=== PATIENT | male | born 1940 | race Caucasian/White ===

== ENCOUNTER 2020-03-20 10:56 | Outpatient (REF) | payer MEDICARE, SELFPAY | END 2020-03-20 10:57 | disposition home or self-care (01) | LOC: HO.WFDLDS 10:56 | PROVIDERS: Visit Provider Internal Medicine | DX: Z20.828 Contact with and (suspected) exposure to other viral communicable diseases (principal) | CPT/HCPCS: C9803; U0003 ==

== ENCOUNTER 2020-04-10 10:00 | Outpatient (REF) | payer OTHER, MEDICARE, SELFPAY ==
--- NOTE | 2020-04-10 | US_ITS ---
EXAMINATION: US RETROPERITONEAL LIMITED (RENAL ONLY) CLINICAL INFORMATION: Malignant neoplasm of kidney. COMPARISON: CT abdomen and pelvis 07/06/2019. TECHNIQUE: Real-time imaging of the kidneys. FINDINGS: RIGHT KIDNEY: 10.9 x 5.9 x 6.1 cm (SAG x AP x TRV). The kidney is normal in size, contour, and echogenicity. Renal cortical thickness is normal. No renal calculi or hydronephrosis. There is an anechoic cyst in the midpole measuring 2.4 x 2.0 x 2.5 cm and a mass in the upper pole measuring 3.0 x 2.4 x 2.7 cm. LEFT KIDNEY: 11.3 x 5.3 x 5.9 cm (SAG x AP x TRV). The kidney is normal in size, contour, and echogenicity. Renal cortical thickness is normal. No renal calculi or hydronephrosis. Multiple large cysts are seen with the largest cyst appearing complex in the lower pole measuring 2.6 x 2.2 x 2.2 cm. US/US renal BI IMPRESSION: 1. Multiple bilateral renal cysts. The largest cyst, lower pole left kidney, is complex measuring 2.6 cm. 2. There is a solid mass in the upper pole of the right kidney measuring 3.[address] it measured 3.7 cm. 3. No echogenic renal calculi or hydronephrosis.
== END 2020-04-10 10:01 | disposition home or self-care (01) ==
LOC: HO.US 10:00
PROVIDERS: Visit Provider Urology
DX: C64.9 Malignant neoplasm of unspecified kidney, except renal pelvis (principal)
CPT/HCPCS: 76775

== ENCOUNTER 2020-11-07 15:33 | Outpatient (REF) | payer OTHER, SELFPAY ==
--- NOTE | ~2020-11-07 | US_ITS ---
EXAMINATION: US RETROPERITONEAL LIMITED (RENAL ONLY) CLINICAL INFORMATION: Malignant neoplasm of kidney. COMPARISON: Renal ultrasound 04/10/2020. CT abdomen and pelvis 07/06/2019. TECHNIQUE: Real-time imaging of the kidneys. FINDINGS: RIGHT KIDNEY: 11.2 x 5.5 x 4.6 cm (SAG x AP x TRV). The kidney is normal in size, contour, and echogenicity. Renal cortical thickness is normal. There is a 2.4 x 2 x 2.5 cm cyst in the midpole that is unchanged. There is a 3 x 2.4 x 2.7 cm hypoechoic lesion in the upper pole. This is unchanged from April 2020 ultrasound. It is difficult to determine whether this represents a solid or cystic lesion. No renal calculi or hydronephrosis. LEFT KIDNEY: 11.7 x 6.4 x 4.6 cm (SAG x AP x TRV). The kidney is normal in size, contour, and echogenicity. Renal cortical thickness is normal. There are 3 cysts measuring 1.6 x 1.5 cm in the upper pole, 1.2 x 0.9 x 1.3 cm in the midpole and 2.7 x 2 x 1.7 cm in the lower pole. The latter cyst represents a complex cyst with several septations. This appears similar to previous exam. No renal calculi or hydronephrosis. US/US renal BI IMPRESSION: 3 x 2.4 x 2.7 cm hypoechoic lesion in the upper pole of the right kidney in the area of previous cryoablation. This is similar appearing to ultrasound April 2020. It is difficult to determine whether this represents a solid or cystic lesion. Follow-up contrast-enhanced CT or MRI should be considered. Bilateral renal cysts.
== END 2020-11-07 15:34 | disposition home or self-care (01) ==
LOC: HO.US 15:33
PROVIDERS: PCP Internal Medicine; Visit Provider Urology
DX: C64.9 Malignant neoplasm of unspecified kidney, except renal pelvis (principal)
CPT/HCPCS: 76775

== ENCOUNTER → 2020-11-15 15:47 | Outpatient (BNVA) | payer MEDICARE, OTHER, SELFPAY | PROVIDERS: PCP Internal Medicine; Referring Provider Internal Medicine; Visit Provider Urology | DX: Z13.89 Encounter for screening for other disorder (principal) | CPT/HCPCS: Q3014 ==

== ENCOUNTER 2021-04-08 10:11 | Outpatient (REF) | payer MEDICARE, OTHER, SELFPAY ==
[2021-04-08 12:17] LABS: Blood Urea Nitrogen 24 mg/dL (9-16)
== END 2021-04-08 10:12 | disposition home or self-care (01) ==
LOC: HO.LAB 10:11
PROVIDERS: Visit Provider Urology
DX: C64.9 Malignant neoplasm of unspecified kidney, except renal pelvis (principal)
CPT/HCPCS: 36415; 84520

== ENCOUNTER 2021-04-14 08:53 | Outpatient (REF) | payer MEDICARE, OTHER, SELFPAY ==
[2021-04-14 09:30] LABS: Estimated Glomerular Filt Rate 50
== END 2021-04-14 08:54 | disposition home or self-care (01) ==
LOC: HO.MRI 08:53
PROVIDERS: PCP Internal Medicine; Visit Provider Urology
DX: C64.9 Malignant neoplasm of unspecified kidney, except renal pelvis (principal)
CPT/HCPCS: 36415; 82565

== ENCOUNTER → 2021-06-04 15:18 | Outpatient (BNVA) | payer MEDICARE, OTHER, SELFPAY | PROVIDERS: PCP Internal Medicine; Visit Provider Urology | CPT/HCPCS: Q3014 ==

== ENCOUNTER → 2021-09-09 08:36 | Outpatient (BNVA) | payer MEDICARE, OTHER, SELFPAY | PROVIDERS: PCP Internal Medicine; Visit Provider Urology | CPT/HCPCS: Q3014 ==

== ENCOUNTER 2022-03-03 08:51 | Outpatient (REF) | payer MEDICARE, SELFPAY ==
--- NOTE | ~2022-03-03 | XR_ITS ---
EXAMINATION: XR CHEST CLINICAL INFORMATION: Malignant neoplasm of kidney COMPARISON: None TECHNIQUE: Frontal view of the chest was obtained. FINDINGS: No significant abnormality is noted involving the heart, lungs, mediastinum, bony thorax or soft tissues. There are degenerative changes of the spine. XR/XR chest 1V IMPRESSION: No evidence for acute disease in the chest.
== END 2022-03-03 08:52 | disposition home or self-care (01) ==
LOC: HO.XRAY 08:51
PROVIDERS: PCP Internal Medicine; Visit Provider Urology
DX: C64.9 Malignant neoplasm of unspecified kidney, except renal pelvis (principal)
CPT/HCPCS: 71045

== ENCOUNTER → 2022-03-12 09:32 | Outpatient (BNVA) | payer MEDICARE, SELFPAY | PROVIDERS: PCP Internal Medicine; Visit Provider Urology | DX: C64.9 Malignant neoplasm of unspecified kidney, except renal pelvis (principal) | CPT/HCPCS: 99212 ==

== ENCOUNTER 2022-08-21 13:11 | Outpatient (REF) | payer MEDICARE, SELFPAY ==
--- NOTE | ~2022-08-21 | US_ITS ---
EXAMINATION: US RETROPERITONEAL LIMITED (RENAL ONLY) CLINICAL INFORMATION: Malignant neoplasm of unspecified kidney, except renal pelvis. COMPARISON: MRI abdomen 08/16/2021. Renal ultrasound 11/07/2020 TECHNIQUE: Real-time imaging of the kidneys. FINDINGS: RIGHT KIDNEY: 10.9 x 5.4 x 4.4 cm (SAG x AP x TRV). The kidney is normal in size, contour, and echogenicity. Renal cortical thickness is normal. No renal calculi or hydronephrosis. Benign appearing 3.2 cm renal cyst, no imaging follow-up recommended. Isoechoic solid mass in the upper pole measuring 2.7 x 2.2 x 2.7 cm, previously 3.0 x 2.4 x 2.7 cm similar to minimally decreased from prior ultrasound which may correspond to site of prior cryoablation. There is a new hypoechoic 1.3 x 1.1 x 1.2 cm possible solid mass not previously seen. LEFT KIDNEY: 10.8 x 5.5 x 4.7 cm (SAG x AP x TRV). The kidney is normal in size, contour, and echogenicity. Renal cortical thickness is normal. No renal calculi or hydronephrosis. Benign-appearing renal cysts measuring up to 2.4 centers, no imaging follow-up recommended. US/US renal BI IMPRESSION: There is a new 1.3 cm possible solid right renal mass not previously seen multiple which further evaluation with contrast-enhanced MR or CT renal mass protocol is recommended. A 2.7 cm isoechoic solid mass in the upper pole of the right kidney similar to minimally decreased from prior ultrasound which may correspond to site of prior cryoablation. Attention on follow-up imaging. The report will be called to the ordering clinician by a [facility] Phys[facility] Preparation Department Supervisor.
== END 2022-08-21 13:12 | disposition home or self-care (01) ==
LOC: HO.US 13:11
PROVIDERS: PCP Internal Medicine; Visit Provider Urology
DX: C64.9 Malignant neoplasm of unspecified kidney, except renal pelvis (principal)
CPT/HCPCS: 76775

== ENCOUNTER → 2022-09-08 11:25 | Outpatient (BNVA) | payer MEDICARE, SELFPAY | PROVIDERS: PCP Internal Medicine; Visit Provider Urology | DX: C64.9 Malignant neoplasm of unspecified kidney, except renal pelvis (principal) | CPT/HCPCS: 99212 ==

== ENCOUNTER 2023-02-12 04:02 | Emergency (ER) | payer MEDICARE, SELFPAY ==
[2023-02-12 04:08] VITALS: BP 148/83; PULSE 43; RESP 18; TEMP 36.5; O2SAT 98; BMI 33.5
--- NOTE | 2023-02-12 04:38 | ED.EXTPRO ---
HPI - Extremity Problem General Chief complaint: Extremity Problem Stated complaint: Gout Time Seen by Provider: 02/12/23 04:37 Source: patient Mode of arrival: ambulatory Limitations: no limitations History of Present Illness HPI Narrative: Patient history of gouty arthritis with frequent episodes last episode was 6 months ago on allopurinol woke up at 01:30 with pain in the right greater toe radiating to the dorsum of the right foot no trauma no open wound patient does have a irregular heartbeats plan to have pacemaker placed next week denies any kidney issues was at [facility] last week for cardiac problem Related Data Home Medications Medication Instructions Recorded Confirmed allopurinol 100 mg tablet 100 mg PO BID 10/04/20 10/08/22 cholecalciferol (vitamin D3) 325 4,000 mcg PO DAILY 10/04/20 10/08/22 mcg (13,000 unit) capsule dorzolamide 2 % eye drops 1 drp ophthalmic (eye) BID 10/04/20 10/08/22 fexofenadine 180 mg tablet 180 mg PO DAILY 10/04/20 10/08/22 (Marline Allergy) furosemide 40 mg tablet 40 mg PO DAILY 10/04/20 10/08/22 insulin aspart U-100 100 unit/mL 1 sliding scale dose subcut 10/04/20 10/08/22 subcutaneous cartridge USEASDIRECTD insulin glargine 100 unit/mL (3 50 unit subcut DAILY 10/04/20 10/08/22 mL) subcutaneous pen ipratropium 20 mcg-albuterol 100 1 puff inhalation Q6H 10/04/20 10/08/22 mcg/actuation mist for inhalation latanoprost 0.005 % eye drops 1 drp ophthalmic (eye) BEDTIME 10/04/20 10/08/22 lisinopril 40 mg tablet 40 mg PO DAILY 10/04/20 10/08/22 rosuvastatin 40 mg tablet 40 mg PO DAILY 10/04/20 10/08/22 dorzolamide 22.3 mg-timolol 6.8 1 drp ophthalmic (eye) BID 09/09/21 10/08/22 mg/mL eye drops aspirin 81 mg tablet,delayed 81 mg PO DAILY 03/12/22 10/08/22 release (Adult Low Dose Aspirin) Previous Rx's Medication Instructions Recorded omeprazole 20 mg capsule,delayed 20 mg PO QAM #90 caps 01/13/22 release fluoxetine 20 mg capsule 20 mg PO DAILY #90 caps 08/26/22 ibuprofen 600 mg tablet 600 mg PO Q6H PRN fever or pain 02/12/23 #30 tabs prednisone 20 mg tablet 40 mg (2 x 20 mg) PO DAILY #10 tabs 02/12/23 Allergies Allergy/AdvReac Type Severity Reaction Status Date / Time Iodinated Contrast Media Allergy Severe Unknown Verified 02/12/23 04:12 atorvastatin Allergy Unknown Unknown Verified 02/12/23 04:12 ezetimibe [Zetia] Allergy Unknown Unknown Verified 02/12/23 04:12 niacin Allergy Unknown Unknown Verified 02/12/23 04:12 simvastatin Allergy Unknown Unknown Verified 02/12/23 04:12 Review of Systems Review of Systems: Yes all other systems are reviewed and are negative [facility] Past Medical History Medical History Obesity High blood pressure High cholesterol Diabetes Surgical History History of prostate surgery H/O cataract removal with insertion of prosthetic lens Family History Family History Mother Colon cancer Social History Social History Housing: House Alcohol intake: former Patient Tobacco Use Status: Former Tobacco user Tobacco use type: Cigarette Years Smoked: 10 e-Cigarette/Vaping Use: Never Used Second Hand Smoke Exposure: No Advance Directives: No Advance Directives Information Provided: Yes service: Yes Current occupational status: retired Cognitive needs: No Hearing needs: No Vision needs: No Physical Exam Vital Signs: Vital Signs: Last Vital Signs Temp 97.7 F 02/12/23 05:01 Pulse 73 02/12/23 05:01 Resp 16 02/12/23 05:01 BP 155/66 H 02/12/23 05:01 Pulse Ox 97 02/12/23 05:01 O2 Del Method Room Air 02/12/23 05:01 BMI result Body Mass Index 33.5 Appearance: Alert. Oriented X3. No acute distress. ENT: Pharynx normal. Oral Mucosa moist Neck: Normal inspection. Neck supple. CVS: Irregular heartbeat with skipped beats Pulses normal. Respiratory: No respiratory distress. Equal air entry bilateral, no wheezing/rales/rhonchi Abdomen: Soft and nontender. Bowel sounds are present, no mass palpable, no CVA tenderness Skin: Skin warm and dry. Normal skin color. Normal skin turgor. Extremities: No lower extremity edema. No calf tenderness right greater toe diffuse tenderness at MTP joint without significant redness or swelling neurovascular intact Neuro: Oriented X 3. No motor deficit. No sensory deficit.No cerebellar signs , cranial nerves II-XII intact Medications Administered Discontinued Medications Generic Name Dose Route Start Last Admin Trade Name Freq PRN Reason Stop Dose Admin Prednisone 60 mg 02/12/23 04:37 02/12/23 04:52 Prednisone 20 Mg Tablet PO 02/12/23 04:38 60 mg ONCE ONE Administration Medical Decision Making Medical Decision Making MDM Narrative: Patient with known history of gout responded to prednisone discharge patient home on prednisone and ibuprofen Differential Diagnosis Differential Diagnoses: The differential diagnosis associated with the presentation includes Gout/arthritis Independent Interpretation I performed an independent interpretation of an: EKG Interpretation: Sinus rhythm heart rate 59 beats per minute 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 no acute ischemic changes Discharge Plan Discharge Clinical Impression: Gout Patient Disposition: Home, Self-Care Instructions: Gout (ED) Additional Instructions: Take the allopurinol as prescribed Prednisone for 5 days for acute pain Ibuprofen for anti inflammation You may have to increase the dose of insulin as prednisone will increase your blood glucose Follow-up with PCP Prescriptions: New prednisone 20 mg tablet 40 mg PO DAILY Qty: 10 0RF ibuprofen 600 mg tablet 600 mg PO Q6H PRN (Reason: fever or pain) Qty: 30 0RF No Action omeprazole 20 mg capsule,delayed release(DR/EC) 20 mg PO QAM Qty: 90 8RF fluoxetine 20 mg capsule 20 mg PO DAILY Qty: 90 8RF latanoprost 0.005 % drops 1 drp ophthalmic (eye) BEDTIME lisinopril 40 mg tablet 40 mg PO DAILY furosemide 40 mg tablet 40 mg PO DAILY allopurinol 100 mg tablet 100 mg PO BID rosuvastatin 40 mg tablet 40 mg PO DAILY ipratropium-albuterol 20-100 mcg/actuation mist 1 puff inhalation Q6H dorzolamide 2 % drops 1 drp ophthalmic (eye) BID insulin glargine 100 unit/mL (3 mL) insulin pen 50 unit subcut DAILY insulin aspart U-100 100 unit/mL cartridge 1 sliding scale dose subcut USEASDIRECTD Patient Comments: 4 times a day. cholecalciferol (vitamin D3) 325 mcg (13,000 unit) capsule 4,000 mcg PO DAILY fexofenadine [Marline Allergy] 180 mg tablet 180 mg PO DAILY aspirin [Adult Low Dose Aspirin] 81 mg tablet,delayed release (DR/EC) 81 mg PO DAILY dorzolamide-timolol 22.3-6.8 mg/mL drops 1 drp ophthalmic (eye) BID
[2023-02-12 05:01] VITALS: BP 155/66; PULSE 73; RESP 16; TEMP 36.5; O2SAT 97
== END 2023-02-12 05:35 | disposition home or self-care (01) ==
PROVIDERS: Emergency Provider Internal Medicine
DX: M10.9 Gout, unspecified (principal); M79.674 Pain in right toe(s); E11.9 Type 2 diabetes mellitus without complications; I10 Essential (primary) hypertension; E78.5 Hyperlipidemia, unspecified; Z79.4 Long term (current) use of insulin; Z79.82 Long term (current) use of aspirin; Z79.899 Other long term (current) drug therapy
CPT/HCPCS: 93005; 99283; 99284

== ENCOUNTER 2023-03-11 11:17 | Outpatient (AMB) | payer MEDICARE, SELFPAY ==
--- NOTE | 2023-03-11 11:22 | A.OFFVIS_ITS ---
Intake Intake Visit Reasons: 6m/MRI Intake Note: Patient is present for renal cancer follow up/patient did not have MRI Urology Med: None Antibiotic Allergy: None Blood Thinner: Aspirin Disability Rater Required: No Accompanied by: Self / Same As Patient Allergies Iodinated Contrast Media Allergy (Severe, Verified 05/11/23 10:28) Unknown atorvastatin Allergy (Unknown, Verified 05/11/23 10:28) Unknown ezetimibe [Zetia] Allergy (Unknown, Verified 05/11/23 10:28) Unknown niacin Allergy (Unknown, Verified 05/11/23 10:28) Unknown simvastatin Allergy (Unknown, Verified 05/11/23 10:28) Unknown HPI HPI Comments History of Present Illness Details Sukh is a pleasant male. He is a patient Dr. Grove. seen for the following urologic conditions - renal cancer CT imaging performed - MRI not approved - right renal 3 cm area ablation Renal cancer right side cryoablation January 2019 right-sided renal cancer detected incidentally cryoablation performed January 2019 Imaging - [address] scan mass r eduction - 10/28 renal ultrasound with multiple c ysts bilaterally - 08/29 MRI - bilateral simple cyst stab le in size, right renal post ablation area 3.2 cm down from 4.5 at initial diagnosis - 02/28 CXR NAD Six month follow-up [facility] Medical History Obesity High blood pressure High cholesterol Diabetes Surgical History History of prostate surgery H/O cataract removal with insertion of prosthetic lens Family History Mother Colon cancer Social History Housing: House Alcohol intake: former Patient Tobacco Use Status: Former Tobacco user Tobacco use type: Cigarette Years Smoked: 10 e-Cigarette/Vaping Use: Never Used Second Hand Smoke Exposure: No service: Yes Current occupational status: retired Cognitive needs: No Hearing needs: No Vision needs: No Review of Systems Const Denies chills and Denies fever(s) Card Reports no additional complaints and Denies syncope Resp Denies cough GI Denies abdominal pain and Denies heartburn Reports as per HPI and Denies change in libido Neuro Denies syncope Psych Denies change in libido Endo Denies change in libido Physical Exam Const General: cooperative, healthy appearing, comfortable and no acute distress Orientation/consciousness: patient oriented x3 HEENT Face and sinus: Yes normal facial exam Mouth: moist mucous membranes Neck Neck: Yes normal visual inspection, Yes full ROM and Yes trachea midline Chest Chest palpation & inspection: normal inspection of the chest Resp Effort & Inspection: normal respiratory effort, able to speak in complete sentences and no respiratory distress GI Inspection: Yes normal to inspection Back/Spine/Pelvis Cervical Spine: normal cervical lordosis Thoracic/Lumbar Spine: thoracic and lumbar spine normal to inspection Skin General skin exam: no rashes or lesions noted Neuro General: patient oriented x3, gait normal, tone normal and moves all extremities Extrem General: Yes normal to inspection and Yes capillary refill normal Assessment & Plan Assessment & Plan (1) Renal cancer: Comment: 01/28 right cryotherapy were Code(s): C64.9 - Malignant neoplasm of unspecified kidney, except renal pelvis Qualifiers: Laterality: right Qualified Code(s): C64.1 - Malignant neoplasm of right kidney, except renal pelvis Plan Continue surveillance imaging Orders: Orders US renal BI 6 Months C64.9 - Malignant neoplasm of unspecified kidney, except renal pelvis Patient Instructions: Imaging studies, laboratory and physical exam results were discussed and reviewed in detail. No major barriers to patient understanding were identified. An opportunity to ask questions regarding the treatment plan was provided. All questions were answered. The patient expressed understanding and agreement with the above treatment plan. The patient is aware they should contact our office by phone for worsening of their current condition or the appearance of new urologic symptoms. Compliance is encouraged with any medications and followup testing that is ordered. It is a privilege to participate in the urologic care of your patient. If you have any questions or concerns regarding treatment for the above conditions, or other urologic issues, please do not hesitate to contact me. The office telephone contact is [phone]. This note is constructed using voice recognition software. While every effort has been made to ensure accuracy gl accountant errors may have been included. Yours sincerely, Dr Geremias Hansen MD, [facility] - Urology Providers of Expert, Compassionate Care for the Genitourinary System Coding Level of Care Code Est Pt Level 3 (54756) Diagnoses Malignant neoplasm of right kidney C64.1 Laterality: right
== END 2023-03-11 12:25 | disposition home or self-care (01) ==
PROVIDERS: Visit Provider Urology
DX: C64.1 Malignant neoplasm of right kidney, except renal pelvis (principal)
CPT/HCPCS: 99213

== ENCOUNTER → 2023-03-11 11:17 | Outpatient (BNVA) | payer MEDICARE, SELFPAY | PROVIDERS: Visit Provider Urology | DX: C64.1 Malignant neoplasm of right kidney, except renal pelvis (principal) | CPT/HCPCS: 99212 ==

== ENCOUNTER 2023-03-18 19:03 | Emergency (ER) | payer MEDICARE, SELFPAY ==
--- NOTE | ~2023-03-18 | XR_ITS ---
EXAMINATION: XR CHEST CLINICAL INFORMATION: Shortness of breath. COMPARISON: Chest radiograph 03/03/2022. TECHNIQUE: AP view of the chest was obtained. FINDINGS: Left-sided pacer with leads projecting over the right atrium and right ventricle. Normal heart size. No focal airspace opacity, pleural effusion or pneumothorax. No acute osseous findings. XR/XR chest 1V IMPRESSION: No acute cardiopulmonary findings.
--- NOTE | 2023-03-18 19:15 | ECG_ITS ---
Test Reason : SOB Blood Pressure : / mmHG Vent. Rate : 078 BPM Atrial Rate : 078 BPM P-R Int : 202 ms QRS Dur : 100 ms QT Int : 372 ms P-R-T Axes : 070 044 048 degrees QTc Int : 424 ms Atrial-sensed ventricular-paced rhythm Abnormal ECG When compared with ECG of 12-FEB-2023 04:57, Electronic ventricular pacemaker has replaced Sinus rhythm Referred By: Generic ED Physician Electronically Signed By:SHU ALVAREZ MD
[2023-03-18 19:18] VITALS: BP 149/62; PULSE 88; RESP 22; TEMP 36.5; O2SAT 95; BMI 33.5
--- NOTE | 2023-03-18 19:36 | PC.NURSE ---
pt transferred to overflow unit, Sam LEDEZMA recived report from Amelie Charge nurse
[2023-03-18 20:00] LABS: MANUAL DIFF FLAG NO
[2023-03-18 20:03] LABS: Appearance Urine Clear; Color Urine Yellow; Glucose Urine UA Negative (Negative); Leukocyte Esterase Urine Negative (Negative); Nitrite Urine Negative (Negative); PH 6.5 (5.0-9.0); Urine Blood Negative (Negative); Urine Ketones Negative (Negative); Urine Protein Negative (Neg-Trace)
[2023-03-18 20:14] LABS: Basophils Percent Auto 0.3 % (0-2); Eosinophils Absolute Auto 0.3 X10*3/uL (0.0-0.4); Eosinophils Percent Auto 2.7 % (0-4); Hematocrit 37.9 % (42.0-52.0); Hemoglobin 12.7 g/dl (14.0-18.0); Imm Gran Abs Auto 0.03 X10*3/uL (0.00-0.03); Imm Gran Pct Auto 0.3 % (0.0-0.4); Lymphocytes Absolute Auto 4.3 X10*3/uL (1.2-4.9); Lymphocytes Percent Auto 38.9 % (20-40); Mean Corpuscular HGB Conc 33.5 g/dl (31.0-36.0); Mean Corpuscular Hemoglobin 32.7 pg (27.0-33.0); Mean Corpuscular Volume 97.7 fL (80.0-98.0); Mean Platelet Volume 10.3 fL (9.4-12.4); Monocytes Absolute Auto 0.8 X10*3/uL (0.1-1.2); Monocytes Percent Auto 7.1 % (2-11); Neutrophils Absolute Auto 5.5 x10*3/uL (2.0-8.3); Neutrophils Percent Auto 50.7 % (45-73); Platelet Count 296 X10*3/uL (160-400); Red Blood Count 3.88 X10*6/uL (4.60-5.80); Red Cell Distribution Width 12.7 % (11.0-16.0); White Blood Count 10.9 X10*3/uL (4.8-10.8)
[2023-03-18 20:16] LABS: Alanine Aminotransferase 24 U/L (0-40); Alkaline Phosphatase 83 U/L (39-117); Anion Gap 14 (12-20); Aspartate Amino Transferase 22 U/L (5-37); Bilirubin Total 0.3 mg/dL (0.0-1.0); Blood Urea Nitrogen 30 mg/dL (9-16); Calcium 9.6 mg/dL (8.4-10.2); Carbon Dioxide 26 mmol/L (22-29); Chloride 104 mmol/L (96-108); Creatinine Clr Calc Pharmacy 58.9; Estimated Glomerular Filt Rate 50; Glucose Random 220 mg/dL (60-115); Potassium 4.1 mmol/L (3.3-5.1); Sodium 140 mmol/L (135-145); Total Protein 6.9 g/dL (6.5-8.0)
--- NOTE | 2023-03-18 20:35 | ED.SOB ---
HPI - SOB/Dyspnea General Chief Complaint: Dyspnea Stated Complaint: SOB X 1 HOUR AGO Time Seen by Provider: 03/18/23 20:11 Source: patient Mode of arrival: EMS Limitations: no limitations History of Present Illness HPI Narrative: patient comes to the emergency room complaining of shortness of breath for a few hours. Patient states that today he walked from his kitchen towards the mailbox, return to the kitchen and walked up couple of steps. Patient states that he was significantly short of breath. bedtime the patient of to the emergency room, patient was asymptomatic. Related Data Home Medications Medication Instructions Recorded Confirmed allopurinol 100 mg tablet 100 mg PO BID 10/04/20 10/08/22 cholecalciferol (vitamin D3) 325 4,000 mcg PO DAILY 10/04/20 10/08/22 mcg (13,000 unit) capsule dorzolamide 2 % eye drops 1 drp ophthalmic (eye) BID 10/04/20 10/08/22 fexofenadine 180 mg tablet 180 mg PO DAILY 10/04/20 10/08/22 (Marline Allergy) furosemide 40 mg tablet 40 mg PO DAILY 10/04/20 10/08/22 insulin aspart U-100 100 unit/mL 1 sliding scale dose subcut 10/04/20 10/08/22 subcutaneous cartridge USEASDIRECTD insulin glargine 100 unit/mL (3 50 unit subcut DAILY 10/04/20 10/08/22 mL) subcutaneous pen ipratropium 20 mcg-albuterol 100 1 puff inhalation Q6H 10/04/20 10/08/22 mcg/actuation mist for inhalation latanoprost 0.005 % eye drops 1 drp ophthalmic (eye) BEDTIME 10/04/20 10/08/22 lisinopril 40 mg tablet 40 mg PO DAILY 10/04/20 10/08/22 rosuvastatin 40 mg tablet 40 mg PO DAILY 10/04/20 10/08/22 dorzolamide 22.3 mg-timolol 6.8 1 drp ophthalmic (eye) BID 09/09/21 10/08/22 mg/mL eye drops aspirin 81 mg tablet,delayed 81 mg PO DAILY 03/12/22 10/08/22 release (Adult Low Dose Aspirin) apixaban 5 mg tablet (Eliquis) 5 mg PO DAILY 03/11/23 duloxetine 20 mg capsule,delayed 20 mg PO BID 03/11/23 release Previous Rx's Medication Instructions Recorded fluoxetine 20 mg capsule 20 mg PO DAILY #90 caps 08/26/22 ibuprofen 600 mg tablet 600 mg PO Q6H PRN fever or pain 02/12/23 #30 tabs omeprazole 20 mg capsule,delayed 20 mg PO QAM #90 caps 03/16/23 release Allergies Allergy/AdvReac Type Severity Reaction Status Date / Time Iodinated Contrast Media Allergy Severe Unknown Verified 03/11/23 11: atorvastatin Allergy Unknown Unknown Verified 03/11/23 11: ezetimibe [Zetia] Allergy Unknown Unknown Verified 03/11/23 11: niacin Allergy Unknown Unknown Verified 03/11/23: simvastatin Allergy Unknown Unknown Verified 03/11/23: Review of Systems Review of Systems: Constitutional : No Weight loss, No Fever, No Chills, No Night Sweats, No Fatigue, No Malaise ENT/Mouth : No Hearing loss, No Ear Pain, No Nasal Congestion, No Sinus Pain, No Hoarseness, No sore throat, No Rhinorrhea, No Swallowing Difficulty Eyes: No Eye Pain, No Swelling, No Redness, No Foreign Body, No Discharge, No Vision Changes Cardiovascular : No Chest Pain, Complaining of palpitations shortness of breath Respiratory : No Cough, No Sputum, No Wheezing, No Smoke Exposure, No Dyspnea Gastrointestinal : No Nausea, No Vomiting, No Diarrhea, No Constipation, No abdominal Pain, No Hematochezia, No Melena Genitourinary : no irregular bleeding, No Dysuria, No Urinary Frequency, No Hematuria, No Urinary Incontinence, No Urgency, No Flank Pain, No Urinary Flow Changes, No Hesitancy Musculoskeletal : No joint pain, No Myalgias, No Joint Swelling Skin : No Skin Lesions, No rash Neuro : No Weakness, No Numbness, No Paresthesias, No Loss of Consciousness, No Dizziness, No Headache Psych : No Anxiety/Panic, No Depression, No SI/HI/AH/VH, No Social Issues, Heme/Lymph: No Bruising, No Bleeding,No Lymphadenopathy Endocrine : No Polyuria, No Polydipsia, No Temperature Intolerance PMFSH Past Medical History Medical History Obesity High blood pressure High cholesterol Diabetes Surgical History History of prostate surgery H/O cataract removal with insertion of prosthetic lens Family History Family History Mother Colon cancer Social History Social History Housing: House Alcohol intake: former Patient Tobacco Use Status: Former Tobacco user Tobacco use type: Cigarette Years Smoked: 10 Smoked in Last 30 Days: No e-Cigarette/Vaping Use: Never Used Second Hand Smoke Exposure: No Use of substances other than those prescribed or required for medical reasons: No Advance Directives: No Advance Directives Information Provided: No service: Yes Current occupational status: retired Cognitive needs: No Hearing needs: No Vision needs: No Physical Exam Vital Signs: Vital Signs: Last Vital Signs Temp 98.2 F 03/18/23 22:03 Pulse 80 03/18/23 22:03 Resp 18 03/18/23 22:03 BP 104/68 03/18/23 22:03 Pulse Ox 98 03/18/23 22:03 O2 Del Method Room Air 03/18/23 22:03 BMI result Body Mass Index 33.5 Const: Other: Appearance: Alert. Oriented X3. No acute distress. Eyes: Pupils equal, round and reactive to light. ENT: Pharynx normal. Neck: Normal inspection. Neck supple. No lymph nodes noted. No crepitus CVS: Normal heart rate and rhythm. Pulses normal. Normal S1 and S2 Respiratory: No respiratory distress. Breath sounds normal. No Wheezing. No rales Abdomen: Soft and nontender. No rigidity. No distention. Skin: Skin warm and dry. Normal skin color. Normal skin turgor. Extremities: No lower extremity edema. No Lacerations. No Rash Neuro: Oriented X 3. No motor deficit. No sensory deficit. Moving all extremities. No slurred speech. CN 2 through 12 grossly intact Psych: calm, cooperative, normal affect Medical Decision Making Medical Decision Making MDM Narrative: - my interpretation of EKG: atrial sensed ventricular paced rhythm, 178, no ST changes, QTC 424 - my interpretation of chest x-ray: no pneumonia or edema - my interpretation of labs: Normal hematology and chemistry, normal BNP and troponin. - Orthostatic vitals were normal, patient walked around the emergency room with an oxygen saturation of 95% without feeling short of breath. - I discussed the above-mentioned with the patient. Patient states that he is suspicious that he might have had a panic attack. Patient states that he was working in the years ago, patient does not do well with the dark. Patient states that when he walked outside to get the mail, he noted how dark it was not started feeling uncomfortable because of the darkness. Patient states that he has noted that he has the symptoms when it is dark. also, patient states that now his lives in a [employer] time [employer], patient is now living by himself which makes his symptoms worse - Patient has never spoken to his primary care provider about his fear of darkness. Patient states that he has an appointment coming up at the [facility], he will address this issue. -Patient feels comfortable returning home Differential Diagnosis Differential Diagnoses: The differential diagnosis associated with the presentation includes ( ACS, CHF, unstable angina, anxiety, nyctophobia) Admission/Observation Consideration of admission/observation: Escalation of care including admission/observation considered ( given the patient's initial presentation and history, admission was considered) Lab Data MDM Lab Attestation statement: I reviewed the patient's lab results. 03/18/23 19:53 03/18/23 19:53 Labs: Lab Results 03/18/23 Range/Units 19:53 WBC 10.9 H (4.8-10.8) X10*3/uL RBC 3.88 L (4.60-5.80) X10*6/uL Hgb 12.7 L (14.0-18.0) g/dl Hct 37.9 L (42.0-52.0) % MCV 97.7 (80.0-98.0) fL MCH 32.7 (27.0-33.0) pg MCHC 33.5 (31.0-36.0) g/dl RDW 12.7 (11.0-16.0) % Plt Count 296 (160-400) X10*3/uL MPV 10.3 (9.4-12.4) fL Immature Gran % (Auto) 0.3 (0.0-0.4) % Neut % (Auto) 50.7 (45-73) % Lymph % (Auto) 38.9 (20-40) % Faulk % (Auto) 7.1 (2-11) % Eos % (Auto) 2.7 (0-4) % Baso % (Auto) 0.3 (0-2) % Lymph # (Auto) 4.3 (1.2-4.9) X10*3/uL Faulk # (Auto) 0.8 (0.1-1.2) X10*3/uL Eos # (Auto) 0.3 (0.0-0.4) X10*3/uL Baso # (Auto) 0.0 (0.0-0.2) X10*3/uL Abs Immat Gran (auto) 0.03 (0.00-0.03) X10*3/uL Absolute Neuts (auto) 5.5 (2.0-8.3) x10*3/uL Absolute Nucleated RBC 0.000 (0.0-0.012) X10*3/uL Nucleated RBC % (auto) 0.0 (0.0-0.2) /100WBC Sodium 140 (135-145) mmol/L Potassium 4.1 (3.3-5.1) mmol/L Chloride 104 (96-108) mmol/L Carbon Dioxide 26 (22-29) mmol/L Anion Gap 14 (12-20) BUN 30 H (9-16) mg/dL Creatinine 1.37 (0.5-1.4) mg/dL Estim Creat Clear Calc 58.9 Estimated GFR 50 Random Glucose 220 H (60-115) mg/dL Calcium 9.6 (8.4-10.2) mg/dL Total Bilirubin 0.3 (0.0-1.0) mg/dL AST 22 (5-37) U/L ALT 24 (0-40) U/L Alkaline Phosphatase 83 (39-117) U/L Troponin I High Sens 5.0 (<3.5-35.0) ng/L B-Natriuretic Peptide 24 (<100) pg/mL Total Protein 6.9 (6.5-8.0) g/dL Albumin 4.0 (3.5-5.0) g/dL Urine Color Yellow Urine Appearance Clear Urine pH 6.5 (5.0-9.0) Ur Specific Nahma 1.010 (1.005-1.025) Urine Protein Negative (Neg-Trace) mg/dL Urine Glucose (UA) Negative (Negative) mg/dL Urine Ketones Negative (Negative) mg/dL Urine Blood Negative (Negative) Urine Nitrite Negative (Negative) Ur Leukocyte Esterase Negative (Negative) Independent Interpretation I performed an independent interpretation of an: EKG and Plain X-Ray Radiology Impression Discussion of test interpretation with radiology: I have reviewed the radiologist's reading. Radiologist Impression: Left-sided pacer with leads projecting over the right atrium and right ventricle. Normal heart size. No focal airspace opacity, pleural effusion or pneumothorax. No acute osseous findings. XR/XR chest 1V IMPRESSION: No acute cardiopulmonary findings. Critical Care Time Critical Care Time Critical Care Time: Yes Total Critical Care Time: 60 Attestation: I have personally provided critical care time. Time includes review of lab data, radiology results, discussion with consultants, and monitoring for potential decompensation. Intervention performed as documented. Discharge Plan Discharge Clinical Impression: Acute dyspnea, Anxiety Patient Disposition: Home, Self-Care Instructions: Dyspnea (ED), Anxiety (ED) Additional Instructions: Please follow-up with your primary care physician tomorrow. If you have any worsening or new symptoms, please return to the emergency room or call 911 Prescriptions: No Action fluoxetine 20 mg capsule 20 mg PO DAILY Qty: 90 8RF omeprazole 20 mg capsule,delayed release(DR/EC) 20 mg PO QAM Qty: 90 8RF ibuprofen 600 mg tablet 600 mg PO Q6H PRN (Reason: fever or pain) Qty: 30 0RF latanoprost 0.005 % drops 1 drp ophthalmic (eye) BEDTIME lisinopril 40 mg tablet 40 mg PO DAILY furosemide 40 mg tablet 40 mg PO DAILY allopurinol 100 mg tablet 100 mg PO BID rosuvastatin 40 mg tablet 40 mg PO DAILY ipratropium-albuterol 20-100 mcg/actuation mist 1 puff inhalation Q6H dorzolamide 2 % drops 1 drp ophthalmic (eye) BID insulin glargine 100 unit/mL (3 mL) insulin pen 50 unit subcut DAILY insulin aspart U-100 100 unit/mL cartridge 1 sliding scale dose subcut USEASDIRECTD Patient Comments: 4 times a day. cholecalciferol (vitamin D3) 325 mcg (13,000 unit) capsule 4,000 mcg PO DAILY fexofenadine [Marline Allergy] 180 mg tablet 180 mg PO DAILY aspirin [Adult Low Dose Aspirin] 81 mg tablet,delayed release (DR/EC) 81 mg PO DAILY dorzolamide-timolol 22.3-6.8 mg/mL drops 1 drp ophthalmic (eye) BID duloxetine 20 mg capsule,delayed release(DR/EC) 20 mg PO BID Eliquis 5 mg tablet 5 mg PO DAILY
[2023-03-18 20:52] LABS: B Type Natriuretic Peptide 24 pg/mL (<100)
[2023-03-18 21:46] VITALS: BP 133/79; PULSE 79
[2023-03-18 22:02] VITALS: BP 119/79; BP 120/58; PULSE 77; PULSE 98
[2023-03-18 22:03] VITALS: BP 104/68; PULSE 80; RESP 18; TEMP 36.8; O2SAT 98
--- NOTE | 2023-03-18 22:06 | MHC.EDTECH ---
Per Provider ,Pt went for a walk with a walker ,when Patient stand up 02 sat was 98 % on room air ,during walking Patient 02 sat remain between 97 -98 % ,Patient had a steady gait and was able to ambulate independently ,Patient back in bed Provider aware .
--- NOTE | 2023-03-19 01:10 | MHC.EDTECH ---
Call out to raul at [phone] to book transport for pt back home, estimated eta given was [phone]
== END 2023-03-19 01:02 | disposition home or self-care (01) ==
PROVIDERS: Emergency Provider Emergency Medicine; PCP Internal Medicine
DX: R06.00 Dyspnea, unspecified (principal); F41.9 Anxiety disorder, unspecified; E11.9 Type 2 diabetes mellitus without complications; I10 Essential (primary) hypertension; E78.00 Pure hypercholesterolemia, unspecified; K21.9 Gastro-esophageal reflux disease without esophagitis; J43.9 Emphysema, unspecified; R06.02 Shortness of breath; E66.9 Obesity, unspecified; Z68.33 Body mass index [BMI] 33.0-33.9, adult; Z87.891 Personal history of nicotine dependence; Z79.4 Long term (current) use of insulin; Z79.82 Long term (current) use of aspirin; Z79.01 Long term (current) use of anticoagulants; Z79.899 Other long term (current) drug therapy
CPT/HCPCS: 36415; 71045; 80053; 81003; 83880; 84484; 85025; 93005; 99284; 99285

== ENCOUNTER 2023-05-11 10:27 | Outpatient (AMB) | payer MEDICARE, SELFPAY ==
[2023-05-11 10:28] VITALS: BP 128/70; PULSE 73; O2SAT 97; BMI 34.1
--- NOTE | 2023-05-11 10:28 | A.OFFPC_ITS ---
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: Not Required per policy Accompanied by: Self / Same As Patient Allergies Iodinated Contrast Media Allergy (Severe, Verified 05/11/23 10:28) Unknown atorvastatin Allergy (Unknown, Verified 05/11/23 10:28) Unknown ezetimibe [Zetia] Allergy (Unknown, Verified 05/11/23 10:28) Unknown niacin Allergy (Unknown, Verified 05/11/23 10:28) Unknown simvastatin Allergy (Unknown, Verified 05/11/23 10:28) Unknown Medication List - Last Reconciled 05/11/23 by Benedicto Grove MD allopurinol 100 mg PO BID apixaban (Eliquis) 5 mg PO DAILY aspirin (Adult Low Dose Aspirin) 81 mg PO DAILY cholecalciferol (vitamin D3) 4,000 mcg PO DAILY dorzolamide 2% 1 drp ophthalmic (eye) BID dorzolamide-timolol 22.3-6.8 mg/mL 1 drp ophthalmic (eye) BID duloxetine 20 mg PO BID fexofenadine (Marline Allergy) 180 mg PO DAILY fluoxetine 20 mg PO DAILY furosemide 40 mg PO DAILY ibuprofen 600 mg PO Q6H PRN insulin aspart U-100 1 sliding scale dose subcut USEASDIRECTD insulin glargine 50 units subcut DAILY ipratropium-albuterol 20-100 mcg/actuation 1 puff inhalation Q6H latanoprost 0.005% 1 drp ophthalmic (eye) BEDTIME lisinopril 40 mg PO DAILY omeprazole 20 mg PO QAM rosuvastatin 40 mg PO DAILY Tobacco use date assessed: 06/11/22 Fall risk assessment: No Falls in past year Last assessed Fall Risk: 05/11/23 Dental Screening Dental Screen Date: 05/11/23 Did you have a dental visit in the last 12 months?: Yes Did you have a dental problem in the last 6 months where you did not have access to dental care?: No Was dental information given to patient?: Patient has dentist HPI DM HPI Details DM hyperlip and gout; due for [facility] Medical History Obesity High blood pressure High cholesterol Diabetes Surgical History History of prostate surgery H/O cataract removal with insertion of prosthetic lens Family History Mother Colon cancer Social History Housing: House Alcohol intake: former Patient Tobacco Use Status: Former Tobacco user Tobacco use type: Cigarette Years Smoked: 10 e-Cigarette/Vaping Use: Never Used Second Hand Smoke Exposure: No service: Yes Current occupational status: retired Cognitive needs: No Hearing needs: No Vision needs: No Questionnaire Thrive Questionnaire Date Thrive assessed: 10/08/22 REAL-7 AMB Questionnaire REAL-7 Date REAL - 7 assessed: 10/08/22 Source: Developed by Drs. Nilo Bajwa, Sierra Dejesus, Narciso Clemons and colleagues, with an educational maritza from [employer]. Review of Systems Const Denies chills, Denies headache(s) and Denies weight loss ENT Denies headache(s) Card Denies chest pain, Denies syncope, Denies irregular heart rhythm and Denies dyspnea Resp Denies chest congestion, Denies cough and Denies dyspnea GI Denies abdominal pain, Denies change in stool character, Denies nausea and Denies vomiting Musc Denies deformity and Denies joint swelling Neuro Denies syncope and Denies headache(s) Physical exam (Primary Care) Vital Signs: Last Vital Signs Pulse 73 05/11/23 10:28 BP 128/70 05/11/23 10:28 Pulse Ox 97 05/11/23 10:28 Oxygen Delivery Method Room Air 05/11/23 10:28 BMI result Body Mass Index 34.1 Tobacco/Smoking Status: Tobacco use Status Tobacco use date assessed 06/11/22 05/11/23 10:36 Patient Tobacco Use Status Former Tobacco user 05/11/23 10:36 Tobacco use type Cigarette 05/11/23 10:36 e-Cigarette/Vaping Use Never Used 05/11/23 10:36 Thrive Assessment: Date of Thrive Assessment Date Thrive assessed 10/08/22 05/11/23 10:36 Const General: cooperative, comfortable, no acute distress and alert Neck Neck: Yes no lymphadenopathy Thyroid: Thyroid normal Resp Effort & Inspection: normal respiratory effort Auscultation: clear to auscultation bilaterally Percussion: percussion normal Cardio Jugular venous distension: no JVD Palpation: normal PMI Rate: regular rate Rhythm: regular rhythm Heart sounds: S1 normal heart sound present and S2 normal heart sound present GI Inspection: Yes normal to inspection Palpation (GI): No hepatosplenomegaly present Skin General skin exam: no rashes or lesions noted Extrem General: Yes no clubbing, cyanosis or edema Assessment and Plan Assessment & Plan (1) Gout: Code(s): M10.9 - Gout, unspecified Plan: stable; same rx (2) High cholesterol: Code(s): E78.00 - Pure hypercholesterolemia, unspecified Plan: due for labs (3) DM type 2 with diabetic mixed hyperlipidemia: Code(s): E11.69 - Type 2 diabetes mellitus with other specified complication; E78.2 - Mixed hyperlipidemia Plan: stable; due for labs Orders: Orders Lipid Panel Today E78.5 - Hyperlipidemia, unspecified Thyroid Stimulating Hormone Today E03.9 - Hypothyroidism, unspecified Microalbumin, Random (w Creat) Today E11.69 - Type 2 diabetes mellitus with other specified complication, E66.01 - Morbid (severe) obesity due to excess calories Complete Blood Count Auto Diff Today D64.9 - Anemia, unspecified Comprehensive [place]. Panel Fast Today N28.9 - Disorder of kidney and ureter, unspecified Hemoglobin A1c Today R73.9 - Hyperglycemia, unspecified Coding Level of Care Code Est Pt Level 4 (69331) Diagnoses Gout M10.9 High cholesterol E78.00 DM type 2 with diabetic mixed hyperlipidemia E11.69; E78.2
== END 2023-05-11 10:50 | disposition home or self-care (01) ==
PROVIDERS: PCP Internal Medicine; Visit Provider Internal Medicine
DX: M10.9 Gout, unspecified (principal); E78.00 Pure hypercholesterolemia, unspecified; E11.69 Type 2 diabetes mellitus with other specified complication; E78.2 Mixed hyperlipidemia
CPT/HCPCS: 99214

== ENCOUNTER 2023-08-30 09:02 | Outpatient (REF) | payer MEDICARE, SELFPAY ==
--- NOTE | ~2023-08-30 | US_ITS ---
EXAMINATION: US RETROPERITONEAL LIMITED (RENAL ONLY) CLINICAL INFORMATION: Malignant neoplasm of unspecified kidney, except renal pelvis. COMPARISON: Renal ultrasound 08/21/2022. CT abdomen and pelvis 07/06/2019. MR abdomen without contrast 08/16/2021. Renal ultrasound 11/07/2020. TECHNIQUE: Real-time imaging of the kidneys. FINDINGS: RIGHT KIDNEY: 10.7 x 5.9 x 5.0 cm (SAG x AP x TRV). The kidney is normal in size, contour, and echogenicity. Renal cortical thickness is normal. No renal calculi or hydronephrosis. At the upper pole, a 3.4 x 3.9 x 3.8 cm heterogeneous echotexture mass is seen, without associated color Doppler flow. On the most recent ultrasound examination, this measured 2.6 x 2.6 x 2.3 cm. There is an adjacent 4.2 x 4.9 x 3.8 cm ill-defined heterogeneous attenuation focus which may represent cryoablation scar and which appears increased from prior dimensions of 2.7 x 2.2 x 2.7 cm. At the upper pole, a 1.5 cm benign, simple cyst is seen. At the interpolar aspect, a 2.8 cm benign, simple cyst is seen. At the lower pole, 2.9 cm and 0.9 cm benign, simple cysts are seen. These require no imaging follow-up. LEFT KIDNEY: 11.2 x 6.0 x 4.6 cm (SAG x AP x TRV). The kidney is normal in size, contour, and echogenicity. Renal cortical thickness is normal. No renal calculi or hydronephrosis. At the upper pole, a 2.0 cm benign, simple cyst is seen. At the lower pole, 2.0 cm and 1.5 cm benign, simple cysts are redemonstrated. These require no imaging follow-up. US/US renal BI IMPRESSION: At the upper pole of the right kidney, there are are ill-defined foci, both increased, suspicious for a mass lesion and adjacent post cryoablation change. The possibility of residual/recurrent lesion is not excluded. Recommend further evaluation with renal mass protocol CT or MRI (with and without contrast).
== END 2023-08-30 09:03 | disposition home or self-care (01) ==
LOC: HO.US 09:02
PROVIDERS: PCP Internal Medicine; Visit Provider Urology
DX: C64.9 Malignant neoplasm of unspecified kidney, except renal pelvis (principal)
CPT/HCPCS: 76775

== ENCOUNTER 2023-09-09 10:16 | Outpatient (AMB) | payer MEDICARE, SELFPAY ==
--- NOTE | 2023-09-09 10:33 | MHC.OFFVIS ---
Intake Visit Reasons: 6m/US(set) Allergies Iodinated Contrast Media Allergy (Severe, Verified 05/11/23 10:28) Unknown atorvastatin Allergy (Unknown, Verified 05/11/23 10:28) Unknown ezetimibe [Zetia] Allergy (Unknown, Verified 05/11/23 10:28) Unknown niacin Allergy (Unknown, Verified 05/11/23 10:28) Unknown simvastatin Allergy (Unknown, Verified 05/11/23 10:28) Unknown Medication List - Last Reconciled 09/09/23 by Geremias Hansen MD allopurinol 100 mg PO BID apixaban (Eliquis) 5 mg PO DAILY aspirin (Adult Low Dose Aspirin) 81 mg PO DAILY cholecalciferol (vitamin D3) 4,000 mcg PO DAILY dorzolamide 2% 1 drp ophthalmic (eye) BID dorzolamide-timolol 22.3-6.8 mg/mL 1 drp ophthalmic (eye) BID duloxetine 20 mg PO BID fexofenadine (Marline Allergy) 180 mg PO DAILY fluoxetine 20 mg PO DAILY furosemide 40 mg PO DAILY ibuprofen 600 mg PO Q6H PRN insulin aspart U-100 1 sliding scale dose subcut USEASDIRECTD insulin glargine 50 units subcut DAILY ipratropium-albuterol 20-100 mcg/actuation 1 puff inhalation Q6H latanoprost 0.005% 1 drp ophthalmic (eye) BEDTIME lisinopril 40 mg PO DAILY omeprazole 20 mg PO QAM rosuvastatin 40 mg PO DAILY HPI Comments Details: Sukh is a pleasant male. He is a patient Dr. Grove. seen for the following urologic conditions - renal cancer Longstanding ongoing relationship with this patient regarding surveillance and management of his renal cancer. Surveillance follow-up Imaging shows persistent ill-defined focus. Suggest renal biopsy. Renal cancer right side cryoablation January 2019 right-sided renal cancer detected incidentally cryoablation performed January 2019 Imaging - [address] scan mass reduction - 10/28 renal ultrasound with multiple cysts bilaterally - 08/29 MRI - bilateral simple cyst stable in size, right renal post ablation area 3.2 cm down from 4.5 at initial diagnosis - 02/28 CXR NAD - 01/30 CT with contrast. Right renal 3 cm area suspicious for possible recurrence. MRI recommended - 09/30 renal ultrasound with bilateral cysts. Upper pole of the right kidney, there are are ill-defined foci, both increased, suspicious for a mass lesion and adjacent post cryoablation change. The possibility of residual/recurrent lesion is not excluded. Recommend further evaluation with renal mass protocol CT or MRI (with and without contrast) [facility] Medical History Obesity High blood pressure High cholesterol Diabetes Surgical History History of prostate surgery H/O cataract removal with insertion of prosthetic lens Family History Mother Colon cancer Social History Housing: House Alcohol intake: former Patient Tobacco Use Status: Former Tobacco user Tobacco use type: Cigarette Years Smoked: 10 e-Cigarette/Vaping Use: Never Used Second Hand Smoke Exposure: No service: Yes Current occupational status: retired Cognitive needs: No Hearing needs: No Vision needs: No Review of Systems Const Denies chills and Denies fever(s) Card Reports no additional complaints and Denies syncope Resp Denies cough GI Denies abdominal pain and Denies heartburn Reports as per HPI and Denies change in libido Neuro Denies syncope Psych Denies change in libido Endo Denies change in libido Physical Exam Const General: cooperative, healthy appearing, comfortable and no acute distress Orientation/consciousness: patient oriented x3 HEENT Face and sinus: Yes normal facial exam Mouth: moist mucous membranes Neck Neck: Yes normal visual inspection, Yes full ROM and Yes trachea midline Chest Chest palpation & inspection: normal inspection of the chest Resp Effort & Inspection: normal respiratory effort, able to speak in complete sentences and no respiratory distress GI Inspection: Yes normal to inspection Back/Spine/Pelvis Cervical Spine: normal cervical lordosis Thoracic/Lumbar Spine: thoracic and lumbar spine normal to inspection Skin General skin exam: no rashes or lesions noted Neuro General: patient oriented x3, gait normal, tone normal and moves all extremities Extrem General: Yes normal to inspection and Yes capillary refill normal Assessment & Plan Assessment & Plan (1) Renal cancer: Comment: 01/28 right cryotherapy were Code(s): C64.9 - Malignant neoplasm of unspecified kidney, except renal pelvis Category: Medical Qualifiers: Laterality: right Qualified Code(s): C64.1 - Malignant neoplasm of right kidney, except renal pelvis Plan Plan renal biopsy with follow-up appt with Orders: Orders CT biopsy renal RT Today C64.1 - Malignant neoplasm of right kidney, except renal pelvis Patient Instructions: Imaging studies, laboratory and physical exam results were discussed and reviewed in detail. No major barriers to patient understanding were identified. An opportunity to ask questions regarding the treatment plan was provided. All questions were answered. The patient expressed understanding and agreement with the above treatment plan. The patient is aware they should contact our office by phone for worsening of their current condition or the appearance of new urologic symptoms. Compliance is encouraged with any medications and followup testing that is ordered. It is a privilege to participate in the urologic care of your patient. If you have any questions or concerns regarding treatment for the above conditions, or other urologic issues, please do not hesitate to contact me. The office telephone contact is [phone]. This note is constructed using voice recognition software. While every effort has been made to ensure accuracy beater worker helper errors may have been included. Yours sincerely, Dr Geremias Hansen MD, [facility] - Urology Providers of Expert, Compassionate Care for the Genitourinary System Coding Level of Care Code Est Pt Level 4 (29450) Complex EM visit Add On G2211 Diagnoses Malignant neoplasm of right kidney C64.1 Laterality: right
== END 2023-09-09 11:00 | disposition home or self-care (01) ==
PROVIDERS: Visit Provider Urology
DX: C64.1 Malignant neoplasm of right kidney, except renal pelvis (principal)
CPT/HCPCS: 99213; G2211

== ENCOUNTER → 2023-09-09 10:16 | Outpatient (BNVA) | payer MEDICARE, SELFPAY | PROVIDERS: Visit Provider Urology | DX: C64.1 Malignant neoplasm of right kidney, except renal pelvis (principal) | CPT/HCPCS: 99212 ==

== ENCOUNTER 2023-10-22 13:20 | Outpatient (AMB) | payer MEDICARE, SELFPAY ==
[2023-10-22 13:25] VITALS: BP 132/70; PULSE 68; O2SAT 98; BMI 33.3
--- NOTE | 2023-10-22 13:25 | A.OFFPC_ITS ---
Vital Signs 10/22/23 13:25 Height 6 ft 4 in Blood Pressure Location Lt brachial Position Sitting Pulse Source Pulse Oximeter Oxygen Delivery Method Room Air Intake Visit Reasons: SWV G0439 Varnish Finisher Required: No Hydrometer Tester: Not Required per policy Accompanied by: Self / Same As Patient Allergies Iodinated Contrast Media Allergy (Severe, Verified 10/22/23 13:25) Unknown atorvastatin Allergy (Unknown, Verified 10/22/23 13:25) Unknown ezetimibe [Zetia] Allergy (Unknown, Verified 10/22/23 13:25) Unknown niacin Allergy (Unknown, Verified 10/22/23 13:25) Unknown simvastatin Allergy (Unknown, Verified 10/22/23 13:25) Unknown Tobacco use date assessed: 10/22/23 Fall risk assessment: No Falls in past year Last assessed Fall Risk: 10/22/23 Dental Screening Dental Screen Date: 05/11/23 [facility] Medical History Obesity High blood pressure High cholesterol Diabetes Surgical History History of prostate surgery H/O cataract removal with insertion of prosthetic lens Family History Mother Colon cancer Social History Housing: House Alcohol intake: former Patient Tobacco Use Status: Former Tobacco user Tobacco use type: Cigarette Years Smoked: 10 e-Cigarette/Vaping Use: Never Used Second Hand Smoke Exposure: No service: Yes Current occupational status: retired Cognitive needs: No Hearing needs: No Vision needs: No Questionnaire PHQ-9 Over the last 2 weeks, how often have you been bothered by any of the following problems? 1. Little interest or pleasure in doing things: not at all 2. Feeling down, depressed, or hopeless: not at all 3. Trouble falling or staying asleep, or sleeping too much: not at all 4. Feeling tired or having little energy: not at all 5. Poor appetite or overeating: not at all 6. Feeling bad about yourself - or that you are a failure or have let yourself or your family down: not at all 7. Trouble concentrating on things, such as reading the newspaper or watching television: not at all 8. Moving or speaking so slowly that other people could have noticed. Or the opposite - being so fidgety or restless that you have been moving around a lot more than usual: not at all 9. Thoughts that you would be better off or of hurting yourself in some way: not at all Total score: 0 Depression Screening Interpretation: Negative Depression Screening Done: Yes 93006 - PHQ-9 Billing: Yes Source: Developed by Drs. Nilo Bajwa, Sierra Dejesus, Narciso Clemons and colleagues, with an educational maritza from [employer]. Thrive Questionnaire Date Thrive assessed: 10/22/23 I am a: Patient What is your living situation today?: I have a steady place to live Within the past 12 months, did the food you bought not last and you didn't have the money to get more?: Never true Within the past 12 months, did you worry whether your food would run out before you got money to buy more?: Never true Do you have trouble paying for medicines?: No Do you have trouble getting transportation to medical appointments?: No Do you have trouble paying your heating and electricity bill?: No Do you have trouble taking care of your child, family member or friend?: No Do you have trouble with day-to-day activities such as bathing, preparing meals, shopping, managing finances, etc.?: No Are you currently unemployed and looking for a job?: No Are you interested in more education?: No Please select the resources that you would like help with: None THRIVE Score: 0 AUDIT C Alcohol Use Questionnaire (AUDIT-C) 1. How often do you have a drink containing alcohol?: Never 3. How often do you have six or more drinks on one occasion?: Never Total Score: 0 Score Reviewed/Action Taken: No REAL-7 AMB Questionnaire REAL-7 Date REAL - 7 assessed: 10/22/23 Feeling nervous, anxious, or on edge: 0 = Not at all Not being able to stop or control worryin = Not at all Worrying too much about different things: 0 = Not at all Trouble relaxin = Not at all Being so restless that it is hard to sit still: 0 = Not at all Becoming easily annoyed or irritable: 0 = Not at all Feeling afraid as if something awful might happen: 0 = Not at all Total REAL-7 score (0-4 normal; 5-9 mild; 10-14 moderate; 15-21 severe): 0 Source: Developed by Drs. Nilo Bajwa, Sierra Dejesus, Narciso Clemons and colleagues, with an educational maritza from [employer]. Physical exam (Primary Care) Tobacco/Smoking Status: Tobacco use Status Tobacco use date assessed 06/11/22 05/11/23 10:36 Patient Tobacco Use Status Former Tobacco user 05/11/23 10:36 Tobacco use type Cigarette 05/11/23 10:36 e-Cigarette/Vaping Use Never Used 05/11/23 10:36 Depression Screening Interpretation: Negative Thrive Assessment: Date of Thrive Assessment Date Thrive assessed 10/08/22 05/11/23 10:36 Assessment and Plan Assessment & Plan Orders: Orders AMB Hemoglobin A1c Today E11.69 - Type 2 diabetes mellitus with other specified complication, E78.2 - Mixed hyperlipidemia Coding
--- NOTE | 2023-10-22 13:27 | A.OFFVIS_ITS ---
Intake Vital Signs 10/22/23 13:25 Height 6 ft 4 in Weight 274 lb BMI 33.3 BP 132/70 Blood Pressure Location Lt brachial Position Sitting Pulse 68 Pulse Source Pulse Oximeter Pulse Oximetry (%) 98 Oxygen Delivery Method Room Air Intake Visit Reasons: [facility] G0439 Allergies Iodinated Contrast Media Allergy (Severe, Verified 10/22/23 13:25) Unknown atorvastatin Allergy (Unknown, Verified 10/22/23 13:25) Unknown ezetimibe [Zetia] Allergy (Unknown, Verified 10/22/23 13:25) Unknown niacin Allergy (Unknown, Verified 10/22/23 13:25) Unknown simvastatin Allergy (Unknown, Verified 10/22/23 13:25) Unknown Medication List - Last Reconciled 10/25/23 by Benedicto Grove MD allopurinol 100 mg PO BID apixaban (Eliquis) 5 mg PO DAILY aspirin (Adult Low Dose Aspirin) 81 mg PO DAILY cholecalciferol (vitamin D3) 4,000 mcg PO DAILY dorzolamide 2% 1 drp ophthalmic (eye) BID dorzolamide-timolol 22.3-6.8 mg/mL 1 drp ophthalmic (eye) BID duloxetine 20 mg PO BID fexofenadine (Marline Allergy) 180 mg PO DAILY fluoxetine 20 mg PO DAILY furosemide 40 mg PO DAILY ibuprofen 600 mg PO Q6H PRN insulin aspart U-100 1 sliding scale dose subcut USEASDIRECTD insulin glargine 50 units subcut DAILY ipratropium-albuterol 20-100 mcg/actuation 1 puff inhalation Q6H latanoprost 0.005% 1 drp ophthalmic (eye) BEDTIME lisinopril 40 mg PO DAILY omeprazole 20 mg PO QAM rosuvastatin 40 mg PO DAILY HPI V G0439 HPI Details gout afib diabete hypertension and hyperlipidemia; all stable; patient compliant [facility] Medical History Obesity High blood pressure High cholesterol Diabetes Surgical History History of prostate surgery H/O cataract removal with insertion of prosthetic lens Family History Mother Colon cancer Social History Housing: House Alcohol intake: former Patient Tobacco Use Status: Former Tobacco user Tobacco use type: Cigarette Years Smoked: 10 e-Cigarette/Vaping Use: Never Used Second Hand Smoke Exposure: No service: Yes Current occupational status: retired Cognitive needs: No Hearing needs: No Vision needs: No Questionnaire Medicare Wellness Checkup What is your age?: 80 or older What gender do you identify with?: male During the past 4 weeks, how much have you been bothered by emotional problems such as feeling anxious, depressed, irritable, sad or downhearted, and blue?: quite a bit During the past 4 weeks, has your physical & emotional health limited your social activities with family, friends, neighbors, or groups?: not at all During the past 4 weeks, how much bodily pain have you generally had?: very mild pain During the past 4 weeks, was someone available to help you if you needed & wanted help?: no, not at all During the past 4 weeks, what was the hardest physical activity you could do for at least 2 minutes?: moderate Can you get to places out of walking distance without help? (For eg., can you travel alone on buses, taxis or drive your car?): Yes Can you go shopping for groceries or clothes without someone's help?: Yes Can you prepare your own meals?: Yes Can you do your housework without help?: No What is your race?: White Mini Mental State Exam (MMSE) Orientation What is the (year) (season) (date) (day) (month)?: year, season, date, day and month Where are we (state) (county) (town or city) (hospital) (floor)?: state, county, town or city, hospital/clinic and floor Registration Name of 3 unrelated objects clearly and slowly, then ask patient to repeat all 3 of them. (1st repeat determines score. Make sure they can repeat all three): object 1, object 2 and object 3 Recall Ask patient to repeat the 3 items from question #3.: object 1, object 2 and object 3 Score Score: 16 Activity of Daily Living Bathing - sponge bath, tub bath or shower: receives no assistance (gets in/out by self, if usual bathing means Dressing - getting clothes from closets & drawers, including inner/outer garments & fasteners.: gets clothes & gets completely dressed without help Toileting - going to the 'toilet room' for urine/bowel elimination & cleaning self/arranging clothes: goes to toilet room, cleans self, arranges clothes without help Transfer: moves in & out of bed and chair without help (may use support object) Continence: controls urination/bowel movements completely by self Feeding: feeds self without help Total Score: 0 Information obtained from: patient Using telephone: independent Traveling: independent Shopping: independent Preparing meals: independent Housework: independent Taking medicine: independent Managing money: independent PHQ-9 Over the last 2 weeks, how often have you been bothered by any of the following problems? 1. Little interest or pleasure in doing things: not at all 2. Feeling down, depressed, or hopeless: not at all 3. Trouble falling or staying asleep, or sleeping too much: not at all 4. Feeling tired or having little energy: not at all 5. Poor appetite or overeating: not at all 6. Feeling bad about yourself - or that you are a failure or have let yourself or your family down: not at all 7. Trouble concentrating on things, such as reading the newspaper or watching television: not at all 8. Moving or speaking so slowly that other people could have noticed. Or the opposite - being so fidgety or restless that you have been moving around a lot more than usual: not at all 9. Thoughts that you would be better off or of hurting yourself in some way: not at all Total score: 0 Depression Screening Interpretation: Negative Depression Screening Done: Yes 35634 - PHQ-9 Billing: Yes Source: Developed by Drs. Nilo Bajwa, Sierra Dejesus, Narciso Clemons and colleagues, with an educational maritza from [employer]. Review of Systems Const Denies chills, Denies fatigue, Denies headache(s) and Denies weight loss Eyes Denies change in vision, Denies diplopia and Denies eye pain ENT Reports Normal hearing present, Denies vertigo, Denies dizziness, Denies headache(s) and Denies nasal discharge Card Denies chest pain, Denies rapid heart rate and Denies dyspnea on exertion Resp Denies chest congestion, Denies cough, Denies pain with cough and Denies dyspnea on exertion GI Denies abdominal pain, Denies hematochezia and Denies change in bowel habits Musc Denies myalgias, Denies arthralgias and Denies joint swelling Skin/Breast Denies lesions and Denies unusual bruising Neuro Reports Normal hearing present, Denies vertigo, Denies dizziness, Denies headache(s) and Denies focal weakness Endo Denies fatigue Physical Exam Vital Signs: Last Vital Signs Pulse 68 10/22/23 13:25 BP 132/70 10/22/23 13:25 Pulse Ox 98 10/22/23 13:25 Oxygen Delivery Method Room Air 10/22/23 13:25 BMI result Body Mass Index 33.3 Neuro Cranial nerves: Yes Normal hearing present Assessment & Plan Assessment & Plan (1) Encounter for initial annual wellness visit (AWV) in Medicare patient: Code(s): Z00.00 - Encounter for general adult medical examination without abnormal findings Plan: rhomberg and whisper tests normal (2) DM type 2 with diabetic mixed hyperlipidemia: Code(s): E11.69 - Type 2 diabetes mellitus with other specified complication; E78.2 - Mixed hyperlipidemia Plan: stable; same rx (3) High cholesterol: Code(s): E78.00 - Pure hypercholesterolemia, unspecified Plan: stable; same rx (4) Hypertension: Code(s): I10 - Essential (primary) hypertension Plan: stable; same rx (5) Gout: Code(s): M10.9 - Gout, unspecified Plan: stable; same rx Quality Reporting (2019) Depression/Bipolar (159/160/161/177) PHQ-9: Total score: 0 Coding Level of Care Code Medicare First (G0438) Diagnoses Encounter for initial annual wellness visit (AWV) in Medicare patient Z00.00 DM type 2 with diabetic mixed hyperlipidemia E11.69; E78.2 High cholesterol E78.00 Hypertension I10 Gout M10.9 CPT Codes Advance Care Planning - Advance Care Planning discussion: On file, no changes ([id number]) Advance Care Planning - Time spent: 1-15 minutes, on File ([id number]) Advance Care Planning Advance Care Planning discussion: On file, no changes Forms completed: Health Care Proxy Time spent: 1-15 minutes, on File
== END 2023-10-22 13:46 | disposition home or self-care (01) ==
PROVIDERS: PCP Internal Medicine; Visit Provider Internal Medicine
DX: Z00.00 Encounter for general adult medical examination without abnormal findings (principal); E11.69 Type 2 diabetes mellitus with other specified complication; E78.2 Mixed hyperlipidemia; E78.00 Pure hypercholesterolemia, unspecified; I10 Essential (primary) hypertension; M10.9 Gout, unspecified
CPT/HCPCS: 1123F; G0438; G0439

== ENCOUNTER 2023-10-25 08:07 | Outpatient (REF) | payer MEDICARE, SELFPAY ==
[2023-10-25 08:27] LABS: MANUAL DIFF FLAG NO
[2023-10-25 08:52] LABS: Basophils Percent Auto 0.3 % (0-2); Eosinophils Absolute Auto 0.1 X10*3/uL (0.0-0.4); Eosinophils Percent Auto 1.6 % (0-4); Hematocrit 37.4 % (42.0-52.0); Hemoglobin 12.2 g/dl (14.0-18.0); Imm Gran Abs Auto 0.03 X10*3/uL (0.00-0.03); Imm Gran Pct Auto 0.4 % (0.0-0.4); Lymphocytes Absolute Auto 2.4 X10*3/uL (1.2-4.9); Lymphocytes Percent Auto 34.8 % (20-40); Mean Corpuscular HGB Conc 32.6 g/dl (31.0-36.0); Mean Corpuscular Hemoglobin 32.6 pg (27.0-33.0); Mean Platelet Volume 10.2 fL (9.4-12.4); Monocytes Absolute Auto 0.5 X10*3/uL (0.1-1.2); Monocytes Percent Auto 6.8 % (2-11); Neutrophils Absolute Auto 3.9 x10*3/uL (2.0-8.3); Neutrophils Percent Auto 56.1 % (45-73); Platelet Count 243 X10*3/uL (160-400); Red Blood Count 3.74 X10*6/uL (4.60-5.80); Red Cell Distribution Width 13.2 % (11.0-16.0); White Blood Count 6.9 X10*3/uL (4.8-10.8)
[2023-10-25 09:13] LABS: Estimated Average Glucose 126 mg/dL
[2023-10-25 09:21] LABS: Alanine Aminotransferase 16 U/L (0-40); Albumin Level 4.2 g/dL (3.5-5.0); Alkaline Phosphatase 71 U/L (39-117); Anion Gap 14 (12-20); Aspartate Amino Transferase 17 U/L (5-37); Bilirubin Total 0.3 mg/dL (0.0-1.0); Blood Urea Nitrogen 29 mg/dL (9-16); Calcium 9.4 mg/dL (8.4-10.2); Carbon Dioxide 30 mmol/L (22-29); Chloride 104 mmol/L (96-108); Cholesterol 143 mg/dL (<200); Estimated Glomerular Filt Rate 45; Glucose Fasting 169 mg/dL (60-99); HDL Cholesterol 32 mg/dL (>40); LDL Cholesterol Calculated 64 mg/dL (<100); Potassium 4.5 mmol/L (3.3-5.1); Sodium 143 mmol/L (135-145); Total Protein 7.1 g/dL (6.5-8.0); Triglycerides 239 mg/dL (<150)
[2023-10-25 09:28] LABS: Thyroid Stimulating Hormone 0.71 uIU/mL (0.32-4.0)
[2023-10-25 09:55] LABS: Creatinine Urine 56.79 mg/dL; Microalbum/Creatinine Ratio Ur 35.2 ug/mg cr (<30)
== END 2023-10-25 08:08 | disposition home or self-care (01) ==
LOC: HO.LAB 08:07
PROVIDERS: PCP Internal Medicine; Visit Provider Internal Medicine
DX: D64.9 Anemia, unspecified (principal); E03.9 Hypothyroidism, unspecified; E66.01 Morbid (severe) obesity due to excess calories; R73.9 Hyperglycemia, unspecified; E87.5 Hyperkalemia; N28.9 Disorder of kidney and ureter, unspecified
CPT/HCPCS: 36415; 80053; 80061; 82043; 82570; 83036; 84443; 85025

== ENCOUNTER 2023-11-10 09:16 | Outpatient (AMB) | payer MEDICARE, SELFPAY ==
[2023-11-10 09:25] VITALS: BP 126/82; PULSE 60; O2SAT 98; BMI 33.5
--- NOTE | 2023-11-10 09:25 | A.OFFPC_ITS ---
Vital Signs 11/10/23 09:25 Height 6 ft 4 in Weight 275 lb BMI 33.5 BP 126/82 Blood Pressure Location Lt brachial Position Sitting Pulse 60 Pulse Source Pulse Oximeter Pulse Oximetry (%) 98 Oxygen Delivery Method Room Air Intake Visit Reasons: 6mth f/u Education Adviser: Not Required per policy Accompanied by: Self / Same As Patient Allergies Iodinated Contrast Media Allergy (Severe, Verified 11/10/23 09:26) Unknown atorvastatin Allergy (Unknown, Verified 11/10/23 09:26) Unknown ezetimibe [Zetia] Allergy (Unknown, Verified 11/10/23 09:26) Unknown niacin Allergy (Unknown, Verified 11/10/23 09:26) Unknown simvastatin Allergy (Unknown, Verified 11/10/23 09:26) Unknown Medication List - Last Reconciled 11/10/23 by Benedicto Grove MD allopurinol 100 mg PO BID apixaban (Eliquis) 5 mg PO DAILY cholecalciferol (vitamin D3) 4,000 mcg PO DAILY dorzolamide 2% 1 drp ophthalmic (eye) BID dorzolamide-timolol 22.3-6.8 mg/mL 1 drp ophthalmic (eye) BID duloxetine 20 mg PO BID fexofenadine (Marline Allergy) 180 mg PO DAILY fluoxetine 20 mg PO DAILY furosemide 40 mg PO DAILY ibuprofen 600 mg PO Q6H PRN insulin aspart U-100 1 sliding scale dose subcut USEASDIRECTD insulin glargine 50 units subcut DAILY ipratropium-albuterol 20-100 mcg/actuation 1 puff inhalation Q6H latanoprost 0.005% 1 drp ophthalmic (eye) BEDTIME lisinopril 40 mg PO DAILY omeprazole 20 mg PO QAM rosuvastatin 40 mg PO DAILY Tobacco use date assessed: 11/10/23 Fall risk assessment: No Falls in past year Last assessed Fall Risk: 11/10/23 Dental Screening Dental Screen Date: 05/11/23 HPI 6mth f/u HPI Details diabetes hypertension and hyperlipidemia; goes to the [place] for care; labs fine [facility] Medical History Obesity High blood pressure High cholesterol Diabetes Surgical History History of prostate surgery H/O cataract removal with insertion of prosthetic lens Family History Mother Colon cancer Social History Housing: House Alcohol intake: former Patient Tobacco Use Status: Former Tobacco user Tobacco use type: Cigarette Years Smoked: 10 e-Cigarette/Vaping Use: Never Used Second Hand Smoke Exposure: No service: Yes Current occupational status: retired Cognitive needs: Yes (cane) Hearing needs: No Vision needs: Yes (glasses) Questionnaire Thrive Questionnaire Date Thrive assessed: 10/08/22 REAL-7 AMB Questionnaire REAL-7 Date REAL - 7 assessed: 10/08/22 Source: Developed by Drs. Nilo Bajwa, Sierra Dejesus, Narciso Clemons and colleagues, with an educational maritza from [employer]. Review of Systems Const Denies chills, Denies headache(s) and Denies weight loss ENT Denies headache(s) Card Denies chest pain, Denies syncope, Denies irregular heart rhythm and Denies dyspnea Resp Denies chest congestion, Denies cough and Denies dyspnea GI Denies abdominal pain, Denies change in stool character, Denies nausea and Denies vomiting Musc Denies deformity and Denies joint swelling Neuro Denies syncope and Denies headache(s) Physical exam (Primary Care) Vital Signs: Last Vital Signs Pulse 60 11/10/23 09:25 BP 126/82 11/10/23 09:25 Pulse Ox 98 11/10/23 09:25 Oxygen Delivery Method Room Air 11/10/23 09:25 BMI result Body Mass Index 33.5 Tobacco/Smoking Status: Tobacco use Status Tobacco use date assessed 11/10/23 11/10/23 09:26 Patient Tobacco Use Status Former Tobacco user 11/10/23 09:26 Tobacco use type Cigarette 11/10/23 09:26 e-Cigarette/Vaping Use Never Used 11/10/23 09:26 Thrive Assessment: Date of Thrive Assessment Date Thrive assessed 10/08/22 11/10/23 09:26 Const General: cooperative, comfortable, no acute distress and alert Neck Neck: Yes no lymphadenopathy Thyroid: Thyroid normal Resp Effort & Inspection: normal respiratory effort Auscultation: clear to auscultation bilaterally Percussion: percussion normal Cardio Jugular venous distension: no JVD Palpation: normal PMI Rate: regular rate Rhythm: regular rhythm Heart sounds: S1 normal heart sound present and S2 normal heart sound present GI Inspection: Yes normal to inspection Palpation (GI): No hepatosplenomegaly present Skin General skin exam: no rashes or lesions noted Extrem General: Yes no clubbing, cyanosis or edema Assessment and Plan Assessment & Plan (1) DM type 2 with diabetic mixed hyperlipidemia: Code(s): E11.69 - Type 2 diabetes mellitus with other specified complication; E78.2 - Mixed hyperlipidemia Plan: stable; same rx (2) Hypertension: Code(s): I10 - Essential (primary) hypertension Plan: stable; same rx (3) High cholesterol: Code(s): E78.00 - Pure hypercholesterolemia, unspecified Plan: stable; same rx Coding Level of Care Code Est Pt Level 4 (65668) Diagnoses DM type 2 with diabetic mixed hyperlipidemia E11.69; E78.2 Hypertension I10 High cholesterol E78.00
== END 2023-11-10 09:42 | disposition home or self-care (01) ==
PROVIDERS: PCP Internal Medicine; Visit Provider Internal Medicine
DX: E11.69 Type 2 diabetes mellitus with other specified complication (principal); E78.2 Mixed hyperlipidemia; I10 Essential (primary) hypertension; E78.00 Pure hypercholesterolemia, unspecified
CPT/HCPCS: 99214

== ENCOUNTER 2024-01-05 11:12 | Outpatient (AMB) | payer MEDICARE, SELFPAY ==
--- NOTE | 2024-01-05 11:31 | MHC.OFFVIS ---
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 He is a patient Dr. Grove. seen for the following urologic conditions - renal cancer Unable to tolerate MRI due to claustrophobia Recommend CT targeted biopsy Follow-up after biopsy performed Perform biopsy of upper pole right kidney recently . He has Current the trying to obtain money from correction. Renal cancer right side cryoablation January 2019 right-sided renal cancer detected incidentally cryoablation performed January 2019 Imaging - [address] scan mass reduction - 10/28 renal ultrasound with multiple cysts bilaterally - 08/29 MRI - bilateral simple cyst stable in size, right renal post ablation area 3.2 cm down from 4.5 at initial diagnosis - 02/28 CXR NAD - 01/30 CT with contrast. Right renal 3 cm area suspicious for possible recurrence. MRI recommended - 09/30 renal ultrasound with bilateral cysts. Upper pole of the right kidney, there are are ill-defined foci, both increased, suspicious for a mass lesion and adjacent post cryoablation change. The possibility of residual/recurrent lesion is not excluded. Recommend further evaluation with renal mass protocol CT or MRI (with and without contrast) [facility] Medical History Obesity High blood pressure High cholesterol Diabetes Surgical History History of prostate surgery H/O cataract removal with insertion of prosthetic lens Family History Mother Colon cancer Social History Housing: House Alcohol intake: former Patient Tobacco Use Status: Former Tobacco user Tobacco use type: Cigarette Years Smoked: 10 e-Cigarette/Vaping Use: Never Used Second Hand Smoke Exposure: No service: Yes Current occupational status: retired Cognitive needs: Yes (cane) Hearing needs: No Vision needs: Yes (glasses) Review of Systems Const Denies chills and Denies fever(s) Card Reports no additional complaints and Denies syncope Resp Denies cough GI Denies abdominal pain and Denies heartburn Reports as per HPI and Denies change in libido Neuro Denies syncope Psych Denies change in libido Endo Denies change in libido Physical Exam Const General: cooperative, healthy appearing, comfortable and no acute distress Orientation/consciousness: patient oriented x3 HEENT Face and sinus: Yes normal facial exam Mouth: moist mucous membranes Neck Neck: Yes normal visual inspection, Yes full ROM and Yes trachea midline Chest Chest palpation & inspection: normal inspection of the chest Resp Effort & Inspection: normal respiratory effort, able to speak in complete sentences and no respiratory distress GI Inspection: Yes normal to inspection Back/Spine/Pelvis Cervical Spine: normal cervical lordosis Thoracic/Lumbar Spine: thoracic and lumbar spine normal to inspection Skin General skin exam: no rashes or lesions noted Neuro General: patient oriented x3, gait normal, tone normal and moves all extremities Extrem General: Yes normal to inspection and Yes capillary refill normal Assessment & Plan Assessment & Plan (1) Renal cancer: Comment: 01/28 right cryotherapy were Code(s): C64.9 - Malignant neoplasm of unspecified kidney, except renal pelvis Category: Medical Qualifiers: Laterality: right Qualified Code(s): C64.1 - Malignant neoplasm of right kidney, except renal pelvis Plan Risks, benefits and alternatives to therapy were discussed. These include but are not limited to infection, bleeding, damage to local organs and tissues, need for further interventions. Anesthetic risks regarding cardiac arrhythmia, blood clots, and potential mortality were discussed. The patient understands the typical recovery time and the outpatient nature of the procedure. After consideration of these risks the patient gives full informed consent and they wish to move ahead with the procedure. right ct guided biopsy Orders: Orders CT biopsy renal RT Today C64.1 - Malignant neoplasm of right kidney, except renal pelvis Patient Instructions: Imaging studies, laboratory and physical exam results were discussed and reviewed in detail. No major barriers to patient understanding were identified. An opportunity to ask questions regarding the treatment plan was provided. All questions were answered. The patient expressed understanding and agreement with the above treatment plan. The patient is aware they should contact our office by phone for worsening of their current condition or the appearance of new urologic symptoms. Compliance is encouraged with any medications and followup testing that is ordered. It is a privilege to participate in the urologic care of your patient. If you have any questions or concerns regarding treatment for the above conditions, or other urologic issues, please do not hesitate to contact me. The office telephone contact is [phone]. This note is constructed using voice recognition software. While every effort has been made to ensure accuracy brim curler errors may have been included. Yours sincerely, Dr Geremias Hansen MD, [facility] - Urology Providers of Expert, Compassionate Care for the Genitourinary System Coding Level of Care Code Est Pt Level 3 (21985) Diagnoses Malignant neoplasm of right kidney C64.1 Laterality: right
== END 2024-01-05 12:05 | disposition home or self-care (01) ==
PROVIDERS: PCP Internal Medicine; Visit Provider Urology
DX: C64.1 Malignant neoplasm of right kidney, except renal pelvis (principal)
CPT/HCPCS: 99213

== ENCOUNTER → 2024-01-05 11:12 | Outpatient (BNVA) | payer MEDICARE, SELFPAY | PROVIDERS: PCP Internal Medicine; Visit Provider Urology | DX: C64.1 Malignant neoplasm of right kidney, except renal pelvis (principal) | CPT/HCPCS: 99212 ==

== ENCOUNTER 2024-08-30 08:25 | Inpatient (IN) | payer MEDICARE, SELFPAY ==
[2024-08-30] VITALS (13 sets, daily range): BP systolic 113–154; BP diastolic 44–105; PULSE 60–79; RESP 14–19; TEMP 36.2–37.1; O2SAT 95–100; BMI 32.3
--- NOTE | ~2024-08-30 | CT_ITS ---
EXAMINATION: CT HEAD WITHOUT CONTRAST CLINICAL INFORMATION: LOC w/ head strike, on thinners COMPARISON: None available. TECHNIQUE: Contiguous axial imaging was performed from the skull base to vertex without intravenous administration of contrast. This CT examination was performed using dose optimization techniques as appropriate, variously including the following: *Automated exposure control *Adjustment of mA and/or kV according to patient size (this includes techniques or standardized protocols for targeted exams where dose is matched to indication/reason for exam; i.e. extremities or head) *Use of iterative reconstruction technique DLP: 722.35 mGy-cm FINDINGS: Soft tissue contusion, right forehead/frontal soft tissue scalp. Bony calvarium is intact. Skull base is intact. No acute intracranial hemorrhage, mass effect, midline shift, hydrocephalus or herniation. Horne-white matter differentiation is normal. Posterior cranial fossa contents demonstrated no acute intracranial hemorrhage or mass effect. Sellar/suprasellar region demonstrated no gross masses or hemorrhage. Craniocervical junction is intact. Prominence of the extra-axial CSF spaces cerebral sulci and ventricles. Bilateral multifocal patchy deep periventricular white matter hypodensities involving centrum semiovale and clarke radiata. Calcified plaques in the cavernous segments both ICAs. No air-fluid levels in the paranasal sinuses. There is a polypoid mucosal thickening, ethmoid air cells. Retention cysts versus polyp, left ethmoid air cells. Tympanic cavities and mastoid cells are aerated with poor pneumatization of the mastoid. There is a punctate 2 mm metallic foreign body in the anterior aspect/preseptal right periorbital/right eyeball. No hematoma in the intraconal or extraconal compartments of the orbits. CT/CT head/brain wo IV con IMPRESSION: Soft tissue contusion/hematoma right forehead. Focal 2 mm metallic foreign body in the anterior right eyeball. No acute intracranial hemorrhage. Electronically signed by: Michele Mendoza MD 08/30/2024 11:27 AM EDT
--- NOTE | ~2024-08-30 | XR_ITS ---
EXAMINATION: XR HIP, RIGHT CLINICAL INFORMATION: r hip pain s/p fall COMPARISON: None available. TECHNIQUE: Two views of the right hip. AP pelvis one view FINDINGS: AP pelvis: There is normal symmetry of bilateral hip joints. The joint spaces maintain normal. No visible fracture, lytic or sclerotic process seen involving the pelvic bones. The soft tissues are normal. AP and frog-leg views right hip reveal no acute fracture or dislocation. There is dystrophic calcification along the greater the body anterior likely calcific bursitis. No lytic or sclerotic process seen. The soft tissues are normal. XR/XR hip RT w PEL1V IMPRESSION: Likely calcific bursitis right greater trochanter. No visible acute fracture, dislocation or subluxation. Electronically signed by: Merlin Irby MD 08/30/2024 01:11 PM EDT
--- NOTE | ~2024-08-30 | CT_ITS ---
EXAMINATION: CT CERVICAL SPINE WITHOUT CONTRAST CLINICAL INFORMATION: Status post fall. COMPARISON: None available. TECHNIQUE: Contiguous axial images through the cervical spine using 3 mm collimation with bone and soft tissue algorithm. Sagittal and coronal reformatted images acquired. This CT examination was performed using dose optimization techniques as appropriate, variously including the following: *Automated exposure control *Adjustment of mA and/or kV according to patient size (this includes techniques or standardized protocols for targeted exams where dose is matched to indication/reason for exam; i.e. extremities or head) *Use of iterative reconstruction technique. DLP: 523.36 mGy centimeter. FINDINGS: Craniocervical junction is intact. Syndesmophyte formation and marginal osteophyte formation from C2 to C7 and T1-2 levels. There is a cortical disruption at the base of the marginal osteophyte formation C3. There is samaritan of the intervertebral disc spaces from C3 to C5. There is chondrocalcinosis at C6-7. There is multilevel facet joint hypertrophy from C2-3 to T1 to. There is no gross malalignment between the vertebral bodies or the facet joints. C1 is intact. C2 is intact. C3 is intact. Cortical irregularity in the marginal osteophyte formation/syndesmophyte formation. C4 is intact. Facet joint hypertrophy bilaterally. C5 is intact. C6 is intact. C7 is intact. Facet joint hypertrophy bilaterally. No gross prevertebral compartment hematoma. Large anterior syndesmophyte formation/marginal osteophyte formation protruding upon the retropharynx and hypopharynx and larynx. Prominent diverticula in the glottis. Electrode leads in the left subclavian region. Tympanic cavities and mastoid cells are aerated. CT/CT cervical spine wo IV con IMPRESSION: Multilevel cervical spondylosis with questionable nondisplaced fracture of the syndesmophyte formation at C3. Fleischner guidelines were followed. Electronically signed by: Michele Mendoza MD 08/30/2024 11:34 AM EDT
--- NOTE | ~2024-08-30 | XR_ITS ---
EXAMINATION: XR CHEST CLINICAL INFORMATION: syncope COMPARISON: March 18, 2023 TECHNIQUE: 2 views of the chest were obtained. FINDINGS: No consolidation, pleural effusion or pneumothorax. Cardiomediastinal silhouette size is normal. Calcified plaque Arctic arch. There are 2 electrode leads in the right heart chambers likely intact and a metallic reservoir in the left upper thorax. Multilevel thoracic spondylosis with calcifications throughout the anterior longitudinal ligament. XR/XR chest 2V IMPRESSION: No acute airspace disease. 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 Electronically signed by: Michele Mendoza MD 08/30/2024 01:10 PM EDT
--- NOTE | ~2024-08-30 | XR_ITS ---
EXAMINATION: XR SHOULDER, RIGHT CLINICAL INFORMATION: R shoulder pain on mvmt s/p fall COMPARISON: None available. TECHNIQUE: AP external rotation, Grashey, scapular Y, and axillary views of the right shoulder. FINDINGS: There is an upward deformity of the acromioclavicular joint. There is overlapping the the humeral head with the glenoid of the scapula. No acute cortical disruption.. No lytic or blastic lesions. Questionable lateral leads no fully included in the [id number].. XR/XR shoulder RT min 2V IMPRESSION: Upward subluxation, right acromioclavicular joint. Electronically signed by: Michele Mendoza MD 08/30/2024 01:06 PM EDT
--- NOTE | 2024-08-30 08:40 | ECG_ITS ---
Test Reason : syncope Blood Pressure : */* mmHG Vent. Rate : 63 BPM Atrial Rate : 63 BPM P-R Int : 234 ms QRS Dur : 98 ms QT Int : 406 ms P-R-T Axes : 84 20 62 degrees QTcB Int : 415 ms AV dual-paced rhythm with prolonged AV conduction Abnormal ECG When compared with ECG of 18-Mar-2023 19:13, Vent. rate has decreased by 15 bpm Referred By: Generic ED Physician Electronically Signed By: VOLODYMYR MENDEZ
--- NOTE | 2024-08-30 10:08 | ED.FALL ---
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 He reports standing up from his recliner, feeling light headed and losing concioussness. Reports right forehead strike on a base board. He is anticoagulated on apixaban. He believes he only passed out for a few minutes. He then called EMS. Cervical collar was placed on arrival and he was transported to the ED. He reports similar episode 1 week ago where soon after standing up and starting to walk, he felt faint and fell against a wall. Reports right shoulder took the brunt of the impact. He did not strike his head or lose consciousness at that time. He reports continued right shoulder and right hip pain since. He has been able to ambulate without difficulty. He ambulates with walker and cane at baseline. He did not have either of these with him during either fall. At present, endorses right shoulder and right hip pain. Denies headache, vision changes, dizziness (while lying in bed), chest pain, palpitations, SOB, numbness/tingling/weakness of LEs. He does take lasix however denies any recent medication changes. Believes he stays adequately hydrated throughout the day. Related Data Home Medications ?Medication ?Instructions ?Recorded ?Confirmed allopurinol 100 mg tablet 100 mg PO BID 10/04/20 08/30/24 furosemide 40 mg tablet 40 mg PO BID 10/04/20 08/30/24 insulin aspart U-100 100 unit/mL 1 sliding scale dose subcut 10/04/20 08/30/24 subcutaneous cartridge USEASDIRECTD insulin glargine 100 unit/mL (3 50 unit subcut DAILY 10/04/20 08/30/24 mL) subcutaneous pen ipratropium 20 mcg-albuterol 100 1 puff inhalation Q6H PRN 10/04/20 08/30/24 mcg/actuation mist for inhalation Shortness Of Breath Or Wheezing latanoprost 0.005 % eye drops 1 drp ophthalmic (eye) BEDTIME 10/04/20 08/30/24 rosuvastatin 40 mg tablet 20 mg PO DAILY 10/04/20 08/30/24 dorzolamide 22.3 mg-timolol 6.8 1 drp ophthalmic (eye) BID 09/09/21 08/30/24 mg/mL eye drops apixaban 5 mg tablet (Eliquis) 5 mg PO BID 03/11/23 08/30/24 ferrous sulfate 325 mg (65 mg 325 mg PO DAILY 08/30/24 08/30/24 iron) tablet,delayed release lisinopril 20 mg tablet 20 mg PO DAILY 08/30/24 08/30/24 omeprazole 20 mg capsule,delayed 20 mg PO DAILY@0630 08/30/24 08/30/24 release Previous Rx's ?Medication ?Instructions ?Recorded fluoxetine 20 mg capsule 20 mg PO DAILY #90 caps 04/20/24 Allergies Allergy/AdvReac Type Severity Reaction Status Date / Time Iodinated Contrast Media Allergy Severe Unknown Verified 08/30/24 08:37 atorvastatin Allergy Unknown Unknown Verified 01/05/24 11:33 ezetimibe [Zetia] Allergy Unknown Unknown Verified 01/05/24 11:33 niacin Allergy Unknown Unknown Verified 01/05/24 11:33 simvastatin Allergy Unknown Unknown Verified 01/05/24 11:33 Review of Systems Review of Systems: Yes all other systems are reviewed and are negative [facility] Past Medical History Attestation statement: The following information was validated with the patient. Source: old records reviewed, obtained from family (daughter) and nursing notes reviewed Medical History Renal cancer Obesity High blood pressure High cholesterol Diabetes Surgical History History of prostate surgery H/O cataract removal with insertion of prosthetic lens Family History Family History Mother Colon cancer Social History Social History Housing: House Alcohol intake: former Patient Tobacco Use Status: Former Tobacco user Tobacco use type: Cigarette Years Smoked: 10 Smoked in Last 30 Days: No e-Cigarette/Vaping Use: Never Used Second Hand Smoke Exposure: No Advance Directives: No Advance Directives Information Provided: Yes service: Yes Current occupational status: retired Cognitive needs: Yes (cane) Hearing needs: No Vision needs: Yes (glasses) Physical Exam Vital Signs: Vital Signs: Last Vital Signs Temp 98.0 F 08/30/24 21:18 Pulse 65 08/30/24 21:18 Resp 16 08/30/24 21:18 BP 134/44 L 08/30/24 21:18 Pulse Ox 99 08/30/24 21:18 O2 Del Method Room Air 08/30/24 21:18 BMI result Body Mass Index 32.3 hypotensive, vitals otherwise wnl General: Well appearing, in no acute distress. Skin: Warm, dry, intact. No rashes or lesions. Head: hematoma to right forehead along hairline. no palpable skull fracture. no battles sign, no raccoon eyes. EENT: hearing is intact b/l. Conjunctiva clear. PERRLA. EOM intact. Moist mucous membranes.? Neck: initially in c collar. on removal, no midline c spine tenderness or step off. FROM intact to c spine Cardiac: Chest wall symmetric. RRR Lungs: Normal respiratory effort without accessory muscle use. CTA bilaterally. Abdomen: Soft, non-tender, non-distended. No rebound tenderness or guarding. Positive BS x4. Back: No midline spinous or paraspinal tenderness. No step off deformity. Ext: no noted deformity to right shoulder. FROM intact to right shoulder w/ pain on abduction/ extension. sensation intact, 2+radial pulse intact. FROM intact to b/l hips. no overlying skin changes. no pitting edema. Neuro: AOx3. Normal speech. NIH 0 - normal finger to nose, heel to montoya. Strength 4/5 intact throughout Psych: Appropriate mood and affect. Responds appropriately to questions. Course Course Course Narrative: 1755 -- CBC without leukocytosis or left shift. Macrocytic anemia, H and H stable when compared to priors. Chemistry without acute electrolyte abnormality requiring intervention. BUN mildly elevated to 26, creatinine 1.33. Liver function at baseline. Troponin WNL x2. Urine without infection. Ethanol undetectable. EKG showing AV dual paced rhythm with prolonged AV conduction, rate of 63 beats per minute. Chest x-ray without evidence of pneumonia. CT cervical spine showing cortical disruption of the base of the marginal osteophyte formation C3, questionable nondisplaced fracture of the syndesmosis site formation at this level. I did reach out to radiologist, Dr. Mendoza regarding this read. Believes this is probably nondisplaced fracture of bone spur. There is no concern for traumatic vertebral body fracture. No need for MRI or trauma transfer. Cervical collar removed, patient does not endorse any neck pain. No midline c spine tenderness or step off. FROM intact to c spine. X-ray right shoulder showing upward subluxation of right AC joint. Patient has full ROM intact to right shoulder. CMS intact. I did reach out to orthopedic ABRAHAM Espinal who recommends sling for comfort. No surgical intervention warranted. > treated w/ 1L IVF. orthostatic VS positive. endorses dizziness on standing, has to hold onto medical cart for stability. > orthostatic hypotension possibly secondary to Lasix. second L of fluids ordered. Will reach out to hospitalist for possible admission. Patient and daughter are agreeable with this. Medications Administered Generic Name Dose Route Start Last Admin Trade Name Freq PRN Reason Stop Dose Admin Insulin Human Lispro 0 unit 08/30/24 21:00 08/30/24 21:41 Insulin Lispro 100 Unit/Ml 3 Ml Vial SUBCUT Not Given QIDACHS [facility] Protocol Discontinued Medications Generic Name Dose Route Start Last Admin Trade Name Freq PRN Reason Stop Dose Admin Diazepam 2.5 mg 08/30/24 10:19 08/30/24 10:37 Diazepam 10 Mg/2 Ml Cartridge IVPUSH 08/30/24 10:20 2.5 mg STAT STA Administration Sodium Chloride 1,000 mls @ 999 mls/hr 08/30/24 15:45 08/30/24 17:06 Ns IV 08/30/24 16:45 Infused .Q1H1M [facility] Infusion Sodium Chloride 1,000 mls @ 999 mls/hr 08/30/24 17:45 08/30/24 19:57 Ns IV 08/30/24 18:45 Infused .Q1H1M [facility] Infusion Medical Decision Making Medical Decision Making [facility] Narrative: 83 year old male with pmhx significant for DM, renal cancer, HTN, GERD presents to the ED today via EMS from home for evaluation of syncopal episode [employer]. hypotensive, vitals otherwise wnl. he is well appearing, in NAD. hematoma to right forehead along hairline. no palpable skull fracture. no battles sign, no raccoon eyes. PERRLA. EOMs intatc w/o entrapment. no midline c spine tenderness or step off. FROM intact to c spine. no noted deformity to right shoulder. FROM intact to right shoulder w/ pain on abduction/ extension. sensation intact, 2+radial pulse intact. FROM intact to b/l hips. no overlying skin changes. NIH 0 - normal finger to nose, heel to montoya. Differential diagnoses includes: viral syndrome, anemia, electrolyte abnormality, hypoglycemia, orthostatic hypotension, dehydration, medication side effect, BPPV vs labrynthitis. concern for shoulder fracture v contusion v dislocation, hip fracture v contusion v dislocation. unlikely compartment syndrome, nv compromise, threat to limb. No red flag features for central vertigo to include gradual onset, vertical/bidirectional or nonfatigable nystagmus, focal neurologic findings on exam (including inability to ambulate). Presentation not consistent with an acute OENOLOGIST infection, vertebral basilar artery insufficiency, cerebellar hemorrhage or infarction,?intracranial mass or bleed, temporal lobe epilepsy,?MS, trauma, complex migraine headache. I have also considered ACS, arrhythmia, pneumonia, UTI. Plan: labs, ekg, viral swabs, CXR, UA, trial of IVF, supportive care, serial reassessment Differential Diagnosis Differential Diagnoses: The differential diagnosis associated with the presentation includes as above. Admission/Observation Consideration of admission/observation: Escalation of care including admission/observation considered patient admitted to medicine for orthostatic hypotension Consult Healthcare Provider Management of the patient was discussed with: Hospitalist and Malt Loader (fred espinal) Lab Data MDM Lab Attestation statement: I reviewed the patient's lab results. as above. 08/30/24 10:09 08/30/24 10:09 Labs: Lab Results 08/30/24 08/30/24 08/30/24 Range/Units 10:09 11:20 14:47 WBC 9.4 (4.8-10.8) X10*3/uL RBC 3.60 L (4.60-5.80) X10*6/uL Hgb 11.8 L (14.0-18.0) g/dl Hct 35.4 L (42.0-52.0) % MCV 98.3 H (80.0-98.0) fL MCH 32.8 (27.0-33.0) pg MCHC 33.3 (31.0-36.0) g/dl RDW 13.2 (11.0-16.0) % Plt Count 235 (160-400) X10*3/uL MPV 9.7 (9.4-12.4) fL Immature Gran % (Auto) 0.3 (0.0-0.4) % Neut % (Auto) 69.6 (45-73) % Lymph % (Auto) 22.1 (20-40) % Rains % (Auto) 6.0 (2-11) % Eos % (Auto) 1.8 (0-4) % Baso % (Auto) 0.2 (0-2) % Lymph # (Auto) 2.1 (1.2-4.9) X10*3/uL Rains # (Auto) 0.6 (0.1-1.2) X10*3/uL Eos # (Auto) 0.2 (0.0-0.4) X10*3/uL Baso # (Auto) 0.0 (0.0-0.2) X10*3/uL Abs Immat Gran (auto) 0.03 (0.00-0.03) X10*3/uL Absolute Neuts (auto) 6.6 (2.0-8.3) x10*3/uL Absolute Nucleated RBC 0.000 (0.0-0.012) X10*3/uL Nucleated RBC % (auto) 0.0 (0.0-0.2) /100WBC Sodium 140 (135-145) mmol/L Potassium 4.4 (3.3-5.1) mmol/L Chloride 105 (96-108) mmol/L Carbon Dioxide 28 (22-29) mmol/L Anion Gap 11 L (12-20) BUN 26 H (9-16) mg/dL Creatinine 1.33 (0.5-1.4) mg/dL Estim Creat Clear Calc 58.5 Estimated GFR 51 Random Glucose 99 (60-115) mg/dL Calcium 8.9 (8.4-10.2) mg/dL Magnesium 2.2 (1.6-2.6) mg/dL Total Bilirubin 0.2 (0.0-1.0) mg/dL AST 28 (5-37) U/L ALT 13 (0-40) U/L Alkaline Phosphatase 72 (39-117) U/L Total Creatine Kinase 98 (38-174) U/L Troponin I High Sens 3.3 4.1 (<3.5-35.0) ng/L Total Protein 6.4 L (6.5-8.0) g/dL Albumin 3.8 (3.5-5.0) g/dL Urine Color Yellow Urine Appearance Clear Urine pH 7.5 (5.0-9.0) Ur Specific [place] 1.015 (1.005-1.025) Urine Protein Negative (Neg-Trace) mg/dL Urine Glucose (UA) Negative (Negative) mg/dL Urine Ketones Negative (Negative) mg/dL Urine Blood Negative (Negative) Urine Nitrite Negative (Negative) Ur Leukocyte Esterase Negative (Negative) Ethyl Alcohol < 10 mg/dL Independent Interpretation I performed an independent interpretation of an: EKG, Plain X-Ray and CT Scan Interpretation: ct head/brain without bleed ct c spine without vertebral body fracture cxr without infiltrate or consolidation xr right shoulder w/ upward subluxation of AC joint xr right hip w/o fracture Radiology Impression Discussion of test interpretation with radiology: I have reviewed the radiologist's reading. Radiologist Impression: Procedure(s): CT head/brain wo IV con Accession Number(s): [id number] cc: Don Camacho MD; Kary Del Real~ Report Number: [id number]: Total DLP = 0.00 mGy-cm EXAMINATION: CT HEAD WITHOUT CONTRAST CLINICAL INFORMATION: LOC w/ head strike, on thinners COMPARISON: None available. TECHNIQUE: Contiguous axial imaging was performed from the skull base to vertex without intravenous administration of contrast. This CT examination was performed using dose optimization techniques as appropriate, variously including the following: *Automated exposure control *Adjustment of mA and/or kV according to patient size (this includes techniques or standardized protocols for targeted exams where dose is matched to indication/reason for exam; i.e. extremities or head) *Use of iterative reconstruction technique DLP: 722.35 mGy-cm FINDINGS: Soft tissue contusion, right forehead/frontal soft tissue scalp. Bony calvarium is intact. Skull base is intact. No acute intracranial hemorrhage, mass effect, midline shift, hydrocephalus or herniation. Horne-white matter differentiation is normal. Posterior cranial fossa contents demonstrated no acute intracranial hemorrhage or mass effect. Sellar/suprasellar region demonstrated no gross masses or hemorrhage. Craniocervical junction is intact. Prominence of the extra-axial CSF spaces cerebral sulci and ventricles. Bilateral multifocal patchy deep periventricular white matter hypodensities involving centrum semiovale and clarke radiata. Calcified plaques in the cavernous segments both ICAs. No air-fluid levels in the paranasal sinuses. There is a polypoid mucosal thickening, ethmoid air cells. Retention cysts versus polyp, left ethmoid air cells. Tympanic cavities and mastoid cells are aerated with poor pneumatization of the mastoid. There is a punctate 2 mm metallic foreign body in the anterior aspect/preseptal right periorbital/right eyeball. No hematoma in the intraconal or extraconal compartments of the orbits. CT/CT head/brain wo IV con IMPRESSION: Soft tissue contusion/hematoma right forehead. Focal 2 mm metallic foreign body in the anterior right eyeball. No acute intracranial hemorrhage. Procedure(s): CT cervical spine wo IV con Accession Number(s): [id number] cc: Don Camacho MD; Kary Del Real~ Report Number: [id number]: Total DLP = 1255.00 mGy-cm EXAMINATION: CT CERVICAL SPINE WITHOUT CONTRAST CLINICAL INFORMATION: Status post fall. COMPARISON: None available. TECHNIQUE: Contiguous axial images through the cervical spine using 3 mm collimation with bone and soft tissue algorithm. Sagittal and coronal reformatted images acquired. This CT examination was performed using dose optimization techniques as appropriate, variously including the following: *Automated exposure control *Adjustment of mA and/or kV according to patient size (this includes techniques or standardized protocols for targeted exams where dose is matched to indication/reason for exam; i.e. extremities or head) *Use of iterative reconstruction technique. DLP: 523.36 mGy centimeter. FINDINGS: Craniocervical junction is intact. Syndesmophyte formation and marginal osteophyte formation from C2 to C7 and T1-2 levels. There is a cortical disruption at the base of the marginal osteophyte formation C3. There is evangelical of the intervertebral disc spaces from C3 to C5. There is chondrocalcinosis at C6-7. There is multilevel facet joint hypertrophy from C2-3 to T1 to. There is no gross malalignment between the vertebral bodies or the facet joints. C1 is intact. C2 is intact. C3 is intact. Cortical irregularity in the marginal osteophyte formation/syndesmophyte formation. C4 is intact. Facet joint hypertrophy bilaterally. C5 is intact. C6 is intact. C7 is intact. Facet joint hypertrophy bilaterally. No gross prevertebral compartment hematoma. Large anterior syndesmophyte formation/marginal osteophyte formation protruding upon the retropharynx and hypopharynx and larynx. Prominent diverticula in the glottis. Electrode leads in the left subclavian region. Tympanic cavities and mastoid cells are aerated. CT/CT cervical spine wo IV con IMPRESSION: Multilevel cervical spondylosis with questionable nondisplaced fracture of the syndesmophyte formation at C3. Fleischner guidelines were followed. Procedure(s): XR chest 2V Accession Number(s): [id number] cc: Don Camacho MD; Kary Del Real~ EXAMINATION: XR CHEST CLINICAL INFORMATION: syncope COMPARISON: March 18, 2023 TECHNIQUE: 2 views of the chest were obtained. FINDINGS: No consolidation, pleural effusion or pneumothorax. Cardiomediastinal silhouette size is normal. Calcified plaque Arctic arch. There are 2 electrode leads in the right heart chambers likely intact and a metallic reservoir in the left upper thorax. Multilevel thoracic spondylosis with calcifications throughout the anterior longitudinal ligament. XR/XR chest 2V IMPRESSION: No acute airspace disease. 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 Date of Service: 08/30/24 Procedure(s): XR hip RT w PEL1V Accession Number(s): [id number] cc: Don Camacho MD; Kary Del Real~ EXAMINATION: XR HIP, RIGHT CLINICAL INFORMATION: r hip pain s/p fall COMPARISON: None available. TECHNIQUE: Two views of the right hip. AP pelvis one view FINDINGS: AP pelvis: There is normal symmetry of bilateral hip joints. The joint spaces maintain normal. No visible fracture, lytic or sclerotic process seen involving the pelvic bones. The soft tissues are normal. AP and frog-leg views right hip reveal no acute fracture or dislocation. There is dystrophic calcification along the greater the body anterior likely calcific bursitis. No lytic or sclerotic process seen. The soft tissues are normal. XR/XR hip RT w PEL1V IMPRESSION: Likely calcific bursitis right greater trochanter. No visible acute fracture, dislocation or subluxation. Procedure(s): XR shoulder RT min 2V Accession Number(s): [id number] cc: oDn Camacho MD; Kary Del Real~ EXAMINATION: XR SHOULDER, RIGHT CLINICAL INFORMATION: R shoulder pain on mvmt s/p fall COMPARISON: None available. TECHNIQUE: AP external rotation, Grashey, scapular Y, and axillary views of the right shoulder. FINDINGS: There is an upward deformity of the acromioclavicular joint. There is overlapping the the humeral head with the glenoid of the scapula. No acute cortical disruption.. No lytic or blastic lesions. Questionable lateral leads no fully included in the [id number].. XR/XR shoulder RT min 2V IMPRESSION: Upward subluxation, right acromioclavicular joint. Independent Historian Clinical information obtained from an independent historian. History obtained from or confirmed by: EMS and Other (daughter) External Record Review External record reviewed: Inpatient record Chronic Conditions Patient?s care impacted by: Hypertension Social Determinants Patient?s care significantly limited by Social Determinants of Health including: Other Social Determinant of Health Critical Care Time Critical Care Time Critical Care Time: Yes Total Critical Care Time: 34 Attestation: Critical care time in the amount of 34 minutes has been provided to the patient in terms of direct patient care, frequent reevaluation, consultation with hospitalist, review and interpretation of medical data and results, and management of potentially life-threatening conditions. This is all outside of any medical procedures. Discharge Plan Discharge Clinical Impression: Fall, Separation of right acromioclavicular joint Patient Disposition: Home, Self-Care
--- OUTSIDE RECORDS SUMMARY | 2024-08-30 10:10 | XMS_ITS ---
Author Name [facility] Address [address] [place] [address] Care Team Prov[address] Care Street Department Dispatcher Name Role Phone ANTHONY DUTTON Primary Care Provider Unavailabl e Insurance Providers: All historical and current Section Date Range: From patient's date of to the date document was created. This section includes the names of all active insurance providers for the patient. Insurance Provider Type of Coverage Plan Name Start of Policy Coverage End of Policy Coverage Group Number Member ID Insurance Provider's Telephone Number Policy Mccormack's Name Patient's Relationship to Policy Mccormack [place] OF [place] ([place]ARD) MEDIC[place] MEDEX BRONZ E May 10, 2005 [id number] CONRADO BERNARDO ALD PATIENT [place] May 10, 2005 [id number] [phone] BLUE LINE HANGERCONRADO ALD PATIENT [place] MED[place] May 10, 2005 [id number] [phone] BLUE LINE HANGERDON ALD PATIENT [place] MED[place] May 10, 2005 [id number] BLUE LINE HANGEROCNRADO ALD PATIENT MEDICARE (WNR) MEDICARE (M) PART A Nov 07, 2004 PART A [id number] BLUE LINE HANGERCONRADO ALD PATIENT MEDICARE (WNR) MEDICARE (M) PART B Nov 07, 2004 PART B [id number] CORNADO BERNARDO PATIENT MEDICARE (WNR) MEDICARE (M) PART A Nov 07, 2004 PART A [id number] CONRADO BERNARDO ALD PATIENT MEDICARE (WNR) MEDICARE (M) PART B Nov 07, 2004 PART B [id number] CONRADO BERNARDO ALD PATIENT MEDICARE (WNR) MEDICARE (M) PART A Nov 07, 2004 PART A [id number] CONRADO BERNARDO ALD PATIENT MEDICARE (WNR) MEDICARE (M) PART B Nov 07, 2004 PART B [id number] CONRADO BERNARDO PATIENT Selected Encounter This section includes the information on record at [place] for the Encounter. Date/Time Encounter Type Encounter Description Reason Provider Source September 22, 2023 01:00 PM PSYCH DIAGNOSTIC EVALUATION MENTAL [facility] ICD-10-CM F32.A Depression, unspecified LETY HAYES [facility] Encounter Template Text not used by [place] Assessments - Encounter Diagnoses This section includes the primary and secondary diagnoses documented for the Encounter. Date/Time Primary/Secondary Diagnosis Diagnosis Name Provider Source September 22, 2023 04:14 PM PRIMARY Depression, unspecified [facility]IS [facility] Plan of Treatment: Future Appointments (+ 6 months) and Future Tests (+/- 45 days) The Plan of Treatment section includes future care activities for the patient from all [place] treatmentfacilities. This section includes future appointments and future orders which are active, pending or scheduled. Future Appointments This section includes appointments that were scheduled to occur 6 months from the date of the Encounter, up to a maximum of 20 appointments. The data comes from all [place] treatment facilities. Appointment Date/Time Appointment Type Appointme nt Facility Name Oct 21, 2023 02:00 PM AMBULATORY - [facility]ICINE [facility] [place] [facility] Jan 26, 2024 11:30 AM [facility] [place] [facility] Feb 01, 2024 01:30 PM [facility] Feb 23, 2024 09:00 AM [facility] Lab Results: +/- 30 days of the encounter This section includes the Chemistry and Hematology Lab Results on record with [place] for the patient. Radiology Reports and Pathology Reports are provided separately, in subsequent sections. Lab Results This section contains the Chemistry/Hematology Results that were resulted 30 days before or 30 daysafter the date of the Encounter. Date/Time Source Result Type Result - Unit Interpretation Reference Range Specimen Type Comment September 13, 2023 07:48 AM [facility] LIVER FUNCTION SERUM Specimen Type: SERUM No comment entered. Ordering Provider: ANTHONY DUTTON Report Released Date/Time: September 11, 2023 06:08 PM Reporting Lab: [address] [address] Performing Lab: [address] [address] PROTEIN,TOTAL 6.5 g/dL 6.0-8.3 ALBUMIN 3.7 g/dL 3.5-5.0 ALKALINE PHOSPHATASE 70 U/L 40-150 AST 16 U/L 5-34 ALT 18 U/L BILIRUBIN, TOTAL 0.3 mg/dL 0.2-1.2 September 13, 2023 07:48 AM [facility] TSH SERUM Specimen Type: SERUM No comment entered. Ordering Provider: ANTHONY DUTTON Report Released Date/Time: September 11, 2023 06:08 PM Reporting Lab: [address] [address] Performing Lab: [address] [address] TSH 0.61 u[IU]/mL 0.35-5.00 September 13, 2023 07:48 AM [facility] LIPID PANEL FASTING SERUM Specimen Type: SERU M No comment entered. Ordering Provider: ANTHONY DUTTON Report Released Date/Time: September 11, 2023 06:08 PM Reporting Lab: [address] [address] Performing Lab: [address] [address] CHOLESTEROL 151 mg/dL TRIGLYCERIDE 226 mg/dL H 0-150 LDL calculated 73 mg/dL 0-129 CHOL/HDL 4.6 HDL CHOLESTEROL 33 mg/dL L 40-60 September 13, 2023 07:48 AM [facility] HEMOGLOBIN A1C PANEL BLOOD Specimen Type: BLO OD Comment: Values obtained from A1C measurements can vary. For atypical A1C assays, a reported value of 7.0 could actually be between 6.72 and 7.28 if measured by a reference method. A reported value of 9.0 could actually be between 8.73 and 9.27. Ref: http://www.ngsp.org/CAPdata.asp Ordering Provider: ANTHONY DUTTON Report Released Date/Time: September 11, 2023 06:08 PM Reporting Lab: [address] [address] Performing Lab: [address] [address] HEMOGLOBIN A1C 6.0 H 4.0-5.6 September 13, 2023 07:48 AM [facility] BASIC METABOLIC PANEL (fasting) SERUM Specime n Type: SERUM No comment entered. Ordering Provider: ANTHONY DUTTON Report Released Date/Time: September 11, 2023 06:08 PM Reporting Lab: [address] [address] Performing Lab: [address] [address] UREA NITROGEN 26 mg/dL H 7-25 GLUCOSE 167 mg/dL H 65-100 SODIUM 140 mmol/L 135-145 POTASSIUM 4.4 mmol/L 3.5-5.0 CHLORIDE 101 mmol/L 100-110 CO2 29 meq/L 20-30 CREATININE, Serum 1.42 mg/dL H 0.50-1.40 eGFR(CKD-EPI 2020) 49 mL/min L >60 September 13, 2023 07:48 AM [facility] MICROALBUMIN CREATININE RATIO PANEL URINE Spe cimen Type: URINE No comment entered. Ordering Provider: ANTHONY DUTTON Report Released Date/Time: September 11, 2023 06:08 PM Reporting Lab: [facility] [address] [facility] [address] Performing Lab: [facility] [address] [facility] [address] MICROALBUMIN/CREATININE RATIO 71.3 mg/g H 0-29.9 MICROALBUMIN,QUANTITATIVE 8.0 mg/dL RR U NAVAIL CREATININE URINE 112.23 mg/dL September 13, 2023 07:48 AM [facility] URIC ACID SERUM Specimen Type: SERUM No comment entered. Ordering Provider: ANTHONY DUTTON Report Released Date/Time: September 11, 2023 06:08 PM Reporting Lab: [address] [address] Performing Lab: [address] [address] URIC ACID 5.7 mg/dL 3.5-7.2 September 13, 2023 07:48 AM [facility] URINALYSIS CLEAN CATCH URINE Specimen Type: U RINE Comment: If Glucose = >500 and Ketones are positive, please alert the Physician. Ordering Provider: ANTHONY DUTTON Report Released Date/Time: September 11, 2023 06:08 PM Reporting Lab: [address] [address] Performing Lab: [address] [address] UA COLOR Yellow Yellow UA APPEARANCE Clear Clear UA GLUCOSE NEGATIVE mg/dL Negative UA KETONES NEGATIVE mg/dL Negative UA BLOOD NEGATIVE mg/dL Negative UA PROTEIN 20 mg/dL Negative UA NITRITE NEGATIVE mg/dL Negative UA BILIRUBIN NEGATIVE mg/dL Negative UA SPECIFIC GRAVITY 1.018 1.016-1.022 UA pH 6.0 5.0-9.0 UA UROBILINOGEN <2.0 mg/dL <2.0 UA LEUKOCYTE NEGATIVE Negative September 13, 2023 07:48 AM [facility] CBC AND DIFF (AUTO) BLOOD Specimen Type: BLOO D No comment entered. Ordering Provider: ANTHONY DUTTON Report Released Date/Time: September 11, 2023 06:08 PM Reporting Lab: [facility] [address] [facility] [address] Performing Lab: [facility] [address] [facility] [address] WBC 6.46 10*3/uL 4.50-11.00 RBC 3.67 10*6/uL L 4.23-5.66 HGB 12.2 g/dL L 12.8-17 HCT 36.4 L 39.2-50.4 MCV 99.2 fL H 82-99 MCHC 33.5 g/dL 30.8-35.1 PLT 258 10*3/uL 140-360 RDW-CV 12.7 12.0-16.0 [place], Abs 0.39 10*3/uL 0.30-1.10 MCH 33.2 pg H 26.2-32.6 Neut % 58.8 43.7-75.8 Lymph % 32.7 14.0-42.3 [place] % 6.0 5.1-13.7 Eos % 1.7 0.4-6.8 Baso % 0.3 0.1-2.0 Neut, Abs 3.80 10*3/uL 2.20-7.60 Lymph, Abs 2.11 10*3/uL 1.00-3.20 Eos, Abs 0.11 10*3/uL 0.03-0.44 Baso, Abs 0.02 10*3/uL 0.01-0.13 Immature Gran % 0.5 0.0-0.7 Immature Gran, Abs 0.03 10*3/uL 0.00-0.0 6 Social History: Smoking Status (Most current) and Tobacco Use (All prior to encounter date) This section includes the most current, and the historical, smoking and tobacco- related health factors from the [place] facility where the Encounter took place. Current Smoking Status This section includes the most current smoking, or tobacco-related health factor, from the [place] facility where the Encounter took place. Date/Time Current Smoking Status Comment Myra rainey Jan 20, 2023 11:30 AM VA-TOBACCO FORMER USER [facility] Tobacco Use History This section includes a history of the smoking, or tobacco-related health factors, that were collected on or before the date of the Encounter. The data comes from the [place] facility where the Encounter took place. Date/Time Smoking Status/Tobac co Use Comment Facility Jan 20, 2023 11:30 AM VA-TOBACCO QUIT 15 YRS OR MORE [facility] Dec 31, 2021 10:30 AM VA-TOBACCO FORMER USER [facility] Dec 31, 2021 10:30 AM VA-TOBACCO QUIT 5 TO < 15 YRS [facility] [place] [facility] Dec 27, 2020 10:00 AM VA-TOBACCO FORMER USER [facility] Dec 27, 2020 10:00 AM VA-TOBACCO QUIT 5 TO < 15 YRS [facility] Nov 24, 2019 12:24 PM VA-TOBACCO FORMER USER [facility] Nov 24, 2019 12:24 PM VA-TOBACCO QUIT 5 TO < 15 YRS [place] [facility] [place] [facility] Nov 22, 2018 01:48 PM VA-TOBACCO FORMER USER [facility] Nov 22, 2018 01:48 PM VA-TOBACCO QUIT 5 TO < 15 YRS [facility] Nov 23, 2017 08:38 AM LIFETIME NON-TOBACCO USER [facility] Feb 10, 2017 10:50 AM QUIT TOBACCO USE 1-7 YEARS AGO quit 5 years ago [facility] [place] [facility] May 15, 2016 10:32 AM QUIT TOBACCO USE 1-7 YEARS AGO pt states he quit 5 yr ago. [facility] [place] May 14, 2015 08:27 AM QUIT TOBACCO USE 1-7 YEARS AGO [facility] [place] [facility] Jan 12, 2013 08:54 AM LIFETIME NON-TOBACCO USER [facility] Aug 12, 2011 08:49 AM QUIT TOBACCO USE 1-7 YEARS AGO [facility] [place] [facility] Jul 28, 2010 08:40 AM QUIT TOBACCO USE 1-7 YEARS AGO quite fiuve months ago [facility] Jul 22, 2009 09:34 AM CURRENT SMOKER 1 1/2 PPD [facility] Jul 22, 2009 09:34 AM V1-PT DECLINES TOBACCO CESSATION MEDS [facility] Jul 22, 2009 09:34 AM V1-PT NOT INTERESTED IN QUIT TOBACCO USE [facility] Jan 22, 2009 09:25 AM V1-PT DECLINES TOBACCO CESSATION MEDS [facility] Jan 22, 2009 09:25 AM V1-PT THINKING ABOUT QUIT TOBACCO USE [facility] Jul 19, 2008 08:45 AM CURRENT SMOKER 1 1/2 ppd [facility] Jul 19, 2008 08:45 AM V1-PT DECLINES TOBACCO CESSATION MEDS [facility] Jul 19, 2008 08:45 AM V1-PT THINKING ABOUT QUIT TOBACCO USE [facility] Jan 17, 2008 08:56 AM V1-PT DECLINES TOBACCO CESSATION MEDS [facility] Jan 17, 2008 08:56 AM V1-PT NOT INTERESTED IN QUIT TOBACCO USE [facility] Jul 15, 2007 09:30 AM CURRENT SMOKER [facility] [place] [facility] Jul 15, 2007 09:30 AM V1-PT DECLINES TOBACCO CESSATION MEDS [facility] Jul 15, 2007 09:30 AM V1-PT THINKING ABOUT QUIT TOBACCO USE [facility] [facility] Jan 14, 2007 11:06 AM V1-PT DECLINES TOBACCO CESSATION MEDS [facility] [facility] Jan 14, 2007 11:06 AM V1-PT THINKING ABOUT QUIT TOBACCO USE [facility] [place] [facility] Jul 14, 2006 11:56 AM V1-PT READY TO QUIT TOBACCO USE [facility] [place] [facility] Jun 09, 2006 02:29 PM CURRENT SMOKER [facility] [place] [facility] October 01, 2003 02:19 PM CURRENT SMOKER Smokes 1.5 packs/day and is not ready to quit at this time [facility] [facility] Encounter Notes: All associated encounter notes This section contains the clinical notes associated to the Encounter. Date/Time Encounter Note(s) Provider Source September 22, 2023 03:45 PM PSYCHOLOGY CONSULT: LOCAL TITLE: CONSULT REPORT/MENTAL HEALTH/PSYCHOLOGY STANDARD TITLE: PSYCHOLOGY CONSULT DATE OF NOTE: SEPTEMBER 22, 2023@15:45 ENTRY DATE: SEPTEMBER 22, 2023@15:45:53 AUTHOR: CONSTANTINE DAVIS COSIGNER: KIMBERLEE HAYES URGENCY: STATUS: COMPLETED Supervision: This case is being supervised by Kimberlee Hayes, PhD, full-time Staff Psychologist. Diagnosis, treatment plan, and response to care are reviewed in one hour weekly individual supervision meetings. INFORMED CONSENT TO PARTICIPATE IN ASSESSMENT: At beginning of session reviewed rights and limits of confidentiality, mandatory reporting situations, duty to warn and protect, Mathur Warning, (if treatment team finds patient to be an acute danger to themself or others, that this information could be relayed to a court of law and presented to a automobile detailer), and DOD access for active duty service members. Provided Suicide Prevention Hotline number, and other contact numbers as necessary. *[facility] OUTPATIENT MENTAL HEALTH ASSESSMENT* I. IDENTIFYING INFORMATION: CATRINA BERNARDO [address] [place], [place] [id number] IDENTITY VERIFICATION [X] Patient Name [X] Birthdate [ ] Social Security # Referral source: Grecia Singh, after call to [facility] Present at time of intake: [X] [ ] Family member: [ ] Supportive person(s) Language Preference: [X] Cameroonian [ ] Albanian [ ] Other: Language Spoken for Intake: [X] Cameroonian [ ] Albanian [ ] Other: II. PRESENTING SITUATION: A. What brings you into Mental Health at this time: The [facility] reported recent conflict with his daughter that caught him by surprise. 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 She skipped seeing her mother and came up to see me. She blew into the door and came out into the living room and starting screaming at me about everything I have everything that I had ever done wrong from the day she was born. The [facility] said that about 30 minutes into this confrontation he told her to leave his house. He said: She blamed me for everything. I was so taken aback by it. I just went to pieces I just sat in the chair for an hour and cried. He continued: I think she's just overburdened with her two jobs, trying to remodel a house...not happy with where her mother is in a jail. I feel hung out to dry, because I got nobody except my and my daughter. Somehow I don't think I'm that bad a bernadine. B. What are some of your goals for treatment: The said that he wants to understand what happened with his relationship, and figure out how to repair it. He said that he has no other resources for people process with or from which to obtain support. C. 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 D. What obstacles or challenges prevent you from meeting your goals?: Total frustration and feeling everything that I've learned...I was decieted [sic] by everybody. III: ASSESSMENT: A. Do you have concerns about past or current mental health symptoms or problems: [X] Yes [ ] No If yes, please describe: Alcohol use issues Click or tap here to enter text. How do you see these concerns impacting past and current quality of life (School, Work, Family, Housing, Finances, Social life, Legal): Click or tap here to enter text. B. Have you previously been involved in Mental Health treatment: [X] Yes [ ] No If yes, please check all that apply and describe: [X] Hospitalizations (when, where, etc.): Went to [place] for 28 days for alcohol detox around 17 years ago. [X] Medication trials (what, when, doses, etc.): Take a mild tranquilizer, I've been taking it for 30 years. [ ] Therapy trials (type, when, etc.): 5 years worth of marriage counseling. Haven't been to AA since pandemic started. Was going frequently before then. C. Do you have concerns about current or past substance use: [X] Yes [ ] No If yes, please identify 's primary and secondary substances of choice: The reported historical alcohol and tobacco use and was successfully maintaining penitentiary abstinence from both. He denied historical use of any other substances. (1) Primary: Alcohol (2) Secondary: Tobacco [X] ALCOHOL Age of onset: 17 years old Method of acquiring substance: legal purchase Means of use: oral Pattern of use: regular/routine Duration of use (for most recent episode): Frequency of use: daily Amount per use: 6-8 scotch/water (~3oz per serving) Last use: 17 years ago Longest period of sobriety: 17 years * Check all that apply with respect to this substance: [ ] The substance is often taken in larger amounts or over a longer period than was intended. [ ] There is a persistent desire or unsuccessful efforts to cut down or control substance use. [ ] A great deal of time is spent in activities necessary to obtain the substance, or recover from its effects. [X] Craving, or a strong desire or urge to use the substance. [ ] Recurrent substance use resulting in a failure to fulfill major role obligations at work, school, or home. [ ] Continued substance use despite persistent/recurrent social/interpersonal problems caused or exacerbated by the effects of the substance. [ ] Important social, occupational, or recreational activities are given up or reduced because of substance use. [X] Recurrent substance use in situations in which it is physically hazardous. [X] Substance use is continued despite knowledge of having a persistent or recurrent physical or psychological problem that is likely to have been caused or exacerbated by the substance. [ ] Tolerance, as defined the following: A need for markedly increased amounts of the substance to achieve intoxication or desired effect. [ ] Tolerance, as defined the following: A markedly diminished effect with continued use of the same amount of the substance. [ ] Withdrawal, as manifested by either of the following: The characteristic withdrawal syndrome for the substance (refer to criteria A and B of the criteria set for substance withdrawal). [ ] Withdrawal, as manifested by either of the following: Substance (or a closely related substance) is taken to relieve or avoid withdrawal symptoms. * Depending on how many boxes were checked above, indicate the severity level: [X] Mild: 2-3 symptoms [ ] Moderate: 4-5 symptoms [ ] Severe: 6 or more symptoms * Regarding the motivation for treatment, estimate 's stage of change with respect to this substance: [ ] Precontemplation [ ] Contemplation [ ] Preparation [ ] Action [X] Maintenance * Which withdrawal symptoms have you had when you tried to stop using substance? [ ] Delirium tremens (DT's) [ ] Seizures [ ] Shakes/tremors [ ] Hallucinations [ ] Nausea [ ] Headache [ ] Diarrhea [ ] Muscle aches [ ] Leg cramps [ ] Depression [ ] Irritability [ ] Mood swings [ ] Sleep problems [ ] Appetite problems [ ] Breathing problems [ ] Itching/scratching [ ] CANNABIS [ ] COCAINE [ ] AMPHETAMINES [ ] OPIATES [ ] SEDATIVES, HYPNOTICS, ANXIOLYTICS [ ] OTHER SUBSTANCES (MDMA/ECTASY, DXM/CORICIDIN, STEROIDS, DIPHENYDRAMINE/BENADRYL, BATH SALTS, SPICE, K-2, ETC.) [X] TOBACCO The said that he quit after he went to the hospital with chest pains. Age of onset: n/a Method of acquiring substance: legal Means of use: smoked Pattern of use: regular/routine Duration of use (for most recent episode): n/a Frequency of use: daily Amount per use: 2 packs Last use: ~12 years ago Longest period of sobriety: ~12 years * Check all that apply with respect to this substance: [ ] The substance is often taken in larger amounts or over a longer period than was intended. [ ] There is a persistent desire or unsuccessful efforts to cut down or control substance use. [ ] A great deal of time is spent in activities necessary to obtain the substance, or recover from its effects. [ ] Craving, or a strong desire or urge to use the substance. [ ] Recurrent substance use resulting in a failure to fulfill major role obligations at work, school, or home. [ ] Continued substance use despite persistent/recurrent social/interpersonal problems caused or exacerbated by the effects of the substance. [ ] Important social, occupational, or recreational activities are given up or reduced because of substance use. [ ] Recurrent substance use in situations in which it is physically hazardous. [ ] Substance use is continued despite knowledge of having a persistent or recurrent physical or psychological problem that is likely to have been caused or exacerbated by the substance. [ ] Tolerance, as defined the following: A need for markedly increased amounts of the substance to achieve intoxication or desired effect. [ ] Tolerance, as defined the following: A markedly diminished effect with continued use of the same amount of the substance. [ ] Withdrawal, as manifested by either of the following: The characteristic withdrawal syndrome for the substance (refer to criteria A and B of the criteria set for substance withdrawal). [ ] Withdrawal, as manifested by either of the following: Substance (or a closely related substance) is taken to relieve or avoid withdrawal symptoms. * Depending on how many boxes were checked above, indicate the severity level: [ ] Mild: 2-3 symptoms [ ] Moderate: 4-5 symptoms [ ] Severe: 6 or more symptoms * Regarding the motivation for treatment, estimate 's stage of change with respect to this substance: [ ] Precontemplation [ ] Contemplation [ ] Preparation [ ] Action [ ] Maintenance * Which withdrawal symptoms have you had when you tried to stop using substance? [ ] Delirium tremens (DT's) [ ] Seizures [ ] Shakes/tremors [ ] Hallucinations [ ] Nausea [ ] Headache [ ] Diarrhea [ ] Muscle aches [ ] Leg cramps [ ] Depression [ ] Irritability [ ] Mood swings [ ] Sleep problems [ ] Appetite problems [ ] Breathing problems [ ] Itching/scratching If patient reports substance use issues: (1) What are triggers that lead to substance use? Stress. (2) What does the patient do to cope when triggered to use besides using, if anything? I don't know that I do much of anything. For many years I spend a lot of time in the basement...building model airplanes. The said that now he builds puzzles and watches TV. (3) Has substance use led to any medical concerns (including black outs, liver function, pancreatitis, withdrawal symptoms)? Which? No. (4) How does the patient rate their readiness to change with respect to their substance(s) of choice? Currently maintaining abstinence. (5) Describe patient's level of awareness of the relationship between their behavioral conditions and their pattern of use? n/a (6) Describe any prior substance use treatment patient has had (detox, residential, outpatient). When? Where? Modality? Outcome? 17 years ago did detox treatment in [place]. (7) Any current self-help group attendance (including AA/NA)? [ ] Yes [X] No (8) Is patient receiving any substance use counseling or psychotherapy currently? [ ] Yes [X] No *If yes, note modality, provider, and frequency: (9) Does patient report substance use is related to MST, Service- Connected Condition, and/or combat experience? Please explain. No. AUDIT-C RESULTS In men, a score of 4 or more is considered positive; in women, a score of 3 or more is considered positive for at risk drinking. A score of 8-12 represents severe risk. is abstinent from alcohol. IV: PERSONAL HISTORY/INFORMATION: A. Biological/Social History (including: relevant developmental history, family of origin, sexual/physical/emotional traumas, cultural factors, applicable sexual history): The said that he was raised in [place], [place]. He had two older brothers (10 and 8 years older) and a sister who was 3 years his senior. The Poyen said that he didn't really know who his brothers were due to the age gap. He shared the sense that his sister resented him for not being a girl, because she had wanted a sister. The shared that neither of his parents finished high school. He said that his father worked for [employer], in addition to private business repairing gas refrigerators/stoves, work with the fire department, and as a secretary receptionist to the school board. He said that his mother was a homemaker all her life. He denied abuse/neglect, but also said there was an unwritten kind of abuse that took place. My father was never part of the family. He described his relationship with mom as fine. The said that his father by suicide by hanging himself when the Poyen was 27 years old. He shared the sense that his father did this to escape a bad marriage. The Poyen's mother reportedly 12 years later from health issues. The Poyen said that he met his while he was working at [employer]. They dated for 5 years before they eloped when he was 24. They had a son and a daughter (now aged 51, and 54 respectively). He said that they had a rough period and went to marriage counseling for 5 years, which he had felt significantly improved their relationship. He said that his son hasn't spoken to him in around 20 years. He said that they had a falling out when it came to the Poyen's awareness that his son had forged his signature on student loans. When the was contacted to collect payment for the loans he denied responsibility and sent the authorities to his son. The reported what he perceived as a sudden rupture in his relationship with his daughter. He shared a sense of being blindsided by her accusations, and is unsure where their relationship is at, or what their problems are. The Poyen said that around two months after the pandemic started his had a stroke. He said that he took care of her for 3 years at home. He shared a sense that his resented him due to him enforcing her doctors requests that she stop smoking cigarettes. He placed her in a jail last November. He said: I go see her every other day. She has aphasia after the stroke. She tries to talk to you but it doesn't come out. B. History (including actual duties, combat/war zone duty, trauma exposure, exposure to environmental contaminants): The served in the [employer] from [id number]. 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 He said that he from the to go to school. C. What provides you with sense of value or quality of life: There's not much anymore. D. 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 Despite this, he said that he has managed to provide a stable senior care for himself. He added: I loved what I did for a job. E. What brings you enjoyment: Work on my puzzles and watch on TV. F. Have you ever been homelessness or at risk for homelessness? [X] reports comfort with current living arrangement and no current risk for homelessness. [ ] reports current risk for homelessness or active homelessness. [ ] Poyen reports past risk for homelessness or prior homelessness. G. What are your social or community Supports, your healthy or positive relationships: No I don't have them. I'm afraid to, I don't want to get burnt again. 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 He said: I did great in college, I didn't do that great in high school. I was always trying to live up to what my brothers and sister did. When I went to college I was only trying to live up to my self...I was on the Logan's list. I. What is your employment history or current goals: The Poyen worked for [employer] for 30 years, and for [employer] for 12 years. He retired at 61. J. Do you have a legal history (incarcerations, probation, parole, divorce, child custody issues): No. K. What is your level of lutheran or spiritual fulfillment: I'm Hindu. Believe it or not I watch a few programs on the tube, very carefully. Some of them are pretty extreme. I love the music on some of these. I do not go to mormonism. We have not gone to mormonism since my got sick. L. How do you culturally identify? Can you anticipate any particular cultural impacts on treatment? 57 varieties. M. Is there anybody you would like involved in the planning or delivery of your care? [ ] Yes: [X] No N. Do you have concerns for your safety or the safety of others (domestic violence, abuse/neglect, etc.)? [X] reports comfort with current living arrangement and absence of IPV/DV concerns. [ ] reports current IPV/DV concerns. [ ] Poyen reports past IPV/DV concerns. O. Have you ever been in a situation where you felt you were taken advantage of or exploited, particularly by someone in a position of power? [X] Yes: People in AA took advantage of you. [ ] No P. Income source(s): [ ] Employment: [ ] Service Connection (list percentage): [ ] SSDI: [X] [facility]: [ ] Other: V: PHYSICAL HEALTH SCREENING: A. Do you have any past or current medical concerns: [X] Yes [ ] No Active Problem Shortness of breath R06.00, Onset 0 04/08/2023 ANTHONY DUTTON Atrial fibrillation I48.91, Onset 0 03/04/2023 ANTHONY DUTTON Long-term current use of anticoagul 03/04/2023 TIFFANIE CHAVEZ At risk for falls R69., Onset 0001/20/2023 ANTHONY DUTTON Clear cell carcinoma of kidney C64. 05/20/2022 ANTHONY DUTTON Anemia (SCT [id number]) D64.9, Onset 09/02/2021 ANTHONY DUTTON Gout M1A.9XX0 01/14/2016 ANTHONY DUTTON Hypercholesterolemia E78.0 09/12/2015 ANTHONY DUTTON Diabetes mellitus (SNOMED CT 263377 05/14/2015 ANTHONY DUTTON Gout 274.9, Onset 07/14/2006 ANTHONY DUTTON Edema 782.3, Onset 07/14/2006 ANTHONY DUTTON Alcohol Dependence 303.90 06/10/2006 MICHAEL MITCHELL OVERWEIGHT 278.02 06/10/2006 MICHAEL MITCHELL Nicotine Dependence 305.1 06/10/2006 MICHAEL MITCHELL Hiatal hernia 553.3 06/10/2006 MICHAEL MITCHELL Depression 311. 06/10/2006 MICHAEL MITCHELL Open Angle, Glaucoma Unspec 365.10 11/05/2003 CLAIRE DUBON Hypercholesterolemia * (ICD-9-CM 27 10/01/2003 ATILIO PETERS Hypertension * (ICD-9-CM 401.9) 401 10/01/2003 ATILIO PETERS B. Other medical problems not listed above: The Poyen shared that he had a pacemaker implanted on February 17 2023. C. Date of last physical exam: Wednesday. D. Nutritional Screening: Have you experienced any of the following? [ ] Food Allergies n/a [X] Significant (+/- 10 lbs.) gain or loss in the last three months? Slowly and intentionally lost weight over the past few years. [ ] Decrease in food intake/appetite? n/a [X] Notable dental problems? I have two partial plates. [ ] Significant change in eating habits (purging, restriction, etc.)? n/a E. How do you see these concerns impacting on past and current quality of life (School, Work, Family, Housing, Finances, Social life, Legal, etc.)? My eyes are bothering me. I have glaucoma in both eyes. Active Outpatient Medications (including Supplies): Active Outpatient Medications Status 1) ACCU-CHEK GUIDE (GLUCOSE) TEST STRIP USE 1 STRIP TO ACTIVE TEST BLOOD SUGARS FOUR TIMES A DAY 2) ALBUTEROL 100/IPRATRO 20MCG 120D PO INHL INHALE 1 ACTIVE PUFF BY MOUTH FOUR TIMES DAILY NEEDED FOR BREATHING 3) APIXABAN 5MG TAB TAKE ONE TABLET BY MOUTH TWICE DAILY ACTIVE DIRECTED BY PROVIDER 4) CARBAMIDE PEROXIDE 6.5% OTIC SOLN INSTILL 5 TO 10 ACTIVE DROPS INTO THE RIGHT EAR ONCE DAILY FOR EAR WAX BLOCKAGE DIRECTED 5) FERROUS SULFATE 325MG TAB TAKE ONE TABLET BY MOUTH ACTIVE ONCE DAILY TO SUPPLEMENT IRON 6) FUROSEMIDE 40MG TAB TAKE ONE TABLET BY MOUTH TWICE ACTIVE DAILY TO REMOVE FLUID/CONTROL BLOOD PRESSURE 7) INSULIN,ASPART,HUMAN 100 UNIT/ML INJ INJECT SLIDING ACTIVE SCALE SUBCUTANEOUSLY FOUR TIMES A DAY PER SLIDING SCALE INSTRUCTIONS 8) INSULIN,GLARGINE-YFGN 100UNIT/ML INJ INJECT 50 UNITS ACTIVE SUBCUTANEOUSLY EVERY MORNING 9) SODIUM CHLORIDE 0.65% SOLN NASAL SPRAY INSTILL 2 ACTIVE SPRAYS INTO EACH NOSTRIL TWICE DAILY FOR DRYNESS OF THE NOSE Active Non-VA Medications Status 1) Non-VA ALBUTEROL 100/IPRATRO 20MCG 120D PO INHL 1 ACTIVE PUFF BY MOUTH FOUR TIMES DAILY NEEDED 2) Non-VA ASCORBIC ACID 500MG TAB 500MG BY MOUTH ONCE ACTIVE DAILY 3) Non-VA FLUOXETINE HCL 20MG CAP 20MG BY MOUTH ONCE ACTIVE DAILY 4) Non-VA FOLIC ACID 1MG TAB 1MG BY MOUTH EVERY DAY ACTIVE 5) Non-VA MULTIVITAMIN CAP/TAB 1 TABLET BY MOUTH ONCE ACTIVE DAILY 6) Non-VA OMEPRAZOLE 20MG EC CAP 20MG BY MOUTH EVERY ACTIVE MORNING 30 MINUTES BEFORE BREAKFAST : MENTAL STATUS / SUBJECTIVE COMPLAINTS: (check all that apply): Appearance: [X] Unremarkable [ ] Appropriate to season [ ] Neatly groomed [ ] Somewhat disheveled [ ] Other: Behavior: [X] Appropriate [ ] Irritable [ ] Pleasant [ ] Provocative [ ] Anxious [ ] Frustrated [ ] Maintained good eye contact [ ] Other: Mood/Affect: [X] Normal [ ] Euphoric [ ] Bright [ ] Depressed [ ] Anxious [ ] Frustrated [ ] Restricted [ ] Flat [ ] Subdued [ ] Unremarkable [ ] Responsive & Congruent w/mood [ ] Other: Energy: [X] Normal [ ] Excessive [ ] Lethargic [ ] Variable [ ] Other: Sleep: [X] Normal [ ] Early awakening [ ] Sleep onset insomnia [ ] Frequent disruption Notes: Wake up every couple of hours and have to go to the bathroom He said that he slept an average of 8-10 hours a night. Orientation: Oriented to person: Yes [X] No [ ] Oriented to place: Yes [X] No [ ] Oriented to time: Yes [X] No [ ] Stream of thought: [X] Normal [ ] Confused [ ] Tangential [ ] Derailed [ ] Vague [ ] Repetitive [X] No evidence of thought disorder [X] No overt psychosis [ ] Denies Flashbacks [X] Denies Auditory / Visual Hallucinations [ ] Obsessions [ ] Paranoid / Delusions [ ] Hallucinations: [ ] Flashbacks: [ ] Other: Speech: [ ] Normal [ ] Flat [ ] Rapid [ ] Slow [ ] Soft [ ] Loud [X] Other: slightly tangential Insight / Judgment: [X] Normal [ ] Impaired: Other cognitive problems: [ ] Cognition intact [ ] Logical and Linear [X] Memory sufficient for interview [ ] None [ ] Visuospatial [ ] Attention [ ] Judgment [ ] Abstraction [ ] Other: Risk Assessment: The denied SI/HI, both past and present. 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 He reported a recent rupture in his relationship with his daughter. He was unsure what happened with their relationship and how to repair it. He reported very limited social supports at present, and feels that he also needs his daughter's support as he continues to age. He endorsed symptoms consistent with a depressive disorder of mild severity, though the specific course and history of this depression is at present unclear. The would likely benefit from individual therapy to work on mood related issues, process relationship concerns, and identify ways in which to improve his social support system. The Poyen appears to have in the past met criteria for an alcohol and tobacco use disorder, but both have been in sustained remission (for 17 and 12 years, respectively). These previous diagnoses were also present in the chart. IX: NEXT ACTIONS: A. How can we work to meet your goals: Individual psychotherapy. B. What would like to see happen next: Individual psychotherapy. C. Recommendations: Individual psychotherapy. X: INFORMED CONSENT / PSYCHOEDUCATION / MEASUREMENT BASED CARE [X] Provided psychoeducation on the role of Measurement Based Care (MBC)and administered the following measures: - GAI-7 = 01/28 mild anxiety symptoms - GDS-30 = mild depression symptoms [X] Based on measurement outcomes, the following plan was discussed and agreed upon: Individual psychotherapy consult. [X] Based on the multidimensional assessment above and consistent with the [facility] Clinical Practice Guidelines for the treatment of LATANYA (2020), the following is recommended/was agreed upon: No current LATANYA treatment indicated. [X] In collaboration with considering evidence-based treatment, clinical judgment and patient preference, the plan is: Individual psychotherapy. [ ] Informed Consent for [facility] In person/paper based measures preferred. Suicide Screen: C-SSRS Screening [place]-Suicide Severity Rating Scale (C-SSRS Screener) 1. Over the past month, have you wished you were or wished you could go to sleep and not wake up? No 2. Over the past month, have you had any actual thoughts of killing yourself? No 3. Over the past month, have you been thinking about how you might do this? Response not required due to responses to other questions. 4. Over the past month, have you had these thoughts and had some intention of acting on them? Response not required due to responses to other questions. 5. Over the past month, have you started to work out or worked out the details of how to kill yourself? Response not required due to responses to other questions. 6. If yes, at any time in the past month did you intend to carry out this plan? Response not required due to responses to other questions. 7. In your lifetime, have you ever done anything, started to do anything, or prepared to do anything to end your life (for example, collected pills, obtained a gun, gave away valuables, went to the roof but didn't jump)? No 8. If YES, was this within the past 3 months? Response not required due to responses to other questions. /carmen/ CONSTANTINE DAVIS, PHD [facility] Post-Doctoral Psychology Trainee Signed: 09/22/2023 16:13 /carmen/ Kimberlee Hayes, PhD Clinical Psychologist, [facility] Cosigned: 09/22/2023 16:33 CONSTANTINE DAVIS NM [facility]L [facility]
--- OUTSIDE RECORDS SUMMARY | 2024-08-30 10:11 | XMS_ITS ---
Author Name [facility] (MD) Organization [facility] (MD) Address [address] [place] [id number] Care Team Providers Care Taker Down Name Role Phone ANTHONY DUTTON Primary Care [...] Name Patient's Relationship to Policy Mccormack HONORIO MEANS OF CT (BLUECARD) MEDIC[place] SUPP[place]MEN [place] PSU[place] MEDEX BRONZ E May 10, 2005 [id number] [phone] CONRADO BERNARDO ALD PATIENT [place] MED[place] May 10, 2005 [id number] PERSONAL TRAINERCONRADO ALD PATIENT [place] MED[place] E May 10, 2005 [id number] [phone] CONRADO BERNARDO ALD PATIENT [place] MED[place] E May 10, 2005 [id number] PERSONAL TRAINERCONRADO ALD PATIENT MEDICARE (WNR) MEDICARE (M) PART A Nov 07, 2004 PART A [id number] PERSONAL TRAINERCONRADO ALD PATIENT MEDICARE (WNR) MEDICARE (M) PART B Nov 07, 2004 PART B [id number] CONRADO BERNARDO PATIENT MEDICARE (WNR) MEDICARE (M) PART A Nov 07, 2004 PART A [id number] [phone] CONRADO BERNARDO ALD PATIENT MEDICARE (WNR) MEDICARE (M) PART B Nov 07, 2004 PART B [id number] [phone] CONRADO BERNARDO ALD PATIENT MEDICARE (WNR) MEDICARE (M) PART A Nov 07, 2004 PART A [id number] CONRADO BERNARDO ALD PATIENT MEDICARE (WNR) MEDICARE (M) PART B Nov 07, 2004 PART B [id number] CONRADO BERNARDO PATIENT Selected Encounter This section includes the information on record at MD for the Encounter. Date/Time Encounter Type Encounter Description Reason Provider Source May 08, 2024 09:00 AM OFFICE O/P EST LOW 20 MIN PRIMARY CARE/MEDICINE ICD-10-CM R07.89 Other chest pain ANTHONY DUTTON [facility] Encounter Template Text not used by MD Assessments - Encounter Diagnoses This section includes the primary and secondary diagnoses documented for the Encounter. Date/Time Primary/Secondary Diagnosis Diagnosis Name Provider Source May 08, 2024 10:53 AM PRIMARY Other chest pain ANTHONY DUTTON [place] [facility] [place] [facility] Plan of Treatment: Future Appointments (+ 6 months) and Future Tests (+/- 45 days) The Plan of Treatment section includes future care activities for the patient from all MD treatmentfacilities. This section includes future appointments and future orders which are active, pending or scheduled. Future Appointments This section includes appointments that were scheduled to occur 6 months from the date of the Encounter, up to a maximum of 20 appointments. The data comes from all MD treatment facilities. Appointment Date/Time Appointment Type Appointme nt Facility Name May 26, 2024 10:00 AM AMBULATORY - MEDICINE MD [facility] [place] [facility] Jun 27, 2024 01:00 PM AMBULATORY - MEDICINE MD C [facility] [place] [facility] September 15, 2024 09:30 AM AMBULATORY - MEDICINE MD C [facility] [facility] Oct 25, 2024 10:00 AM AMBULATORY - MEDICINE MD C [facility] [facility] Oct 25, 2024 03:40 PM AMBULATORY - MEDICINE [facility] Lab Results: +/- 30 days of the encounter This section includes the Chemistry and Hematology Lab Results on record with MD for the patient. Radiology Reports and Pathology Reports are provided separately, in subsequent sections. Lab Results This section contains the Chemistry/Hematology Results that were resulted 30 days before or 30 daysafter the date of the Encounter. Date/Time Source Result Type Result - Unit Interpretation Reference Range Specimen Type Comment May 19, 2024 07:54 AM [facility] TSH SERUM Specimen Type: SERUM No comment entered. Ordering Provider: ANTHONY DUTTON Report Released Date/Time: May 09, 2024 09:09 PM Reporting Lab: [address] [address] Performing Lab: [address] [address] TSH 0.67 u[IU]/mL 0.35-5.00 May 19, 2024 07:54 AM [facility] LIVER FUNCTION SERUM Specimen Type: SERUM No comment entered. Ordering Provider: ANTHONY DUTTON Report Released Date/Time: May 09, 2024 09:09 PM Reporting Lab: [address] [address] Performing Lab: [address] [address] PROTEIN,TOTAL 7.2 g/dL 6.0-8.3 ALBUMIN 3.8 g/dL 3.5-5.0 ALKALINE PHOSPHATASE 84 U/L 40-150 AST 19 U/L 5-34 ALT 16 U/L BILIRUBIN, TOTAL 0.5 mg/dL 0.2-1.2 May 19, 2024 07:54 AM [facility] LIPID PANEL FASTING SERUM Specimen Type: SERU M No comment entered. Ordering Provider: ANTHONY DUTTON Report Released Date/Time: May 09, 2024 09:09 PM Reporting Lab: [address] [address] Performing Lab: [facility] [address] [address] CHOLESTEROL 172 mg/dL TRIGLYCERIDE 310 mg/dL H 0-150 LDL calculated Reflex to dLDL mg/dL 0-12 9 CHOL/HDL 5.1 HDL CHOLESTEROL 34 mg/dL L 40-60 LDL DIRECT 91 mg/dL May 19, 2024 07:54 AM [facility] BASIC METABOLIC PANEL (fasting) SERUM Specime n Type: SERUM No comment entered. Ordering Provider: ANTHONY DUTTON Report Released Date/Time: May 09, 2024 09:09 PM Reporting Lab: [address] [address] Performing Lab: [address] [address] UREA NITROGEN 30 mg/dL H 7-25 GLUCOSE 195 mg/dL H 65-100 SODIUM 138 mmol/L 135-145 POTASSIUM 4.0 mmol/L 3.5-5.0 CHLORIDE 99 mmol/L L 100-110 CO2 27 meq/L 20-30 CREATININE, Serum 1.65 mg/dL H 0.50-1.40 eGFR(CKD-EPI 2020) 40 mL/min L >60 May 19, 2024 07:54 AM [facility] HEMOGLOBIN A1C PANEL BLOOD Specimen Type: BLO OD Comment: Values obtained from A1C measurements can vary. For atypical A1C assays, a reported value of 7.0 could actually be between 6.72 and 7.28 if measured by a reference method. A reported value of 9.0 could actually be between 8.73 and 9.27. Ref: http://www.ngsp.org/CAPdata.asp Ordering Provider: ANTHONY DUTTON Report Released Date/Time: May 09, 2024 09:09 PM Reporting Lab: [address] [address] Performing Lab: [address] [address] HEMOGLOBIN A1C 6.5 H 4.0-5.6 May 19, 2024 07:54 AM [facility] URIC ACID SERUM Specimen Type: SERUM No comment entered. Ordering Provider: ANTHONY DUTTON Report Released Date/Time: May 09, 2024 09:09 PM Reporting Lab: [facility] [address] [address] Performing Lab: [address] [address] URIC ACID 7.7 mg/dL H 3.5-7.2 May 19, 2024 07:54 AM [facility] MICROALBUMIN CREATININE RATIO PANEL URINE Spe cimen Type: URINE No comment entered. Ordering Provider: ANTHONY DUTTON Report Released Date/Time: May 09, 2024 09:09 PM Reporting Lab: [address] [address] Performing Lab: [address] [address] MICROALBUMIN/CREATININE RATIO 224.4 mg/g H 0-29.9 MICROALBUMIN,QUANTITATIVE 34.0 mg/dL RR UNAVAIL CREATININE URINE 151.53 mg/dL May 19, 2024 07:54 AM [facility] URINALYSIS CLEAN CATCH URINE Specimen Type: U RINE Comment: If Glucose = >500 and Ketones are positive, please alert the Physician. Ordering Provider: ANTHONY DUTTON Report Released Date/Time: May 09, 2024 09:09 PM Reporting Lab: [address] [address] Performing Lab: [address] [address] UA COLOR Light-Yellow Yellow UA APPEARANCE Clear Clear UA GLUCOSE Normal mg/dL Negative UA KETONES NEGATIVE mg/dL Negative UA BLOOD NEGATIVE mg/dL Negative UA PROTEIN 50 mg/dL Negative UA NITRITE NEGATIVE mg/dL Negative UA BILIRUBIN NEGATIVE mg/dL Negative UA SPECIFIC GRAVITY 1.018 1.016-1.022 UA pH 6.0 5.0-9.0 UA UROBILINOGEN Normal mg/dL <2.0 UA LEUKOCYTE NEGATIVE Negative May 19, 2024 07:54 AM [facility] MICROSCOPIC AUTOMATED, URINE URINE Specimen T ype: URINE Comment: If Glucose = >500 and Ketones are positive, please alert the Physician. Ordering Provider: ANTHONY DUTTON Report Released Date/Time: May 09, 2024 09:09 PM Reporting Lab: [facility] [address] [address] Performing Lab: [facility] [address] [address] UA WBC 0-5 /[HPF] 0-5 UA MUCUS FEW /[LPF] Trace UA HYALINE CASTS 10-14 /[LPF] H 0-2 UA RBC 0-2 /[HPF] 0-3 UA SQUAMOUS EPITH FEW /[HPF] May 19, 2024 07:54 AM [facility] CBC AND DIFF (AUTO) BLOOD Specimen Type: DENIZ Hartman No comment entered. Ordering Provider: ANTHONY DUTTON Report Released Date/Time: May 09, 2024 09:09 PM Reporting Lab: [facility] [address] [address] Performing Lab: [facility] [address] [address] WBC 7.68 10*3/uL 4.50-11.00 RBC 3.81 10*6/uL L 4.23-5.66 HGB 12.2 g/dL L 12.8-17 HCT 36.7 L 39.2-50.4 MCV 96.3 fL 82-99 MCHC 33.2 g/dL 30.8-35.1 PLT 290 10*3/uL 140-360 RDW-CV 12.6 12.0-16.0 MONO, ABS 0.40 10*3/uL 0.30-1.10 MCH 32.0 pg 26.2-32.6 NEUT % 65.5 43.7-75.8 LYMPH % 27.2 14.0-42.3 MONO % 5.2 5.1-13.7 EOS % 1.4 0.4-6.8 BASO % 0.4 0.1-2.0 NEUT, ABS 5.03 10*3/uL 2.20-7.60 LYMPH, ABS 2.09 10*3/uL 1.00-3.20 EOS, ABS 0.11 10*3/uL 0.03-0.44 BASO, ABS 0.03 10*3/uL 0.01-0.13 IMMATURE GRAN % 0.3 0.0-0.7 IMMATURE GRAN, ABS 0.02 10*3/uL 0.00-0.0 6 NRBC % 0.0 0.0-0.0 NRBC, ABS 0.00 10*3/uL 0.00-0.00 Vital Signs: All taken on the encounter date This section contains inpatient and outpatient Vital Signs collected on the date of the Encounter. Date/Time Temperature Pulse Blood Pressure Respiratory Rate SP02 Pain Height Weight Body Mass Index Source May 08, 2024 08:47 AM 97.7 120 126/82 16 92 9 65 275 46 [place] [facility] [place] [facility] Social History: Smoking Status (Most current) and Tobacco Use (All prior to encounter date) This section includes the most current, and the historical, smoking and tobacco- related health factors from the MD facility where the Encounter took place. Current Smoking Status This section includes the most current smoking, or tobacco-related health factor, from the MD facility where the Encounter took place. Date/Time Current Smoking Status Comment [facility] Jan 26, 2024 11:30 AM VA-TOBACCO FORMER [facility]ER [facility] Tobacco Use History This section includes a history of the smoking, or tobacco-related health factors, that were collected on or before the date of the Encounter. The data comes from the MD facility where the Encounter took place. Date/Time Smoking Status/Tobac co Use Comment Facility Jan 26, 2024 11:30 AM VA-TOBACCO QUIT 5 TO < 15 YRS [facility] [place] [facility] Jan 20, 2023 11:30 AM VA-TOBACCO FORMER USER [facility] [place] [facility] Jan 20, 2023 11:30 AM VA-TOBACCO QUIT 15 YRS OR MORE [facility] [place] [facility] Dec 31, 2021 10:30 AM VA-TOBACCO FORMER USER [facility] [place] [facility] Dec 31, 2021 10:30 AM VA-TOBACCO QUIT 5 TO < 15 YRS [facility] [place] [facility] Dec 27, 2020 10:00 AM VA-TOBACCO FORMER USER [facility] [place] [facility] Dec 27, 2020 10:00 AM VA-TOBACCO QUIT 5 TO < 15 YRS [facility] [place] [facility] Nov 24, 2019 12:24 PM VA-TOBACCO FORMER USER [facility] [place] [facility] Nov 24, 2019 12:24 PM VA-TOBACCO QUIT 5 TO < 15 YRS [facility] [place] [facility] Nov 22, 2018 01:48 PM VA-TOBACCO FORMER USER [facility] [place] [facility] Nov 22, 2018 01:48 PM VA-TOBACCO QUIT 5 TO < 15 YRS [facility] [place] [facility] Nov 23, 2017 08:38 AM LIFETIME NON-TOBACCO USER [facility] [place] [facility] Feb 10, 2017 10:50 AM QUIT TOBACCO USE 1-7 YEARS AGO quit 5 years ago [facility] [place] [facility] May 15, 2016 10:32 AM QUIT TOBACCO USE 1-7 YEARS AGO pt states he quit 5 yr ago. MD [facility] [place] [facility] May 14, 2015 08:27 AM QUIT TOBACCO USE 1-7 YEARS AGO [facility] [place] [facility] Jan 12, 2013 08:54 AM LIFETIME NON-TOBACCO USER [facility] [place] [facility] Aug 12, 2011 08:49 AM QUIT TOBACCO USE 1-7 YEARS AGO [facility] [place] [facility] Jul 28, 2010 08:40 AM QUIT TOBACCO USE 1-7 YEARS AGO quite fiuve months ago [facility] [place] [facility] Jul 22, 2009 09:34 AM CURRENT SMOKER 1 1/2 PPD MD [facility] [place] [facility] Jul 22, 2009 09:34 AM V1-PT DECLINES TOBACCO CESSATION MEDS MD [facility] [place] [facility] Jul 22, 2009 09:34 AM V1-PT NOT INTERESTED IN QUIT TOBACCO USE [facility] [place] [facility] Jan 22, 2009 09:25 AM V1-PT DECLINES TOBACCO CESSATION MEDS [facility] [place] [facility] Jan 22, 2009 09:25 AM V1-PT THINKING ABOUT QUIT TOBACCO USE [facility] [place] [facility] Jul 19, 2008 08:45 AM CURRENT SMOKER 1 1/2 ppd [facility] Jul 19, 2008 08:45 AM V1-PT DECLINES TOBACCO CESSATION MEDS [facility] Jul 19, 2008 08:45 AM V1-PT THINKING ABOUT QUIT TOBACCO USE [facility] Jan 17, 2008 08:56 AM V1-PT DECLINES TOBACCO CESSATION MEDS [facility] Jan 17, 2008 08:56 AM V1-PT NOT INTERESTED IN QUIT TOBACCO USE [facility] Jul 15, 2007 09:30 AM CURRENT SMOKER [facility] Jul 15, 2007 09:30 AM V1-PT DECLINES TOBACCO CESSATION MEDS [facility] Jul 15, 2007 09:30 AM V1-PT THINKING ABOUT QUIT TOBACCO USE [facility] Jan 14, 2007 11:06 AM V1-PT DECLINES TOBACCO CESSATION MEDS [facility] Jan 14, 2007 11:06 AM V1-PT THINKING ABOUT QUIT TOBACCO USE [facility] Jul 14, 2006 11:56 AM V1-PT READY TO QUIT TOBACCO USE [facility] Jun 09, 2006 02:29 PM CURRENT SMOKER [facility] October 01, 2003 02:19 PM CURRENT SMOKER Smokes 1.5 packs/day and is not ready to quit at this time [facility] Radiology Reports: +/- 30 days of the encounter Radiology Reports For cases when an order for radiology services may have been completed prior to the date of the Encounter, the report list includes the Radiology Reports that were completed up to 30 days before dateof the Encounter. For cases when an order for radiology services may have been completed after the date of the Encounter, the report list also includes the Radiology Reports that were completed up to30 days after date of the Encounter. The data comes from all [facility] facilities. Date/Time Radiology Report Provider Source May 08, 2024 09:[address] W/O CONT: CATRINA BERNARDO [id number] M Exm Date: MAY 08, 2024@09:29 Req Phys: NATOANTHONY Minnie Pat Loc: CWM/NO/PACT 2 (Req'g Loc) Img Loc: [facility]/CT Service: Unknown MD [facility] [place] [facility] [place] [id number] (Case 20 COMPLETE) CT THORAX W/O CONT (CT Detailed) CPT:78424 Reason for Study: look for rib fx or ptx Clinical History: fell at home Report Status: Verified Date Reported: MAY 08, 2024 Date Verified: MAY 08, 2024 Director Online Marketing E-Sig: Report: CT THORAX W/O CONT [PRINTSET] HISTORY: look for rib fx or ptx COMPARISON: 03/25/2020 TECHNIQUE: Helical CT of the chest, with multiplanar reformats, was performed at the local MD facility. Computer-Aided Detection (computer algorithm analysis of digital image data for lesion detection or other postprocessing) was utilized for this examination, with further physician review for interpretation and report, performed concurrently with the primary interpretation. 1229 images were received by the MD National Teleradiology Program (NTP) for interpretation. RADIATION DOSE (mGy*cm): 197.6 IV CONTRAST: Not administered. FINDINGS: Left chest cardiac pacemaker with lead tips within the right atrium and right ventricle. Lower Neck: Normal. Lymph Nodes: Normal in size. Mediastinum: Normal heart size. Moderate coronary artery calcifications. No pericardial effusion. Great Vessels: Mild motion artifact in the ascending aorta and pulmonary artery. Normal caliber of the thoracic aorta and main pulmonary artery within this limitation. Mild aortic atherosclerotic calcification. Airways: The central airways are patent. No discrete suspicious endobronchial lesion identified. Lungs: Minimal chronic biapical pleural parenchymal scarring. No pulmonary mass or consolidation. No significant background of emphysema or fibrosis. There are no suspicious pulmonary nodules. Trace subsegmental atelectasis in the inferior lingula and medial right middle lobe. Pleura: No pleural effusion or pneumothorax. Upper Abdomen: Partially visualized ill-defined mass of the right superior pole of the kidney now with some medial calcification, there is peripheral macroscopic fat surrounding the central core of the lesion with a thin soft tissue rim, the visualized portion is consistent with the history of interval ablation. Otherwise normal. Chest Wall: Portions of the chest wall are outside the field of view. Visualized portion is normal. No chest wall edema, hematoma or drainable fluid collection identified. Bones: Portions of the ninth and 12th ribs are outside the [id number]. There are no acute fractures. There are no suspicious osseous lesions. Healed chronic fracture deformities of air and anterior fourth and fifth ribs. Anterior bridging osteophytes within the thoracic spine. Chronic mild cortical thickening and slight expansion of the bilateral posterior seventh ribs as on series 8 image 162, suggests Paget's. Impression: Portions of the chest wall and inferior ribs are outside the field of view. No acute traumatic injury identified in the chest. READING PHYSICIAN: Dain Ambriz MD -[id number] 05/08/2024 10:37 EST [facility] National Teleradiology Program [phone] (For Medical Practitioner Use Only) Attention Patients / Veterans: If you have questions or concerns about these test results, please contact your ordering provider or primary care team. Primary Diagnostic Code: NO ALERT REQUIRED Primary Interpreting Staff: RADIOLOGY,OUTSIDE SERVICE, Staff Physician / RADIOLOGY,OUTSIDE SERVICE [facility] Encounter Notes: All associated encounter notes This section contains the clinical notes associated to the Encounter. Date/Time Encounter Note(s) Provider Source May 08, 2024 10:53 AM ACCOUNTING OF DISCLOSURES NOTE: LOCAL TITLE: CRITICAL ACCESS HOSPITAL PRESCRIPTION DRUG MONITORING PROGRAM ([facility]) STANDARD TITLE: ACCOUNTING OF DISCLOSURES NOTE DATE OF NOTE: MAY 08, 2024@10:53 ENTRY DATE: MAY 08, 2024@10:53:13 AUTHOR: ANTHONY DUTTON EXP COSIGNER: URGENCY: STATUS: COMPLETED State Prescription Drug Monitoring Program ([facility]) Review The following [facility] Prescription Drug Monitoring Program was queried for this patient: [place] Report Number: The purpose of this query was a part of the medication reconciliation process for the: Initial prescription of a controlled substance. The findings of the query are as follows: No duplicate therapy prescriptions for controlled substances outside the [facility] were found. /carmen/ Anthony Dutton MD Staff Physician Signed: 05/08/2024 10:53 ANTHONY DUTTON [facility] May 08, 2024 10:43 AM PHYSICIAN NOTE: LOCAL TITLE: MD [facility] STANDARD TITLE: PHYSICIAN NOTE DATE OF NOTE: MAY 08, 2024@10:43 ENTRY DATE: MAY 08, 2024@10:43:53 AUTHOR: ANTHONY DUTTON EXP COSIGNER: URGENCY: STATUS: COMPLETED Patient Name: CATRINA BERNARDO VITALS: Patient temperature: 97.7 F [36.5 C] (05/08/2024 08:47) Blood pressure: 126/82 (05/08/2024 08:47) Patient height: 65 in [165.1 cm] (05/08/2024 08:47) Patient weight: 275 lb [124.74 kg] (05/08/2024 08:47) Patient BMI: BMI: 45.9 Patient pulse: 120 (05/08/2024 08:47) Patient respiration: 16 (05/08/2024 08:47) Patient Pulse Oximetry: 92% (05/08/2024 08:47) Pain Ratin (05/08/2024 08:47) Active [facility] Medications: Active Outpatient Medications (including Supplies): Active Outpatient Medications Status 1) ALLOPURINOL 100MG TAB TAKE TWO TABLETS BY MOUTH EVERY DAY ACTIVE FOR GOUT 2) APIXABAN 5MG TAB TAKE ONE TABLET BY MOUTH TWICE DAILY ACTIVE DIRECTED BY PROVIDER 3) CARBAMIDE PEROXIDE 6.5% OTIC SOLN INSTILL 5 TO 10 DROPS INTO ACTIVE THE RIGHT EAR ONCE DAILY DIRECTED Indication: FOR EAR WAX BLOCKAGE 4) FERROUS SULFATE 325MG TAB TAKE ONE TABLET BY MOUTH ONCE ACTIVE (S) DAILY TO SUPPLEMENT IRON 5) FUROSEMIDE 40MG TAB TAKE ONE TABLET BY MOUTH TWICE DAILY TO ACTIVE REMOVE FLUID/CONTROL BLOOD PRESSURE 6) INSULIN SYRINGE 0.5ML 30G 12MM USE 1 SYRINGE SUBCUTANEOUSLY ACTIVE EVERY MORNING FOR INSULIN INJECTIONS NOTE DIFFERENT SYRINGE SIZES Indication: DIABETES 7) INSULIN,ASPART,HUMAN 100 UNIT/ML INJ INJECT SLIDING SCALE ACTIVE SUBCUTANEOUSLY FOUR TIMES A DAY PER SLIDING SCALE INSTRUCTIONS 8) LISINOPRIL 20MG TAB TAKE ONE TABLET BY MOUTH EVERY DAY TO ACTIVE CONTROL BLOOD PRESSURE 9) ROSUVASTATIN CA 40MG TAB TAKE ONE-HALF TABLET BY MOUTH AT ACTIVE BEDTIME Active Non-VA Medications Status 1) Non-VA ALBUTEROL 100/IPRATRO 20MCG 120D PO INHL 1 PUFF BY ACTIVE MOUTH FOUR TIMES DAILY NEEDED 2) Non-VA ASCORBIC ACID 500MG TAB 500MG BY MOUTH ONCE DAILY ACTIVE 3) Non-VA FLUOXETINE HCL 20MG CAP 20MG BY MOUTH ONCE DAILY ACTIVE Indication: FOR PANIC DISORDER 4) Non-VA FOLIC ACID 1MG TAB 1MG BY MOUTH EVERY DAY ACTIVE 5) Non-VA MULTIVITAMIN CAP/TAB 1 TABLET BY MOUTH ONCE DAILY ACTIVE 6) Non-VA OMEPRAZOLE 20MG EC CAP 20MG BY MOUTH EVERY MORNING 30 ACTIVE MINUTES BEFORE BREAKFAST 15 Total Medications Remote Medications: No Active 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 Subsequently developed moderate discomfort lateral aspect left ribs which is worse with inspiration and palpation. No hemoptysis, dyspnea, spinal pain, abdominal pain, flank pain or hematuria. Physical examination Well-developed well-nourished male in no acute distress Coronary no murmur Lungs clear No chest wall ecchymoses or abrasions CT thORAX W/O CONT Proc Ord: CHEST CT W/O CONT Exm Date: MAY 08, 2024@09:29 Req Phys: ANTHONY DUTTON Loc: CWM/NO/PACT 2 (Req'g Loc) [facility] Loc: [facility]/CT Service: [facility] [place] [address] (Case 20 COMPLETE) CT THORAX W/O CONT (CT Detailed) CPT:78825 Reason for Study: look for rib fx or ptx Clinical History: fell at home Report Status: Verified Date Reported: MAY 08, 2024 Date Verified: MAY 08, 2024 Director Online Marketing E-Sig: Report: CT THORAX W/O CONT [PRINTSET] HISTORY: look for rib fx or ptx COMPARISON: 03/25/2020 TECHNIQUE: Helical CT of the chest, with multiplanar reformats, was performed at the local MD facility. Computer-Aided Detection (computer algorithm analysis of digital image data for lesion detection or other postprocessing) was utilized for this examination, with further physician review for interpretation and report, performed concurrently with the primary interpretation. 1229 images were received by the MD National Teleradiology Program (NTP) for interpretation. RADIATION DOSE (mGy*cm): 197.6 IV CONTRAST: Not administered. FINDINGS: Left chest cardiac pacemaker with lead tips within the right atrium and right ventricle. Lower Neck: Normal. Lymph Nodes: Normal in size. Mediastinum: Normal heart size. Moderate coronary artery calcifications. No pericardial effusion. Great Vessels: Mild motion artifact in the ascending aorta and pulmonary artery. Normal caliber of the thoracic aorta and main pulmonary artery within this limitation. Mild aortic atherosclerotic calcification. Airways: The central airways are patent. No discrete suspicious endobronchial lesion identified. Lungs: Minimal chronic biapical pleural parenchymal scarring. No pulmonary mass or consolidation. No significant background of emphysema or fibrosis. There are no suspicious pulmonary nodules. Trace subsegmental atelectasis in the inferior lingula and medial right middle lobe. Pleura: No pleural effusion or pneumothorax. Upper Abdomen: Partially visualized ill-defined mass of the right superior pole of the kidney now with some medial calcification, there is peripheral macroscopic fat surrounding the central core of the lesion with a thin soft tissue rim, the visualized portion is consistent with the history of interval ablation. Otherwise normal. Chest Wall: Portions of the chest wall are outside the field of view. Visualized portion is normal. No chest wall edema, hematoma or drainable fluid collection identified. Bones: Portions of the ninth and 12th ribs are outside the [id number]-ionv. There are no acute fractures. There are no suspicious osseous lesions. Healed chronic fracture deformities of air and anterior fourth and fifth ribs. Anterior bridging osteophytes within the thoracic spine. Chronic mild cortical thickening and slight expansion of the bilateral posterior seventh ribs as on series 8 image 162, suggests Paget's. Impression: Portions of the chest wall and inferior ribs are outside the field of view. No acute traumatic injury identified in the chest. I discussed above test with patient Assessment and plan: 1. Chest wall pain: CAT scan shows no pneumothorax or rib fractures. Chest wall pain appears to be musculoskeletal. I offered patient option of topical anti-inflammatory or oral muscle relaxer for pain control. Patient requesting muscle relaxer. Patient received education about side effects medication including increased risk of falling episodes, lethargy, confusion, motor vehicle accidents. Patient understands and accepts the risks Plan: Trial of cyclobenzaprine for chest wall pain Already set for follow-up 05-26-2024 Medication Reconciliation: Outpatient: Has the patient been taking medications as documented in the EMLR? YES: The patient has been taking medications as documented in the EMLR. Essential Medication List for Review used to complete this medication reconciliation. INCLUDED IN THIS LIST: Alphabetical list of active outpatient prescriptions dispensed from this MD (local) and dispensed from another MD or DoD facility (remote) as well as inpatient orders (local, pending and active), local clinic medications, locally documented non-VA medications, and local prescriptions that have or been discontinued in the past 90 days. - All changes in medications, including all non-VA/Herbal/OTC medications were entered into CPRS. - If there were any medications the patient should no longer take, they were discontinued. - The patient/caregiver was instructed to update this list, discard old lists, and take this list to the next appointment, whether with a VA or non-VA provider. PAVE Foot Check: A complete foot check was completed at this encounter. VISUAL INSPECTION: Includes inspection for skin breaks, deformity, erythema, trauma, pallor on elevation, dependent rubor, nail deformities, extensive callus and pitting edema. Visual exam results: Normal PEDAL PULSES: Includes palpation of dorsalis and posterior tibial pulses and signs/symptoms of vascular compromise like pain, pallor, parasthesia or paralysis. Present (even if diminished) SENSORY CHECK: Includes 10 gram Monofilament (Lindsay-Vinay) test of sensation. Intact (Greater than or equal to 80% of sites checked) Abnormal (Less than 80% of sites checked): Intact LOW-RISK: LOW RISK INFORMATION PROVIDED: 1. Advised patient not to walk barefoot. 2. Explained the importance of daily foot checks for changes. 3. Stressed the importance of daily foot hygiene, including bathing and complete drying. The patient verbalized understanding and was offered a detailed handout on diabetic foot care. /carmen/ Anthony Dutton MD Staff Physician Signed: 05/08/2024 10:56 ANTHONY DUTTON MD [facility] [place] [facility] May 08, 2024 08:55 AM PREVENTIVE MEDICINE NURSING NOTE: LOCAL TITLE: CLINICAL REMINDERS/NURSING STANDARD TITLE: PREVENTIVE MEDICINE NURSING NOTE DATE OF NOTE: MAY 08, 2024@08:55 ENTRY DATE: MAY 08, 2024@08:55:56 AUTHOR: MAURY LUCAS EXP COSIGNER: URGENCY: STATUS: COMPLETED Sexual Orientation: The patient thinks of their sexual orientation as: Straight or Heterosexual Alcohol Use Screen (AUDIT-C): Alcohol Screen: SCREEN FOR ALCOHOL (AUDIT-C) An alcohol screening test (AUDIT-C) was negative (score=0). 1. How often did you have a drink containing alcohol in the past year? Consider a drink to be a 12 ounce can or bottle of regular beer, 8 ounces of malt liquor, a 5 ounce glass of table wine, or a 1.5 ounce shot of liquor (like scotch, gin, or vodka). Never 2. How many drinks containing alcohol did you have on a typical day when you were drinking in the past year? Response not required due to responses to other questions. 3. How often did you have six or more drinks on one occasion in the past year? Response not required due to responses to other questions. Falls & Incontinence Screen: Falls Screen: During the past 12 months, did the patient report any falls? 1. One fall with no injury. Incontinence Screen: During the past 12 months, has the patient has any characteristics of incontinence (ability, voiding, leakage, etc.)? No incontinence. Advance Directive Screen MH AD: Patient has an up-to-date Advance Directive at an outside, non-va facility and was asked to forward a copy to his/her clinician. Comment: will get a copy to this MD /carmen/ MAURY LUCAS LPN LPN Signed: 05/08/2024 08:59 MAURY LUCAS MD [facility]
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
--- OUTSIDE RECORDS SUMMARY | 2024-08-30 10:11 | XMS_ITS ---
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 O MEDEX BRONZ E May 10, 2005 [id number] CONRADO BERNARDO ALD PATIENT [place] MEDEX BRONZ E May 10, 2005 [id number] 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 MEDICARE (WNR) MEDICARE (M) PART A Nov 07, 2004 PART A [id number] 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 Date/Time Encounter Type Encounter Description Reason Provider Source September 20, 2023 01:00 PM OFFICE O/P EST LOW 20 MIN PRIMARY CARE/MEDICINE ICD-10-CM E13.9 Other specified diabetes mellitus without complications DON CAMACHO [facility] Encounter Template Text not used by [place] Assessments - Encounter Diagnoses This section includes the primary and secondary diagnoses documented for the Encounter. Date/Time Primary/Secondary Diagnosis Diagnosis Name Provider Source September 20, 2023 01:20 PM PRIMARY Other specified diabetes mellitus without complications DON CAMACHO [facility] September 20, 2023 01:20 PM SECONDARY Encounter for immunization UCHE LUCAS [facility] Plan of Treatment: Future Appointments (+ 6 months) and Future Tests (+/- 45 days) The Plan of Treatment section includes future care activities for the patient from all [place] treatmentfacilities. This section includes future appointments and future orders which are active, pending or scheduled. Future Appointments This section includes appointments that were scheduled to occur 6 months from the date of the Encounter, up to a maximum of 20 appointments. The data comes from all [place] treatment facilities. Appointment Date/Time Appointment Type Appointme nt Facility Name September 22, 2023 01:00 PM AMBULATORY [facility] Oct 21, 2023 02:00 PM AM[facility]UL[facility]ORY - MEDICINE [facility] Jan 26, 2024 11:30 AM [facility] Feb 01, 2024 01:30 PM AM[facility] Feb 23, 2024 09:00 AM [facility] Lab Results: +/- 30 days of the encounter This section includes the Chemistry and Hematology Lab Results on record with [place] for the patient. Radiology Reports and Pathology Reports are provided separately, in subsequent sections. Lab Results This section contains the Chemistry/Hematology Results that were resulted 30 days before or 30 daysafter the date of the Encounter. Date/Time Source Result Type Result - Unit Interpretation Reference Range Specimen Type Comment September 13, 2023 07:48 AM [facility] LIVER FUNCTION SERUM Specimen Type: SERUM No comment entered. Ordering Provider: DON CAMACHO Report Released Date/Time: September 11, 2023 06:08 PM Reporting Lab: [facility] [address] [address] Performing Lab: [facility] [address] [facility] [address] PROTEIN,TOTAL 6.5 g/dL 6.0-8.3 ALBUMIN 3.7 g/dL 3.5-5.0 ALKALINE PHOSPHATASE 70 U/L 40-150 AST 16 U/L 5-34 ALT 18 U/L BILIRUBIN, TOTAL 0.3 mg/dL 0.2-1.2 September 13, 2023 07:48 AM [facility] TSH SERUM Specimen Type: SERUM No comment entered. Ordering Provider: DON CAMACHO Report Released Date/Time: September 11, 2023 06:08 PM Reporting Lab: [facility] [address] [facility] [address] Performing Lab: [facility] [address] TSH 0.61 u[IU]/mL 0.35-5.00 September 13, 2023 07:48 AM [facility] BASIC METABOLIC PANEL (fasting) SERUM Specime n Type: SERUM No comment entered. Ordering Provider: DON CAMACHO Report Released Date/Time: September 11, 2023 06:08 PM Reporting Lab: [facility] [address] [facility] [address] Performing Lab: [facility] [address] [facility] [address] UREA NITROGEN 26 mg/dL H 7-25 GLUCOSE 167 mg/dL H 65-100 SODIUM 140 mmol/L 135-145 POTASSIUM 4.4 mmol/L 3.5-5.0 CHLORIDE 101 mmol/L 100-110 CO2 29 meq/L 20-30 CREATININE, Serum 1.42 mg/dL H 0.50-1.40 eGFR(CKD-EPI 2020) 49 mL/min L >60 September 13, 2023 07:48 AM [facility] LIPID PANEL FASTING SERUM Specimen Type: SERU M No comment entered. Ordering Provider: DON CAMACHO Report Released Date/Time: September 11, 2023 06:08 PM Reporting Lab: [facility] [address] [facility] [address] Performing Lab: [facility] [address] [facility] [address] CHOLESTEROL 151 mg/dL TRIGLYCERIDE 226 mg/dL H 0-150 LDL calculated 73 mg/dL 0-129 CHOL/HDL 4.6 HDL CHOLESTEROL 33 mg/dL L 40-60 September 13, 2023 07:48 AM [facility] HEMOGLOBIN A1C PANEL BLOOD Specimen Type: BLO OD Comment: Values obtained from A1C measurements can vary. For atypical A1C assays, a reported value of 7.0 could actually be between 6.72 and 7.28 if measured by a reference method. A reported value of 9.0 could actually be between 8.73 and 9.27. Ref: http://www.ngsp.org/[email or web address] Ordering Provider: DON CAMACHO Report Released Date/Time: September 11, 2023 06:08 PM Reporting Lab: [facility] [address] [facility] [address] Performing Lab: [address] [address] HEMOGLOBIN A1C 6.0 H 4.0-5.6 September 13, 2023 07:48 AM [facility] MICROALBUMIN CREATININE RATIO PANEL URINE Spe cimen Type: URINE No comment entered. Ordering Provider: DON CAMACHO Report Released Date/Time: September 11, 2023 06:08 PM Reporting Lab: [facility] [address] [facility] [address] Performing Lab: [facility] [address] [facility] [address] MICROALBUMIN/CREATININE RATIO 71.3 mg/g H 0-29.9 MICROALBUMIN,QUANTITATIVE 8.0 mg/dL RR U NAVAIL CREATININE URINE 112.23 mg/dL September 13, 2023 07:48 AM [facility] URINALYSIS CLEAN CATCH URINE Specimen Type: U RINE Comment: If Glucose = >500 and Ketones are positive, please alert the Physician. Ordering Provider: DON CAMACHO Report Released Date/Time: September 11, 2023 06:08 PM Reporting Lab: [facility] [address] [facility] [address] Performing Lab: [facility] [address] [facility] [address] UA COLOR Yellow Yellow UA APPEARANCE Clear Clear UA GLUCOSE NEGATIVE mg/dL Negative UA KETONES NEGATIVE mg/dL Negative UA BLOOD NEGATIVE mg/dL Negative UA PROTEIN 20 mg/dL Negative UA NITRITE NEGATIVE mg/dL Negative UA BILIRUBIN NEGATIVE mg/dL Negative UA SPECIFIC GRAVITY 1.018 1.016-1.022 UA pH 6.0 5.0-9.0 UA UROBILINOGEN <2.0 mg/dL <2.0 UA LEUKOCYTE NEGATIVE Negative September 13, 2023 07:48 AM [facility] URIC ACID SERUM Specimen Type: SERUM No comment entered. Ordering Provider: DON CAMACHO Report Released Date/Time: September 11, 2023 06:08 PM Reporting Lab: [facility] [address] [facility] [address] Performing Lab: [address] [address] URIC ACID 5.7 mg/dL 3.5-7.2 September 13, 2023 07:48 AM [facility] CBC AND DIFF (AUTO) BLOOD Specimen Type: DENIZ Hartman No comment entered. Ordering Provider: DON CAMACHO Report Released Date/Time: September 11, 2023 06:08 PM Reporting Lab: [facility] [address] [facility] [address] Performing Lab: [facility] [address] [facility] [address] WBC 6.46 10*3/uL 4.50-11.00 RBC 3.67 10*6/uL L 4.23-5.66 HGB 12.2 g/dL L 12.8-17 HCT 36.4 L 39.2-50.4 MCV 99.2 fL H 82-99 MCHC 33.5 g/dL 30.8-35.1 PLT 258 10*3/uL 140-360 RDW-CV 12.7 12.0-16.0 [place], Abs 0.39 10*3/uL 0.30-1.10 MCH 33.2 pg H 26.2-32.6 Neut % 58.8 43.7-75.8 Lymph % 32.7 14.0-42.3 [place] % 6.0 5.1-13.7 Eos % 1.7 0.4-6.8 Baso % 0.3 0.1-2.0 Neut, Abs 3.80 10*3/uL 2.20-7.60 Lymph, Abs 2.11 10*3/uL 1.00-3.20 Eos, Abs 0.11 10*3/uL 0.03-0.44 Baso, Abs 0.02 10*3/uL 0.01-0.13 Immature Gran % 0.5 0.0-0.7 Immature Gran, Abs 0.03 10*3/uL 0.00-0.0 6 Vital Signs: All taken on the encounter date This section contains inpatient and outpatient Vital Signs collected on the date of the Encounter. Date/Time Temperature Pulse Blood Pressure Respiratory Rate SP02 Pain Height Weight Body Mass Index Source September 20, 2023 12:47 PM 98.7 71 126/74 16 97 0 74 278.1 [facility] Immunizations: All administered on the encounter date This section contains immunizations associated to the Encounter. Immunization Series Date Issued Administered By Site Reaction Lot Number CVX Code Drug Body Stylist Comment(s) Source COVID-19 (MODERNA), MRNA, LNP-S, PF, 50 MCG/0.5 ML (AGES 12+ YEARS) 7 September 20, 2023 SHAYYUCHE Brooklynn Strong LEFT DELTO ID [id number] 312 [employer] ADMINISTERE D AT [place], [place] [facility] [facility] Social History: Smoking Status (Most current) and Tobacco Use (All prior to encounter date) This section includes the most current, and the historical, smoking and tobacco- related health factors from the [place] facility where the Encounter took place. Current Smoking Status This section includes the most current smoking, or tobacco-related health factor, from the [place] facility where the Encounter took place. Date/Time Current Smoking Status Comment [facility] Jan 20, 2023 11:30 AM VA-TO[facility]ACCO [facility] Tobacco Use History This section includes a history of the smoking, or tobacco-related health factors, that were collected on or before the date of the Encounter. The data comes from the [place] facility where the Encounter took place. Date/Time Smoking Status/Tobac co Use Comment Facility Jan 20, 2023 11:30 AM VA-TOBACCO QUIT 15 YRS OR MORE [place] [facility] [place] [facility] Dec 31, 2021 10:30 AM VA-TOBACCO FORMER USER [place] [facility] [place] [facility] Dec 31, 2021 10:30 AM VA-TOBACCO QUIT 5 TO < 15 YRS [facility] [place] [facility] Dec 27, 2020 10:00 AM VA-TOBACCO FORMER USER [facility] [place] [facility] Dec 27, 2020 10:00 AM VA-TOBACCO QUIT 5 TO < 15 YRS [facility] [place] [facility] Nov 24, 2019 12:24 PM VA-TOBACCO FORMER USER [facility] [place] [facility] Nov 24, 2019 12:24 PM VA-TOBACCO QUIT 5 TO < 15 YRS [facility] [place] [facility] Nov 22, 2018 01:48 PM VA-TOBACCO FORMER USER [facility] [place] [facility] Nov 22, 2018 01:48 PM VA-TOBACCO QUIT 5 TO < 15 YRS [facility] [place] [facility] Nov 23, 2017 08:38 AM LIFETIME NON-TOBACCO USER [facility] [place] [facility] Feb 10, 2017 10:50 AM QUIT TOBACCO USE 1-7 YEARS AGO quit 5 years ago [place] [facility] [place] [facility] May 15, 2016 10:32 AM QUIT TOBACCO USE 1-7 YEARS AGO pt states he quit 5 yr ago. [place] [facility] [place] [facility] May 14, 2015 08:27 AM QUIT TOBACCO USE 1-7 YEARS AGO [facility] [place] [facility] Jan 12, 2013 08:54 AM LIFETIME NON-TOBACCO USER [facility] [place] [facility] Aug 12, 2011 08:49 AM QUIT TOBACCO USE 1-7 YEARS AGO [facility] [place] [facility] Jul 28, 2010 08:40 AM QUIT TOBACCO USE 1-7 YEARS AGO quite fiuve months ago [facility] [place] [facility] Jul 22, 2009 09:34 AM CURRENT SMOKER 1 1/2 PPD [facility] [place] [facility] Jul 22, 2009 09:34 AM V1-PT DECLINES TOBACCO CESSATION MEDS [place] [facility] [place] [facility] Jul 22, 2009 09:34 AM V1-PT NOT INTERESTED IN QUIT [facility]ACCO [facility] [place] [facility] Jan 22, 2009 09:25 AM V1-PT DECLINES TOBACCO CESSATION MEDS [place] [facility] [place] [facility] Jan 22, 2009 09:25 AM V1-PT THINKING ABOUT QUIT TOBACCO USE [facility] [place] [facility] Jul 19, 2008 08:45 AM CURRENT SMOKER 1 1/2 ppd [facility] [place] [facility] Jul 19, 2008 08:45 AM V1-PT DECLINES TOBACCO CESSATION MEDS [facility] [place] [facility] Jul 19, 2008 08:45 AM V1-PT THINKING ABOUT QUIT TOBACCO USE [facility] [place] [facility] Jan 17, 2008 08:56 AM V1-PT DECLINES TOBACCO CESSATION MEDS [facility] [place] [facility] Jan 17, 2008 08:56 AM V1-PT NOT INTERESTED IN QUIT TOBACCO USE [facility] Jul 15, 2007 09:30 AM CURRENT SMOKER [facility] Jul 15, 2007 09:30 AM V1-PT DECLINES TOBACCO CESSATION MEDS [facility] Jul 15, 2007 09:30 AM V1-PT THINKING ABOUT QUIT TOBACCO USE [facility] Jan 14, 2007 11:06 AM V1-PT DECLINES TOBACCO CESSATION MEDS [facility] Jan 14, 2007 11:06 AM V1-PT THINKING ABOUT QUIT TOBACCO USE [facility] Jul 14, 2006 11:56 AM V1-PT READY TO QUIT TOBACCO USE [facility] Jun 09, 2006 02:29 PM CURRENT SMOKER [facility] October 01, 2003 02:19 PM CURRENT SMOKER Smokes 1.5 packs/day and is not ready to quit at this time [facility] Encounter Notes: All associated encounter notes This section contains the clinical notes associated to the Encounter. Date/Time Encounter Note(s) Provider Source September 20, 2023 01:09 PM PHYSICIAN NOTE: LOCAL TITLE: MD NOTE STANDARD TITLE: PHYSICIAN NOTE DATE OF NOTE: SEPTEMBER 20, 2023@13:09 ENTRY DATE: SEPTEMBER 20, 2023@13:09:20 AUTHOR: DON CAMACHO EXP COSIGNER: URGENCY: STATUS: COMPLETED Patient Name: CATRINA BERNARDO VITALS: Patient temperature: 98.7 F [37.1 C] (09/20/2023 12:47) Blood pressure: 126/74 (09/20/2023 12:47) Patient height: 74 in [188.0 cm] (09/20/2023 12:47) Patient weight: 278.1 lb [126.14 kg] (09/20/2023 12:47) Patient BMI: BMI: 35.8 Patient pulse: 71 (09/20/2023 12:47) Patient respiration: 16 (09/20/2023 12:47) Patient Pulse Oximetry: 97% (09/20/2023 12:47) Pain Ratin (09/20/2023 12:47) Active [facility] Medications: Active Outpatient Medications (including [...] DAILY FOR EAR WAX BLOCKAGE DIRECTED 5) FUROSEMIDE 40MG TAB TAKE ONE TABLET BY MOUTH TWICE ACTIVE DAILY TO REMOVE FLUID/CONTROL BLOOD PRESSURE 6) INSULIN,ASPART,HUMAN 100 UNIT/ML INJ INJECT SLIDING ACTIVE SCALE SUBCUTANEOUSLY FOUR TIMES A DAY PER SLIDING SCALE INSTRUCTIONS 7) INSULIN,GLARGINE-YFGN 100UNIT/ML INJ INJECT 50 UNITS ACTIVE SUBCUTANEOUSLY EVERY MORNING 8) SODIUM CHLORIDE 0.65% SOLN NASAL SPRAY INSTILL [...] EVERY ACTIVE MORNING 30 MINUTES BEFORE BREAKFAST 14 Total Medications Remote Medications: No Active 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 Patient feels well today with no complaints. He takes all medication regularly. He gets exercise Review of systems No chest pain or dyspnea No abdominal pain No trouble urinating No fever or chills No cough Physical examination Well-developed well-nourished male no acute distress Coronary no murmur Lungs clear Carotid no bruit No peripheral edema MICROALB/CR RATIO: 71.3 H MICROALBUMIN URINE: 8.0 CREATININE URINE: 112.23 Color, Urine (AX 4280): Yellow Appearance, Urine (AX 4280): Clear Glucose, Urine (AX 4280): NEGATIVE Ketones, Urine (AX 4280): NEGATIVE Blood, Urine (AX 4280): NEGATIVE Protein, Urine (AX 4280): 20 Nitrite, Urine (AX 4280): NEGATIVE Bilirubin, Urine (AX 4280): NEGATIVE Specific [place], (AX 4280): 1.018 pH, Urine ([id number]): 6.0 Urobilinogen, Urine (AX 4280): <2.0 Leukocyte Esterase, (AX 4280): NEGATIVE HGB A1C (WR): 6.0 H WBC: 6.46 RBC: 3.67 L HGB: 12.2 L HCT: 36.4 L MCV: 99.2 H MCHC: 33.5 RDW: 12.7 PLT: 258 MCH: 33.2 H Neut %: 58.8 Lymph %: 32.7 [place] %: 6.0 Eos %: 1.7 Baso %: 0.3 Neut, Abs: 3.80 Lymph, Abs: 2.11 [place], Abs: 0.39 Eos, Abs: 0.11 Baso, Abs: 0.02 Immature Granulocytes %: 0.5 Immature Granulocytes, Abs: 0.03 GLUCOSE: 167 H UREA NITROGEN: 26 H SODIUM: 140 POTASSIUM: 4.4 CHLORIDE: 101 CO2: 29 URIC ACID: 5.7 CHOLESTEROL: 151 PROTEIN,TOTAL: 6.5 ALBUMIN: 3.7 ALKALINE PHOSPHATASE: 70 SGOT: 16 SGPT: 18 TRIGLYCERIDE: 226 H LDL CHOL: 73 CHOL/HDL RATIO: 4.6 HDL: 33 L BILIRUBIN,TOT.: 0.3 TSH (Access): 0.61 CREATININE-EGFR: 1.42 H eGFR CKD-EPI 1: 49 L I discussed above test results with patient Assessment and plan: 1. Diabetes mellitus: Hemoglobin A1c well controlled on present medications Plan continue present medications Follow-up 4 months clinic visit and lab Follow-Up Pos PTSD/Depression: I have reviewed the results of the Mental Health screens and have evaluated the patient. Based on the evaluation, the following disposition plan will be implemented: Patient to be evaluated by Mental Health Routine/Non-emergent Mental Health Evaluation needed. Comment: appt 09-22-23 Medication Reconciliation: Outpatient: Has the patient been taking medications as documented in the EMLR? YES: The patient has been taking medications as documented in the EMLR. Essential Medication List for Review used to complete this medication reconciliation. INCLUDED IN THIS LIST: Alphabetical list of active outpatient prescriptions dispensed from this [place] (local) and dispensed from another VA or [facility]D facility (remote) as well as [...] whether with a VA or non-VA provider. /carmen/ Don Camacho MD Staff Physician Signed: 09/20/2023 13:20 DON CAMACHO [place] [facility] [place] [facility] September 20, 2023 12:53 PM PREVENTIVE MEDICIN E NURSING NOTE: LOCAL TITLE: CLINICAL REMINDERS/NURSING STANDARD TITLE: PREVENTIVE MEDICINE NURSING NOTE DATE OF NOTE: SEPTEMBER 20, 2023@12:53 ENTRY DATE: SEPTEMBER 20, 2023@12:53:43 AUTHOR: MISTI LUCAS COSIGNER: URGENCY: STATUS: COMPLETED CLINICAL REMINDERS/NURSING Has ADDENDA Depression Screening: Perform PHQ-2 A PHQ-2 screen was performed. The score was 5 which is a positive screen for depression. Over the past two weeks, how often have you been bothered by the following problems? 1. Little interest or pleasure in doing things More than half the days 2. Feeling down, depressed, or hopeless Nearly every day Licensed Independent Provider notified of positive screen and need for follow-up. Name of provider notified: Dr. Camacho Advance Directive Screen MH AD: Patient has an up-to-date Advance Directive at an outside, non-va facility and was asked to forward a copy to his/her clinician. Comment: will bring at next appointment /carmen/ MISTI LUCAS LPN LPN Signed: 09/20/2023 12:56 09/20/2023 ADDENDUM STATUS: COMPLETED COVID-19 Immunization: Moderna Monovalent (Spikevax) Administered: COVID-19 (MODERNA), MRNA, LNP-S, PF, 50 MCG/0.5 ML (AGES 12+ YEARS) Date Administered: September 20, 2023 13:00 Series: Series 7 Body Stylist: MODERNA [employer] Lot: [id number] Exp Date: Oct 16, 2023 ND: [id number] Admin Route/Site: INTRAMUSCULAR/LEFT DELTOID Dosage: 0.5mL Vaccine Information Statement(s): COVID-19 MRNA VACCINE (12+ YRS) VACCINE VIS Feb 25, 2023 ([place]) Order By: Policy Administered By: Misti Lucas Vaccine administered without complications. The patient was advised to remain in the facility for 15 minutes post vaccination. /carmen/ MISTI LUCAS LPN LPN Signed: 09/20/2023 13:37 MISTI LUCAS [facility]
--- OUTSIDE RECORDS SUMMARY | 2024-08-30 10:11 | XMS_ITS | Encounter Summary ---
Author Name [facility] [place] Organization [facility] [place] Address [address] [place] [id number] Care Team Providers Care Sr. Vendor Management Associate Name Role Phone DON CAMACHO Primary Care [...] O MEDEX BRONZ E May 10, 2005 [id number] CONRADO BERNARDO ALD [place] MEDEX BRONZ E May 10, 2005 [id number] [phone] KILN DRAWERCONRADO ALD [place] PSUED O MEDEX BRONZ E May 10, 2005 [id number] CONRADO BERNARDO AL[place] MEDEX BRONZ E May 10, 2005 [id number] KILN DRAWERCONRADO ALD PATIENT MEDICARE (WNR) MEDICARE (M) PART A Nov 07, 2004 PART A [id number] KILN DRAWERCONRADO ALD PATIENT MEDICARE (WNR) MEDICARE (M) PART B Nov 07, 2004 PART B [id number] CONRADO BERNARDO ALD PATIENT MEDICARE (WNR) MEDICARE (M) PART A Nov 07, 2004 PART A [id number] [phone] CONRADO BERNARDO ALD PATIENT MEDICARE (WNR) MEDICARE (M) PART B Nov 07, 2004 PART B [id number] [phone] CONRADO BERNARDO ALD PATIENT MEDICARE (WNR) MEDICARE (M) PART A Nov 07, 2004 PART A [id number] CONRADO BERNARDO ALD PATIENT MEDICARE (WNR) MEDICARE (M) PART B Nov 07, 2004 PART B [id number] [phone] CONRADO BERNARDO PATIENT Selected Encounter This section includes the information on record at [place] for the Encounter. Date/Time Encounter Type Encounter Description Reason Provider Source Jan 26, 2024 11:30 AM OFFICE O/P EST LOW 20 MIN PRIMARY CARE/MEDICINE ICD-10-CM E78.00 Pure hypercholesterole abel, unspecified DON CAMACHO IHE Encounter Template Text not used by [place] Assessments - Encounter Diagnoses This section includes the primary and secondary diagnoses documented for the Encounter. Date/Time Primary/Secondary Diagnosis Diagnosis Name Provider Source Jan 26, 2024 11:50 AM PRIMARY Pure hypercholesterolem ia, unspecified DON CAMACHO [facility] [place] [place] [facility] Jan 26, 2024 11:50 AM SECONDARY Encounter for immunization [facility] Plan of Treatment: Future Appointments (+ 6 months) and Future Tests (+/- 45 days) The Plan of Treatment section includes future care activities for the patient from all [place] treatmentfacilities. This section includes future appointments and future orders which are active, pending or scheduled. Future Appointments This section includes appointments that were scheduled to occur 6 months from the date of the Encounter, up to a maximum of 20 appointments. The data comes from all [place] treatment facilities. Appointment Date/Time Appointment Type Appointme nt Facility Name Feb 01, 2024 01:30 PM AMBULATORY - [place]ICIN [place] [facility] [place] [facility] Feb 23, 2024 09:00 AM [facility] May 08, 2024 09:00 AM AM[place]ULATORY [place]ICINE [place] [facility] [place] [facility] May 08, 2024 09:45 AM AMBULATORY - NONE [place] [facility] [place] [facility] May 26, 2024 10:00 AM AM[place]UL[place]ORY [place]ICINE [place] [facility] Jun 27, 2024 01:00 PM AM[place]UL[place]ORY [place]ICINE [place] [facility] Lab Results: +/- 30 days of the encounter This section includes the Chemistry and Hematology Lab Results on record with [place] for the patient. Radiology Reports and Pathology Reports are provided separately, in subsequent sections. Lab Results This section contains the Chemistry/Hematology Results that were resulted 30 days before or 30 daysafter the date of the Encounter. Date/Time Source Result Type Result - Unit Interpretation Reference Range Specimen Type Comment Jan 19, 2024 07:46 AM [place] [facility] [facility] FERRITIN SERUM Specimen Type: SERUM No comment entered. Ordering Provider: DARYL JONES Report Released Date/Time: Jun 15, 2023 10:44 AM Reporting Lab: [place] [facility] [facility] [address] [facility] [address] Performing Lab: [place] [address] [address] FERRITIN 263 ng/mL 20-300 Jan 19, 2024 07:46 AM [facility] [place] [facility] IRON & TIBC PANEL SERUM Specimen Type: SERUM No comment entered. Ordering Provider: DARYL JONES Report Released Date/Time: Jun 15, 2023 10:44 AM Reporting Lab: [place] [facility] [place] [facility] [address] [facility] [address] Performing Lab: [place] [facility] [place] [facility] [address] [facility] [address] TIBC 304 ug/dL 204-475 IRON 146 ug/dL 40-160 Transferrin Saturation 48.1 20.0-50.0 Transferrin (TRF) 230 mg/dL 200-360 Jan 19, 2024 07:44 AM [place] [facility] TSH SERUM Specimen Type: SERUM No comment entered. Ordering Provider: DON CAMACHO Report Released Date/Time: Jan 16, 2024 12:31 AM Reporting Lab: [facility] [address] [facility] [address] Performing Lab: [facility] [address] [facility] [address] TSH 0.61 u[IU]/mL 0.35-5.00 Jan 19, 2024 07:44 AM [facility] LIVER FUNCTION SERUM Specimen Type: SERUM No comment entered. Ordering Provider: DON CAMACHO Report Released Date/Time: Jan 16, 2024 12:31 AM Reporting Lab: [facility] [address] [facility] [address] Performing Lab: [address] [address] PROTEIN,TOTAL 6.7 g/dL 6.0-8.3 ALBUMIN 3.9 g/dL 3.5-5.0 ALKALINE PHOSPHATASE 68 U/L 40-150 AST 16 U/L 5-34 ALT 17 U/L BILIRUBIN, TOTAL 0.4 mg/dL 0.2-1.2 Jan 19, 2024 07:44 AM [facility] LIPID PANEL FASTING SERUM Specimen Type: SERU M No comment entered. Ordering Provider: DON CAMACHO Report Released Date/Time: Jan 16, 2024 12:31 AM Reporting Lab: [facility] [address] [facility] [address] Performing Lab: [facility] [address] [facility] [address] CHOLESTEROL 164 mg/dL TRIGLYCERIDE 233 mg/dL H 0-150 LDL calculated 81 mg/dL 0-129 CHOL/HDL 4.6 HDL CHOLESTEROL 36 mg/dL L 40-60 Jan 19, 2024 07:44 AM [facility] BASIC METABOLIC PANEL (fasting) SERUM Specime n Type: SERUM No comment entered. Ordering Provider: DON CAMACHO Report Released Date/Time: Jan 16, 2024 12:31 AM Reporting Lab: [facility] [address] [address] Performing Lab: [place] [facility] [address] [address] UREA NITROGEN 31 mg/dL H 7-25 GLUCOSE 183 mg/dL H 65-100 SODIUM 141 mmol/L 135-145 POTASSIUM 4.2 mmol/L 3.5-5.0 CHLORIDE 101 mmol/L 100-110 CO2 28 meq/L 20-30 CREATININE, Serum 1.58 mg/dL H 0.50-1.40 eGFR(CKD-EPI 2020) 43 mL/min L >60 Jan 19, 2024 07:44 AM [facility] HEMOGLOBIN A1C PANEL BLOOD Specimen Type: [...] Jan 16, 2024 12:31 AM Reporting Lab: [address] [address] Performing Lab: [address] [address] HEMOGLOBIN A1C 6.1 H 4.0-5.6 Jan 19, 2024 07:44 AM [facility] URINALYSIS CLEAN CATCH URINE Specimen Type: U RINE Comment: If Glucose = >500 and Ketones are positive, please alert the Physician. Ordering Provider: DON CAMACHO Report Released Date/Time: Jan 16, 2024 12:31 AM Reporting Lab: [address] [address] Performing Lab: [address] [address] UA COLOR Colorless Yellow UA APPEARANCE Clear Clear UA GLUCOSE Normal mg/dL Negative UA KETONES NEGATIVE mg/dL Negative UA BLOOD NEGATIVE mg/dL Negative UA PROTEIN NEGATIVE mg/dL Negative UA NITRITE NEGATIVE mg/dL Negative UA BILIRUBIN NEGATIVE mg/dL Negative UA SPECIFIC GRAVITY 1.010 L 1.016-1.022 UA pH 6.5 5.0-9.0 UA UROBILINOGEN Normal mg/dL <2.0 UA LEUKOCYTE NEGATIVE Negative Jan 19, 2024 07:44 AM [facility] URIC ACID SERUM Specimen Type: SERUM No comment entered. Ordering Provider: DON CAMACHO Report Released Date/Time: Jan 16, 2024 12:31 AM Reporting Lab: [facility] [address] [facility] [address] Performing Lab: [facility] [address] [facility] [address] URIC ACID 6.4 mg/dL 3.5-7.2 Jan 19, 2024 07:44 AM [facility]USE[facility] MICROALBUMIN CREATININE RATIO PANEL URINE Spe cimen Type: URINE No comment entered. Ordering Provider: DON CAMACHO Report Released Date/Time: Jan 16, 2024 12:31 AM Reporting Lab: [facility]ITALUSE[address] [address] Performing Lab: [facility] [address] [facility] [address] MICROALBUMIN/CREATININE RATIO 24.6 mg/g 0-29.9 MICROALBUMIN,QUANTITATIVE 0.5 mg/dL RR U NAVAIL CREATININE URINE 20.32 mg/dL Jan 19, 2024 07:44 AM [facility] CBC AND DIFF (AUTO) BLOOD Specimen Type: BLOO D No comment entered. Ordering Provider: DON CAMACHO Report Released Date/Time: Jan 16, 2024 12:31 AM Reporting Lab: [facility] [address] [facility] [address] Performing Lab: [facility] [address] [facility] [address] WBC 6.92 10*3/uL 4.50-11.00 RBC 3.71 10*6/uL [...] Pain Height Weight Body Mass Index Source Jan 26, 2024 11:14 AM 97.8 70 118/67 16 91 3 65 279.8 47 [facility] Immunizations: All administered on the encounter date This section contains immunizations associated to the Encounter. Immunization Series Date Issued Administered By Site Reaction Lot Number CVX Code Drug Audit Partner Comment(s) Source COVID-19 (MODERNA), MRNA, LNP-S, PF, 50 MCG/0.5 ML (AGES 12+ YEARS) 8 Jan 26, 2024 UCHE LUCAS LEFT DELTO ID [id number] ADMINISTERE D [facility] INFLUENZA, HIGH-DOSE, TRIVALENT, PF Jan 26, 2024 UCHE LUCAS LEFT DELTO ID [id number] [employer] Completed Series, ADMINISTERE D AT [facility] Social History: Smoking Status (Most current) and Tobacco Use (All prior to encounter date) This section includes the most current, and the historical, smoking and tobacco- related health factors from the [place] facility where the Encounter took place. Current Smoking Status This section includes the most current smoking, or tobacco-related health factor, from the [place] facility where the Encounter took place. Date/Time Current Smoking Status Comment [facility] Jan 26, 2024 11:30 AM VA-TOBACCO FORMER USER [place] [facility] [facility] Tobacco Use History This section includes a history of the smoking, or tobacco-related health factors, that were collected on or before the date of the Encounter. The data comes from the [place] facility where the Encounter took place. Date/Time Smoking Status/Tobac co Use Comment Facility Jan 26, 2024 11:30 AM VA-TOBACCO QUIT 5 TO < 15 YRS [place] [facility] [place] [facility] Jan 20, 2023 11:30 AM VA-TOBACCO FORMER USER [place] [facility] [place] [facility] Jan 20, 2023 11:30 AM VA-TOBACCO QUIT 15 YRS OR MORE [facility] [place] [facility] Dec 31, 2021 10:30 AM VA-TOBACCO FORMER USER [place] [facility] [place] [facility] Dec 31, 2021 10:30 AM VA-TOBACCO QUIT 5 TO < 15 YRS [facility] [place] [facility] Dec 27, 2020 10:00 AM VA-TOBACCO FORMER USER [facility] [place] [facility] Dec 27, 2020 10:00 AM VA-TOBACCO QUIT 5 TO < 15 YRS [facility] [place] [facility] Nov 24, 2019 12:24 PM VA-TOBACCO FORMER USER [facility] [facility] Nov 24, 2019 12:24 PM VA-TOBACCO QUIT 5 TO < 15 YRS [facility] [place] [facility] Nov 22, 2018 01:48 PM VA-TOBACCO FORMER USER [facility] [facility] Nov 22, 2018 01:48 PM VA-TOBACCO QUIT 5 TO < 15 YRS [facility] [facility] Nov 23, 2017 08:38 AM LIFETIME NON-TOBACCO USER [place] [facility] [place] [facility] Feb 10, 2017 10:50 AM QUIT TOBACCO USE 1-7 YEARS AGO quit 5 years ago [place] [facility] [place] [facility] May 15, 2016 10:32 AM QUIT TOBACCO USE 1-7 YEARS AGO pt states he quit 5 yr ago. [place] [facility] [facility] May 14, 2015 08:27 AM QUIT TOBACCO USE 1-7 YEARS AGO [place] [facility] [place] [facility] Jan 12, 2013 08:54 AM LIFETIME NON-TOBACCO USER [place] [facility] [facility] Aug 12, 2011 08:49 AM QUIT TOBACCO USE 1-7 YEARS AGO [place] [facility] [place] [facility] Jul 28, 2010 08:40 AM QUIT TOBACCO USE 1-7 YEARS AGO quite fiuve months ago [place] [facility] Jul 22, 2009 09:34 AM CURRENT SMOKER 1 1/2 PPD [place] [facility] [facility] Jul 22, 2009 09:34 AM V1-PT DECLINES TOBACCO CESSATION MEDS [place] [facility] [facility] Jul 22, 2009 09:34 AM V1-PT NOT INTERESTED IN QUIT TOBACCO USE [place] [facility] [facility] Jan 22, 2009 09:25 AM V1-PT DECLINES TOBACCO CESSATION MEDS [facility] Jan 22, 2009 09:25 AM V1-PT THINKING ABOUT QUIT TOBACCO USE [facility] [place] [facility] Jul 19, 2008 08:45 AM CURRENT SMOKER 1 1/2 ppd [place] [facility] [facility] Jul 19, 2008 08:45 AM V1-PT DECLINES TOBACCO CESSATION MEDS [place] [facility] [facility] Jul 19, 2008 08:45 AM V1-PT THINKING ABOUT QUIT TOBACCO USE [place] [facility] [facility] Jan 17, 2008 08:56 AM V1-PT DECLINES TOBACCO CESSATION MEDS [place] [facility] [place] [facility] Jan 17, 2008 08:56 AM V1-PT NOT INTERESTED IN QUIT TOBACCO USE [place] [facility] [place] [facility] Jul 15, 2007 09:30 AM [facility] [place] [facility] Jul 15, 2007 09:30 AM V1-PT DECLINES TOBACCO CESSATION MEDS [place] [facility] [facility] Jul 15, 2007 09:30 AM V1-PT THINKING ABOUT QUIT TOBACCO [facility] Jan 14, 2007 11:06 AM V1-PT DECLINES TOBACCO CESSATION MEDS [facility] Jan 14, 2007 11:06 AM V1-PT THINKING ABOUT QUIT TOBACCO USE [facility] Jul 14, 2006 11:56 AM V1-PT READY TO QUIT TOBACCO USE [facility] Jun 09, 2006 02:29 PM CURRENT SMOKER [facility] October 01, 2003 02:19 PM CURRENT SMOKER Smokes 1.5 packs/day and is not ready to quit at this time [facility] Encounter Notes: All associated encounter notes This section contains the clinical notes associated to the Encounter. Date/Time Encounter Note(s) Provider Source Jan 26, 2024 11:47 AM PHYSICIAN NOTE: LOCAL TITLE: MD NOTE STANDARD TITLE: PHYSICIAN NOTE DATE OF NOTE: JAN 26, 2024@11:47 ENTRY DATE: JAN 26, 2024@11:47:15 AUTHOR: DON CAMACHO EXP COSIGNER: URGENCY: STATUS: COMPLETED Patient Name: CATRINA BERNARDO VITALS: Patient temperature: 97.8 F [36.6 C] (01/26/2024 11:14) Blood pressure: 118/67 (01/26/2024 11:14) Patient height: 65 in [165.1 cm] (01/26/2024 11:14) Patient weight: 279.8 lb [126.92 kg] (01/26/2024 11:14) Patient BMI: BMI: 46.7 Patient pulse: 70 (01/26/2024 11:14) Patient respiration: 16 (01/26/2024 11:14) Patient Pulse Oximetry: 91% (01/26/2024 11:14) Pain Ratin (01/26/2024 11:14) Active [facility] Medications: Active Outpatient Medications (including Supplies): Active Outpatient Medications Status 1) ALBUTEROL 100/IPRATRO 20MCG 120D PO INHL INHALE 1 ACTIVE PUFF BY MOUTH FOUR TIMES DAILY NEEDED FOR BREATHING 2) ALLOPURINOL 100MG TAB TAKE TWO TABLETS BY MOUTH EVERY ACTIVE DAY FOR GOUT 3) APIXABAN 5MG TAB TAKE ONE TABLET BY MOUTH TWICE DAILY ACTIVE DIRECTED BY PROVIDER 4) CARBAMIDE PEROXIDE 6.5% OTIC SOLN INSTILL 5 TO 10 ACTIVE DROPS INTO THE RIGHT EAR ONCE DAILY FOR EAR WAX BLOCKAGE DIRECTED 5) FERROUS SULFATE 325MG TAB TAKE ONE TABLET BY MOUTH ACTIVE ONCE DAILY TO SUPPLEMENT IRON 6) INSULIN,ASPART,HUMAN 100 UNIT/ML INJ INJECT SLIDING ACTIVE (S) SCALE SUBCUTANEOUSLY FOUR TIMES A DAY PER SLIDING SCALE INSTRUCTIONS 7) INSULIN,GLARGINE-YFGN 100UNIT/ML INJ INJECT 50 UNITS ACTIVE SUBCUTANEOUSLY EVERY MORNING 8) LISINOPRIL 20MG TAB TAKE ONE TABLET BY MOUTH EVERY ACTIVE DAY TO CONTROL BLOOD PRESSURE 9) ROSUVASTATIN CA 40MG TAB TAKE ONE-HALF TABLET BY ACTIVE MOUTH AT BEDTIME 10) SODIUM CHLORIDE 0.65% SOLN NASAL SPRAY INSTILL [...] EVERY ACTIVE MORNING 30 MINUTES BEFORE BREAKFAST 16 Total Medications Remote Medications: No Active 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 He feels well today with no complaints. He continues to be overweight. He stays active with activities around the house Review of systems No chest pain or dyspnea No abdominal pain No trouble urinating No fever or chills No cough Physical examination Well-developed well-nourished male no acute distress Coronary no murmur Lungs clear No edema Carotid no bruit Pharynx and ears no erythema TMs normal FERRITIN (WR): 263 TIBC (WROX): 304 IRON (WROX): 146 TRANSFERRIN SATURATION: 48.1 Transferrin: 230 MICROALB/CR RATIO: 24.6 MICROALBUMIN URINE: 0.5 CREATININE URINE: 20.32 Color, Urine (AX 4280): Colorless Appearance, Urine (AX 4280): Clear Glucose, Urine (AX 4280): Normal Ketones, Urine (AX 4280): NEGATIVE Blood, Urine (AX 4280): NEGATIVE Protein, Urine (AX 4280): NEGATIVE Nitrite, Urine (AX 4280): NEGATIVE Bilirubin, Urine (AX 4280): NEGATIVE Specific [place], (AX 4280): 1.010 L pH, Urine ([id number]): 6.5 Urobilinogen, Urine (AX 4280): Normal Leukocyte Esterase, (AX 4280): NEGATIVE TSH (Access): 0.61 GLUCOSE: 183 H UREA NITROGEN: 31 H SODIUM: 141 POTASSIUM: 4.2 CHLORIDE: 101 CO2: 28 URIC ACID: 6.4 CHOLESTEROL: 164 PROTEIN,TOTAL: 6.7 ALBUMIN: 3.9 ALKALINE PHOSPHATASE: 68 SGOT: 16 SGPT: 17 TRIGLYCERIDE: 233 H LDL CHOL: 81 CHOL/HDL RATIO: 4.6 HDL: 36 L BILIRUBIN,TOT.: 0.4 CREATININE-EGFR: 1.58 H eGFR CKD-EPI 2020: 43 L HGB A1C (WR): 6.1 H WBC: 6.92 RBC: 3.71 L HGB: 11.9 L HCT: 36.4 L MCV: 98.1 MCHC: 32.7 RDW: 12.9 PLT: 258 MCH: 32.1 Neut %: 57.7 Lymph %: 33.4 King %: 6.2 Eos %: 2.0 Baso %: 0.1 Neut, Abs: 3.99 Lymph, Abs: 2.31 King, Abs: 0.43 Eos, Abs: 0.14 Baso, Abs: 0.01 Immature Granulocytes %: 0.6 Immature Granulocytes, Abs: 0.04 NRBC%: 0.0 NRBC#: 0.00 I discussed above test results with patient Assessment and plan: 1. Hypercholesterolemia: LDL is well-controlled on present dose of Crestor. Today I offered semaglutide to decrease chance for heart attack, stroke and sudden . Patient declined semaglutide Plan: Continue Crestor Follow-up 4 months clinic visit and lab Medication Reconciliation: Outpatient: Has the patient been taking medications as documented in the EMLR? YES: The patient has been taking medications as documented in the EMLR. Essential Medication List for Review used to complete this medication reconciliation. INCLUDED IN THIS LIST: Alphabetical list of active outpatient prescriptions dispensed from this [place] (local) and dispensed from another [place] or [facility] facility (remote) as well as inpatient orders [...] /carmen/ Don Camacho MD Staff Physician Signed: 01/26/2024 11:50 DON CAMACHO [place] [facility] [place] [facility] Jan 26, 2024 11:22 AM PREVENTIVE MEDICINE NURSING NOTE: LOCAL TITLE: CLINICAL REMINDERS/NURSING STANDARD TITLE: PREVENTIVE MEDICINE NURSING NOTE DATE OF NOTE: JAN 26, 2024@11:22 ENTRY DATE: JAN 26, 2024@11:22:37 AUTHOR: MISTI LUCAS EXP COSIGNER: URGENCY: STATUS: COMPLETED CLINICAL REMINDERS/NURSING Has ADDENDA Tobacco Use Screening: The patient is a former tobacco user. The patient quit five to less than fifteen years ago. (Optional) Whole Health Documentation: What matters the most to you? What motivates you to be healthy? (MAP) Response: I am afraid to /carmen/ MISTI LUCAS LPN LPN Signed: 01/26/2024 11:24 01/26/2024 ADDENDUM STATUS: COMPLETED Influenza Immunization: Influenza, High-Dose, Trivalent, Preservative Free (Fluzone-Syringe) Administered: INFLUENZA, HIGH-DOSE, TRIVALENT, PF Date Administered: Jan 26, 2024 11:30 Series: Complete Audit Partner: [employer] Lot: [id number] Exp Date: Nov 06, 2024 NDC: [id number] Admin Route/Site: INTRAMUSCULAR/LEFT DELTOID Dosage: 0.5mL Vaccine Information Statement(s): INFLUENZA(FLU) VACC(INACTIVATED OR RECOMBINANT)VIS Dec 13, 2020 (SWISS) Order By: Policy Administered By: Misti Lucas The Influenza Vaccine Information Statement (VIS) was reviewed with the patient/caregiver which lists the benefits and risks of the vaccine and the risks of not receiving the Influenza vaccine. The patient/caregiver denied any prior severe reaction to this vaccine or its components or a severe allergic reaction, such as anaphylaxis, to any vaccine or any injectable therapy. The patient/caregiver gave verbal consent to receive the vaccine. COVID-19 Immunization: Moderna Monovalent (Spikevax) Administered: COVID-19 (MODERNA), MRNA, LNP-S, PF, 50 MCG/0.5 ML (AGES 12+ YEARS) Date Administered: Jan 26, 2024 11:30 Series: Series 8 Audit Partner: [employer]. Lot: [id number] Exp Date: September 30, 2024 NDC: [id number] Admin Route/Site: INTRAMUSCULAR/LEFT DELTOID Dosage: 0.5mL Vaccine Information Statement(s): COVID-19 MRNA VACCINE (12+ YRS) VACCINE VIS Feb 25, 2023 (SWISS) Order By: Policy Administered By: Misti Lucas Vaccine administered without complications. /carmen/ MISTI LUCAS LPN LPN Signed: 01/26/2024 11:37 MISTI LUCAS [facility]
--- OUTSIDE RECORDS SUMMARY | 2024-08-30 10:11 | XMS_ITS | Continuity of Care Document ---
Author Name [facility] Organization [facility] Care Team Providers Care Tufter Name Role Phone [facility] Unavailable Unavailable Problems Combined list of problems from Department of Defense and Veterans Affairs facilities. It does not include entries that were removed or entered in error. Problem Status Onset Date Problem Type Date of Resolution Comments Source At risk for falls Active 023 Condition Jan 20, 2023 Entered By: ANTHONY DUTTON Comment: Ordered medical alert system [facility] Atrial fibrillation Active 023 Condition Mar 04, 2023 Entered By: ANTHONY DUTTON Comment: on anticoagulation [facility] Shortness of breath Active 023 Condition Apr 08, 2023 Entered By: ANTHONY DUTTON Comment: due to anxiety [facility] Anemia (SCT 105577617) Active 022 Condition Sep 02, 2021 Entered By: ANTHONY DUTTON Comment: ordered iron studies [facility] 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 02, 2021 Entered By: ANTHONY DUTTON Comment: right side [facility] Diabetes mellitus (SNOMED CT 14884419) Active 011 Condition [facility] Edema Active 007 Condition [facility] Gout Active 007 Condition [facility] Alcohol Dependence Active Condition [facility] Depression (SNOMED CT 28478944) Active Condition [facility] Gout Active Condition [facility] Hiatal hernia Active Condition [facility] Hypercholesterolemia Active Condition [facility] Hypercholesterolemia * (ICD-9-CM 272.0) Active Condition [facility] Hypertension * (ICD-9-CM 401.9) Active Condition [facility] Long-term current use of anticoagulant Active Condition [place] Nicotine Dependence Active Condition [facility] Open Angle, Glaucoma Unspec Active Condition [facility] OVERWEIGHT Active Condition [facility] Diagnosis: ICD-10-CM I48.91 Unspecified atrial fibrillation Active Diagnosis [facility] Diagnosis: ICD-10-CM E11.40 Type 2 diabetes mellitus with diabetic neuropathy, unsp Active Diagnosis [facility] Diagnosis: ICD-10-CM E78.00 Pure hypercholesterolemia, unspecified Active Diagnosis [facility] Diagnosis: ICD-10-CM R07.89 Other chest pain Active Diagnosis [facility] Diagnosis: ICD-10-CM R26.9 Unspecified abnormalities of gait and mobility Active Diagnosis [facility] Diagnosis: ICD-10-CM R53.1 Weakness Active Diagnosis [facility] Diagnosis: ICD-10-CM F32.A Depression, unspecified Active Diagnosis [facility] Diagnosis: ICD-10-CM E13.9 Other specified diabetes mellitus without complications Active Diagnosis [facility] Diagnosis: ICD-10-CM Z71.89 Other specified counseling Active Diagnosis [facility] Diagnosis: ICD-10-CM H61.21 Impacted cerumen, right ear Active Diagnosis [facility] Diagnosis: ICD-10-CM N18.31 Chronic kidney disease, stage 3a Active Diagnosis [facility] Diagnosis: ICD-10-CM Z23 Encounter for immunization Active Diagnosis [facility] Diagnosis: ICD-10-CM R06.00 Dyspnea, unspecified Active Diagnosis [facility] Diagnosis: ICD-10-CM Z51.81 Encounter for therapeutic drug level monitoring Active Diagnosis [facility] (631GE) Medications Combined list of outpatient medications from Department of Defense and Veterans Affairs facilities.Medications provided include 1) outpatient medications from the last 15 months, and 2) patient-reported medications. Medication Details Route Status Patient Instructions Prescription Expires Prescription Number Last Dispense Date Ordering Provider Order Date Order Qty Source ALBUTEROL 100MCG/IPRA TROPIUM BR 20MCG/SPRAY INHALER,ORA L,4GM INHALE 1 PUFF BY MOUTH FOUR TIMES DAILY NEEDED FOR BREATHIN G ORAL ACTIVE 08/08/2025 [id number] 5 LEISA DUTTON 2024 1 [facility] ALBUTEROL 100MCG/IPRA TROPIUM BR 20MCG/SPRAY INHALER,ORA L,4GM INHALE 1 PUFF BY MOUTH FOUR TIMES DAILY NEEDED FOR BREATHIN G ORAL DISCONT INUED 04/11/2024 [id number] 4 LEISA DUTTON 2022 1 [facility] ALBUTEROL 100MCG/IPRA TROPIUM BR 20MCG/SPRAY INHALER,ORA L,4GM INHALE 1 PUFF BY MOUTH FOUR TIMES DAILY NEEDED RESPIR ATORY (INHAL ATION) ACTIVE JEN CHAVEZ 2022 [facility] IELD ALLOPURINOL 100MG TAB TAKE TWO TABLETS BY MOUTH EVERY DAY FOR GOUT ORAL ACTIVE 10/06/2024 [id number] 5 LEISA DUTTON 2023 180 [facility] ALLOPURINOL 100MG TAB TAKE TWO TABLETS BY MOUTH EVERY DAY FOR GOUT ORAL DISCONT INUED 08/14/2023 [id number] 4 LEISA DUTTON 2022 180 [facility] APIXABAN 5MG TAB TAKE ONE TABLET BY MOUTH TWICE DAILY ORAL ACTIVE 07/06/2025 [id number] 5 SEBASTIEN LONGORIA SA 2024 90 [facility] [place] APIXABAN 5MG TAB TAKE ONE TABLET BY MOUTH TWICE DAILY DIRECTED BY PROVIDER ORAL 06/09/2024 [id number] 4 Jacoby WILSON NKIT 2023 180 [facility] ASCORBIC ACID 500MG TAB TAKE ONE TABLET BY MOUTH ONCE DAILY ORAL ACTIVE JEN CHAVEZ 2022 [place] CARBAMIDE PEROXIDE 6.5%/GLYCER IN SOLN,OTIC INSTILL 5 TO 10 DROPS INTO THE RIGHT EAR ONCE DAILY FOR EAR WAX BLOCKAGE DIRECTED [facility]K (OTIC) 08/18/2024 [id number] GABBI CANO 2023 15 [facility] CYCLOBENZAP RINE HCL 10MG TAB TAKE ONE TABLET BY MOUTH THREE TIMES DAILY NEEDED FOR MUSCLE SPASM ORAL ACTIVE 05/09/2025 [id number] 4 LEISA DUTTON CHANELL D 2023 90 [facility] FERROUS SO4 325MG TAB TAKE ONE TABLET BY MOUTH ONCE DAILY TO SUPPLEME NT IRON ORAL ACTIVE 09/21/2024 [id number] 5 LEISA DUTTON CHANELL D 2023 100 [facility] FERROUS SO4 325MG TAB TAKE ONE TABLET BY MOUTH ONCE DAILY TO SUPPLEME NT IRON ORAL DISCONT INUED 09/18/2023 [id number] 4 LEISA DUTTON CHANELL D 2022 100 [facility] FLUOXETINE HCL 20MG CAP TAKE 1 CAPSULE BY MOUTH ONCE DAILY ORAL ACTIVE BARRY DUMONT RISTINE F 2022 [facility] (401GE) FOLIC ACID 1MG TAB TAKE ONE TABLET BY MOUTH EVERY DAY ORAL ACTIVE LEISA DUTTON D 2015 [facility] FUROSEMIDE 40MG TAB TAKE ONE TABLET BY MOUTH TWICE DAILY TO REMOVE FLUID/CO NTROL BLOOD PRESSURE ORAL ACTIVE 02/18/2025 [id number] 5 LEISA DUTTON D 2023 180 [facility] FUROSEMIDE 40MG TAB TAKE ONE TABLET BY MOUTH TWICE DAILY TO REMOVE FLUID/CO NTROL BLOOD PRESSURE ORAL DISCONT INUED 01/21/2024 [id number] 4 LEISA DUTTON 2022 180 [facility] INSULIN,ASP ART,HUMAN 100 UNT/ML INJ INJECT SLIDING SCALE SUBCUTAN EOUSLY FOUR TIMES A DAY PER SLIDING SCALE INSTRUCT IONS SUBCUT ANEOUS 05/30/2024 [id number] LEISA DUTTON 2023 10 [facility] INSULIN,GLA RGINE-YFGN 100UNIT/ML INJ INJECT 50 UNITS SUBCUTAN EOUSLY EVERY MORNING SUBCUT ANEOUS ACTIVE 06/13/2025 [id number] 5 LEISA DUTTON 2024 5 [facility] LISINOPRIL 20MG TAB TAKE ONE TABLET BY MOUTH EVERY DAY TO CONTROL BLOOD PRESSURE ORAL ACTIVE 12/15/2024 [id number] 5 LEISA DUTTON 2023 90 [facility] LISINOPRIL 20MG TAB TAKE ONE TABLET BY MOUTH EVERY DAY TO CONTROL BLOOD PRESSURE ORAL DISCONT INUED 09/18/2023 [id number] 4 LEISA DUTTON 2022 90 [facility] MULTIVITAMI NS CAP/TAB TAKE ONE TABLET BY MOUTH ONCE DAILY ORAL ACTIVE JEN CHAVEZ EN A 2022 [facility] IELD OMEPRAZOLE 20MG CAP,EC TAKE 1 CAPSULE BY MOUTH EVERY MORNING 30 MINUTES BEFORE BREAKFAS T ORAL ACTIVE JEN CHAVEZ EN A 2022 [place] ROSUVASTATI N CA 40MG TAB TAKE ONE-HALF TABLET BY MOUTH AT BEDTIME ORAL ACTIVE 11/24/2024 [id number] 5 LEISA DUTTON 2023 45 [facility] ROSUVASTATI N CA 40MG TAB TAKE ONE-HALF TABLET BY MOUTH AT BEDTIME ORAL DISCONT INUED 09/18/2023 [id number] 4 LEISA DUTTON 2022 45 [facility] Allergies, Adverse Reactions, Alerts Combined list of allergies from Department of Defense and Veterans Affairs facilities. It does not include entries that were removed or entered in error. Substance Category Reaction Severity Reaction type Status Date Reported Comments Source ATORVASTATIN Propensity to adverse reactions to drug (finding) Weakness present active 7 [facility] EZETIMIBE Propensity to adverse reactions to drug (finding) active 7 [facility] IODINATED CONTRAST MEDIA Propensity to adverse reactions to drug (finding) Urticaria active 9 [facility] NIACIN Propensity to adverse reactions to drug (finding) Flushing active 7 [facility] SIMVASTATIN Propensity to adverse reactions to drug (finding) active 7 [facility] Immunizations Combined list of available immunizations from the Department of Defense and Veterans Affairs facilities. 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 Comments Source COVID-19 (MODERNA), MRNA, LNP-S, PF, 50 MCG/0.5 ML (AGES 12+ YEARS) 8 2023 UCHE LUCAS LEFT DELTO ID [id number] 312 complet ed [facility] INFLUENZA, HIGH-DOSE, TRIVALENT, PF 2023 UCHE LUCAS LEFT DELTO ID [id number] 135 complet ed Completed Series, [facility] COVID-19 (MODERNA), MRNA, LNP-S, PF, 50 MCG/0.5 ML (AGES 12+ YEARS) 7 2023 UCHE LUCAS LEFT DELTO ID [id number] 312 complet ed [facility] RSV, BIVALENT, PROTEIN SUBUNIT RSVPREF, DILUENT RECONSTITUTED , 0.5 ML, PF 2023 ELIZABETH JENKINS LEFT DELTO ID [id number] 305 complet ed [facility] TDAP 2022 ALICEELIZABETH MORRISSEY Ligia LEFT DELTO ID [id number] 115 complet ed [facility] COVID-19 (MODERNA), MRNA, LNP-S, PF, 50 MCG/0.5 ML (AGES 12+ YEARS) 2022 JOSE FORRESTER Ligia LEFT DELTO ID [id number] 312 complet ed [facility] INFLUENZA, HIGH-DOSE, QUADRIVALENT 2022 ELIZABETH JENKISN Ligia LEFT DELTO ID [id number] 197 complet ed [facility] COVID-19 (MODERNA), MRNA, LNP-S, BIVALENT BOOSTER, PF, 50 MCG/0.5 ML OR 25MCG/0.25 ML DOSE 2022 JOSE FORRESTER Ligia LEFT DELTO ID [id number] 229 complet ed Booster for Series, [facility] INFLUENZA VACCINE, QUADRIVALENT, ADJUVANTED 2021 205 complet ed [facility] COVID-19 (MODERNA), MRNA, LNP-S, PF, 100 MCG/0.5ML DOSE OR 50 MCG/0.25ML DOSE 4 2021 207 complet ed MOD; [id number]; 2 [facility] ZOSTER RECOMBINANT 2 2020 187 complet ed [facility] COVID-19 (MODERNA), MRNA, LNP-S, PF, 100 MCG OR 50 MCG DOSE 3 2020 207 complet ed MOD; [id number]; 2 [facility] INFLUENZA VACCINE, QUADRIVALENT, ADJUVANTED 2020 205 complet ed [facility] ZOSTER RECOMBINANT 1 2020 187 complet ed [facility] COVID-19 (MODERNA), MRNA, LNP-S, PF, 100 MCG/0.5 ML DOSE 2 2020 207 complet ed MOD; [id number]; 1 [facility] COVID-19 (MODERNA), MRNA, LNP-S, PF, 100 MCG/0.5 ML DOSE 1 2020 207 complet ed MOD; [id number]; 1 [facility] INFLUENZA, UNSPECIFIED FORMULATION 2019 88 complet ed [facility] INFLUENZA, SEASONAL, INJECTABLE 2019 141 complet ed [facility] INFLUENZA, SEASONAL, INJECTABLE 2018 141 complet ed cwm va [facility] INFLUENZA, INJECTABLE, QUADRIVALENT 2017 158 complet ed Site: Left Deltoid [facility] INFLUENZA, SEASONAL, INJECTABLE 2016 141 complet ed Site: Left Deltoid [facility] FLU,3 YRS (HISTORICAL) 2015 88 complet ed Site: Left Deltoid [facility] FLU,3 YRS (HISTORICAL) 2014 88 complet ed Site: Right Deltoid [facility] PNEUMOCOCCAL CONJUGATE PCV 13 2014 133 complet ed [facility] FLU,3 YRS (HISTORICAL) 2013 88 complet ed Site: Right Deltoid [facility] DTAP, UNSPECIFIED FORMULATION 2013 107 complet ed Site: Left Deltoid [facility] PNEUMOCOCCAL POLYSACCHARID E [id number] 2013 33 complet ed [facility] PNEUMOCOCCAL, UNSPECIFIED FORMULATION 2013 109 complet ed [facility] FLU,3 YRS (HISTORICAL) 2012 88 complet ed [facility] FLU,3 YRS (HISTORICAL) 2011 88 complet ed Site: Left Deltoid [facility] FLU,3 YRS (HISTORICAL) 2010 88 complet ed Site: Left Deltoid [facility] FLU,3 YRS (HISTORICAL) 2009 88 complet ed [facility] FLU,3 YRS (HISTORICAL) 2009 88 complet ed [facility] FLU,3 YRS (HISTORICAL) 2008 88 complet ed Site: Left Deltoid [facility] ZOSTER LIVE 2008 LUCIO LAINEZ 121 complet ed [facility] TD(ADULT) UNSPECIFIED FORMULATION 2008 139 complet ed Left Deltoid [facility] FLU,3 YRS (HISTORICAL) 2007 88 complet ed Site: Left Deltoid [facility] FLU,3 YRS (HISTORICAL) 2006 88 complet ed Site: Left Deltoid [facility] FLU,3 YRS (HISTORICAL) 2005 88 complet ed [facility] PNEUMOCOCCAL, UNSPECIFIED FORMULATION 2003 109 complet ed [facility] Results Combined list of recent chemistry, hematology and other laboratory results from Department of Defense and Veterans Affairs, ranging from 15 months to all on record, depending upon the facility. Order Name Results Value Reference Range Date Interpretation Specimen Comments Source TSH THYROTROPI N [UNITS/VOL UME] IN SERUM OR PLASMA 0.67 u[IU]/mL 0.35 - 5.00 05/19 Specimen Type: SERUM No comment entered. Ordering Provider: JUSTYN DUTTON Report Released Date/Time: May 09, 2024 09:09 PM Reporting Lab: [facility] [place] [facility] [address] [address] Performing Lab: [facility] [place] [facility] [address] [address] [facility] [place] [facility] LIVER FUNCTION PROTEIN [MASS/VOLU ME] IN SERUM OR PLASMA 7.2 g/dL 6.0 - 8.3 05/19 Specimen Type: SERUM No comment entered. Ordering Provider: JUSTYN DUTTON Report Released Date/Time: May 09, 2024 09:09 PM Reporting Lab: [facility] [place] [facility] [address] [address] Performing Lab: [facility] [place] [facility] [address] [address] [facility] [place] [facility] LIVER FUNCTION ALBUMIN [MASS/VOLU ME] IN SERUM OR PLASMA 3.8 g/dL 3.5 - 5.0 05/19 Specimen Type: SERUM No comment entered. Ordering Provider: JUSTYN DUTTON Report Released Date/Time: May 09, 2024 09:09 PM Reporting Lab: [facility] [place] [address] [address] Performing Lab: [facility] [place] [address] [address] [facility] LIVER FUNCTION ALKALINE PHOSPHATAS E [ENZYMATIC ACTIVITY/V OLUME] IN SERUM OR PLASMA 84 U/L 40 - 150 05/19 Specimen Type: SERUM No comment entered. Ordering Provider: JUSTYN DUTTON Report Released Date/Time: May 09, 2024 09:09 PM Reporting Lab: [facility] [place] [facility] [address] [address] Performing Lab: [facility] [place] [facility] [address] [address] [facility] [facility] LIVER FUNCTION ASPARTATE AMINOTRANS FERASE [ENZYMATIC ACTIVITY/V OLUME] IN SERUM OR PLASMA 19 U/L 5 - 34 05/19 Specimen Type: SERUM No comment entered. Ordering Provider: JUSTYN DUTTON Report Released Date/Time: May 09, 2024 09:09 PM Reporting Lab: [facility] [place] [address] [address] Performing Lab: [facility] [place] [facility] [address] [address] [facility] LIVER FUNCTION ALANINE AMINOTRANS FERASE [ENZYMATIC ACTIVITY/V OLUME] IN SERUM OR PLASMA 16 U/L 05/19 Specimen Type: SERUM No comment entered. Ordering Provider: JUSTYN DUTTON Report Released Date/Time: May 09, 2024 09:09 PM Reporting Lab: [facility] [place] [facility] [address] [address] Performing Lab: [facility] [place] [facility] [address] [address] [facility] [place] [facility] LIVER FUNCTION BILIRUBIN. TOTAL [MASS/VOLU ME] IN SERUM OR PLASMA 0.5 mg/dL 0.2 - 1.2 05/19 Specimen Type: SERUM No comment entered. Ordering Provider: JUSTYN DUTTON Report Released Date/Time: May 09, 2024 09:09 PM Reporting Lab: [facility] [place] [facility] [address] [address] Performing Lab: [facility] [place] [facility] [address] [address] [facility] [place] [facility] LIPID PANEL FASTING CHOLESTERO L [MASS/VOLU ME] IN SERUM OR PLASMA 172 mg/dL 05/19 Specimen Type: SERUM No comment entered. Ordering Provider: JUSTYN DUTTON Report Released Date/Time: May 09, 2024 09:09 PM Reporting Lab: [facility] [place] [facility] [address] [address] Performing Lab: [facility] [place] [facility] [address] [address] [facility] [place] [facility] LIPID PANEL FASTING TRIGLYCERI DE [MASS/VOLU ME] IN SERUM OR PLASMA 310 mg/dL 0 - 150 05/19 H Specimen Type: SERUM No comment entered. Ordering Provider: JUSTYN DUTTON Report Released Date/Time: May 09, 2024 09:09 PM Reporting Lab: [facility] [place] [facility] [address] [address] Performing Lab: [facility] [place] [facility] [address] [address] [facility] [place] [facility] LIPID PANEL FASTING CHOLESTERO L IN LDL [MASS/VOLU ME] IN SERUM OR PLASMA BY CALCULATIO N Reflex to dLDLmg/d L 0 - 129 05/19 Specimen Type: SERUM No comment entered. Ordering Provider: JUSTYN DUTTON Report Released Date/Time: May 09, 2024 09:09 PM Reporting Lab: [facility] [place] [facility] [address] [address] Performing Lab: [facility] [place] [facility] [address] [address] [facility] [place] [facility] LIPID PANEL FASTING CHOLESTERO L.TOTAL/CH OLESTEROL IN HDL [MASS RATIO] IN SERUM OR PLASMA 5.1 05/19 Specimen Type: SERUM No comment entered. Ordering Provider: JUSTYN DUTTON Report Released Date/Time: May 09, 2024 09:09 PM Reporting Lab: [facility] [place] [facility] [address] [address] Performing Lab: [facility] [place] [facility] [address] [address] [facility] [place] [facility] LIPID PANEL FASTING CHOLESTERO L IN HDL [MASS/VOLU ME] IN SERUM OR PLASMA 34 mg/dL 40 - 60 05/19 L Specimen Type: SERUM No comment entered. Ordering Provider: JUSTYN DUTTON Report Released Date/Time: May 09, 2024 09:09 PM Reporting Lab: [facility] [place] [facility] [address] [address] Performing Lab: [facility] [place] [facility] [address] [address] [facility] [place] [facility] LIPID PANEL FASTING CHOLESTERO L IN LDL [MASS/VOLU ME] IN SERUM OR PLASMA BY DIRECT ASSAY 91 mg/dL 05/19 Specimen Type: SERUM No comment entered. Ordering Provider: JUSTYN DUTTON Report Released Date/Time: May 09, 2024 09:09 PM Reporting Lab: [facility] [place] [facility] [address] [address] Performing Lab: [facility] [place] [facility] [address] [address] [facility] [place] [facility] BASIC METABOLI C PANEL (fasting ) UREA NITROGEN [MASS/VOLU ME] IN SERUM OR PLASMA 30 mg/dL 7 - 25 05/19 H Specimen Type: SERUM No comment entered. Ordering Provider: JUSTYN DUTTON Report Released Date/Time: May 09, 2024 09:09 PM Reporting Lab: [facility] [facility] [address] [address] Performing Lab: [facility] [place] [address] [address] [facility] [place] [facility] BASIC METABOLI C PANEL (fasting ) GLUCOSE [MASS/VOLU ME] IN SERUM OR PLASMA 195 mg/dL 65 - 100 05/19 H Specimen Type: SERUM No comment entered. Ordering Provider: JUSTYN DUTTON Report Released Date/Time: May 09, 2024 09:09 PM Reporting Lab: [facility] [place] [facility] [address] [address] Performing Lab: [facility] [place] [address] [address] [facility] [place] [facility] BASIC METABOLI C PANEL (fasting ) SODIUM [MOLES/VOL UME] IN SERUM OR PLASMA 138 mmol/L 135 - 145 05/19 Specimen Type: SERUM No comment entered. Ordering Provider: JUSTYN DUTTON Report Released Date/Time: May 09, 2024 09:09 PM Reporting Lab: [facility] [place] [facility] [address] [address] Performing Lab: [facility] [place] [address] [address] [facility] [place] [facility] BASIC METABOLI C PANEL (fasting ) POTASSIUM [MOLES/VOL UME] IN SERUM OR PLASMA 4.0 mmol/L 3.5 - 5.0 05/19 Specimen Type: SERUM No comment entered. Ordering Provider: JUSTYN DUTTON Report Released Date/Time: May 09, 2024 09:09 PM Reporting Lab: [facility] [address] [address] Performing Lab: [facility] [address] [address] [facility] BASIC METABOLI C PANEL (fasting ) CHLORIDE [MOLES/VOL UME] IN SERUM OR PLASMA 99 mmol/L 100 - 110 05/19 L Specimen Type: SERUM No comment entered. Ordering Provider: JUSTYN DUTTON Report Released Date/Time: May 09, 2024 09:09 PM Reporting Lab: [facility] [address] [address] Performing Lab: [facility] [address] [address] [facility] BASIC METABOLI C PANEL (fasting ) CARBON DIOXIDE, TOTAL [MOLES/VOL UME] IN SERUM OR PLASMA 27 meq/L 20 - 30 05/19 Specimen Type: SERUM No comment entered. Ordering Provider: JUSTYN DUTTON Report Released Date/Time: May 09, 2024 09:09 PM Reporting Lab: [facility] [address] [address] Performing Lab: [facility] [address] [facility] BASIC METABOLI C PANEL (fasting ) CREATININE [MASS/VOLU ME] IN SERUM OR PLASMA 1.65 mg/dL 0.50 - 1.40 05/19 H Specimen Type: SERUM No comment entered. Ordering Provider: JUSTYN DUTTON Report Released Date/Time: May 09, 2024 09:09 PM Reporting Lab: [facility] [address] [address] Performing Lab: [facility] [address] [address] [facility] BASIC METABOLI C PANEL (fasting ) GLOMERULAR FILTRATION RATE/1.73 SQ M.PREDICTE D [VOLUME RATE/AREA] IN SERUM, PLASMA OR BLOOD BY CREATININE -BASED FORMULA (CKD-EPI 2020) 40 mL/min 60 05/19 L Specimen Type: SERUM No comment entered. Ordering Provider: JUSTYN DUTTON Report Released Date/Time: May 09, 2024 09:09 PM Reporting Lab: [address] [address] Performing Lab: [address] [address] [facility] HEMOGLOB IN A1C PANEL HEMOGLOBIN A1C/HEMOGL OBIN.TOTAL IN BLOOD BY HPLC 6.5 4.0 - 5.6 05/19 H Specimen Type: BLOOD Comment: Values obtained from A1C measurement s can vary. For atypical A1C assays, a reported value of 7.0 could actually be between 6.72 and 7.28 if measured by a reference method. A reported value of 9.0 could actually be between 8.73 and 9.27. Ref: http://[email or web address] ngsp.org/[place] Pdata.asp Ordering Provider: JUSTYN DUTTON Report Released Date/Time: May 09, 2024 09:09 PM Reporting Lab: [address] [address] Performing Lab: [address] [address] [facility] URINALYS IS CLEAN CATCH COLOR OF URINE Light-Ye llow 05/19 Specimen Type: URINE Comment: If Glucose = >500 and Ketones are positive, please alert the Physician. Ordering Provider: JUSTYN DUTTON Report Released Date/Time: May 09, 2024 09:09 PM Reporting Lab: [address] [address] Performing Lab: [address] [address] [facility] [place] [facility] URINALYS IS CLEAN CATCH APPEARANCE OF URINE Clear 05/19 Specimen Type: URINE Comment: If Glucose = >500 and Ketones are positive, please alert the Physician. Ordering Provider: JUSTYN DUTTON Report Released Date/Time: May 09, 2024 09:09 PM Reporting Lab: [facility] [place] [facility] [address] [address] Performing Lab: [facility] [place] [facility] [address] [address] [facility] [place] [facility] URINALYS IS CLEAN CATCH GLUCOSE [MASS/VOLU ME] IN URINE Normalmg /dL 05/19 Specimen Type: URINE Comment: If Glucose = >500 and Ketones are positive, please alert the Physician. Ordering Provider: JUSTYN DUTTON Report Released Date/Time: May 09, 2024 09:09 PM Reporting Lab: [facility] [place] [facility] [address] [address] Performing Lab: [facility] [place] [facility] [address] [address] [facility] [place] [facility] URINALYS IS CLEAN CATCH KETONES [MASS/VOLU ME] IN URINE BY TEST STRIP NEGATIVE mg/dL 05/19 Specimen Type: URINE Comment: If Glucose = >500 and Ketones are positive, please alert the Physician. Ordering Provider: JUSTYN DUTTON Report Released Date/Time: May 09, 2024 09:09 PM Reporting Lab: [facility] [place] [facility] [address] [address] Performing Lab: [facility] [place] [facility] [address] [address] [facility] [place] [facility] URINALYS IS CLEAN CATCH ERYTHROCYT ES [PRESENCE] IN URINE SEDIMENT BY LIGHT MICROSCOPY NEGATIVE mg/dL 05/19 Specimen Type: URINE Comment: If Glucose = >500 and Ketones are positive, please alert the Physician. Ordering Provider: JUSTYN DUTTON Report Released Date/Time: May 09, 2024 09:09 PM Reporting Lab: [facility] [place] [facility] [address] [address] Performing Lab: [facility] [place] [facility] [address] [address] [facility] [place] URINALYS IS CLEAN CATCH PROTEIN [MASS/VOLU ME] IN URINE BY TEST STRIP 50 mg/dL 05/19 Specimen Type: URINE Comment: If Glucose = >500 and Ketones are positive, please alert the Physician. Ordering Provider: JUSTYN DUTTON Report Released Date/Time: May 09, 2024 09:09 PM Reporting Lab: [facility] [place] [facility] [address] [address] Performing Lab: [facility] [place] [facility] [address] [address] [facility] [place] [facility] URINALYS IS CLEAN CATCH NITRITE [PRESENCE] IN URINE NEGATIVE mg/dL 05/19 Specimen Type: URINE Comment: If Glucose = >500 and Ketones are positive, please alert the Physician. Ordering Provider: JUSTYN DUTTON Report Released Date/Time: May 09, 2024 09:09 PM Reporting Lab: [facility] [place] [facility] [address] [address] Performing Lab: [facility] [place] [facility] [address] [address] [facility] [place] [facility] URINALYS IS CLEAN CATCH BILIRUBIN. TOTAL [PRESENCE] IN URINE NEGATIVE mg/dL 05/19 Specimen Type: URINE Comment: If Glucose = >500 and Ketones are positive, please alert the Physician. Ordering Provider: JUSTYN DUTTON Report Released Date/Time: May 09, 2024 09:09 PM Reporting Lab: [facility] [place] [facility] [address] [address] Performing Lab: [facility] [place] [facility] [address] [address] [facility] [place] [facility] URINALYS IS CLEAN CATCH SPECIFIC GRAVITY OF URINE BY REFRACTOME TRY 1.018 1.016 - 1.022 05/19 Specimen Type: URINE Comment: If Glucose = >500 and Ketones are positive, please alert the Physician. Ordering Provider: JUSTYN DUTTON Report Released Date/Time: May 09, 2024 09:09 PM Reporting Lab: [facility] [address] [address] Performing Lab: [facility] [address] [address] [facility] URINALYS IS CLEAN CATCH PH OF URINE BY TEST STRIP 6.0 5.0 - 9.0 05/19 Specimen Type: URINE Comment: If Glucose = >500 and Ketones are positive, please alert the Physician. Ordering Provider: JUSTYN DUTTON Report Released Date/Time: May 09, 2024 09:09 PM Reporting Lab: [facility] [address] Performing Lab: [facility] [address] [address] [facility] URINALYS IS CLEAN CATCH UROBILINOG EN [MASS/VOLU ME] IN URINE BY TEST STRIP Normalmg /dL <2.0 - 2.0 05/19 Specimen Type: URINE Comment: If Glucose = >500 and Ketones are positive, please alert the Physician. Ordering Provider: JUSTYN DUTTON Report Released Date/Time: May 09, 2024 09:09 PM Reporting Lab: [facility] [place] [facility] [address] [address] Performing Lab: [facility]ARE[facility] [address] [facility] URINALYS IS CLEAN CATCH LEUKOCYTE ESTERASE [PRESENCE] IN URINE BY TEST STRIP NEGATIVE 05/19 Specimen Type: URINE Comment: If Glucose = >500 and Ketones are positive, please alert the Physician. Ordering Provider: JUSTYN DUTTON Report Released Date/Time: May 09, 2024 09:09 PM Reporting Lab: [facility] [address] [address] Performing Lab: [facility] [place] [facility] [address] [address] [facility] [place] [facility] MICROALB UMIN CREATINI NE RATIO PANEL MICROALBUM IN/CREATIN INE [MASS RATIO] IN URINE 224.4 mg/g 0 - 29.9 05/19 H Specimen Type: URINE No comment entered. Ordering Provider: JUSTYN DUTTON Report Released Date/Time: May 09, 2024 09:09 PM Reporting Lab: [facility] [place] [facility] [address] [address] Performing Lab: [facility] [place] [place] [facility] [address] [address] [facility] [place] [facility] MICROALB UMIN CREATINI NE RATIO PANEL MICROALBUM IN [MASS/VOLU ME] IN URINE 34.0 mg/dL 05/19 Specimen Type: URINE No comment entered. Ordering Provider: JUSTYN DUTTON Report Released Date/Time: May 09, 2024 09:09 PM Reporting Lab: [facility] [place] [place] [facility] [address] [address] Performing Lab: [facility] [place] [place] [facility] [address] [address] [facility] [place] [facility] MICROALB UMIN CREATINI NE RATIO PANEL CREATININE [MASS/VOLU ME] IN URINE 151.53 mg/dL 05/19 Specimen Type: URINE No comment entered. Ordering Provider: JUSTYN DUTTON Report Released Date/Time: May 09, 2024 09:09 PM Reporting Lab: [facility] [place] [facility] [address] [address] Performing Lab: [facility] [place] [facility] [address] [address] [facility] [place] [facility] URIC ACID URATE [MASS/VOLU ME] IN SERUM OR PLASMA 7.7 mg/dL 3.5 - 7.2 05/19 H Specimen Type: SERUM No comment entered. Ordering Provider: JUSTYN DUTTON Report Released Date/Time: May 09, 2024 09:09 PM Reporting Lab: [facility] [place] [place] [address] [address] Performing Lab: [facility] [address] [address] [facility] [place] [facility] MICROSCO PIC AUTOMATE D, URINE LEUKOCYTES [#/AREA] IN URINE SEDIMENT BY MICROSCOPY HIGH POWER FIELD 0-5/[HPF ] 0 - 5 05/19 Specimen Type: URINE Comment: If Glucose = >500 and Ketones are positive, please alert the Physician. Ordering Provider: JUSTYN DUTTON Report Released Date/Time: May 09, 2024 09:09 PM Reporting Lab: [facility] [address] [address] Performing Lab: [facility] [address] [address] [facility]ITALCHUSE [facility] MICROSCO PIC AUTOMATE D, URINE MUCUS [#/AREA] IN URINE SEDIMENT BY MICROSCOPY LOW POWER FIELD FEW/[LPF ] 05/19 Specimen Type: URINE Comment: If Glucose = >500 and Ketones are positive, please alert the Physician. Ordering Provider: JUSTYN DUTTON Report Released Date/Time: May 09, 2024 09:09 PM Reporting Lab: [facility] [address] [address] Performing Lab: [facility] [address] [address] [facility]ITALCH[facility] MICROSCO PIC AUTOMATE D, URINE HYALINE CASTS [#/AREA] IN URINE SEDIMENT BY MICROSCOPY LOW POWER FIELD 10-14/[L PF] 0 - 2 05/19 H Specimen Type: URINE Comment: If Glucose = >500 and Ketones are positive, please alert the Physician. Ordering Provider: JUSTYN DUTTON Report Released Date/Time: May 09, 2024 09:09 PM Reporting Lab: [facility] [address] [address] Performing Lab: [facility] [address] [address] [facility] MICROSCO PIC AUTOMATE D, URINE ERYTHROCYT ES [#/AREA] IN URINE SEDIMENT BY MICROSCOPY HIGH POWER FIELD 0-2/[HPF ] 0 - 3 05/19 Specimen Type: URINE Comment: If Glucose = >500 and Ketones are positive, please alert the Physician. Ordering Provider: JUSTYN DUTTON Report Released Date/Time: May 09, 2024 09:09 PM Reporting Lab: [facility]LA[facility] HOSPITALTRN [facility]AREUSER[facility] [address] [address] Performing Lab: [facility] [address] [address] [facility] MICROSCO PIC AUTOMATE D, URINE EPITHELIAL CELLS.SQUA MOUS [#/AREA] IN URINE SEDIMENT BY MICROSCOPY HIGH POWER FIELD FEW/[HPF ] 05/19 Specimen Type: URINE Comment: If Glucose = >500 and Ketones are positive, please alert the Physician. Ordering Provider: JUSTYN DUTTON Report Released Date/Time: May 09, 2024 09:09 PM Reporting Lab: [facility] [address] [address] Performing Lab: [facility] [address] [address] [facility] CBC AND DIFF (AUTO) LEUKOCYTES [#/VOLUME] IN BLOOD BY AUTOMATED COUNT 7.68 10*3/uL 4.50 - 11.00 05/19 Specimen Type: BLOOD No comment entered. Ordering Provider: JUSTYN DUTTON Report Released Date/Time: May 09, 2024 09:09 PM Reporting Lab: [facility] [address] [address] Performing Lab: [facility] [address] [address] [facility] CBC AND DIFF (AUTO) ERYTHROCYT ES [#/VOLUME] IN BLOOD BY AUTOMATED COUNT 3.81 10*6/uL 4.23 - 5.66 05/19 L Specimen Type: BLOOD No comment entered. Ordering Provider: JUSTYN DUTTON Report Released Date/Time: May 09, 2024 09:09 PM Reporting Lab: [facility] [place] [facility] [address] [address] Performing Lab: [facility] [place] [place] [facility] [address] [address] [facility] [place] [facility] CBC AND DIFF (AUTO) HEMOGLOBIN [MASS/VOLU ME] IN BLOOD 12.2 g/dL 12.8 - 17 05/19 L Specimen Type: BLOOD No comment entered. Ordering Provider: JUSTYN DUTTON Report Released Date/Time: May 09, 2024 09:09 PM Reporting Lab: [facility] [place] [place] [facility] [address] [address] Performing Lab: [facility] [place] [place] [address] [address] [facility] [place] [facility] CBC AND DIFF (AUTO) HEMATOCRIT [VOLUME FRACTION] OF BLOOD BY AUTOMATED COUNT 36.7 39.2 - 50.4 05/19 L Specimen Type: BLOOD No comment entered. Ordering Provider: JUSTYN DUTTON Report Released Date/Time: May 09, 2024 09:09 PM Reporting Lab: [facility] [place] [place] [facility] [address] [address] Performing Lab: [facility] [place] [facility] [address] [address] [facility] [place] [facility] CBC AND DIFF (AUTO) MCV [ENTITIC VOLUME] BY AUTOMATED COUNT 96.3 fL 82 - 99 05/19 Specimen Type: BLOOD No comment entered. Ordering Provider: JUSTYN DUTTON Report Released Date/Time: May 09, 2024 09:09 PM Reporting Lab: [facility] [place] [facility] [address] [address] Performing Lab: [facility] [place] [place] [address] [address] [facility] [place] [place] [facility] CBC AND DIFF (AUTO) MCHC [MASS/VOLU ME] BY AUTOMATED COUNT 33.2 g/dL 30.8 - 35.1 05/19 Specimen Type: BLOOD No comment entered. Ordering Provider: JUSTYN DUTTON Report Released Date/Time: May 09, 2024 09:09 PM Reporting Lab: [facility]LA[facility] HOSPITALTRN [facility]AREUSE[address] [address] Performing Lab: [facility]ANRLA[facility]IN COMM[facility] HOSPITALTRN [facility]AREUSE[address] [address] [facility]AL[facility]N [facility]USE [facility] CBC AND DIFF (AUTO) PLATELETS [#/VOLUME] IN BLOOD BY AUTOMATED COUNT 290 10*3/uL 140 - 360 05/19 Specimen Type: BLOOD No comment entered. Ordering Provider: JUSTYN DUTTON Report Released Date/Time: May 09, 2024 09:09 PM Reporting Lab: [facility]ARE[facility] [address] Performing Lab: [facility]RLA[facility] HOSPITALTRN [facility]AREUSE[address] [address] [facility]ANRANDALUSIA HEALTHN [facility]AREUSE [facility] CBC AND DIFF (AUTO) ERYTHROCYT E DISTRIBUTI ON WIDTH [RATIO] BY AUTOMATED COUNT 12.6 12.0 - 16.0 05/19 Specimen Type: BLOOD No comment entered. Ordering Provider: JUSTYN DUTTON Report Released Date/Time: May 09, 2024 09:09 PM Reporting Lab: [facility]LA[facility] HOSPITALTRN [facility]CAREUSETS [address] [address] Performing Lab: [facility] M[facility]ANRL TRN [facility]CAREUSETS [address] [address] [facility]ANRANDALUSIA HEALTHN [facility]AREUSE [facility] CBC AND DIFF (AUTO) MONOCYTES [#/VOLUME] IN BLOOD BY AUTOMATED COUNT 0.40 10*3/uL 0.30 - 1.10 05/19 Specimen Type: BLOOD No comment entered. Ordering Provider: JUSTYN DUTTON Report Released Date/Time: May 09, 2024 09:09 PM Reporting Lab: [facility]OSPITALTRN [facility]AREUSETS [address] [address] Performing Lab: [facility] [place] [facility] [address] [address] [facility] [place] [facility] CBC AND DIFF (AUTO) MCH [ENTITIC MASS] BY AUTOMATED COUNT 32.0 pg 26.2 - 32.6 05/19 Specimen Type: BLOOD No comment entered. Ordering Provider: JUSTYN DUTTON Report Released Date/Time: May 09, 2024 09:09 PM Reporting Lab: [facility] [place] [facility] [address] [address] Performing Lab: [facility] [place] [facility] [address] [address] [facility] [place] [facility] CBC AND DIFF (AUTO) NEUTROPHIL S/100 LEUKOCYTES IN BLOOD BY AUTOMATED COUNT 65.5 43.7 - 75.8 05/19 Specimen Type: BLOOD No comment entered. Ordering Provider: JUSTYN DUTTON Report Released Date/Time: May 09, 2024 09:09 PM Reporting Lab: [facility] [place] [facility] [address] [address] Performing Lab: [facility] [place] [facility] [address] [address] [facility] [place] [facility] CBC AND DIFF (AUTO) LYMPHOCYTE S/100 LEUKOCYTES IN BLOOD BY AUTOMATED COUNT 27.2 14.0 - 42.3 05/19 Specimen Type: BLOOD No comment entered. Ordering Provider: JUSTYN DUTTON Report Released Date/Time: May 09, 2024 09:09 PM Reporting Lab: [facility] [place] [facility] [address] [address] Performing Lab: [facility] [place] [facility] [address] [address] [facility] [place] [facility] CBC AND DIFF (AUTO) MONOCYTES/ 100 LEUKOCYTES IN BLOOD BY AUTOMATED COUNT 5.2 5.1 - 13.7 05/19 Specimen Type: BLOOD No comment entered. Ordering Provider: JUSTYN DUTTON Report Released Date/Time: May 09, 2024 09:09 PM Reporting Lab: [facility] [place] [facility] [address] [address] Performing Lab: [facility] [place] [facility] [address] [address] [facility] [place] [facility] CBC AND DIFF (AUTO) EOSINOPHIL S/100 LEUKOCYTES IN BLOOD BY AUTOMATED COUNT 1.4 0.4 - 6.8 05/19 Specimen Type: BLOOD No comment entered. Ordering Provider: JUSTYN DUTTON Report Released Date/Time: May 09, 2024 09:09 PM Reporting Lab: [facility] [place] [facility] [address] [address] Performing Lab: [facility] [place] [facility] [address] [address] [facility] [place] [facility] CBC AND DIFF (AUTO) BASOPHILS/ 100 LEUKOCYTES IN BLOOD BY AUTOMATED COUNT 0.4 0.1 - 2.0 05/19 Specimen Type: BLOOD No comment entered. Ordering Provider: JUSTYN DUTTON Report Released Date/Time: May 09, 2024 09:09 PM Reporting Lab: [facility] [facility] [address] [address] Performing Lab: [facility] [place] [facility] [address] [address] [facility] [place] [facility] CBC AND DIFF (AUTO) NEUTROPHIL S [#/VOLUME] IN BLOOD BY AUTOMATED COUNT 5.03 10*3/uL 2.20 - 7.60 05/19 Specimen Type: BLOOD No comment entered. Ordering Provider: JUSTYN DUTTON Report Released Date/Time: May 09, 2024 09:09 PM Reporting Lab: [facility] [place] [facility] [address] [address] Performing Lab: [facility] [place] [facility] [address] [address] [facility]ANRL [facility]N [facility]ITALCHUSE TS [facility] CBC AND DIFF (AUTO) LYMPHOCYTE S [#/VOLUME] IN BLOOD BY AUTOMATED COUNT 2.09 10*3/uL 1.00 - 3.20 05/19 Specimen Type: BLOOD No comment entered. Ordering Provider: JUSTYN DUTTON Report Released Date/Time: May 09, 2024 09:09 PM Reporting Lab: [facility] [place] [facility] [address] [address] Performing Lab: [facility] [place] [facility] [address] [address] [facility] [place] [facility] CBC AND DIFF (AUTO) EOSINOPHIL S [#/VOLUME] IN BLOOD BY AUTOMATED COUNT 0.11 10*3/uL 0.03 - 0.44 05/19 Specimen Type: BLOOD No comment entered. Ordering Provider: JUSTYN DUTTON Report Released Date/Time: May 09, 2024 09:09 PM Reporting Lab: [facility] [place] [facility] [address] [address] Performing Lab: [facility] [place] [facility] [address] [address] [facility] [place] [facility] CBC AND DIFF (AUTO) BASOPHILS [#/VOLUME] IN BLOOD BY AUTOMATED COUNT 0.03 10*3/uL 0.01 - 0.13 05/19 Specimen Type: BLOOD No comment entered. Ordering Provider: JUSTYN DUTTON Report Released Date/Time: May 09, 2024 09:09 PM Reporting Lab: [facility] [place] [facility] [address] [address] Performing Lab: [facility] [place] [address] [address] [facility] [place] [facility] CBC AND DIFF (AUTO) IMMATURE GRANULOCYT ES/100 LEUKOCYTES IN BLOOD BY AUTOMATED COUNT 0.3 0.0 - 0.7 05/19 Specimen Type: BLOOD No comment entered. Ordering Provider: JUSTYN DUTTON Report Released Date/Time: May 09, 2024 09:09 PM Reporting Lab: [facility] [place] [facility] [address] [address] Performing Lab: [facility] [place] [address] [address] [facility] [place] [facility] CBC AND DIFF (AUTO) IMMATURE GRANULOCYT ES [#/VOLUME] IN BLOOD 0.02 10*3/uL 0.00 - 0.06 05/19 Specimen Type: BLOOD No comment entered. Ordering Provider: JUTSYN DUTTON Report Released Date/Time: May 09, 2024 09:09 PM Reporting Lab: [facility]ARE[facility] [address] [address] Performing Lab: [facility]AREUSER[facility] [address] [address] [facility]AREUSE [facility] CBC AND DIFF (AUTO) NRBC % 0.0 0.0 - 0.0 05/19 Specimen Type: BLOOD No comment entered. Ordering Provider: JUSTYN DUTTON Report Released Date/Time: May 09, 2024 09:09 PM Reporting Lab: [facility]AREUSER[facility] [address] [address] Performing Lab: [facility]ARE[facility] [address] [facility]ARE[facility] CBC AND DIFF (AUTO) NRBC, ABS 0.00 10*3/uL 0.00 - 0.00 05/19 Specimen Type: BLOOD No comment entered. Ordering Provider: JUSTYN DUTTON Report Released Date/Time: May 09, 2024 09:09 PM Reporting Lab: [facility] [id number] Performing Lab: [facility] [address] [facility] Vital Signs Combined list of inpatient and outpatient Vital Signs from Department of Defense and Veterans Affairs, ranging from 12 months to all on record, depending upon the facility. Vital Sign Value Date Comments Source SYSTOLIC BLOOD PRESSURE 120 05/26/19 25 09:45:[facility] DIASTOLIC BLOOD PRESSURE 71 025 09:45:23 [facility] PULSE OXIMETRY 96 05/26/2024 09:45:23 [facility] [place] [facility] WEIGHT 265 05/26/2024 09[facility]45:23 [facility] [place] BMI 32 kg/m2 05/26/2024 09:45:23 [facility] PAIN 0 05/26/2024 09:45:23 [facility] HEIGHT 76 05/26/2024 09:45:23 [facility] TEMPERATURE 97.3 05/26/2024 09:45:23 [facility] PULSE 66 05/26/2024 09:45:23 [facility] RESPIRATION 20 05/26/2024 09:45:23 [facility] SYSTOLIC BLOOD PRESSURE 126 05/08/20 24 08:47:57 [facility] DIASTOLIC BLOOD PRESSURE 82 024 08:47:57 [facility] PULSE OXIMETRY 92 05/08/2024 08:47:57 [facility] WEIGHT 275 05/08/2024 08:47:57 [facility] BMI 46 kg/m2 05/08/2024 08:47:57 [facility] PAIN 9 05/08/2024 08:47:57 [facility] HEIGHT 65 05/08/2024 08:47:57 [facility] TEMPERATURE 97.7 05/08/2024 08:47:57 [facility] PULSE 120 05/08/2024 08:47:57 [facility] RESPIRATION 16 05/08/2024 08:47:57 [facility] SYSTOLIC BLOOD PRESSURE 118 01/26/20 24 11:14:49 [facility] DIASTOLIC BLOOD PRESSURE 67 024 11:14:49 [facility] PULSE OXIMETRY 91 01/26/2024 11:14:49 [facility] WEIGHT 279.8 01/26/2024 11:14:49 [facility] BMI 47 kg/m2 01/26/2024 11:14:49 [facility] PAIN 3 01/26/2024 11:14:49 [facility] HEIGHT 65 01/26/2024 11:14:49 [facility] TEMPERATURE 97.8 01/26/2024 11:14:49 [facility] PULSE 70 01/26/2024 11:14:49 [facility] RESPIRATION 16 01/26/2024 11:14:49 [facility] SYSTOLIC BLOOD PRESSURE 126 09/20/19 24 12:47:14 [facility] DIASTOLIC BLOOD PRESSURE 74 024 12:47:14 [facility] PULSE OXIMETRY 97 09/20/2023 12:47:14 [facility] WEIGHT 278.1 09/20/2023 12:47:14 [facility] BMI 36 kg/m2 09/20/2023 12:47:14 [facility] PAIN 0 09/20/2023 12:47:14 [facility] HEIGHT 74 09/20/2023 12:47:14 [facility] TEMPERATURE 98.7 09/20/2023 12:47:14 [facility] PULSE 71 09/20/2023 12:47:14 [facility] RESPIRATION 16 09/20/2023 12:47:14 [facility] Encounters Combined list of: 1) Encounters from Department of Veterans Affairs facilities going backup to the last 18 months, not all VA inpatient encounters are included; 2) Encounters from the Department of Defense facilities going backup to 280 months. 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 SIMRAN Johns 03/03 [facility] [place] [facility] PRO PHONE CALL 11-20 MIN [id number] Diagnos is: ICD-10- CM I48.91 Unspeci fied atrial fibrill ation NGUYEN CHAVEZ 03/04 [place] [facility] [place] [facility] Outpatient Encounter [id number] 03/04 [facility] [place] OFFICE O/P EST LOW 20-29 MIN [id number] Diagnos is: ICD-10- CM I48.91 Unspeci fied atrial fibrill ation PRIYA DUTTON RD 03/08 [facility] [place] Outpatient [facility]counter [id number] 03/11 [facility] [place] [place] Outpatient Encounter [id number] 03/11 [facility] ORTHC/PROS TC MGMT SBSQ ENC [id number] Diagnos is: ICD-10- CM R53.1 Ligia Edwards 03/12 [facility] En[facility] [id number] 03/22 [facility] ([id number] HC PRO PHONE CALL 5-10 MIN [id number] Diagnos is: ICD-10- CM Z51.81 Encount er for therape utic drug level monitor BARRERA Bello ISTINE F 04/[address] [id number][facility] OFFICE O/P EST LOW 20-29 MIN [id number] Diagnos is: ICD-10- CM R06.00 Dyspnea , unspeci fiPRIYA Rinaldi RD D 04/08 [facility] En[facility] [id number] 04/09 [facility] Encounter [id number] 04/09 [facility] En[facility] [id number] 04/09 [facility] Encounter [id number] 04/09 [facility] Encounter [id number] 04/14 [facility] Encounter [id number] 05/18 [facility] OFFICE O/P EST LOW 20 MIN [id number] Diagnos is: ICD-10- CM E13.9 Other specifi ed diabete s mellitu s without complic ations PRIYA DUTTON RD 05/26 [facility] Out[facility] En[facility] [id number] 05/27 [facility] OFF/OP EST MAY X REQ PHY/QHP [id number] Diagnos is: ICD-10- CM Z23 Encount er for immuniz ation Bita JENKINS 05/31 [facility] Outpatient Encounter [id number] 06/04 [facility] OFFICE O/P EST MOD 30 MIN [id number] Diagnos is: ICD-10- CM N18.31 Chronic kidney disease , stage 3a Cherelle JONES 06/15 [facility] Outpatient Encounter [id number] 06/15 [facility] OFFICE O/P EST LOW 20 MIN [id number] Diagnos is: ICD-10- CM E13.9 Other specifi ed diabete s mellitu s without complic ations Minnie ROSE 06/23 [facility] Outpatient Encounter [id number] 08/03 [facility] OFF/OP EST MAY X REQ PHY/QHP [id number] Diagnos is: ICD-10- CM 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 SIMRAN Johns 08/17 [facility] OFFICE O/P EST LOW 20 MIN [id number] Diagnos is: ICD-10- CM H61.21 Impacte d cerumen , right ear EDMUND CANONAH 08/17 [facility] En[facility] [id number] 08/25 [facility] En[facility] [id number] 08/29 [facility] Out[facility] Encounter [id number] 09/08 [facility] Encounter [id number] 09/08 [facility] HC PRO PHONE CALL 11-20 MIN [id number] Diagnos is: ICD-10- CM 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 SAMY Lemos 09/08 [facility] OFFICE O/P EST LOW 20 MIN [id number] Diagnos is: ICD-10- CM E13.9 Other specifi ed diabete s mellitu s without complic ations PRIYA DUTTON RD 09/19 [facility] En[facility] [id number] 09/20 [facility] PSYCH DIAGNOSTIC EVALUATION [id number] Diagnos is: ICD-10- CM F32.A Depress ion, unspeci LOUISA Garcia 09/21 [facility] En[facility] [id number] 10/05 [facility] TRIM NAIL(S) [id number] Diagnos is: ICD-10- CM E11.40 Type 2 diabete s mellitu s with diabeti c neuropa thy, unsp DEIRDRE PETIT SAUL 10/20 [facility] Out[facility] En[facility] [id number] 11/23 [facility] Encounter [id number] 1[facility]12/14 [facility] Encounter [id number] 1.12/27 [facility] Encounter [id number] 1.12/27 [facility] Out[facility] Encounter [id number] Diagnos is: ICD-10- CM R53.[address] 01/16 [facility] OFFICE O/P EST LOW 20 MIN [id number] Diagnos is: ICD-10- CM E78.00 Pure hyperch olester olemia, unspeci LEISA HallA RD D 01/25 [facility] ORTHC/PROS TC MGMT SBSQ ENC [id number] Diagnos is: ICD-10- CM R26.9 Unspeci fied abnorma lities of gait and mobilit y Ligia SETHI COREY 01/31 [facility] Out[facility] Encounter [id number] 1.02/17 [facility] TRIM NAIL(S) [id number] 1. Diagnos is: ICD-10- CM E11.40 Type 2 diabete s mellitu s with diabeti c neuropa thy, unsp DEIRDRE PETIT SAUL 02/22 [facility] Encounter [id number] 1.02/22 [facility] Out[facility]counter [id number]/18 [facility] Out[facility] Encounter [id number] [facility] Out[facility] Encounter [id number] 05/02 [facility] OFFICE O/P EST LOW 20 MIN [id number] Diagnos is: ICD-10- CM R07.89 Other chest pain PRIYA DUTTON RD D 05/08 [facility] OFFICE O/P EST LOW 20 MIN [id number] Diagnos is: ICD-10- CM E78.00 Pure hyperch olester olemia, unspeci fied NATOPRIYA RD D 05/26 [facility] [place] Outpatient Encounter [id number] 06/02 [facility] Outpatient Encounter [id number] 06/12 [facility] [place] TRIM NAIL(S) [id number] Diagnos is: ICD-10- CM E11.40 Type 2 diabete s mellitu s with diabeti c neuropa thy, unsp DEIRDRE PETIT SAUL 06/27 [facility] [place] [place] NQHP OL DIG ASSMT&MGMT 5-10 [id number] Diagnos is: ICD-10- CM I48.91 Unspeci fied atrial fibrill ation SOBARRY ELLIOTT RISTY A 07/05 [facility] [place] [place] [facility] Outpatient Encounter [id number] 08/07 [facility] [place] Social History Combined list of available smoking, tobacco, and other social history from Department of Defense and Veterans Affairs facilities. Social History Type Response Date Comment Source Tobacco smoking status SDIS VA-TOBACCO FORMER USER 01/26/2024 [facility] History of tobacco use VA-TOBACCO QUIT 5 TO < 15 YRS 01/26/2024 [facility] History of tobacco use VA-TOBACCO FORMER USER 01/20/2023 [facility] [place] [facility] History of tobacco use VA-TOBACCO FORMER USER 12/31/2021 [facility] [place] [facility] 15 Y[facility] 11/24/2019 [facility] [place] [facility] 15 Y[facility] 11[facility]22/2018 [facility] [place] [facility] History of tobacco use LIFETIME NON-TOBACCO USER 11/23/2017 [facility] [place] [facility] History of tobacco use QUIT TOBACCO USE 1-7 YEARS AGO 02/10/2017 quit 5 years ago [facility] [place] [facility] History [facility] tobacco use QUIT TOBACCO USE 1-7 YEARS AGO 05/15/2016 pt states he quit 5 yr ago. [facility] [place] [facility] History of tobacco use QUIT TOBACCO USE 1-7 YEARS AGO 05/14/2015 [facility] [place] [facility] History [facility] tobacco use LIFETIME NON-TOBACCO USER 01/12/2013 [facility] [place] [facility] History of tobacco use QUIT TOBACCO USE 1-7 YEARS AGO 08/12/2011 [facility] [place] [facility] History of tobacco use QUIT TOBACCO USE 1-7 YEARS AGO 07/28/2010 quite fiuve months ago [facility] [place] [facility] History of tobacco use CURRENT SMOKER 07/22/2009 1 1/2 PPD [facility] [place] [facility] History of tobacco use V1-PT DECLINES TOBACCO CESSATION MEDS 01/22/2009 [facility] [place] [facility] History of tobacco use CURRENT SMOKER 07/19/2008 1 1/2 ppd [facility] [place] [facility] History of tobacco use V1-PT DECLINES TOBACCO CESSATION MEDS 01/17/2008 [facility] [place] [facility] History of tobacco use CURRENT SMOKER 07/15/2007 [facility] [place] [facility] History of tobacco use V1-PT DECLINES TOBACCO CESSATION MEDS 01/14/2007 [facility] [place] [facility] History of tobacco use V1-PT READY TO QUIT TOBACCO USE 07/14/2006 [facility] History of tobacco use CURRENT SMOKER 06/09/2006 [facility] History of tobacco use CURRENT SMOKER 10/01/2003 Smokes 1.5 packs/day and is not ready to quit at this time [facility] Plan of Care List of future care activities from Department of [facility] facilities. Additional future care activities may be listed in the Assessment and Plan section. Date/Time Care Activity Care Activity Detail Facili ty 09/15/2024 AMBULATORY - MEDICINE AMBULATORY - MEDICI [place] [facility]
--- OUTSIDE RECORDS SUMMARY | 2024-08-30 10:11 | XMS_ITS | Encounter Summary ---
Author Name [facility] [place] Organization [facility] [place] Address [address] [place] [id number] Care Team Providers Care Staff Midwife Name Role Phone DON DUTTON Primary Care Provider Unavailabl e Insurance [...] O MEDEX BRONZ E May 10, 2005 [id number] CONRADO BERNARDO ALD PATIENT [place] MEDEX BRONZ E May 10, 2005 [id number] HUMAN RESOURCES SUPPORT SPECIALISTCONRADO ALD PATIENT [place] PSU[place] O MEDEX BRONZ E May 10, 2005 [id number] [phone] CONRADO BERNARDO ALD PAT[place] MEDEX BRONZ E May 10, 2005 [id number] HUMAN RESOURCES SUPPORT SPECIALISTCONRADO ALD PATIENT MEDICARE (WNR) MEDICARE (M) PART A Nov 07, 2004 PART A [id number] [phone] HUMAN RESOURCES SUPPORT SPECIALISTCONRADO ALD PATIENT MEDICARE (WNR) MEDICARE (M) PART B Nov 07, 2004 PART B [id number] CONRADO BERNARDO ALD PATIENT MEDICARE (WNR) MEDICARE (M) PART A Nov 07, 2004 PART A [id number] [phone] CONRADO BERNARDO ALD PATIENT MEDICARE (WNR) MEDICARE (M) PART B Nov 07, 2004 PART B [id number] [phone] CONRADO BERNARDO ALD PATIENT MEDICARE (WNR) MEDICARE (M) PART A Nov 07, 2004 PART A [id number] [phone] CONRADO BERNARDO ALD PATIENT MEDICARE (WNR) MEDICARE (M) PART B Nov 07, 2004 PART B [id number] CONRADO BERNARDO PATIENT Selected Encounter This section includes the information on record at [place] for the Encounter. Date/Time Encounter Type Encounter Description Reason Provider Source May 26, 2024 10:00 AM OFFICE O/P EST LOW 20 MIN PRIMARY CARE/MEDICINE ICD-10-CM E78.00 Pure hypercholesterole abel, unspecified DON DUTTON [facility] Encounter Template Text not used by [place] Assessments - Encounter Diagnoses This section includes the primary and secondary diagnoses documented for the Encounter. Date/Time Primary/Secondary Diagnosis Diagnosis Name Provider Source May 26, 2024 10:27 AM PRIMARY Pure hypercholesterole abel, unspecified DON DUTTON [facility] [place] [facility] Plan of Treatment: Future Appointments (+ 6 months) and Future Tests (+/- 45 days) The Plan of Treatment section includes future care activities for the patient from all [facility] treatmentfacilities. This section includes future appointments and future orders which are active, pending or scheduled. Future Appointments This section includes appointments that were scheduled to occur 6 months from the date of the Encounter, up to a maximum of 20 appointments. The data comes from all [place] treatment facilities. Appointment Date/Time Appointment Type Appointme nt Facility Name Jun 27, 2024 01:00 PM AMBULATORY - MEDICINE [facility] [place] [facility] September 15, 2024 09:30 AM AMBULATORY - MEDICINE [facility] [place] [facility] Oct 25, 2024 10:00 AM AMBULATORY - MEDICINE [facility] [place] [facility] Oct 25, 2024 03:40 PM [facility] Active, Pending, and Scheduled Orders This section includes a listing of several types of active, pending, and scheduled orders, including clinic medications orders, diagnostic test orders, procedure orders and consult orders; where the start date of the order is 45 days before the date of the Encounter or 45 days after the date of theEncounter. The data comes from all [facility] treatment facilities. Test Date/Time Test Type Test Details Facility Name Jul 06, 2024 09:00 AM Consult Order COMMUNITY CARE-CARDIOLOGY Cons Smoking Pipe [employer] Choice [facility] Lab Results: +/- 30 days of the encounter This section includes the Chemistry and Hematology Lab Results on record with [facility] for the patient. Radiology Reports and Pathology Reports are provided separately, in subsequent sections. Lab Results This section contains the Chemistry/Hematology Results that were resulted 30 days before or 30 daysafter the date of the Encounter. Date/Time Source Result Type Result - Unit Interpretation Reference Range Specimen Type Comment May 19, 2024 07:54 AM [facility] TSH SERUM Specimen Type: SERUM No comment entered. Ordering Provider: DON DUTTON Report Released Date/Time: May 09, 2024 09:09 PM Reporting Lab: [address] [address] Performing Lab: [address] [address] TSH 0.67 u[IU]/mL 0.35-5.00 May 19, 2024 07:54 AM [facility] LIVER FUNCTION SERUM Specimen Type: SERUM No comment entered. Ordering Provider: DON DUTTON Report Released Date/Time: May 09, 2024 09:09 PM Reporting Lab: [address] [address] Performing Lab: [address] [address] PROTEIN,TOTAL 7.2 g/dL 6.0-8.3 ALBUMIN 3.8 g/dL 3.5-5.0 ALKALINE PHOSPHATASE 84 U/L 40-150 AST 19 U/L 5-34 ALT 16 U/L BILIRUBIN, TOTAL 0.5 mg/dL 0.2-1.2 May 19, 2024 07:54 AM [facility] LIPID PANEL FASTING SERUM Specimen Type: SERU M No comment entered. Ordering Provider: DON DUTTON Report Released Date/Time: May 09, 2024 09:09 PM Reporting Lab: [address] [address] Performing Lab: [address] [address] CHOLESTEROL 172 mg/dL TRIGLYCERIDE 310 mg/dL H 0-150 LDL calculated Reflex to dLDL mg/dL 0-12 9 CHOL/HDL 5.1 HDL CHOLESTEROL 34 mg/dL L 40-60 LDL DIRECT 91 mg/dL May 19, 2024 07:54 AM [facility] BASIC METABOLIC PANEL (fasting) SERUM Specime n Type: SERUM No comment entered. Ordering Provider: DON DUTTON Report Released Date/Time: May 09, 2024 09:09 PM Reporting Lab: [address] [address] Performing Lab: [address] [address] UREA NITROGEN 30 mg/dL H 7-25 GLUCOSE 195 mg/dL H 65-100 SODIUM 138 mmol/L 135-145 POTASSIUM 4.0 mmol/L 3.5-5.0 CHLORIDE 99 mmol/L L 100-110 CO2 27 meq/L 20-30 CREATININE, Serum 1.65 mg/dL H 0.50-1.40 eGFR(CKD-EPI 2020) 40 mL/min L >60 May 19, 2024 07:54 AM [facility] HEMOGLOBIN A1C PANEL BLOOD Specimen Type: BLO OD Comment: Values obtained from A1C measurements can vary. For atypical A1C assays, a reported value of 7.0 could actually be between 6.72 and 7.28 if measured by a reference method. A reported value of 9.0 could actually be between 8.73 and 9.27. Ref: http://www.ngsp.org/CAPdata.asp Ordering Provider: DON DUTTON Report Released Date/Time: May 09, 2024 09:09 PM Reporting Lab: [facility] [address] [address] Performing [facility]: [facility] [address] [address] HEMOGLOBIN A1C 6.5 H 4.0-5.6 May 19, 2024 07:54 AM [facility] URIC ACID SERUM Specimen Type: SERUM No comment entered. Ordering Provider: DON DUTTON Report Released Date/Time: May 09, 2024 09:09 PM Reporting [facility]: [facility] [address] [address] Performing Lab: [facility] [address] [address] URIC ACID 7.7 mg/dL H 3.5-7.2 May 19, 2024 07:54 AM [facility] MICROALBUMIN CREATININE RATIO PANEL URINE Spe cimen Type: URINE No comment entered. Ordering Provider: DON DUTTON Report Released Date/Time: May 09, 2024 09:09 PM Reporting Lab: [facility] [address] [address] Performing [facility]: [facility] [address] [address] MICROALBUMIN/CREATININE RATIO 224.4 mg/g H 0-29.9 MICROALBUMIN,QUANTITATIVE 34.0 mg/dL RR UNAVAIL CREATININE URINE 151.53 mg/dL May 19, 2024 07:54 AM [facility] URINALYSIS CLEAN CATCH URINE Specimen Type: U RINE Comment: If Glucose = >500 and Ketones are positive, please alert the Physician. Ordering Provider: DON DUTTON Report Released Date/Time: May 09, 2024 09:09 PM Reporting Lab: [facility] [address] [address] Performing Lab: [address] [address] UA COLOR Light-Yellow Yellow UA APPEARANCE Clear Clear UA GLUCOSE Normal mg/dL Negative UA KETONES NEGATIVE mg/dL Negative UA BLOOD NEGATIVE mg/dL Negative UA PROTEIN 50 mg/dL Negative UA NITRITE NEGATIVE mg/dL Negative UA BILIRUBIN NEGATIVE mg/dL Negative UA SPECIFIC GRAVITY 1.018 1.016-1.022 UA pH 6.0 5.0-9.0 UA UROBILINOGEN Normal mg/dL <2.0 UA LEUKOCYTE NEGATIVE Negative May 19, 2024 07:54 AM [facility] MICROSCOPIC AUTOMATED, URINE URINE Specimen T ype: URINE Comment: If Glucose = >500 and Ketones are positive, please alert the Physician. Ordering Provider: DON DUTTON Report Released Date/Time: May 09, 2024 09:09 PM Reporting Lab: [address] [address] Performing Lab: [address] [address] UA WBC 0-5 /[HPF] 0-5 UA MUCUS FEW /[LPF] Trace UA HYALINE CASTS 10-14 /[LPF] H 0-2 UA RBC 0-2 /[HPF] 0-3 UA SQUAMOUS EPITH FEW /[HPF] May 19, 2024 07:54 AM [facility] CBC AND DIFF (AUTO) BLOOD Specimen Type: BLOO D No comment entered. Ordering Provider: DON DUTTON Report Released Date/Time: May 09, 2024 09:09 PM Reporting Lab: [address] [address] Performing Lab: [address] [address] WBC 7.68 10*3/uL 4.50-11.00 RBC 3.81 10*6/uL [...] Height Weight Body Mass Index Source May 26, 2024 09:45 AM 97.3 66 120/71 20 96 0 76 265 32 [facility] Social History: Smoking Status (Most current) and Tobacco Use (All prior to encounter date) This section includes the most current, and the historical, smoking and tobacco- related health factors from the [facility] facility where the Encounter took place. Current Smoking Status This section includes the most current smoking, or tobacco-related health factor, from the [facility] facility where the Encounter took place. Date/Time Current Smoking Status Comment [facility] Jan 26, 2024 11:30 AM VA-TOBACCO FORMER USER [facility] Tobacco Use History This section includes a history of the smoking, or tobacco-related health factors, that were collected on or before the date of the Encounter. The data comes from the [facility] facility where the Encounter took place. Date/Time Smoking Status/Tobac co Use Comment Facility Jan 26, 2024 11:30 AM VA-TOBACCO QUIT 5 TO < 15 YRS [facility] Jan 20, 2023 11:30 AM [facility]AC[facility] [place] [facility] Jan 20, 2023 11:30 AM VA-TOBACCO QUIT 15 YRS OR MORE [facility] [place] [facility] Dec 31, 2021 10:30 AM VA-TOBACCO FORMER USER [facility] [place] [facility] Dec 31, 2021 10:30 AM VA-TOBACCO QUIT 5 TO < 15 YRS [facility] [place] [facility] Dec 27, 2020 10:00 AM VA-TOBACCO FORMER USER [facility] [place] [facility] Dec 27, 2020 10:00 AM VA-TOBACCO QUIT 5 TO < 15 YRS [facility] [place] [facility] Nov 24, 2019 12:24 PM VA-TOBACCO FORMER USER [facility] [place] [facility] Nov 24, 2019 12:24 PM VA-TOBACCO QUIT 5 TO < 15 YRS [facility] [place] [facility] Nov 22, 2018 01:48 PM VA-TOBACCO FORMER USER [facility] [place] [facility] Nov 22, 2018 01:48 PM VA-TOBACCO QUIT 5 TO < 15 YRS [facility] [place] [facility] Nov 23, 2017 08:38 AM LIFETIME NON-TOBACCO USER [facility] [place] [facility] Feb 10, 2017 10:50 AM QUIT TOBACCO USE 1-7 YEARS AGO quit 5 years ago [facility] [place] [facility] May 15, 2016 10:32 AM QUIT TOBACCO USE 1-7 YEARS AGO pt states he quit 5 yr ago. [facility] [place] [facility] May 14, 2015 08:27 AM QUIT TOBACCO USE 1-7 YEARS AGO [facility] [place] [facility] Jan 12, 2013 08:54 AM LIFETIME NON-TOBACCO USER [facility] [place] [facility] Aug 12, 2011 08:49 AM QUIT TOBACCO USE 1-7 YEARS AGO [facility] [place] [facility] Jul 28, 2010 08:40 AM QUIT TOBACCO USE 1-7 YEARS AGO quite fiuve months ago [facility] [place] [facility] Jul 22, 2009 09:34 AM CURRENT SMOKER 1 1/2 PPD [facility] [place] [facility] Jul 22, 2009 09:34 AM V1-PT DECLINES TOBACCO CESSATION MEDS [facility] [place] [facility] Jul 22, 2009 09:34 AM V1-PT NOT INTERESTED IN QUIT TOBACCO USE [facility] [place] [facility] Jan 22, 2009 09:25 AM V1-PT DECLINES TOBACCO CESSATION MEDS [facility] [place] [facility] Jan 22, 2009 09:25 AM V1-PT THINKING ABOUT QUIT TOBACCO USE [facility] [place] [facility] Jul 19, 2008 08:45 AM CURRENT SMOKER 1 1/2 ppd [facility] [place] [facility] Jul 19, 2008 08:45 AM V1-PT DECLINES TOBACCO CESSATION MEDS [facility] [place] [facility] Jul 19, 2008 08:45 AM V1-PT THINKING ABOUT QUIT TOBACCO USE [facility] [place] [facility] Jan 17, 2008 08:56 AM V1-PT DECLINES TOBACCO CESSATION MEDS [facility] Jan 17, 2008 08:56 AM V1-PT NOT INTERESTED IN QUIT TOBACCO USE [facility] [place] [facility] Jul 15, 2007 09:30 AM CURRENT SMOKER [facility] [place] [facility] Jul 15, 2007 09:30 AM V1-PT DECLINES TOBACCO CESSATION MEDS [facility] Jul 15, 2007 09:30 AM V1-PT THINKING ABOUT QUIT TOBACCO USE [facility] [place] [facility] Jan 14, 2007 11:06 AM V1-PT DECLINES TOBACCO CESSATION MEDS [facility] Jan 14, 2007 11:06 AM V1-PT THINKING ABOUT QUIT TOBACCO USE [facility] [place] [facility] Jul 14, 2006 11:56 AM V1-PT READY TO QUIT TOBACCO USE [facility] [place] [facility] Jun 09, 2006 02:29 PM CURRENT SMOKER [facility] [place] [facility] October 01, 2003 02:19 PM CURRENT SMOKER Smokes 1.5 packs/day and is not ready to quit at this time [facility] Radiology Reports: +/- 30 days [...] the Encounter. The data comes from all [facility] treatment facilities. Date/Time Radiology Report Provider Source May 08, 2024 09:[address] W/O CONT: CATRINA BERNARDO [id number] -[id number] M Exm Date: MAY 08, 2024@09:29 Req Phys: DON DUTTON Loc: CWM/NO/PACT 2 (Req'g Loc) Img Loc: [facility]/CT Service: [place] [address] (Case 20 COMPLETE) CT THORAX W/O CONT (CT Detailed) CPT:41299 Reason for Study: look for rib fx or ptx Clinical History: fell at home Report Status: Verified Date Reported: MAY 08, 2024 Date Verified: MAY 08, 2024 Wood Treating Inspector E-Sig: Report: CT THORAX W/O CONT [PRINTSET] HISTORY: look for rib fx or ptx COMPARISON: 03/25/2020 TECHNIQUE: Helical CT of the chest, with multiplanar reformats, was performed at the local [facility] facility. Computer-Aided Detection (computer algorithm analysis of digital image data for lesion detection or other postprocessing) was utilized for this examination, with further physician review for interpretation and report, performed concurrently with the primary interpretation. 1229 images were received by the [facility] National Teleradiology Program (NTP) for interpretation. RADIATION [...] ninth and 12th ribs are outside the cpppu-os-pcho. There are no acute fractures. There are [...] the chest. READING PHYSICIAN: Dain Ambriz MD -[id number] 05/08/2024 10:37 EST [facility] National Teleradiology Program [phone] (For Medical Practitioner Use Only) Attention Patients / Veterans: If you have questions or concerns about these test results, please contact your ordering provider or primary care team. Primary Diagnostic Code: NO ALERT REQUIRED Primary Interpreting Staff: RADIOLOGY,OUTSIDE SERVICE, Staff Physician / RADIOLOGY,OUTSIDE SERVICE [facility] Encounter Notes: All associated encounter notes This section contains the clinical notes associated to the Encounter. Date/Time Encounter Note(s) Provider Source May 26, 2024 10:22 AM PHYSICIAN NOTE: LOCAL TITLE: NOTE STANDARD TITLE: PHYSICIAN NOTE DATE OF NOTE: MAY 26, 2024@10:22 ENTRY DATE: MAY 26, 2024@10:22:48 AUTHOR: DON DUTTON EXP COSIGNER: URGENCY: STATUS: COMPLETED Patient Name: CATRINA BERNARDO VITALS: Patient temperature: 97.3 F [36.3 C] (05/26/2024 09:45) Blood pressure: 120/71 (05/26/2024 09:45) Patient height: 76 in [193.0 cm] (05/26/2024 09:45) Patient weight: 265 lb [120.20 kg] (05/26/2024 09:45) Patient BMI: BMI: 32.3 Patient pulse: 66 (05/26/2024 09:45) Patient respiration: 20 (05/26/2024 09:45) Patient Pulse Oximetry: 96% (05/26/2024 09:45) Pain Ratin (05/26/2024 09:45) Active [facility] Medications: Active Outpatient Medications (including [...] DIRECTED Indication: FOR EAR WAX BLOCKAGE 4) CYCLOBENZAPRINE HCL 10MG TAB TAKE ONE TABLET BY MOUTH THREE ACTIVE TIMES DAILY NEEDED Indication: FOR MUSCLE SPASM 5) FERROUS SULFATE 325MG TAB TAKE ONE TABLET BY MOUTH ONCE ACTIVE (S) DAILY TO SUPPLEMENT IRON 6) FUROSEMIDE 40MG TAB TAKE ONE TABLET BY MOUTH TWICE DAILY TO ACTIVE REMOVE FLUID/CONTROL BLOOD PRESSURE 7) INSULIN SYRINGE 0.5ML 30G 12MM USE 1 SYRINGE SUBCUTANEOUSLY ACTIVE EVERY MORNING FOR INSULIN INJECTIONS NOTE DIFFERENT SYRINGE SIZES Indication: DIABETES 8) INSULIN,ASPART,HUMAN 100 UNIT/ML INJ INJECT SLIDING SCALE ACTIVE SUBCUTANEOUSLY FOUR TIMES A DAY PER SLIDING SCALE INSTRUCTIONS 9) LISINOPRIL 20MG TAB TAKE ONE TABLET BY MOUTH EVERY DAY TO ACTIVE CONTROL BLOOD PRESSURE 10) ROSUVASTATIN CA 40MG TAB TAKE ONE-HALF TABLET [...] EVERY MORNING 30 ACTIVE MINUTES BEFORE BREAKFAST 16 Total Medications Remote Medications: No Active 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 He feels well today with no complaints. He does all the cooking and shopping in his house after his . He has lost weight because of upper and lower plates inserted by dentist Review of systems No chest pain or dyspnea No abdominal pain No trouble urinating No fever or chills No cough Physical examination Well-developed well-nourished male no acute distress Coronary no murmur Lungs clear Carotid no bruit No peripheral edema Pharynx no erythema MICROALB/CR RATIO: 224.4 H MICROALBUMIN URINE: 34.0 CREATININE URINE: 151.53 WBC/HPF: 0-5 RBC/HPF: 0-2 MUCUS: FEW HYALINE/CASTS/LPF: 10-14 H SQUAMOUS EPITHELIAL: FEW Color, Urine (AX 4280): Light-Yellow Appearance, Urine (AX 4280): Clear Glucose, Urine (AX 4280): Normal Ketones, Urine (AX 4280): NEGATIVE Blood, Urine (AX 4280): NEGATIVE Protein, Urine (AX 4280): 50 Nitrite, Urine (AX 4280): NEGATIVE Bilirubin, Urine (AX 4280): NEGATIVE Specific [place], (AX 4280): 1.018 pH, Urine ([id number]): 6.0 Urobilinogen, Urine (AX 4280): Normal Leukocyte Esterase, (AX 4280): NEGATIVE TSH (Access): 0.67 GLUCOSE: 195 H UREA NITROGEN: 30 H SODIUM: 138 POTASSIUM: 4.0 CHLORIDE: 99 L CO2: 27 URIC ACID: 7.7 H CHOLESTEROL: 172 PROTEIN,TOTAL: 7.2 ALBUMIN: 3.8 ALKALINE PHOSPHATASE: 84 SGOT: 19 SGPT: 16 TRIGLYCERIDE: 310 H LDL CHOL: Reflex to dLDL CHOL/HDL RATIO: 5.1 HDL: 34 L BILIRUBIN,TOT.: 0.5 LDL DIRECT: 91 CREATININE-EGFR: 1.65 H eGFR CKD-EPI 2020: 40 L HGB A1C (WR): 6.5 H WBC: 7.68 RBC: 3.81 L HGB: 12.2 L HCT: 36.7 L MCV: 96.3 MCHC: 33.2 RDW: 12.6 PLT: 290 MCH: 32.0 Neut %: 65.5 Lymph %: 27.2 [place] %: 5.2 Eos %: 1.4 Baso %: 0.4 Neut, Abs: 5.03 Lymph, Abs: 2.09 [place], Abs: 0.40 Eos, Abs: 0.11 Baso, Abs: 0.03 Immature Granulocytes %: 0.3 Immature Granulocytes, Abs: 0.02 NRBC%: 0.0 NRBC#: 0.00 I discussed above test results with patient Assessment and plan: 1. Hypercholesterolemia: LDL satisfactory with medication and recent weight loss Plan continue above medication follow-up 4 months clinic visit and lab Medication Reconciliation: Outpatient: Has the patient been taking medications as documented in the EMLR? YES: The patient has been taking medications as documented in the EMLR. Essential Medication List for Review used to complete this medication reconciliation. INCLUDED IN THIS LIST: Alphabetical list of active outpatient prescriptions dispensed from this [facility] (local) and dispensed from another [facility] or [facility] facility (remote) as well as inpatient orders [...] a VA or non-VA provider. /carmen/ Don Dutton MD Staff Physician Signed: 05/26/2024 10:27 DON DUTTON [facility]
[2024-08-30 10:13] LABS: MANUAL DIFF FLAG NO
[2024-08-30 10:16] LABS: Basophils Percent Auto 0.2 % (0-2); Eosinophils Absolute Auto 0.2 X10*3/uL (0.0-0.4); Eosinophils Percent Auto 1.8 % (0-4); Hematocrit 35.4 % (42.0-52.0); Hemoglobin 11.8 g/dl (14.0-18.0); Imm Gran Abs Auto 0.03 X10*3/uL (0.00-0.03); Imm Gran Pct Auto 0.3 % (0.0-0.4); Lymphocytes Absolute Auto 2.1 X10*3/uL (1.2-4.9); Lymphocytes Percent Auto 22.1 % (20-40); Mean Corpuscular HGB Conc 33.3 g/dl (31.0-36.0); Mean Corpuscular Hemoglobin 32.8 pg (27.0-33.0); Mean Corpuscular Volume 98.3 fL (80.0-98.0); Mean Platelet Volume 9.7 fL (9.4-12.4); Monocytes Absolute Auto 0.6 X10*3/uL (0.1-1.2); Neutrophils Absolute Auto 6.6 x10*3/uL (2.0-8.3); Neutrophils Percent Auto 69.6 % (45-73); Platelet Count 235 X10*3/uL (160-400); Red Cell Distribution Width 13.2 % (11.0-16.0); White Blood Count 9.4 X10*3/uL (4.8-10.8)
[2024-08-30 10:34] LABS: Ethanol < 10 mg/dL
[2024-08-30 10:35] LABS: Alanine Aminotransferase 13 U/L (0-40); Albumin Level 3.8 g/dL (3.5-5.0); Alkaline Phosphatase 72 U/L (39-117); Anion Gap 11 (12-20); Aspartate Amino Transferase 28 U/L (5-37); Bilirubin Total 0.2 mg/dL (0.0-1.0); Blood Urea Nitrogen 26 mg/dL (9-16); Calcium 8.9 mg/dL (8.4-10.2); Carbon Dioxide 28 mmol/L (22-29); Chloride 105 mmol/L (96-108); Creatinine Clr Calc Pharmacy 58.5; Estimated Glomerular Filt Rate 51; Glucose Random 99 mg/dL (60-115); Magnesium 2.2 mg/dL (1.6-2.6); Potassium 4.4 mmol/L (3.3-5.1); Sodium 140 mmol/L (135-145); Total Protein 6.4 g/dL (6.5-8.0)
[2024-08-30] MEDS: diazePAM 10 MG/2 ML CARTRIDGE 2.5 MG IVPUSH (10:37)
[2024-08-30 10:38] LABS: Troponin-I High Sensitivity 3.3 ng/L (<3.5-35.0)
--- NOTE | 2024-08-30 11:32 | PC.NURSE ---
Patient presents from home via EMS, s/p syncopal episode with a fall. Stood up from chair and syncopized. milk drier maintained and v-paced rhythm noted. c-collar intact. Lungs essentially clear. Respirations even and non-labored. Abdomen soft, distended, non-tender with positive bowel sounds. Positive pedal pulses with trace edema noted. Daughter at the bedside and updated.
[2024-08-30 11:42] LABS: Appearance Urine Clear; Color Urine Yellow; Glucose Urine UA Negative (Negative); Leukocyte Esterase Urine Negative (Negative); Nitrite Urine Negative (Negative); PH 7.5 (5.0-9.0); Specific Gravity - Urine 1.015 (1.005-1.025); Urine Blood Negative (Negative); Urine Ketones Negative (Negative); Urine Protein Negative (Neg-Trace)
[2024-08-30 15:13] LABS: Troponin-I High Sensitivity 4.1 ng/L (<3.5-35.0)
[2024-08-30] MEDS: 0.9 % Sodium Chloride 1,000 ML 999 ML IV ×2 (15:51→18:26)
--- NOTE | 2024-08-30 21:19 | PHA.MEDREC ---
Addendum entered by Pepe Del Angel RPh 08/30/24 21:31: Reviewed by [facility] Original Note: Pharmacy Consult ? Medication Reconciliation Pharmacy has completed the medication reconciliation. patient is a poor historian. Patient instructed me to call his daughter Paulina. Spoke to healther over the phone and she was able to confirm patients medications. Daughter states that the list she has is about a year old. [facility] [place] Utilized claim, list from daughter and list from the [facility] to confirm med list.
--- NOTE | 2024-08-30 21:23 | P.HPHOSP_ITS ---
History of Present Illness Date of Service: 08/30/24 Attending physician on admission: Jewel Antonio Chief Complaint: syncope Patient is an 83-year-old male with a past medical history significant for insulin-dependent diabetes, history renal cancer, HTN, GERD, pacemaker, glaucoma and obesity, who presented to the ED due to a syncopal episode this morning with loss of consciousness and head strike. He reports he stood up from a chair and syncopized. He hit his forehead on the baseboard and reports that he feels that he was out for less than 15 seconds. He had a similar episode about 1 week ago when he was doing laundry and he bent forward to slate picker the hamper and fell sideways and hit his right shoulder and right hip cramped in a small space in his bathroom. He did not seek medical help at that time but has had persistent right hip and right shoulder pain since. He reports weight loss of about 20-30 lbs in the past few months due to dental surgery and unable to eat a lot of his regular diet. He has been hydrating and eating still. He denies any abd pain, chest pain, SOB, nausea, vomiting, diarrhea, headache, urinary sx or URI sx. Review of Systems 2 Constitutional: Constitutional: Denies body ache(s), Denies chills, Denies fatigue, Denies fever(s) and Denies headache(s) Eyes: Eyes: Denies change in vision and Denies photophobia ENT: Denies headache(s), Denies nasal congestion, Denies nasal discharge and Denies sore throat Cardiovascular: Cardiovascular: Denies chest pain, Reports syncope, Denies rapid heart rate, Denies leg edema, Reports lightheadedness, Reports Loss of Consciousness and Denies dyspnea Respiratory: Respiratory: Denies cough, Denies dyspnea and Denies wheezing Gastrointestinal: Gastrointestinal: Denies diarrhea, Denies nausea and Denies vomiting Genitourinary: Genitourinary: Denies dysuria and Denies urinary urgency Musculoskeletal: Comments: R shoulder and R hip pain Integumentary/Breasts: Skin/Breast: Denies rash Neurologic: Denies confusion, Reports syncope and Denies headache(s) Psychiatric: Psychiatric: Denies confusion Endocrine: Endocrine: Denies fatigue Hematologic/Lymphatic: Hematologic/Lymphatic: Denies easy bleeding and Denies easy bruising Allergic/Immunologic: Allergic/Immunologic: Denies wheezing [facility] Medical History (Updated 08/30/24 @ 21:56 by Paola Hollins PA-C) Renal cancer Obesity High blood pressure High cholesterol Diabetes Functional capacity: independent ambulation Family History Mother Colon cancer Surgical History History of prostate surgery H/O cataract removal with insertion of prosthetic lens Social History Housing: House Alcohol intake: former Patient Tobacco Use Status: Former Tobacco user Tobacco use type: Cigarette Years Smoked: 10 Smoked in Last 30 Days: No e-Cigarette/Vaping Use: Never Used Second Hand Smoke Exposure: No Advance Directives: No Advance Directives Information Provided: Yes service: Yes Current occupational status: retired Cognitive needs: Yes (cane) Hearing needs: No Vision needs: Yes (glasses) Narrative: former smoker, no etoh or drug use Meds Allergies Allergy/AdvReac Type Severity Reaction Status Date / Time Iodinated Contrast Media Allergy Severe Unknown Verified 08/30/24 08:37 atorvastatin Allergy Unknown Unknown Verified 01/05/24 11:33 ezetimibe [Zetia] Allergy Unknown Unknown Verified 01/05/24 11:33 niacin Allergy Unknown Unknown Verified 01/05/24 11:33 simvastatin Allergy Unknown Unknown Verified 01/05/24 11:33 Active Medications: Current Medications Acetaminophen (Acetaminophen 325 Mg Tablet) 975 mg PO Q6H PRN PRN Reason: Pain, Mild 1-3,fever,headache Calcium Carbonate (Calcium Carbonate 750 Mg Tab.Chew) 750 mg PO Q4H PRN PRN Reason: Heartburn Dextrose (Dextrose 50 % 25 Gm/50 Ml Syringe) 25 gm IVPUSH Q15M PRN; Protocol PRN Reason: per Hypoglycemia Standing Ord. Glucose (Glucose Gel 15 Gm Gel..Gram.) 15 gm PO Q15M PRN; Protocol PRN Reason: per Hypoglycemia Standing Ord. Insulin Glargine (Insulin Glargine,Hum.Rec.Anlog 100 Unit/Ml 10 Ml Vial) 35 unit SUBCUT DAILY [place] Insulin Human Lispro (Insulin Lispro 100 Unit/Ml 3 Ml Vial) 0 unit SUBCUT QIDACHS [facility]; Protocol Magnesium Hydroxide (Milk Of Magnesia 30 Ml Oral.Susp) 30 ml PO DAILY PRN PRN Reason: Constipation Melatonin (Melatonin 3 Mg Tablet) 6 mg PO BEDTIME PRN PRN Reason: Insomnia Morphine Sulfate (Morphine Sulfate 4 Mg/Ml Cartridge) 2 mg IVPUSH Q4H PRN; Protocol PRN Reason: Pain, Severe (Pain Scale 7-10) Ondansetron HCl (Ondansetron Hcl 4 Mg/2 Ml Vial) 4 mg IVPUSH Q8H PRN PRN Reason: Nausea and Vomiting Oxycodone HCl (Oxycodone Hcl Immed Release 5 Mg Tablet) 5 mg PO Q6H PRN PRN Reason: Pain, Moderate(Pain Scale 4-6) Sodium Chloride (0.9 % Sodium Chloride Flush 3 Ml Syringe) 3 ml IVFLUSH [facility] Home Medications ?Medication ?Instructions ?Recorded ?Confirmed ?Last Taken ?Type allopurinol 100 mg tablet 100 mg PO BID 10/04/20 08/30/24 08/30/24 History furosemide 40 mg tablet 40 mg PO BID 10/04/20 08/30/24 08/30/24 History insulin aspart U-100 100 unit/mL 1 sliding scale dose subcut 10/04/20 08/30/24 08/30/24 History subcutaneous cartridge USEASDIRECTD insulin glargine 100 unit/mL (3 50 unit subcut DAILY 10/04/20 08/30/24 08/30/24 History mL) subcutaneous pen ipratropium 20 mcg-albuterol 100 1 puff inhalation Q6H 10/04/20 08/30/24 08/30/24 History mcg/actuation mist for inhalation latanoprost 0.005 % eye drops 1 drp ophthalmic (eye) BEDTIME 10/04/20 08/30/24 08/29/24 History rosuvastatin 40 mg tablet 20 mg PO DAILY 10/04/20 08/30/24 08/30/24 History dorzolamide 22.3 mg-timolol 6.8 1 drp ophthalmic (eye) BID 09/09/21 08/30/24 08/30/24 History mg/mL eye drops apixaban 5 mg tablet (Eliquis) 5 mg PO BID 03/11/23 08/30/24 08/30/24 History ferrous sulfate 325 mg (65 mg 325 mg PO DAILY 08/30/24 08/30/24 08/30/24 History iron) tablet,delayed release lisinopril 20 mg tablet 20 mg PO DAILY 08/30/24 08/30/24 Unknown History omeprazole 20 mg capsule,delayed 20 mg PO DAILY@0630 08/30/24 08/30/24 08/30/24 History release Physical Exam 2 Vital Signs and Narrative: Vital Signs: Last Vital Signs Temp 97.6 F 08/30/24 20:00 Pulse 65 08/30/24 20:00 Resp 17 08/30/24 20:00 BP 147/55 H 08/30/24 20:00 Pulse Ox 98 08/30/24 20:00 O2 Del Method Room Air 08/30/24 20:00 BMI result Body Mass Index 32.3 General: AOx3, no acute distress Resp: CTA bilaterally CVS: S1, S2, RRR GI: +BS, NT, no distention Skin: Warm, dry Neuro: Cranial nerves II-XII grossly intact bilaterally. Motor grossly intact bilaterally Extremities: No LE edema Psych: Appropriate affect Const: General: No confusion Orientation/consciousness: No confusion Eyes: Direct Ophthalmoscopy: No photophobia Neuro: General: No confusion Results Labs 08/30/24 10:09 08/30/24 10:09 Labs: Laboratory Results - last 24 hr 08/30/24 08/30/24 10:09 11:20 MCV 98.3 H MCH 32.8 MCHC 33.3 RDW 13.2 Plt Count 235 MPV 9.7 Immature Gran % (Auto) 0.3 Neut % (Auto) 69.6 Lymph % (Auto) 22.1 [place] % (Auto) 6.0 Eos % (Auto) 1.8 Baso % (Auto) 0.2 Lymph # (Auto) 2.1 [place] # (Auto) 0.6 Eos # (Auto) 0.2 Baso # (Auto) 0.0 Abs Immat Gran (auto) 0.03 Absolute Neuts (auto) 6.6 Absolute Nucleated RBC 0.000 Nucleated RBC % (auto) 0.0 Anion Gap 11 L Estim Creat Clear Calc 58.5 Estimated GFR 51 Random Glucose 99 Calcium 8.9 Magnesium 2.2 Total Bilirubin 0.2 AST 28 ALT 13 Alkaline Phosphatase 72 Total Creatine Kinase 98 Total Protein 6.4 L Albumin 3.8 Urine Color Yellow Urine Appearance Clear Urine pH 7.5 Ur Specific Daisy 1.015 Urine Protein Negative Urine Glucose (UA) Negative Urine Ketones Negative Urine Blood Negative Urine Nitrite Negative Ur Leukocyte Esterase Negative Ethyl Alcohol < 10 Imaging Radiologist's Impressions: Impressions Head CT 08/30/24 09:48 IMPRESSION: Soft tissue contusion/hematoma right forehead. Focal 2 mm metallic foreign body in the anterior right eyeball. No acute intracranial hemorrhage. Electronically signed by: Michele Mendoza MD 08/30/2024 11:27 AM EDT RP Hip/Pelvis X-Ray 08/30/24 10:07 IMPRESSION: Likely calcific bursitis right greater trochanter. No visible acute fracture, dislocation or subluxation. Electronically signed by: Merlin Irby MD 08/30/2024 01:11 PM EDT RP Shoulder X-Ray 08/30/24 10:07 IMPRESSION: Upward subluxation, right acromioclavicular joint. Electronically signed by: Michele Mendoza MD 08/30/2024 01:06 PM EDT RP Cervical Spine CT 08/30/24 11:01 IMPRESSION: Multilevel cervical spondylosis with questionable nondisplaced fracture of the syndesmophyte formation at C3. Fleischner guidelines were followed. Electronically signed by: Michele Mendoza MD 08/30/2024 11:34 AM EDT RP Chest X-Ray 08/30/24 12:50 IMPRESSION: No acute airspace disease. 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 Electronically signed by: Michele Mendoza MD 08/30/2024 01:10 PM EDT RP Assessment and Plan (1) Syncope: Status: Acute (2) Orthostatic hypotension: Status: Acute (3) Separation of right acromioclavicular joint: Status: Acute (4) Obesity: Qualifiers: Obesity classification: adult class 1 (BMI 30 - 34.9) Serious obesity comorbidity presence: with serious comorbidity Body mass index: BMI 33.0-33.9 Status: Acute (5) CKD stage 3a, GFR 45-59 ml/min: Status: Acute Plan Patient is an 83-year-old male with a past medical history significant for insulin-dependent diabetes, history renal cancer, HTN, GERD, pacemaker, glaucoma and obesity, who presented to the ED due to a syncopal episode this morning with loss of consciousness and head strike. [facility] records reviewed from 2022 with issues with orthostatic hypotension at that time as well, suspected to be secondary to bradycardia with Mobitz 1, s/p pacemaker. syncope secondary to orthostatic hypotension - no infectious etiology - +orthostatics - head CT with soft tissue contusion/hematoma right forehead, focal 2 mm metallic foreign body in the right eye, no acute intracranial hemorrhage - cervical spine CT with multilevel cervical spondylosis with questionable nondisplaced fracture of the syndesmophyte formation at C3 - right hip x-ray with likely calcific bursitis right greater trochanter, no acute visible fracture, dislocation or subluxation - right shoulder x-ray with upward subluxation right acromioclavicular joint - given 2L IVF in ED - pt with recent 20-30 lb weight loss in the past few months, may need BP med adjustment - recheck orthostatics - cardiology consult if orthostatics persistent - compression stockings separation of R AC joint - right shoulder x-ray with upward subluxation right acromioclavicular joint - ED provider spoke to ortho who recommended sling - avoid lifting with R arm - ortho consult - pain management with tylenol, oxycodone and morphine PRN C3 syndesmophyte fx - ED provider discussed with radiologist who reports no concern for vertebral fracture - patient has pacemaker and metallic eye stent, MRI not recommended - patient not having any neck pain or neurological deficits Insulin-dependent diabetes - sliding scale insulin - diabetic diet - Lantus 35 units daily, reduced dose from 50 units daily History renal cell cancer - s/p cryotherapy HTN - hold furosemide, continue lisinopril 20mg QD GERD - continue omeprazole HLD - continue statin Glaucoma - continue eyedrops Stage I COPD - continue home inhalers Mood disorder - continue fluoxetine gout - continue allopurinol Class 1 obesity - BMI 32.3 - weight loss encouraged CKD3a - avoid nephrotoxins DNR/DNI VTE prophylaxis: Joe Patient with syncopal episode secondary to orthostatic hypotension complicated by right AC subluxation and C3 syndesmophyte fracture, requiring admission for at least 2 midnight stay for adjustment of BP meds and pain management. Quality Stroke Does the patient have a stroke diagnosis?: No VTE Prior VTE?: No VTE Risk Level:: Medical - moderate - high VTE Device Contraindication: N/A - Device Ordered VTE Drug Contraindication: N/A - Med Ordered
[2024-08-30 21:43] LABS: Glucose, Whole Blood 76 mg/dL (60-115)
[2024-08-30] MEDS: Apixaban 5 MG TABLET PO (22:06)
[2024-08-30] MEDS: Latanoprost 0.005 % Ophth Sol 2.5 ML DROPS 1 DROP EYE-BOTH (22:06)
[2024-08-30] MEDS: Dorzolamide/Timolo 2.23%/0.68% 10 ML DRBTL 1 DROP EYE-BOTH (22:06)
[2024-08-31] VITALS (12 sets, daily range): BP systolic 116–149; BP diastolic 35–67; PULSE 59–95; RESP 16–18; TEMP 36.2–36.6; O2SAT 92–98; BMI 32.4
[2024-08-31] MEDS: 0.9 % Sodium Chloride Flush 3 ML SYRINGE IVFLUSH ×4 (01:11→20:28)
[2024-08-31 07:03] LABS: Glucose, Whole Blood 138 mg/dL (60-115)
[2024-08-31] MEDS: Dorzolamide/Timolo 2.23%/0.68% 10 ML DRBTL 1 DROP EYE-BOTH ×2 (08:07→20:18)
[2024-08-31] MEDS: Apixaban 5 MG TABLET PO ×2 (08:07→20:18)
[2024-08-31] MEDS: lisinopriL 20 MG TABLET PO (08:07)
[2024-08-31] MEDS: Atorvastatin Calcium 80 MG TABLET PO (08:07)
[2024-08-31] MEDS: FLUoxetine HCl 20 MG CAPSULE PO (08:07)
[2024-08-31] MEDS: Ferrous Sulfate 324 MG TABLET.DR PO (08:07)
[2024-08-31] MEDS: allopurinoL 100 MG TABLET PO ×2 (08:07→20:18)
[2024-08-31 08:08] LABS: Hematocrit 35.4 % (42.0-52.0); Hemoglobin 11.5 g/dl (14.0-18.0); Mean Corpuscular HGB Conc 32.5 g/dl (31.0-36.0); Mean Corpuscular Volume 98.6 fL (80.0-98.0); Mean Platelet Volume 10.1 fL (9.4-12.4); Platelet Count 227 X10*3/uL (160-400); Red Blood Count 3.59 X10*6/uL (4.60-5.80); Red Cell Distribution Width 13.2 % (11.0-16.0); White Blood Count 8.2 X10*3/uL (4.8-10.8)
[2024-08-31] MEDS: Insulin Glargine,Hum.rec.anlog 100 UNIT/ML 10 ML VIAL 35 UNIT SUBCUT (08:08)
[2024-08-31 08:28] LABS: Anion Gap 11 (12-20); Blood Urea Nitrogen 20 mg/dL (9-16); Calcium 9.6 mg/dL (8.4-10.2); Carbon Dioxide 29 mmol/L (22-29); Chloride 106 mmol/L (96-108); Estimated Glomerular Filt Rate > 60; Glucose Random 155 mg/dL (60-115); Potassium 4.6 mmol/L (3.3-5.1); Sodium 141 mmol/L (135-145)
--- NOTE | 2024-08-31 08:35 | PM.EVENT ---
Event Note Date of Service: 08/31/24 Event Note: A/C joint separation No need for orthopedic intervention Sling for comfort No overhead motion f/u out patient Time Spent With Patient Time: Total time managing care of this patient today ____ minutes.
[2024-08-31] MEDS: Morphine Sulfate 4 MG/ML CARTRIDGE 2 MG IVPUSH (11:04)
[2024-08-31 11:21] LABS: Glucose, Whole Blood 140 mg/dL (60-115)
--- NOTE | 2024-08-31 11:25 | P.PNIM_ITS ---
Subjective Subjective Date of Service: 08/31/24 Interval History: dizzy when ambulating Physical Exam 2 Vital Signs: Vital Signs: Last Vital Signs Temp 97.6 F 08/31/24 07:34 Pulse 74 08/31/24 07:34 Resp 16 08/31/24 07:34 BP 137/66 08/31/24 08:07 Pulse Ox 95 08/31/24 07:34 O2 Del Method Room Air 08/31/24 07:34 BMI result Body Mass Index 32.4 General: AO X 3, no acute distress Resp: CTA bilateral, no accessory muscles used CVS: S1,S2,RRR GI: soft, non tender, non distended Neuro: motor grossly intact, alert Psych: appropriate affect, appropriate insight Objective Data Active Medications Acetaminophen (Acetaminophen 325 Mg Tablet) 975 mg PO Q6H PRN PRN Reason: Pain, Mild 1-3,fever,headache Albuterol/Ipratropium (Albuterol/Iprat 2.5/0.5mg 3 Ml Ampul.Neb) 3 ml INHALE Q6H PRN PRN Reason: Shortness Of Breath Or Wheezing Allopurinol (Allopurinol 100 Mg Tablet) 100 mg PO BID [facility] Last Admin: 08/31/24 08:07 Dose: 100 mg Documented By: MARTHA Apixaban (Apixaban 5 Mg Tablet) 5 mg PO BID [facility] Last Admin: 08/31/24 08:07 Dose: 5 mg Documented By: MARTHA Atorvastatin Calcium (Atorvastatin Calcium 80 Mg Tablet) 80 mg PO DAILY [facility] Last Admin: 08/31/24 08:07 Dose: 80 mg Documented By: MARTHA Calcium Carbonate (Calcium Carbonate 750 Mg Tab.Chew) 750 mg PO Q4H PRN PRN Reason: Heartburn Dextrose (Dextrose 50 % 25 Gm/50 Ml Syringe) 25 gm IVPUSH Q15M PRN; Protocol PRN Reason: per Hypoglycemia Standing Ord. Dorzolamide/Timolol (Dorzolamide/Timolo 2.23%/0.68% 10 Ml Drbtl) 1 drop EYE- BOTH BID [facility] Last Admin: 08/31/24 08:07 Dose: 1 drop Documented By: MARTHA Ferrous Sulfate (Ferrous Sulfate 324 Mg Tablet.Dr) 324 mg PO DAILY [facility] Last Admin: 08/31/24 08:07 Dose: 324 mg Documented By: MARTHA Fluoxetine HCl (Fluoxetine Hcl 20 Mg Capsule) 20 mg PO DAILY [facility] Last Admin: 08/31/24 08:07 Dose: 20 mg Documented By: MARTHA Glucose (Glucose Gel 15 Gm Gel..Gram.) 15 gm PO Q15M PRN; Protocol PRN Reason: per Hypoglycemia Standing Ord. Insulin Glargine (Insulin Glargine,Hum.Rec.Anlog 100 Unit/Ml 10 Ml Vial) 35 unit SUBCUT DAILY [facility] Last Admin: 08/31/24 08:08 Dose: 35 unit Documented By: MARTHA Insulin Human Lispro (Insulin Lispro 100 Unit/Ml 3 Ml Vial) 0 unit SUBCUT QIDACHS [facility]; Protocol Last Admin: 08/31/24 07:32 Dose: Not Given Documented By: MARTHA Non-Admin Reason: No Insulin Coverage Latanoprost (Latanoprost 0.005 % Ophth Mayela 2.5 Ml Drops) 1 drop EYE-BOTH BEDTIME [facility] Last Admin: 08/30/24 22:06 Dose: 1 drop Documented By: SCIRPOS Lisinopril (Lisinopril 20 Mg Tablet) 20 mg PO DAILY [facility]; Protocol Last Admin: 08/31/24 08:07 Dose: 20 mg Documented By: MARTHA Magnesium Hydroxide (Milk Of Magnesia 30 Ml Oral.Susp) 30 ml PO DAILY PRN PRN Reason: Constipation Melatonin (Melatonin 3 Mg Tablet) 6 mg PO BEDTIME PRN PRN Reason: Insomnia Morphine Sulfate (Morphine Sulfate 4 Mg/Ml Cartridge) 2 mg IVPUSH Q4H PRN; Protocol PRN Reason: Pain, Severe (Pain Scale 7-10) Last Admin: 08/31/24 11:04 Dose: 2 mg Documented By: MARTHA Omeprazole (Omeprazole 20 Mg Capsule.Dr) 20 mg PO DAILY@0630 [facility] Last Admin: 08/31/24 05:06 Dose: Not Given Documented By: LIZY Non-Admin Reason: Patient Refused Ondansetron HCl (Ondansetron Hcl 4 Mg/2 Ml Vial) 4 mg IVPUSH Q8H PRN PRN Reason: Nausea and Vomiting Oxycodone HCl (Oxycodone Hcl Immed Release 5 Mg Tablet) 5 mg PO Q6H PRN PRN Reason: Pain, Moderate(Pain Scale 4-6) Sodium Chloride (0.9 % Sodium Chloride Flush 3 Ml Syringe) 3 ml IVFLUSH QSHIFT [facility] Last Admin: 08/31/24 08:07 Dose: 3 ml Documented By: MARTHA Labs 08/31/24 07:04 08/31/24 07:04 Labs: Laboratory Results - last 24 hr 08/30/24 08/30/24 08/31/24 11:20 21:40 06:53 MCV MCH MCHC RDW Plt Count MPV Absolute Nucleated RBC Nucleated RBC % (auto) Anion Gap Estim Creat Clear Calc Estimated GFR POC Glucose 76 138 H Random Glucose Calcium Urine Color Yellow Urine Appearance Clear Urine pH 7.5 Ur Specific [place] 1.015 Urine Protein Negative Urine Glucose (UA) Negative Urine Ketones Negative Urine Blood Negative Urine Nitrite Negative Ur Leukocyte Esterase Negative 08/31/24 08/31/24 07:04 11:12 MCV 98.6 H MCH 32.0 MCHC 32.5 RDW 13.2 Plt Count 227 MPV 10.1 Absolute Nucleated RBC 0.000 Nucleated RBC % (auto) 0.0 Anion Gap 11 L Estim Creat Clear Calc 75.0 Estimated GFR > 60 POC Glucose 140 H Random Glucose 155 H Calcium 9.6 D Urine Color Urine Appearance Urine pH Ur Specific [place] Urine Protein Urine Glucose (UA) Urine Ketones Urine Blood Urine Nitrite Ur Leukocyte Esterase Assessment and Plan (1) Orthostatic hypotension: Status: Acute Plan 83M PMH diabetes, renal cancer, hypertension, GERD, history of high-grade heart block status post pacemaker, glaucoma, obesity presented with syncope Syncope due to orthostatic hypotension Given 2 L IV fluids in ED, follow up orthostatics Move lisinopril to bedtime Compression stockings, orthostatic precautions Right shoulder dislocation Ortho appreciated, no surgical intervention, sling for comfort OT/PT Diabetes Basal bolus insulin History of renal cell cancer Status post cryotherapy, follow up outpatient, especially given recent weight loss Mood disorder Fluoxetine CKD 3 Stable DVT prophylaxis On Eliquis - unclear indication DNR/DNI reason for continued hospitalization: Orthostatics Quality Stroke Does the patient have a stroke diagnosis?: No VTE Prior VTE?: No VTE Risk Level:: Medical - moderate - high VTE Device Contraindication: N/A - Device Ordered VTE Drug Contraindication: N/A - Med Ordered
--- NOTE | 2024-08-31 11:29 | MHC.CM.PN ---
Addendum entered by Haley Simms 08/31/24 15:44: Copy of HCP received, now on file. Original Note: IMM 08/31. Pt self-care, lives alone at home. Uses a cane and a walker. Pts daughter will transport him home at discharge. Pt states his daughter is his HCP, copy requested. PCP: Dr. Don Camacho
[2024-08-31 16:15] LABS: Glucose, Whole Blood 114 mg/dL (60-115)
[2024-08-31] MEDS: Latanoprost 0.005 % Ophth Sol 2.5 ML DROPS 1 DROP EYE-BOTH (20:18)
[2024-08-31 20:24] LABS: Glucose, Whole Blood 153 mg/dL (60-115)
[2024-08-31] MEDS: Insulin Lispro 100 UNIT/ML 3 ML VIAL SUBCUT (20:25)
[2024-09-01 03:47] VITALS: BP 150/71; PULSE 62; RESP 18; TEMP 36.5; O2SAT 98
[2024-09-01] MEDS: Omeprazole 20 MG CAPSULE.DR PO (05:34)
[2024-09-01 06:00] VITALS: BMI 31.6
[2024-09-01 07:07] LABS: Glucose, Whole Blood 137 mg/dL (60-115)
[2024-09-01 07:28] VITALS: BP 131/55; PULSE 71; RESP 18; TEMP 37.1; O2SAT 98
[2024-09-01 07:28] LABS: Hematocrit 36.8 % (42.0-52.0); Hemoglobin 12.3 g/dl (14.0-18.0); Mean Corpuscular HGB Conc 33.4 g/dl (31.0-36.0); Mean Corpuscular Hemoglobin 32.8 pg (27.0-33.0); Mean Corpuscular Volume 98.1 fL (80.0-98.0); Mean Platelet Volume 9.9 fL (9.4-12.4); Platelet Count 233 X10*3/uL (160-400); Red Blood Count 3.75 X10*6/uL (4.60-5.80); Red Cell Distribution Width 13.1 % (11.0-16.0)
[2024-09-01 07:43] LABS: Anion Gap 12 (12-20); Blood Urea Nitrogen 19 mg/dL (9-16); Calcium 9.7 mg/dL (8.4-10.2); Carbon Dioxide 25 mmol/L (22-29); Chloride 106 mmol/L (96-108); Creatinine Clr Calc Pharmacy 74.9; Estimated Glomerular Filt Rate > 60; Glucose Random 149 mg/dL (60-115); Potassium 4.2 mmol/L (3.3-5.1); Sodium 139 mmol/L (135-145)
[2024-09-01] MEDS: FLUoxetine HCl 20 MG CAPSULE PO (10:19)
[2024-09-01] MEDS: Ferrous Sulfate 324 MG TABLET.DR PO (10:19)
[2024-09-01] MEDS: allopurinoL 100 MG TABLET PO (10:20)
[2024-09-01] MEDS: Atorvastatin Calcium 80 MG TABLET PO (10:20)
[2024-09-01] MEDS: Apixaban 5 MG TABLET PO (10:20)
[2024-09-01] MEDS: Insulin Glargine,Hum.rec.anlog 100 UNIT/ML 10 ML VIAL 35 UNIT SUBCUT (10:20)
--- NOTE | 2024-09-01 10:27 | P.DS_ITS ---
DS: Providers Provider Date of Service: 09/01/24 Date of admission: 08/30/24 20:18 Date of discharge: 09/01/24 Primary care physician: Don Camacho MD Consults: 08/30/24 20:25 Consult to Orthopedics Routine Consulting Provider: [facility] [place] [facility] Surgeons Reason for consultation: R AC joint subluxation Has provider been notified: Yes DS: Diagnosis Discharge Diagnosis (1) Orthostatic hypotension: Status: Acute DS: Summary Hospital Course Hospital Course: from initial hpi: 83-year-old male with a past medical history significant for insulin-dependent diabetes, history renal cancer, HTN, GERD, pacemaker, glaucoma and obesity, who presented to the ED due to a syncopal episode this morning with loss of consciousness and head strike. He reports he stood up from a chair and syncopized. He hit his forehead on the baseboard and reports that he feels that he was out for less than 15 seconds. 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 He did not seek medical help at that time but has had persistent right hip and right shoulder pain since. He reports weight loss of about 20-30 lbs in the past few months due to dental surgery and unable to eat a lot of his regular diet. He has been hydrating and eating still. He denies any abd pain, chest pain, SOB, nausea, vomiting, diarrhea, headache, urinary sx or URI sx. hospital course: Patient was admitted for syncope due to orthostatic hypotension. Was given 2 L IV fluid in the ER, Lasix was held and lisinopril was moved to bedtime. Orthostatics have improved and dizziness on ambulation has also improved. Recommend to use compression stockings, orthostatic precautions, we will continue to hold Lasix on discharge but may need to restart if weight gain and edema. Had no events on telemetry. For right shoulder dislocation was seen by Orthopedics who recommended sling for comfort and no surgical intervention. Patient was able to ambulate with walker. For diabetes was continued on basal bolus insulin. For history of renal cell cancer status post cryotherapy we will follow up outpatient especially given recent weight loss. For mood disorder was continued on fluoxetine. For CKD 3 remained stable. Patient will be discharged home. Time Attestation Discharge Coordination Time (in mins): 33 Quality: Safe Use of Opioids Does Pt have an Active Cancer Diagnosis on the Problem List?: Yes Opioid Measure Date for [facility] Report: 08/02/24 Opioid Measure Time for [facility] Report: 10:27 Quality: Stroke Does the patient have a stroke diagnosis?: No Physical Exam Vital Signs: Vital Signs: Last Vital Signs Temp 98.7 F 09/01/24 07:28 Pulse 71 09/01/24 07:28 Resp 18 09/01/24 07:28 BP 131/55 L 09/01/24 07:28 Pulse Ox 98 09/01/24 07:28 O2 Del Method Room Air 09/01/24 07:28 BMI result Body Mass Index 31.6 General: AO X 3, no acute distress Resp: CTA bilateral, no accessory muscles used CVS: S1,S2,RRR GI: soft, non tender, non distended Neuro: motor grossly intact, alert Psych: appropriate affect, appropriate insight DS: Data Data Completed and Pending Labs on day of discharge: Laboratory Results - last 24 hr 08/31/24 08/31/24 08/31/24 11:12 16:08 20:20 WBC RBC Hgb Hct MCV MCH MCHC RDW Plt Count MPV Absolute Nucleated RBC Nucleated RBC % (auto) Sodium Potassium Chloride Carbon Dioxide Anion Gap BUN Creatinine Estim Creat Clear Calc Estimated GFR POC Glucose 140 H 114 153 H Random Glucose Calcium 09/01/24 09/01/24 06:29 07:01 WBC 7.0 RBC 3.75 L Hgb 12.3 L Hct 36.8 L MCV 98.1 H MCH 32.8 MCHC 33.4 RDW 13.1 Plt Count 233 MPV 9.9 Absolute Nucleated RBC 0.000 Nucleated RBC % (auto) 0.0 Sodium 139 Potassium 4.2 Chloride 106 Carbon Dioxide 25 Anion Gap 12 BUN 19 H Creatinine 1.03 Estim Creat Clear Calc 74.9 Estimated GFR > 60 POC Glucose 137 H Random Glucose 149 H Calcium 9.7 Discharge Plan Discharge Anticipated Discharge Date/Time: 09/01/24 10:18 Patient Disposition: Home, Self-Care Discharge Diagnosis: syncope, orthostatic hypotension Referrals: Don Camacho MD [Primary Care Provider] - 1 Week Discharge Medications: New lisinopril 20 mg Tablet 20 mg PO BEDTIME Qty: 0 0RF Protocol: Hold for SBP< HOLD for SBP < : 90 Continued fluoxetine 20 mg capsule 20 mg PO DAILY Qty: 90 1RF ferrous sulfate 325 mg (65 mg iron) Tablet,Delayed Release (Dr/Ec) 325 mg PO DAILY omeprazole 20 mg capsule,delayed release(DR/EC) 20 mg PO DAILY@0630 latanoprost 0.005 % drops 1 drp ophthalmic (eye) BEDTIME allopurinol 100 mg tablet 100 mg PO BID rosuvastatin 40 mg tablet 20 mg PO DAILY ipratropium-albuterol 20-100 mcg/actuation mist 1 puff inhalation Q6H PRN (Reason: Shortness Of Breath Or Wheezing) insulin glargine 100 unit/mL (3 mL) insulin pen 50 unit subcut DAILY insulin aspart U-100 100 unit/mL cartridge 1 sliding scale dose subcut USEASDIRECTD Patient Comments: 4 times a day. dorzolamide-timolol 22.3-6.8 mg/mL drops 1 drp ophthalmic (eye) BID Eliquis 5 mg tablet 5 mg PO BID Discontinued lisinopril 20 mg Tablet 20 mg PO DAILY furosemide 40 mg tablet 40 mg PO BID Discharge Orders: Discharge Order (Routine); Ordered 09/01/24 Ordered By: Raul Benoit Diet: Advance to usual diet Activity on Discharge: orthostatic precautions Stand Alone Forms: Patient Portal Discharge page Print Language: Urdu Activity Restrictions/Additional Instructions: You were evaluated in the ED today following a fall. Your blood work is reassuring. The CT scan of your head is normal. The CT scan of your neck shows a bone spur to your C3 vertebra with possible nondiscplaced fracture. This does not require any emergent intervention. Your chest xray is normal. As discussed, the x-ray of your right shoulder shows separation of your acromioclavicular joint. This likely occurred during your fall 1 week ago. The orthopedic technician is recommending a sling for comfort however I recommend that you remove the sling and move your arm around multiple times a day to prevent stiffness. The x-ray of your right hip/pelvis shows some bursitis (inflammation of the bursa sac) within your right hip. You may take Tylenol as needed for pain/ discomfort. Care Plan Goals: avoid syncope and falls Health Concerns: orthostatic hypotension Plan of Treatment: moved lisinopril to nighttime stop lasix for now, may need to restart at lower dose if worsening edema/weight gain copmression socks orthostatic precautions Assessment: see above Patient Instructions: Acromioclavicular Separation (ED), How to Use a Sling (ED), Fall Prevention for Older Adults (ED)
[2024-09-01] MEDS: Dorzolamide/Timolo 2.23%/0.68% 10 ML DRBTL 1 DROP EYE-BOTH (10:29)
--- NOTE | 2024-09-01 10:41 | MHC.CM.PN ---
Per MD rounds patient is ready to discharge today. He is discharged to home self care. He has arranged for transportation home. His dtr will pick him up.
[2024-09-01 11:12] LABS: Glucose, Whole Blood 136 mg/dL (60-115)
[2024-09-01 11:20] VITALS: BP 114/61; PULSE 69; RESP 18; TEMP 36.2; O2SAT 99
== END 2024-09-01 15:12 | disposition home or self-care (01) | DRG 312 ==
LOC: HO.ED 15:35 → HO.EDOVER 20:45 → HO.IMC 08-31 00:57
PROVIDERS: Hospitalist; Physician Assistant Medical; Admitting Provider Physician Assistant; Emergency Provider Emergency Medicine; PCP Internal Medicine; Visit Provider Internal Medicine
DX: I95.1 Orthostatic hypotension (principal); I12.9 Hypertensive chronic kidney disease with stage 1 through stage 4 chronic kidney disease, or unspecified chronic kidney disease; E11.22 Type 2 diabetes mellitus with diabetic chronic kidney disease; F39 Unspecified mood [affective] disorder; Z66 Do not resuscitate; S43.111A Subluxation of right acromioclavicular joint, initial encounter; S00.83XA Contusion of other part of head, initial encounter; W19.XXXA Unspecified fall, initial encounter; H40.9 Unspecified glaucoma; M10.9 Gout, unspecified; N18.31 Chronic kidney disease, stage 3a; J44.9 Chronic obstructive pulmonary disease, unspecified; E78.5 Hyperlipidemia, unspecified; K21.9 Gastro-esophageal reflux disease without esophagitis; D53.9 Nutritional anemia, unspecified; E66.811 Obesity, class 1; Z71.3 Dietary counseling and surveillance; Z68.32 Body mass index [BMI] 32.0-32.9, adult; Z85.528 Personal history of other malignant neoplasm of kidney; Z87.891 Personal history of nicotine dependence; Z95.0 Presence of cardiac pacemaker; Z79.4 Long term (current) use of insulin; Z79.01 Long term (current) use of anticoagulants; Z79.899 Other long term (current) drug therapy
CPT/HCPCS: 36415; 70450; 71046; 72125; 73030; 73502; 80048; 80053; 80307; 81003; 82550; 82947; 83735; 84484; 85025; 85027; 93005; 97162; 97165; 99285; J2270; J3360

== ENCOUNTER → 2024-08-30 08:40 | Outpatient (BNV) | payer MEDICARE, SELFPAY | PROVIDERS: Emergency Provider Emergency Medicine; PCP Internal Medicine; Visit Provider Internal Medicine | DX: I45.9 Conduction disorder, unspecified (principal); Z95.0 Presence of cardiac pacemaker | CPT/HCPCS: 93010 ==

== ENCOUNTER → 2024-08-30 09:50 | Outpatient (BNV) | payer MEDICARE, SELFPAY | PROVIDERS: Emergency Provider Emergency Medicine; PCP Internal Medicine; Visit Provider Radiology Diagnostic Radiology | DX: M47.892 Other spondylosis, cervical region (principal); T15.01XA Foreign body in cornea, right eye, initial encounter; M70.61 Trochanteric bursitis, right hip; R55 Syncope and collapse; S43.001A Unspecified subluxation of right shoulder joint, initial encounter | CPT/HCPCS: 70450; 71046; 72125; 73030; 73502 ==

== ENCOUNTER → 2024-08-30 20:18 | Outpatient (BNV) | payer MEDICARE, SELFPAY | PROVIDERS: Admitting Provider Physician Assistant; Emergency Provider Emergency Medicine; PCP Internal Medicine; Visit Provider Internal Medicine | DX: I95.1 Orthostatic hypotension (principal) | CPT/HCPCS: 99223; 99232; 99239 ==

== ENCOUNTER → 2024-08-30 20:18 | Outpatient (BNV) | payer MEDICARE, SELFPAY | PROVIDERS: Admitting Provider Physician Assistant; Emergency Provider Emergency Medicine; PCP Internal Medicine; Visit Provider Physician Assistant | DX: S43.101A Unspecified dislocation of right acromioclavicular joint, initial encounter (principal) | CPT/HCPCS: 99499 ==

== ENCOUNTER 2024-12-26 16:03 | Emergency (ER) | payer MEDICARE, SELFPAY ==
--- OUTSIDE RECORDS SUMMARY | 2024-09-15 05:30 | XMS_ITS ---
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 [place] MEDEX BRONZ E May 10, 2005 [id number] 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 MEDICARE (WNR) MEDICARE (M) PART A Nov 07, 2004 PART A [id number] 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 Date/Time Encounter Type Encounter Description Reason Provider Source September 15, 2024 09:30 AM OFFICE O/P EST SF 10 MIN PRIMARY CARE/MEDICINE ICD-10-CM M25.511 Pain in right shoulder DON DUTTON [facility] Encounter Template Text not used by PA Assessments - Encounter Diagnoses This section includes the primary and secondary diagnoses documented for the Encounter. Date/Time Primary/Secondary Diagnosis Diagnosis Name Provider Source September 15, 2024 10:00 AM PRIMARY Pain in right shoulder DON DUTTON [place] [facility] [place] [facility] Plan of Treatment: Future Appointments (+ 6 months) and Future Tests (+/- 45 days) The Plan of Treatment section includes future care activities for the patient from all [place] treatmentfacilities. This section includes future appointments and future orders which are active, pending or scheduled. Future Appointments This section includes appointments that were scheduled to occur 6 months from the date of the Encounter, up to a maximum of 20 appointments. The data comes from all [place] treatment facilities. Appointment Date/Time Appointment Type Appointme nt Facility Name Oct 19, 2024 08:00 AM AMBULATORY - MEDICINE PA [facility] [place] [facility] Oct 25, 2024 10:00 AM AMBULATORY - MEDICINE PA [facility] [place] [facility] Oct 25, 2024 03:40 PM AMBULATORY - MEDICINE PA [facility] [place] [facility] Jan 24, 2025 09:00 AM AMBULATORY - MEDICINE PA [facility] [place] [facility] Feb 22, 2025 08:00 AM AMBULATORY - MEDICINE [facility] Lab Results: +/- 30 days of the encounter This section includes the Chemistry and Hematology Lab Results on record with PA for the patient. Radiology Reports and Pathology Reports are provided separately, in subsequent sections. Lab Results This section contains the Chemistry/Hematology Results that were resulted 30 days before or 30 daysafter the date of the Encounter. Date/Time Source Result Type Result - Unit Interpretation Reference Range Specimen Type Comment September 07, 2024 07:31 AM [facility] URIC ACID SERUM Specimen Type: SERUM No comment entered. Ordering Provider: DON DUTTON Report Released Date/Time: Aug 31, 2024 06:28 PM Reporting Lab: [address] [address] Performing Lab: [address] [address] URIC ACID 5.8 mg/dL 3.7-7.7 September 07, 2024 07:31 AM [facility] TSH SERUM Specimen Type: SERUM No comment entered. Ordering Provider: DON DUTTON Report Released Date/Time: Aug 31, 2024 06:28 PM [facility] [address] Performing Lab: [address] [address] TSH 0.77 u[IU]/mL 0.35-4.94 September 07, 2024 07:31 AM [facility] LIVER FUNCTION SERUM Specimen Type: SERUM No comment entered. Ordering Provider: DON DUTTON Report Released Date/Time: Aug 31, 2024 06:28 PM Reporting [facility] [address] Performing Lab: [address] [address] PROTEIN,TOTAL 6.3 g/dL L 6.4-8.3 ALBUMIN 3.7 g/dL 3.2-4.6 ALKALINE PHOSPHATASE 87 U/L 40-150 AST 20 U/L 5-34 ALT 17 U/L 0-55 BILIRUBIN, TOTAL 0.3 mg/dL 0.2-1.2 September 07, 2024 07:31 AM [facility] BASIC METABOLIC PANEL (fasting) SERUM Specime n Type: SERUM No comment entered. Ordering Provider: DON DUTTON Report Released Date/Time: Aug 31, 2024 06:28 PM Reporting Lab: [facility] [address] [address] Performing Lab: [facility] [address] [address] UREA NITROGEN 21 mg/dL 8-26 GLUCOSE 133 mg/dL H 65-100 SODIUM 140 mmol/L 136-145 POTASSIUM 4.5 mmol/L 3.5-5.1 CHLORIDE 105 mmol/L 98-107 CO2 28 meq/L 23-31 CALCIUM 9.3 mg/dL 8.8-10 CREATININE, Serum 1.28 mg/dL H 0.72-1.25 eGFR(CKD-EPI 2020) 55 mL/min L >60 September 07, 2024 07:31 AM [facility] LIPID PANEL FASTING SERUM Specimen Type: SERU M No comment entered. Ordering Provider: DON DUTTON Report Released Date/Time: Aug 31, 2024 06:28 PM Reporting Lab: [facility] [address] [address] Performing Lab: [address] [address] CHOLESTEROL 134 mg/dL TRIGLYCERIDE 175 mg/dL H 0-150 LDL calculated 68 mg/dL 0-129 CHOL/HDL 4.3 HDL CHOLESTEROL 31 mg/dL L >40 September 07, 2024 07:31 AM [facility] HEMOGLOBIN A1C PANEL BLOOD Specimen Type: BLO OD Comment: Values obtained from A1C measurements can vary. For atypical A1C assays, a reported value of 7.0 could actually be between 6.72 and 7.28 if measured by a reference method. A reported value of 9.0 could actually be between 8.73 and 9.27. Ref: http://www.ngsp.org/CAPdata.asp Ordering Provider: DON DUTTON Report Released Date/Time: Aug 31, 2024 06:28 PM Reporting Lab: [facility] [address] [address] Performing Lab: [facility] [address] [address] HEMOGLOBIN A1C 6.2 H 4.0-5.6 September 07, 2024 07:31 AM [facility] MICROALBUMIN CREATININE RATIO PANEL URINE Spe cimen Type: URINE No comment entered. Ordering Provider: DON DUTTON Report Released Date/Time: Aug 31, 2024 06:28 PM Reporting Lab: [facility] [address] [address] Performing Lab: [address] [address] MICROALBUMIN/CREATININE RATIO 83.2 mg/g H 0-29.9 MICROALBUMIN,QUANTITATIVE 19.0 mg/dL RR UNAVAIL CREATININE URINE 228.23 mg/dL H 63-166 September 07, 2024 07:31 AM [facility] URINALYSIS CLEAN CATCH URINE Specimen Type: U RINE Comment: If Glucose = >500 and Ketones are positive, please alert the Physician. Ordering Provider: DON DUTTON Report Released Date/Time: Aug 31, 2024 06:28 PM Reporting Lab: [address] [address] Performing Lab: [address] [address] UA COLOR Yellow Yellow UA APPEARANCE Clear Clear UA GLUCOSE Normal mg/dL Negative UA KETONES NEGATIVE mg/dL Negative UA BLOOD NEGATIVE mg/dL Negative UA PROTEIN 30 mg/dL Negative UA NITRITE NEGATIVE mg/dL Negative UA BILIRUBIN NEGATIVE mg/dL Negative UA SPECIFIC GRAVITY 1.028 H 1.016-1.022 UA pH 5.5 5.0-9.0 UA UROBILINOGEN 2 mg/dL <2.0 UA LEUKOCYTE NEGATIVE Negative September 07, 2024 07:31 AM [facility] MICROSCOPIC AUTOMATED, URINE URINE Specimen T ype: URINE Comment: If Glucose = >500 and Ketones are positive, please alert the Physician. Ordering Provider: DON DUTTON Report Released Date/Time: Aug 31, 2024 06:28 PM Reporting Lab: [facility] [address] [address] Performing Lab: [facility] [address] [address] UA WBC 6-10 /[HPF] H 0-5 UA MUCUS FEW /[LPF] Trace UA HYALINE CASTS 5-9 /[LPF] H 0-2 UA RBC 3-5 /[HPF] 0-3 UA SQUAMOUS EPITH FEW /[HPF] September 07, 2024 07:31 AM [facility] CBC AND DIFF (AUTO) BLOOD Specimen Type: BLOO D No comment entered. Ordering Provider: DON DUTTON Report Released Date/Time: Aug 31, 2024 06:28 PM Reporting Lab: [facility] [address] [address] Performing Lab: [facility] [address] [address] WBC 8.47 10*3/uL 4.50-11.00 RBC 3.67 10*6/uL L 4.23-5.66 HGB 11.8 g/dL L 12.8-17 HCT 35.5 L 39.2-50.4 MCV 96.7 fL 82-99 MCHC 33.2 g/dL 30.8-35.1 PLT 274 10*3/uL 140-360 MPV 10.0 fL 9.2-12.4 RDW-CV 12.9 12.0-16.0 MONO, ABS 0.54 10*3/uL 0.30-1.10 MCH 32.2 pg 26.2-32.6 NEUT % 59.3 43.7-75.8 LYMPH % 31.8 14.0-42.3 MONO % 6.4 5.1-13.7 EOS % 1.9 0.4-6.8 BASO % 0.2 0.1-2.0 NEUT, ABS 5.03 10*3/uL 2.20-7.60 LYMPH, ABS 2.69 10*3/uL 1.00-3.20 EOS, ABS 0.16 10*3/uL 0.03-0.44 BASO, ABS 0.02 10*3/uL 0.01-0.13 IMMATURE GRAN % 0.4 0.0-0.7 IMMATURE GRAN, ABS 0.03 10*3/uL 0.00-0.0 6 NRBC % 0.0 0.0-0.0 NRBC, ABS 0.00 10*3/uL 0.00-0.00 Vital Signs: All taken on the encounter date This section contains inpatient and outpatient Vital Signs collected on the date of the Encounter. Date/Time Temperature Pulse Blood Pressure Respiratory Rate SP02 Pain Height Weight Body Mass Index Source September 15, 2024 09:36 AM 98.1 66 132/74 16 97 3 270 33 [place] [facility] [place] [facility] Social History: Smoking Status (Most current) and Tobacco Use (All prior to encounter date) This section includes the most current, and the historical, smoking and tobacco- related health factors from the PA facility where the Encounter took place. Current Smoking Status This section includes the most current smoking, or tobacco-related health factor, from the PA facility where the Encounter took place. Date/Time Current Smoking Status Comment [facility] Jan 26, 2024 11:30 AM VA-TOBACCO FORMER USER [place] [facility] [place] [facility] Tobacco Use History This section includes a history of the smoking, or tobacco-related health factors, that were collected on or before the date of the Encounter. The data comes from the PA facility where the Encounter took place. Date/Time Smoking Status/Tobac co Use Comment Facility Jan 26, 2024 11:30 AM VA-TOBACCO QUIT 5 TO < 15 YRS [facility] [place] [facility] Jan 20, 2023 11:30 AM VA-TOBACCO FORMER USER [facility] [place] [facility] Jan 20, 2023 11:30 AM VA-TOBACCO QUIT 15 YRS OR MORE [facility] [place] [facility] Dec 31, 2021 10:30 AM VA-TOBACCO FORMER USER [facility] [place] [facility] Dec 31, 2021 10:30 AM VA-TOBACCO QUIT 5 TO < 15 YRS [facility] [place] [facility] Dec 27, 2020 10:00 AM VA-TOBACCO FORMER USER [facility] [place] [facility] Dec 27, 2020 10:00 AM VA-TOBACCO QUIT 5 TO < 15 YRS [facility] [place] [facility] Nov 24, 2019 12:24 PM VA-TOBACCO FORMER USER [facility] [place] [facility] Nov 24, 2019 12:24 PM VA-TOBACCO QUIT 5 TO < 15 YRS [facility] [place] [facility] Nov 22, 2018 01:48 PM VA-TOBACCO FORMER USER [facility] [place] [facility] Nov 22, 2018 01:48 PM VA-TOBACCO QUIT 5 TO < 15 YRS [facility] [place] [facility] Nov 23, 2017 08:38 AM LIFETIME NON-TOBACCO USER [facility] [place] [facility] Feb 10, 2017 10:50 AM QUIT TOBACCO USE 1-7 YEARS AGO quit 5 years ago [facility] [place] [facility] May 15, 2016 10:32 AM QUIT TOBACCO USE 1-7 YEARS AGO pt states he quit 5 yr ago. [facility] [place] [facility] May 14, 2015 08:27 AM QUIT TOBACCO USE 1-7 YEARS AGO [facility] [place] [facility] Jan 12, 2013 08:54 AM LIFETIME NON-TOBACCO USER [facility] [place] [facility] Aug 12, 2011 08:49 AM QUIT TOBACCO USE 1-7 YEARS AGO [facility] [place] [facility] Jul 28, 2010 08:40 AM QUIT TOBACCO USE 1-7 YEARS AGO quite fiuve months ago [facility] [place] [facility] Jul 22, 2009 09:34 AM CURRENT SMOKER 1 1/2 PPD [facility] [place] [facility] Jul 22, 2009 09:34 AM V1-PT DECLINES TOBACCO CESSATION MEDS [facility] [place] [facility] Jul 22, 2009 09:34 AM V1-PT NOT INTERESTED IN QUIT TOBACCO USE [facility] [place] [facility] Jan 22, 2009 09:25 AM V1-PT DECLINES TOBACCO CESSATION MEDS [facility] [place] [facility] Jan 22, 2009 09:25 AM V1-PT THINKING ABOUT QUIT TOBACCO [facility] Jul 19, 2008 08:45 AM CURRENT SMOKER 1 1/2 ppd [facility] Jul 19, 2008 08:45 AM V1-PT DECLINES TOBACCO CESSATION MEDS [facility] Jul 19, 2008 08:45 AM V1-PT THINKING ABOUT QUIT TOBACCO USE [facility] Jan 17, 2008 08:56 AM V1-PT DECLINES TOBACCO CESSATION MEDS [facility] Jan 17, 2008 08:56 AM V1-PT NOT INTERESTED IN QUIT TOBACCO [facility] Jul 15, 2007 09:30 AM CURRENT SMOKER [facility] Jul 15, 2007 09:30 AM V1-PT DECLINES TOBACCO CESSATION MEDS [facility] Jul 15, 2007 09:30 AM V1-PT THINKING ABOUT QUIT TOBACCO [facility] Jan 14, 2007 11:06 AM V1-PT DECLINES TOBACCO CESSATION MEDS [facility] Jan 14, 2007 11:06 AM V1-PT THINKING ABOUT QUIT TOBACCO [facility] Jul 14, 2006 11:56 AM V1-PT READY TO QUIT TOBACCO [facility] Jun 09, 2006 02:29 PM CURRENT SMOKER [facility] October 01, 2003 02:19 PM CURRENT SMOKER Smokes 1.5 packs/day and is not ready to quit at this time [facility] Encounter Notes: All associated encounter notes This section contains the clinical notes associated to the Encounter. Date/Time Encounter Note(s) Provider Source September 15, 2024 09:56 AM PHYSICIAN NOTE: LOCAL TITLE: NOTE STANDARD TITLE: PHYSICIAN NOTE DATE OF NOTE: SEPTEMBER 15, 2024@09:56 ENTRY DATE: SEPTEMBER 15, 2024@09:56:56 AUTHOR: DON DUTTON EXP COSIGNER: URGENCY: STATUS: COMPLETED Patient Name: CATRINA BERNARDO VITALS: Patient temperature: 98.1 F [36.7 C] (09/15/2024 09:36) Blood pressure: 132/74 (09/15/2024 09:36) Patient height: 76 in [193.0 cm] (05/26/2024 09:45) Patient weight: 270 lb [122.47 kg] (09/15/2024 09:36) Patient BMI: BMI: 32.9 Patient pulse: 66 (09/15/2024 09:36) Patient respiration: 16 (09/15/2024 09:36) Patient Pulse Oximetry: 97% (09/15/2024 09:36) Pain Ratin (09/15/2024 09:36) Active [facility] Medications: Active Outpatient Medications (including Supplies): Active Outpatient Medications Status 1) ALBUTEROL 100/IPRATRO 20MCG 120D PO INHL INHALE 1 PUFF BY ACTIVE MOUTH FOUR TIMES DAILY NEEDED FOR BREATHING 2) ALLOPURINOL 100MG TAB TAKE TWO TABLETS BY MOUTH EVERY DAY ACTIVE FOR GOUT 3) APIXABAN 5MG TAB TAKE ONE TABLET BY MOUTH TWICE DAILY ACTIVE 4) CYCLOBENZAPRINE HCL 10MG TAB TAKE ONE TABLET BY MOUTH THREE ACTIVE TIMES DAILY NEEDED Indication: FOR MUSCLE SPASM 5) FERROUS SULFATE 325MG TAB TAKE ONE TABLET BY MOUTH ONCE ACTIVE DAILY TO SUPPLEMENT IRON 6) INSULIN SYRINGE 0.5ML 30G 12MM USE 1 SYRINGE SUBCUTANEOUSLY ACTIVE EVERY MORNING FOR INSULIN INJECTIONS NOTE DIFFERENT SYRINGE SIZES Indication: DIABETES 7) INSULIN,GLARGINE-YFGN 100UNIT/ML INJ INJECT 50 UNITS ACTIVE SUBCUTANEOUSLY EVERY MORNING Indication: FOR DIABETES 8) LISINOPRIL 20MG TAB TAKE ONE TABLET [...] No Active Remote Medications 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 The reason he fell was weight loss after recent dental surgery. During the fall he developed mild AC dislocation confirmed by x-ray. Today he feels mild discomfort lateral aspect right shoulder without radiation. There is no neck pain, numbness, weakness, paresthesias or difficulty with ambulation. No recurrent falling episodes Physical examination Well-developed well-nourished male no acute distress Coronary no murmur Lungs clear Mucous membranes moist Gait normal Arms full range of motion Right shoulder without swelling or erythema MICROALB/CR RATIO: 83.2 H MICROALBUMIN URINE: 19.0 CREATININE URINE: 228.23 H WBC/HPF: 6-10 H RBC/HPF: 3-5 MUCUS: FEW HYALINE/CASTS/LPF: 5-9 H SQUAMOUS EPITHELIAL: FEW Color, Urine (AX 4280): Yellow Appearance, Urine (AX 4280): Clear Glucose, Urine (AX 4280): Normal Ketones, Urine (AX 4280): NEGATIVE Blood, Urine (AX 4280): NEGATIVE Protein, Urine (AX 4280): 30 Nitrite, Urine (AX 4280): NEGATIVE Bilirubin, Urine (AX 4280): NEGATIVE Specific [place], (AX 4280): 1.028 H pH, Urine ([id number]): 5.5 Urobilinogen, Urine (AX 4280): 2 Leukocyte Esterase, (AX 4280): NEGATIVE HGB A1C (WR): 6.2 H WBC: 8.47 RBC: 3.67 L HGB: 11.8 L HCT: 35.5 L MCV: 96.7 MCHC: 33.2 RDW: 12.9 PLT: 274 MPV: 10.0 MCH: 32.2 Neut %: 59.3 Lymph %: 31.8 Forrest %: 6.4 Eos %: 1.9 Baso %: 0.2 Neut, Abs: 5.03 Lymph, Abs: 2.69 Forrest, Abs: 0.54 Eos, Abs: 0.16 Baso, Abs: 0.02 Immature Granulocytes %: 0.4 Immature Granulocytes, Abs: 0.03 NRBC%: 0.0 NRBC#: 0.00 TSH (Access): 0.77 GLUCOSE: 133 H UREA NITROGEN: 21 SODIUM: 140 POTASSIUM: 4.5 CHLORIDE: 105 CO2: 28 CALCIUM: 9.3 URIC ACID: 5.8 CHOLESTEROL: 134 PROTEIN,TOTAL: 6.3 L ALBUMIN: 3.7 ALKALINE PHOSPHATASE: 87 SGOT: 20 SGPT: 17 TRIGLYCERIDE: 175 H LDL CHOL: 68 CHOL/HDL RATIO: 4.3 HDL: 31 L BILIRUBIN,TOT.: 0.3 CREATININE-EGFR: 1.28 H eGFR CKD-EPI 2020: 55 L I discussed above test results with patient Assessment and plan: 1. Right shoulder acromioclavicular dislocation: No acute neurologic or vascular injury. Today I offered physical therapy and patient declined Plan: Follow Follow-up 4 months clinic visit and lab Medication Reconciliation: Outpatient: Has the patient been taking medications as documented in the EMLR? YES: The patient has been taking medications as documented in the EMLR. Essential Medication List for Review used to complete this medication reconciliation. INCLUDED IN THIS LIST: Alphabetical list of active outpatient prescriptions dispensed from this [facility] (local) and dispensed from another PA or [facility] facility (remote) as well as [...] next appointment, whether with a VA or non-PA provider. /carmen/ Don Hartman. MD Doug Staff Physician Signed: 09/15/2024 10:00 DON DUTTON [place] [facility] [place] [facility] September 15, 2024 09:38 AM PREVENTIVE MEDICINE NURSING NOTE: LOCAL TITLE: CLINICAL REMINDERS/NURSING STANDARD TITLE: PREVENTIVE MEDICINE NURSING NOTE DATE OF NOTE: SEPTEMBER 15, 2024@09:38 ENTRY DATE: SEPTEMBER 15, 2024@09:38:48 AUTHOR: CLEMENCIA RASHID EXP COSIGNER: URGENCY: STATUS: COMPLETED Suicide Screen: C-SSRS Screening [place] Suicide Severity Rating Scale (C-SSRS) screener 1. Over the past month, have you [...] required due to responses to other questions. Homelessness/Food Insecurity Screen: In the past 2 months, have you been living in stable housing that you own, rent, or stay in as part of a household? Yes - Living in stable housing. Are you worried or concerned that in the next 2 months you may NOT have stable housing that you own, rent, or stay in as part of a household? No - Not worried about housing near future [facility] [place] reports the following: Within the past 12 months, you worried whether your food would run out before you got money to buy more. Never true Within the past 12 months, the food you bought just didn't last and you didn't have money to get more. Never true Depression Screening: Perform PHQ-2 A PHQ-2 screen was performed. The score was 0 which is a negative screen for depression. Over the past two weeks, how often have you been bothered by the following problems? 1. Little interest or pleasure in doing things Not at all 2. Feeling down, depressed, or hopeless Not at all /carmen/ CLEMENCIA RASHID LPN Signed: 09/15/2024 09:39 CLEMENCIA RASHID [facility] [place] [facility]
[2024-12-26] VITALS (7 sets, daily range): BP systolic 129–164; BP diastolic 44–76; PULSE 63–87; RESP 17–22; TEMP 36.4–37.3; O2SAT 96–98; BMI 33.6
--- NOTE | ~2024-12-26 | XR_ITS ---
EXAMINATION: XR CHEST CLINICAL INFORMATION: sob COMPARISON: 08/30/2024, 03/18/2023. TECHNIQUE: Frontal view of the chest was obtained. FINDINGS: Left-sided dual-lead pacer device in place with leads extending over the right atrium and right ventricle. The cardiac, hilar, and mediastinal contours are normal. The lungs are clear bilaterally. No pneumothorax or effusion. No focal osseous or soft tissue abnormality. XR/XR chest 1V IMPRESSION: No active pulmonary disease. Electronically signed by: Erasto Patel MD 12/27/2024 08:43 AM EDT
--- NOTE | 2024-12-26 16:19 | ECG_ITS ---
Test Reason : dizziness Blood Pressure : */* mmHG Vent. Rate : 66 BPM Atrial Rate : 66 BPM P-R Int : 228 ms QRS Dur : 102 ms QT Int : 390 ms P-R-T Axes : 80 33 66 degrees QTcB Int : 408 ms Atrial-sensed ventricular-paced rhythm with prolonged AV conduction Abnormal ECG When compared with ECG of 30-Aug-2024 08:43, Vent. rate has increased by 3 bpm Referred By: Colette Munguia Electronically Signed By: JOSH JOEL MD
--- NOTE | 2024-12-26 16:27 | ED.GENADULT ---
[facility] - General Adult General Chief complaint: Dyspnea Stated complaint: Chest pain, dizzy Time Seen by Provider: 12/26/24 16:18 History of Present Illness ED Provider: Dr. Munguia [facility] narrative: This is a 84-year-old male history of CKD, orthostatic hypotension, diabetes, hypertension, GERD presented hospital today for evaluation of sudden onset of dizziness and lightheadedness after walking in his laundry area about 8 ft. Patient stated that he had an episode of chest pain. Patient is currently asymptomatic. Patient stated his dizziness has resolved. Patient was admitted for orthostatic hypotension in the past. Upon chart review. Patient stated that in a moment he felt short of breath. He had trouble catching his breath. He does have chronic leg edema. He had recently visited his dining server approximately 1 week ago. they had assess his pacemaker. Stated that there was no issues with it. Related Data Home Medications ?Medication ?Instructions ?Recorded ?Confirmed allopurinol 100 mg tablet 100 mg PO BID 10/04/20 08/30/24 insulin aspart U-100 100 unit/mL 1 sliding scale dose subcut 10/04/20 08/30/24 subcutaneous cartridge USEASDIRECTD insulin glargine 100 unit/mL (3 50 unit subcut DAILY 10/04/20 08/30/24 mL) subcutaneous pen ipratropium 20 mcg-albuterol 100 1 puff inhalation Q6H PRN 10/04/20 08/30/24 mcg/actuation mist for inhalation Shortness Of Breath Or Wheezing latanoprost 0.005 % eye drops 1 drp ophthalmic (eye) BEDTIME 10/04/20 08/30/24 rosuvastatin 40 mg tablet 20 mg PO DAILY 10/04/20 08/30/24 dorzolamide 22.3 mg-timolol 6.8 1 drp ophthalmic (eye) BID 09/09/21 08/30/24 mg/mL eye drops apixaban 5 mg tablet (Eliquis) 5 mg PO BID 03/11/23 08/30/24 ferrous sulfate 325 mg (65 mg 325 mg PO DAILY 08/30/24 08/30/24 iron) tablet,delayed release omeprazole 20 mg capsule,delayed 20 mg PO DAILY@0630 08/30/24 08/30/24 release Previous Rx's ?Medication ?Instructions ?Recorded fluoxetine 20 mg capsule 20 mg PO DAILY #90 caps 04/20/24 lisinopril 20 mg tablet 20 mg PO BEDTIME #0 tabs 09/01/24 Allergies Allergy/AdvReac Type Severity Reaction Status Date / Time Iodinated Contrast Media Allergy Severe Unknown Verified 12/26/24 16:23 atorvastatin Allergy Unknown Unknown Verified 12/26/24 16:23 ezetimibe (Zetia) Allergy Unknown Unknown Verified 12/26/24 16:23 niacin Allergy Unknown Unknown Verified 12/26/24 16:23 simvastatin Allergy Unknown Unknown Verified 12/26/24 16:23 Review of Systems Review of Systems: Pertinent review of system as mentioned in HPI all systems are otherwise negative. [facility] Past Medical History [facility] Narrative: As mentioned in HPI Medical History Renal cancer Obesity High blood pressure High cholesterol Diabetes Surgical History History of prostate surgery H/O cataract removal with insertion of prosthetic lens Family History Family History Mother Colon cancer Social History Social History Household Members: None Housing: House Do you presently have visiting nurse or other home services: No Alcohol intake: former Patient Tobacco Use Status: Former Tobacco user Tobacco use type: Cigarette Years Smoked: 10 e-Cigarette/Vaping Use: Never Used Second Hand Smoke Exposure: No Advance Directives: No Advance Directives Information Provided: No Do you have a plan to hurt others: No Plan service: No Current occupational status: retired Cognitive needs: Yes (cane) Hearing needs: No Vision needs: Yes (glasses) Physical Exam ED Exam Exam: General: Pleasant, no distress, interacting appropriately Head: Normacephalic, atraumatic ENT: oral mucosa moist, neck supple, no tracheal deviation Cardiovascular: regular rate, regular rhythm, no murmurs, rubbing, gallops Respiratory: CTAB, no wheeze, rales, rhonchi Gastrointestinal: Soft, non distended, non tender, non guarding Extremities: +1 pitting edema lower extremities Neurological: Awake and alert, no facial droop noted Skin: Warm and dry Psychiatric: Appropriate mood and thoughts Vital Signs: Vital Signs - 24 hr 12/26/24 16:21 12/26/24 18:49 12/26/24 18:51 Temperature 99.2 F Pulse Rate 68 65 69 Respiratory Rate 22 H Blood Pressure 144/57 H 129/45 L 152/67 H Pulse Oximetry 98 Oxygen Delivery Method Room Air 12/26/24 18:53 12/26/24 19:09 Temperature 97.6 F Pulse Rate 87 65 Respiratory Rate 18 Blood Pressure 138/44 L 158/67 H Pulse Oximetry 98 Oxygen Delivery Method Room Air BMI result Body Mass Index 33.6 Medications Administered Discontinued Medications Generic Name Dose Route Start Last Admin Trade Name Freq PRN Reason Stop Dose Admin Sodium Chloride 1,000 mls @ 999 mls/hr 12/26/24 19:15 12/26/24 19:45 Ns IV 12/26/24 20:15 999 mls/hr .Q1H1M CADENCE Administration Medical Decision Making Medical Decision Making [facility] Narrative: This is a 84-year-old male history of diabetes hypertension hyperlipidemia, GERD, CKD presented hospital today for evaluation of chest pain, exertional shortness of breath and dizziness. Currently asymptomatic. We will pursue ACS workup for the patient. Including CBC CMP troponin. EKG will be obtained. Chest x-ray will be obtained for the patient as well. Patient does have history of orthostatic hypotension will plan to give patient a Liter of IV fluid here. I did consider given patient's some aspirin however patient is currently anticoagulated on Eliquis. EKG appears to be paced rhythm. Patient does not have chest pain currently. He is asymptomatic. Patient has no signs of orthostatic hypotension however he is symptomatic upon sitting and standing. We will plan to give patient a L IV fluid at this time. Reassess. Patient's chest x-ray is unremarkable. EKG did not show any signs of acute ischemic changes. Troponins negative here. Slight anemia at 12.1. Similar to his prior lab work back on 09/01/2024. He does have elevated BUN of 19. This may be secondary to dehydration. Patient's symptom has improved. Patient will be discharged home at this time. Differential Diagnosis Differential Diagnoses: The differential diagnosis associated with the presentation includes Cardiac arrhythmia, orthostatic hypotension, CHF , ACS Lab Data [facility] Lab Attestation statement: I reviewed the patient's lab results. 12/26/24 16:43 12/26/24 16:43 Labs: Lab Results 12/26/24 Range/Units 16:43 WBC 8.4 (4.8-10.8) X10*3/uL RBC 3.89 L (4.60-5.80) X10*6/uL Hgb 12.1 L (14.0-18.0) g/dl Hct 37.0 L (42.0-52.0) % MCV 95.1 (80.0-98.0) fL MCH 31.1 (27.0-33.0) pg MCHC 32.7 (31.0-36.0) g/dl RDW 13.9 (11.0-16.0) % Plt Count 242 (160-400) X10*3/uL MPV 10.2 (9.4-12.4) fL Immature Gran % (Auto) 0.4 (0.0-0.4) % Neut % (Auto) 49.6 (45-73) % Lymph % (Auto) 42.2 H (20-40) % Lake % (Auto) 5.1 (2-11) % Eos % (Auto) 2.3 (0-4) % Baso % (Auto) 0.4 (0-2) % Lymph # (Auto) 3.5 (1.2-4.9) X10*3/uL Lake # (Auto) 0.4 (0.1-1.2) X10*3/uL Eos # (Auto) 0.2 (0.0-0.4) X10*3/uL Baso # (Auto) 0.0 (0.0-0.2) X10*3/uL Abs Immat Gran (auto) 0.03 (0.00-0.03) X10*3/uL Absolute Neuts (auto) 4.2 (2.0-8.3) x10*3/uL Absolute Nucleated RBC 0.000 (0.0-0.012) X10*3/uL Nucleated RBC % (auto) 0.0 (0.0-0.2) /100WBC Sodium 140 (135-145) mmol/L Potassium 4.4 (3.3-5.1) mmol/L Chloride 107 (96-108) mmol/L Carbon Dioxide 25 (22-29) mmol/L Anion Gap 12 (12-20) BUN 19 H (9-16) mg/dL Creatinine 1.32 (0.5-1.4) mg/dL Estim Creat Clear Calc 59.0 Estimated GFR 52 Random Glucose 125 H (60-115) mg/dL Calcium 8.9 D (8.4-10.2) mg/dL Total Bilirubin 0.3 (0.0-1.0) mg/dL AST 29 (5-37) U/L ALT 21 (0-40) U/L Alkaline Phosphatase 85 (39-117) U/L Troponin I High Sens < 2.7 (<3.5-35.0) ng/L Total Protein 6.3 L (6.5-8.0) g/dL Albumin 3.9 (3.5-5.0) g/dL Influenza Type A (PCR) NEGATIVE (Negative) Influenza Type B (PCR) NEGATIVE (Negative) RSV RNA Qual (PCR) NEGATIVE (Negative) SARS-CoV-2 RNA (RT-PCR) NEGATIVE (Negative) Independent Interpretation I performed an independent interpretation of an: EKG and Plain X-Ray Radiology Impression Discussion of test interpretation with radiology: I have reviewed the radiologist's reading. External Record Review External record reviewed: Inpatient record Discharge Plan Discharge Clinical Impression: Orthostatic hypotension Patient Disposition: Home, Self-Care Additional Instructions: Follow up with your primary care doctor for your symptoms Prescriptions: No Action fluoxetine 20 mg capsule 20 mg PO DAILY Qty: 90 1RF ferrous sulfate 325 mg (65 mg iron) Tablet,Delayed Release (Dr/Ec) 325 mg PO DAILY omeprazole 20 mg capsule,delayed release(DR/EC) 20 mg PO DAILY@0630 lisinopril 20 mg Tablet 20 mg PO BEDTIME Qty: 0 0RF Protocol: Hold for SBP< HOLD for SBP < : 90 latanoprost 0.005 % drops 1 drp ophthalmic (eye) BEDTIME allopurinol 100 mg tablet 100 mg PO BID rosuvastatin 40 mg tablet 20 mg PO DAILY ipratropium-albuterol 20-100 mcg/actuation mist 1 puff inhalation Q6H PRN (Reason: Shortness Of Breath Or Wheezing) insulin glargine 100 unit/mL (3 mL) insulin pen 50 unit subcut DAILY insulin aspart U-100 100 unit/mL cartridge 1 sliding scale dose subcut USEASDIRECTD Patient Comments: 4 times a day. dorzolamide-timolol 22.3-6.8 mg/mL drops 1 drp ophthalmic (eye) BID Eliquis 5 mg tablet 5 mg PO BID Print Language: Maldivian
[2024-12-26 16:50] LABS: MANUAL DIFF FLAG NO
[2024-12-26 16:51] LABS: Hematocrit 37.0 % (42.0-52.0); Hemoglobin 12.1 g/dl (14.0-18.0); Imm Gran Abs Auto 0.03 X10*3/uL (0.00-0.03); Imm Gran Pct Auto 0.4 % (0.0-0.4); Lymphocytes Absolute Auto 3.5 X10*3/uL (1.2-4.9); Mean Corpuscular HGB Conc 32.7 g/dl (31.0-36.0); Mean Corpuscular Hemoglobin 31.1 pg (27.0-33.0); Mean Corpuscular Volume 95.1 fL (80.0-98.0); NRBC Abs Auto 0.000 X10*3/uL (0.0-0.012); NRBC Pct Auto 0.0 /100WBC (0.0-0.2); Platelet Count 242 X10*3/uL (160-400); Red Blood Count 3.89 X10*6/uL (4.60-5.80); White Blood Count 8.4 X10*3/uL (4.8-10.8)
[2024-12-26 17:04] LABS: Alanine Aminotransferase 21 U/L (0-40); Albumin Level 3.9 g/dL (3.5-5.0); Alkaline Phosphatase 85 U/L (39-117); Anion Gap 12 (12-20); Aspartate Amino Transferase 29 U/L (5-37); Blood Urea Nitrogen 19 mg/dL (9-16); Calcium 8.9 mg/dL (8.4-10.2); Carbon Dioxide 25 mmol/L (22-29); Chloride 107 mmol/L (96-108); Creatinine Clr Calc Pharmacy 59.0; Estimated Glomerular Filt Rate 52; Potassium 4.4 mmol/L (3.3-5.1); Sodium 140 mmol/L (135-145); Total Protein 6.3 g/dL (6.5-8.0)
[2024-12-26 17:15] LABS: Troponin-I High Sensitivity < 2.7 ng/L (<3.5-35.0)
[2024-12-26 17:27] LABS: Resp Syncy Virus RNA Qual PCR NEGATIVE (Negative); SARS COV2 PCR INHOUSE NEGATIVE (Negative)
--- OUTSIDE RECORDS SUMMARY | 2024-12-26 17:48 | XMS_ITS | Encounter Summary ---
Author Organization [facility] Address [address] [place] [id number] Phone Care Team Providers Care Ict Trainer Name Role Phone Don Camacho MD Primary Care Provider + Encounter Details Date Type Department Care Team (Late st Contact Info) Description 02/04/2023 Procedure [facility] [address] [place] [address] Social History Tobacco Use Types Packs/Day Years Used Date Smoking Tobacco: Former Cigarettes Alcohol Use Standard Drinks/Week Comments Not Currently 0 (1 standard drink = 0.6 oz pur e alcohol) Education Answer Date Recorded Are you interested in more education? Not on gali e 09/04/2022 Are you concerned about learning? Not on file 09/04/2022 No 09/04/2022 No 09/04/2022 Digital Access Answer Date Recorded No 10/05/2022 No 10/05/2022 Reliable internet access at home? Not on file 10/05/2022 Device with a working camera? Not on file Intimate Partner Violence Answer Date R ecorded Are you denied basic needs s uch as food, clothing, or medical care? No 02/03/2023 In the past 12 months have y ou been in a relationship with a person who hurts, threatens, or tries to control you? No 02/03/2023 Are you denied basic needs s uch as food, clothing, or medical care? No 02/03/2023 In the past 12 months have y ou been in a relationship with a person who hurts, threatens, or tries to control you? No 02/03/2023 Sex and Gender Information Value Date Recorded Sex Assigned at Male 01/20/2023 1:10 PM EDT Legal Sex Male 3:57 PM EDT Gender Identity Male 01/20/2023 1:10 PM EDT Sexual Orientation Not on file documented as of this encounter Plan of Treatment Upcoming Encounters Date Type Department Care Team (Late st Contact Info) Description 03/19/2025 10:00 AM EST Office Visit [facility] [address], [address] [place], [place] [id number] Analia Lainez DNP [address] [facility], [address] [id number] documented as of this encounter Visit Diagnoses Not on filedocumented in this encounter Care Teams Ict Trainer Relationship Specialty Start Date End Date Don Camacho MD [address] [place] [id number] PCP - General Internal Medicine 02/03/23 documented as of this encounter Additional Source Comments The information contained in this document represents components of the legal health record. It is not the complete legal health record.[facility]
== END 2024-12-26 21:34 | disposition home or self-care (01) ==
PROVIDERS: Emergency Provider Student in an Organized Health Care Education/Training Program
DX: I95.1 Orthostatic hypotension (principal); R07.9 Chest pain, unspecified; I12.9 Hypertensive chronic kidney disease with stage 1 through stage 4 chronic kidney disease, or unspecified chronic kidney disease; E11.22 Type 2 diabetes mellitus with diabetic chronic kidney disease; N18.9 Chronic kidney disease, unspecified; Z95.0 Presence of cardiac pacemaker; Z03.818 Encounter for observation for suspected exposure to other biological agents ruled out
CPT/HCPCS: 71045; 80053; 84484; 85025; 87637; 93005; 96360; 99284; 99285

== ENCOUNTER → 2024-12-26 16:19 | Outpatient (BNV) | payer MEDICARE, SELFPAY | PROVIDERS: Emergency Provider Student in an Organized Health Care Education/Training Program; Visit Provider Internal Medicine Cardiovascular Disease | DX: I45.9 Conduction disorder, unspecified (principal); Z95.0 Presence of cardiac pacemaker | CPT/HCPCS: 93010 ==

== ENCOUNTER → 2024-12-26 16:32 | Outpatient (BNV) | payer MEDICARE, SELFPAY | PROVIDERS: Emergency Provider Student in an Organized Health Care Education/Training Program; Visit Provider Radiology Diagnostic Radiology | DX: R06.02 Shortness of breath (principal) | CPT/HCPCS: 71045 ==

== ENCOUNTER 2025-01-22 17:55 | Emergency (ER) | payer MEDICARE, SELFPAY ==
--- NOTE | ~2025-01-22 | XR_ITS ---
CLINICAL HISTORY: SOB 1 view chest x-ray Comparison: 12/26/2024 Findings: Lungs are clear without acute infiltrates. No pneumothorax. Heart size normal. No acute bony abnormalities. Left pacemaker is unchanged. Impression: No acute processes This document has been electronically signed by: Marquise Downing MD on 01/22/2025 19:37:58
[2025-01-22 18:06] VITALS: BP 149/72; BP 163/76; PULSE 69; PULSE 70; RESP 15; TEMP 36.5; O2SAT 94; O2SAT 98; BMI 32.7
--- NOTE | 2025-01-22 18:20 | ECG_ITS ---
Test Reason : SOB Blood Pressure : */* mmHG Vent. Rate : 74 BPM Atrial Rate : 65 BPM P-R Int : 208 ms QRS Dur : 98 ms QT Int : 390 ms P-R-T Axes : 87 29 66 degrees QTcB Int : 432 ms Atrial-sensed ventricular-paced rhythm with frequent Premature ventricular complexes Abnormal ECG When compared with ECG of 26-Dec-2024 16:22, Premature ventricular complexes are now Present Vent. rate has increased by 8 bpm Referred By: Generic ED Physician Electronically Signed By: VOLODYMYR MENDEZ
[2025-01-22 18:40] LABS: MANUAL DIFF FLAG NO
--- NOTE | 2025-01-22 18:43 | PC.NURSE ---
84 M presents to ED with SOB, started today. Pt sts he feels like he has to sit up to breath better. RR even and unlabored, breath sounds clear. Pt noted to have BLE swelling, sts this is his baseline, ambulates with a cane and a 1 assist. A+OX4, calm, cooperative. Pt denies any pain or discomfort.
[2025-01-22 18:54] LABS: COVID-19 Test Negative (Negative); Hematocrit 38.0 % (42.0-52.0); Hemoglobin 12.8 g/dl (14.0-18.0); IDNOW Serial# 6674DD1D; Imm Gran Abs Auto 0.02 X10*3/uL (0.00-0.03); Imm Gran Pct Auto 0.2 % (0.0-0.4); Lymphocytes Absolute Auto 4.5 X10*3/uL (1.2-4.9); Mean Corpuscular HGB Conc 33.7 g/dl (31.0-36.0); Mean Corpuscular Hemoglobin 31.9 pg (27.0-33.0); Mean Corpuscular Volume 94.8 fL (80.0-98.0); NRBC Abs Auto 0.000 X10*3/uL (0.0-0.012); NRBC Pct Auto 0.0 /100WBC (0.0-0.2); Platelet Count 278 X10*3/uL (160-400); Red Blood Count 4.01 X10*6/uL (4.60-5.80); White Blood Count 9.2 X10*3/uL (4.8-10.8)
[2025-01-22 18:58] LABS: IDNOW Serial# 08D9AD1C; Influenza B2 Negative (Negative)
[2025-01-22 19:02] LABS: Alanine Aminotransferase 21 U/L (0-40); Albumin Level 4.2 g/dL (3.5-5.0); Alkaline Phosphatase 82 U/L (39-117); Anion Gap 11 (12-20); Aspartate Amino Transferase 26 U/L (5-37); Blood Urea Nitrogen 19 mg/dL (9-16); Calcium 9.3 mg/dL (8.4-10.2); Carbon Dioxide 27 mmol/L (22-29); Chloride 108 mmol/L (96-108); Creatinine Clr Calc Pharmacy 63.1; Estimated Glomerular Filt Rate 56; Potassium 4.2 mmol/L (3.3-5.1); Sodium 142 mmol/L (135-145); Total Protein 6.7 g/dL (6.5-8.0)
[2025-01-22 19:04] VITALS: BP 158/86; PULSE 67; RESP 15; TEMP 36.6; O2SAT 98
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
[2025-01-22 20:43] VITALS: BP 158/81; PULSE 66; RESP 12; TEMP 36.6
[2025-01-22 21:10] LABS: Troponin-I High Sensitivity 4.2 ng/L (<3.5-35.0)
[2025-01-22 21:14] LABS: B Type Natriuretic Peptide 51 pg/mL (<100)
--- OUTSIDE RECORDS SUMMARY | 2025-01-22 21:55 | XMS_ITS | Encounter Summary ---
Author Organization [facility] Address [address] [facility] [address] [place] [id number] Phone Care Team Providers Care [employer] Spanish Teacher Name Role Phone Don Camacho MD Primary Care Provider + Encounter Details Date Type Department Care Team (Late st Contact Info) Description 02/04/2023 Procedure Pass [facility] [address] [place] [address] Social History Tobacco Use Types Packs/Day Years [...] Description 03/19/2025 10:00 AM EST Office Visit [facility] [address] [facility] 3rd Floor, [address] [place], [place] [id number] Analia Lainez DNP [address] [facility], [address] [id number] documented as of this encounter Visit Diagnoses Not on filedocumented in this encounter Care Teams [employer] Spanish Teacher Relationship Specialty Start Date End Date Don Camacho MD [address] [place] [id number] PCP - General Internal Medicine 02/03/23 documented as of this encounter Additional Source Comments The information contained in this document represents components of the legal health record. It is not the complete legal health record.[facility]
--- OUTSIDE RECORDS SUMMARY | 2025-01-22 21:55 | XMS_ITS | Encounter Summary ---
Author Organization [facility] Address [address] [facility] [address] [place] [phone] Phone Care Team Providers Care Customer Account Executive Name Role Phone Don Camacho MD Primary Care Provider + Encounter Details Date Type Department Care Team (Late st Contact Info) Description 01/19/2025 [facility] [address] [facility] 3rd Floor, [address] [place] [id number] Amelie Landeros, ETHAN [address] [facility], [address] [address] Social History Tobacco Use Types Packs/Day Years [...] on file documented as of this encounter Progress Notes * Destinee Boogie MA - 01/19/2025 9:32 AM EDTAddended by: DESTINEE BOOGIE on: 01/19/2025 09:32 AM Modules accepted: Orders * Destinee Boogie MA - 01/19/2025 9:32 AM EDTAddended by: DESTINEE BOOGIE on: 01/19/2025 09:32 AM Modules accepted: Orders * Destinee Boogie MA - 01/19/2025 9:32 AM EDT REVIEWED * Syed Landeros - 01/19/2025 9:10 AM EDT [facility] [place]. documented in this encounter Plan of Treatment Upcoming Encounters Date Type Department Care Team (Late st Contact Info) Description 03/19/2025 10:00 AM EST Office Visit [facility] [address] [place] [address] 3rd Floor, [address] [place] [address] Analia Lainez DNP [address] [place] [address], [address] [phone] [email or web address] documented as of this encounter Visit Diagnoses Diagnosis Medication refill Issue of repeat prescriptions documented in this encounter Care Teams Customer Account Executive Relationship Specialty Start Date End Date Don Camacho MD [address] [place] [id number] PCP - General Internal Medicine 02/03/23 documented as of this encounter Additional Source Comments The information contained in this document represents components of the legal health record. It is not the complete legal health record.[facility]
--- OUTSIDE RECORDS SUMMARY | 2025-01-22 21:55 | XMS_ITS | Clinical Summary ---
Author Organization [facility] Address [address] [facility] [address] [place] [address] Phone Care Team Providers Care Shuttle Car Operator Name Role Phone Don Camacho MD Primary Care Provider + Allergies Active Allergy Reactions Criticality Noted Date Comments Brimonidine 12/15/2024 Dorzolamide-Timolol 12/15/2024 Iodine 01/20/2023 Timolol 12/15/2024 Medications allopurinol (ZYLOPRIM) 100 MG tablet Take 100 mg by mouth daily. Active dorzolamide-rebekah olol (COSOPT) 22.3-6.8 mg/mL ophthalmic solution Place 1 drop into each eye 2 (two) times a day. Active insulin glargine (LANTUS) 100 unit/mL (3 mL) InPn injection pen Inject 50 Units under the skin daily. Active cholecalciferol (VITAMIN D3) 4,000 unit tablet Take 1,000 Units by mouth daily. Active fexofenadine (AKIL) 180 MG tablet Take 180 mg by mouth daily as needed (Allergies). Active omeprazole (PRILOSEC) 20 MG capsule Take 20 mg by mouth daily. 3 Active rosuvastatin (CRESTOR) 40 MG tablet Take 20 mg by mouth nightly at bedtime. 3 Active furosemide (LASIX) 40 MG tablet Take 40 mg by mouth 2 (two) times a day. 3 Active insulin aspart U-100 (NOVOLOG) 100 unit/mL (3 mL) injection pen Inject 15-25 Units under the skin 4 (four) times a day with meals and nightly. Active latanoprost (XALATAN) 0.005 % ophthalmic solution Place 1 drop into each eye nightly at bedtime. 3 Active ferrous sulfate 325 mg (65 mg mentasta iron) tablet Take 325 mg by mouth. 4 Active ipratropium-alb uteroL (COMBIVENT RESPIMAT) 20-100 mcg/actuation Mist Take by mouth. 3 Active lisinopril (PRINIVIL,ZESTR IL) 20 MG tablet Take 20 mg by mouth. 4 Active metoprolol succinate (TOPROL-XL) 25 MG 24 hr tablet Take 1 tablet (25 mg total) by mouth daily. 90 tablet 4 Active apixaban (ELIQUIS) 5 mg tabletIndicatio ns:Medication refill Take 1 tablet (5 mg total) by mouth 2 (two) times a day. 180 tablet 3 5 Active apixaban (ELIQUIS) 5 mg tabletIndicatio ns:Medication refill Take 1 tablet (5 mg total) by mouth 2 (two) times a day. 90 tablet 3 5 01/20/20 25 Discontinu ed(Reorder ) Active Problems Problem Noted Date Diagnosed Date PVC (premature ventricular contraction) 04/11/20 24 Assessment & Plan (04/11/2024 9:45 AM EST): Will add low-dose beta-blockers. Will request for Holter monitor to evaluate her burden. Request for echocardiogram to evaluate for ejection fraction. Paroxysmal atrial fibrillation 04/09/2023 Assessment & Plan (04/11/2024 9:44 AM EST): No evidence of atrial fibrillation on device interrogation. Continue blood thinners. Will add low-dose beta-blockers. Assessment & Plan (04/09/2023 9:30 AM EST): Patient is on Eliquis for stroke prevention. Episodes of atrial fibrillation seem asymptomatic. Episodes of shortness of breath have no temporal correlation with episodes of atrial fibrillation currently. Shortness of breath 04/09/2023 Assessment & Plan (04/09/2023 9:31 AM EST): Denies any chest pain. Echocardiogram shows normal ejection fraction. We offered stress test but patient refused. Patient states that he had a stress test 30 years ago and felt horrible and does not want to do it again. Patient had stopped duloxetine recently. Counseled the patient to restart duloxetine. No clear evidence of paroxysmal atrial fibrillation as the cause of her symptoms Acute appendicitis, unspecified acute appendicit is type 02/04/2023 Second degree type I atrioventricular block 01/09 Assessment & Plan (04/09/2023 9:29 AM EST): In view of symptomatic bradycardia patient had pacemaker placement. Device function within normal limits on today's visit. Assessment & Plan (02/04/2023 10:27 AM EDT): 2:1 AVB Telemetry monitoring Cardiology consulted Plan for TV PW then OR today with Dr. Garcia Will need a PPM post OR Acute appendicitis 02/03/2023 Assessment & Plan (02/04/2023 10:32 AM EDT): Admitted to the surgical service, Dr. Garcia. Pt has been having abd pain since 01/20 CT abd 02/03: Acute uncomplicated appendicitis. No perforation or drainable abscess. NPO Continue IV fluid and zosyn pending surgical plan He is a DO NOT RESUSCITATE and DO NOT INTUBATE. He states that he does NOT want this rescinded intraoperatively. Type 2 diabetes mellitus wit h complication, with long-term current use of insulin 02/03/2023 Overview (02/03/2023): With diabetic nephropathy Assessment & Plan (02/04/2023 10:24 AM EDT): We will give basal bolus insulin therapy. Check Hgb A1C Hyperlipidemia 02/03/2023 Assessment & Plan (02/03/2023 8:44 PM EDT): Continue rosuvastatin. Essential hypertension 02/03/2023 Assessment & Plan (04/09/2023 9:29 AM EST): Blood pressure is controlled. Continue medications. Assessment & Plan (02/03/2023 8:44 PM EDT): We will hold furosemide perioperatively. Stage 3a chronic kidney disease 02/03/2023 Assessment & Plan (02/03/2023 8:45 PM EDT): Renal function stable. Will monitor postoperatively. Avoid nephrotoxic medications. Do not intubate, perform CPR, or defibrillate Overview (02/03/2023): He does NOT want this rescinded intraoperatively. Assessment & Plan (02/03/2023 8:47 PM EDT): He does NOT want this rescinded interoperatively. 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 MRI of the abdomen is recommended for further evaluation and comparison with prior imaging Outpatient MRI should be pursued. Primary open angle glaucoma of both eyes, modera te stage 06/08/2016 Encounters Date Type Department Care Team Description 01/19/2025 Refill [facility] [address], [address] [place], [place] [id number] Amelie Landeros DNP 12/15/2024 3:40 PM EDT Office Visit [facility] [address], [address] [place] [address] Rajiv Leon MD Paroxysmal atrial fibrillation (Primary Dx); Second degree type I atrioventricular block 12/08/2024 Orders Only [facility] [address], [address] [place], [place] [id number] ProviderManuel MD from Last 3 Months Immunizations Immunization Administration Dates Next Due Influenza High-Dose Quadriva lent Preservative Free IM 02/04/2023(Deferred: Contraindication - acute transfer to another facility) Family History Medical History Relation Comments Glaucoma Mother Relation Status Comments Mother Social History Tobacco Use Types Packs/Day Years [...] PM EDT Sexual Orientation Not on file Last Filed Vital Signs Vital Sign Reading Time Taken Comments Blood Pressure 122/72 12/15/2024 3:25 PM EDT Pulse 82 12/15/2024 3:25 PM EDT Temperature 36 C (96.8 F) 02/04/2023 12:29 PM EDT Respiratory Rate 16 02/04/2023 10:54 AM EDT Oxygen Saturation 95% 12/15/2024 3:25 PM EDT Inhaled Oxygen Concentration - - Weight 122.5 kg (270 lb) 12/15/2024 3:25 PM EDT Height 190 cm (6' 2.8 ) 12/15/2024 3:25 PM EDT Body Mass Index 33.93 12/15/2024 3:25 PM EDT Plan of Treatment Upcoming Encounters Date Type Department Care Team (Late st Contact Info) Description 03/19/2025 10:00 AM EST Office Visit [facility] [address] Floor, [address] [place] [address] Aanlia Lainez DNP [address] [facility], [address] [place] [address] [email or web address] Health Maintenance Due Date Last Done Comments DEPRESSION SCREENING 1952 RSV VACCINE (1 - 1-dose 75+ series) 11/27/2014 PNEUMOCOCCAL VACCINES (50+ years) (3 of 3 - PCV20 or PCV21) 09/06/2019 09/05/2014, 03/31/2002 DIABETIC EYE EXAM 02/03/2023 06/08/2016, , 06/08/2016, Additional history exists HEMOGLOBIN A1C 08/05/2023 02/04/2023 CREATININE LEVEL 02/05/2024 02/04/2023, 02/03/2023 POTASSIUM LEVEL 02/05/2024 02/04/2023, 02/03/2023 INFLUENZA VACCINE (#1) 2024 , 01/09/2020, 02/22/2019, Additional history exists COVID-19 VACCINE ( - season) 2025 06/24/2020, 05/27/2020 BLOOD PRESSURE 06/17/2025 12/15/2024 Adult Td,Tdap Booster 04/08/2033 04/08/2023 , 07/08/2010, 03/07/2001 ZOSTER VACCINES Completed 04/28/2021, 12/09, 01/22/2009 HEPATITIS A VACCINES Aged Out No long er eligible based on patient's age to complete this topic HIB VACCINES Aged Out No longer eligi ble based on patient's age to complete this topic MENINGOCOCCAL VACCINES (ACWY) Aged Out No longer eligible based on patient's age to complete this topic MENINGOCOCCAL VACCINES (B) Aged Out N o longer eligible based on patient's age to complete this topic Medical Devices Not on file Procedures Procedure Name Priority Date/Time Associated Diagnosis Comments HEMOGLOBIN A1C Routine 02/04/2023 7:54 AM EDT BASIC METABOLIC PANEL STAT 02/04/2023 7:54 AM EDT from Last 3 Months or Most Recently Relevant to Health Maintenance Results * Hemoglobin A1c (02/04/2023 7:54 AM EDT) HEMOGLOBIN A1C 5.8 4.3 - 5.8 % [facility] 02/04/2023 7:54 AM EDT 02/04/2023 7:57 AM EDT Jocelyne Villaseñor AIRCRAFT STRESS ANALYST LAB BLOOD ORDERABLES Fin al Result Performing Organization Address [facility]/ZIP Co de Phone Number [address] [address] * (ABNORMAL) Basic metabolic panel (02/04/2023 7:54 AM EDT) SODIUM 143 133 - 146 mmol/L [facility] CHLORIDE 103 96 - 108 mmol/L [facility] POTASSIUM 3.9 3.3 - 5.1 mmol/L [facility] CO2 28 21 - 35 mmol/L [facility] BUN 20(H) 6 - 19 mg/dL [facility] CREATININE 1.40 0.5 - 1.5 mg/dL [facility] GLUCOSE 128(H) 70 - 99 mg/dL [facility] CALCIUM 9.3 8.4 - 10.3 mg/dL [facility] EGFR 50(L) >59 mL/min/1.7 3m2 [facility] Comment:Estimated glomerular filtration rate calculated using the CKD-EPI refit equation. ANION GAP 16 10 - 20 mmol/L [facility] Blood 02/04/2023 7:54 AM EDT 02/04/2023 7:57 AM EDT Jocelyne Villaseñor NP LAB BLOOD ORDERABLES Fin al Result Performing Organization Address [facility]/ZIP Co de Phone Number [address] [phone] from Last 3 Months or Most Recently Relevant to Health Maintenance Insurance MEDICARE PART A & B [employer] MEDEX SUPPLEMENT MEDICARE PART A & B [employer] SUPPLEMENT Member Subscriber Plan / Payer ( fective 2004-Present) Name:Sukh Chino Relation to Subscriber:Self Name:Sukh Chino Payer ID:[id number] (NAIC) Type:Indemnity Address: [address] MEDICARE PART A & B Member Subscriber Plan / Payer ( fective 2004-Present) Name:Sukh Chino Member ID:[id number] Relation to Subscriber:Self Name:Sukh Chino Subscriber ID:[id number] Payer ID:[id number] Group ID:Not on file Type:Medicare Address: [facility] [employer] [facility] [address] [place] [phone] [facility] MEDEX SUPPLEMENT [facility] MEDICARE PART A & B [employer] MEDEX SUPPLEMENT MEDICARE PART A & B [employer] SUPPLEMENT MEDICARE PART A & B [facility] MEDEX SUPPLEMENT Member Subscriber Plan / Payer (Ef fective 2004-Present) Name:Sukh Chino Relation to Subscriber:Self Name:Sukh Chino Payer ID:[id number] (NAIC) Type:Indemnity Address: [address] MEDICARE PART A & B Member Subscriber Plan / Payer (Ef fective 2004-) Name:Sukh Chino Member ID:[id number] Relation to Subscriber:Self Name:Sukh Chino Subscriber ID:[id number] Payer ID:[id number] Group ID:Not on file Type:Medicare Address: [facility] [employer] [facility] [address] [place] [phone] [employer] MEDEX SUPPLEMENT Member Subscriber Plan / Payer (Ef fective 2004-) Name:Sukh Chino Relation to Subscriber:Self Name:Sukh Chino Payer ID:[id number] (NAIC) Type:Indemnity Address: [facility] [id number] MEDICARE PART A & B [employer] MEDEX SUPPLEMENT Member Subscriber Plan / Payer ( fective 2004-) Name:Sukh Chino Relation to Subscriber:Self Name:Sukh Chino Payer ID:[id number] (NAIC) Type:Indemnity Address: [address] MEDICARE PART A & B [employer] MEDEX SUPPLEMENT Member Subscriber Plan / Payer (Ef fective 2004-Present) Name:Sukh Chino Relation to Subscriber:Self Name:Sukh Chino Payer ID:[id number] (NAIC) Type:Indemnity Address: [address] Advance Directives For more information, please contact: [phone] (9AM - 5PM [facility], Wednesday-Wednesday) * DNR/DNI (No CPR/No Intubation) (Latest Code Status on File) Date Activated Date Inactivated Comments 02/03/2023 10:10 PM Question Answer Comments Code Status Confirmed With: Patient Code Discussion Comments: Does not want this res cinded intraoperatively Care Teams Shuttle Car Operator Relationship Specialty Start Date End Date Don Camacho MD [address] [place] [phone] PCP - General Internal Medicine 02/03/23 Additional Source Comments The information contained in this document represents components of the legal health record. It is not the complete legal health record.[facility]
--- OUTSIDE RECORDS SUMMARY | 2025-01-22 21:55 | XMS_ITS | Encounter Summary ---
Author Organization [facility] Address [address] [facility] [address] [place] [address] Phone Care Team Providers Care Ultrasound Coordinator Name Role Phone Don Camacho MD Primary Care Provider + Encounter Details Date Type Department Care Team (Late st Contact Info) Description 02/04/2023 Procedure Pass OR Admitting Dept - Virtual Department [address] [place] [address] Social History Tobacco Use Types Packs/Day Years [...] Description 03/19/2025 10:00 AM EST Office Visit [facility] [address] [facility] 3rd Floor, [address] [place] [address] Analia Lainez DNP [address] [facility], [address] [place] [address] [email or web address] documented as of this encounter Visit Diagnoses Not on filedocumented in this encounter Care Teams Ultrasound Coordinator Relationship Specialty Start Date End Date Don Camacho MD [address] [place] [address] PCP - General Internal Medicine 02/03/23 documented as of this encounter Additional Source Comments The information contained in this document represents components of the legal health record. It is not the complete legal health record.[facility]
--- OUTSIDE RECORDS SUMMARY | 2025-01-22 21:55 | XMS_ITS | Encounter Summary ---
Author Organization [facility] Address [address] [facility] [address] [place] [address] Phone Care Team Providers Care In Shop Service Technician Name Role Phone Don Camacho MD Primary Care Provider + Encounter Details Date Type Department Care Team (Late st Contact Info) Description 04/11/2024 Procedure Pass Echo [facility] [address] [place] [address] Social History Tobacco Use Types Packs/Day Years [...] Description 03/19/2025 10:00 AM EST Office Visit [facility] [address] [facility] 3rd Floor, [address] [place], [place] [phone] Analia Lainez DNP [address] [facility], [address] [address] documented as of this encounter Visit Diagnoses Not on filedocumented in this encounter Care Teams In Shop Service Technician Relationship Specialty Start Date End Date Don Camacho MD [address] [place] [phone] PCP - General Internal Medicine 02/03/23 documented as of this encounter Additional Source Comments The information contained in this document represents components of the legal health record. It is not the complete legal health record.[facility]
--- OUTSIDE RECORDS SUMMARY | 2025-01-22 21:55 | XMS_ITS | Encounter Summary ---
Author Organization [facility] Address [address] [facility] [address] [place] [address] Phone Care Team Providers Care Nuclear Medicine Supervisor Name Role Phone Don Camacho MD Primary Care Provider + Encounter Details Date Type Department Care Team (Late st Contact Info) Description 02/03/2023 Procedure Pass [facility], Ct Scan - [address] [address] Social History Tobacco Use Types Packs/Day Years [...] on file documented as of this encounter Functional Status * Calculated C-SSRS Risk Score (Lifetime/Recent) Answer Date of Assessment Author No Risk Indicated 02/03/2023 8:34 AM EDT Cyndi Heck RN * [place] Suicide Severity Rating Scale (Screener/Recent Self-Report) Question Answer Date of Assessment Author 1. Wish to be (Past 1 Month) No 02/03/2023 8:34 AM EDT Shirin Gore RN 2. Non-Specific Active Suicidal Thoughts (Past 1 Month) No 02/03/2023 8:34 AM EDT Shirin Gore RN 6. Suicidal Behavior (Lifetime) No 02/03/2023 8:34 AM EDT Shirin Gore RN documented as of this encounter Plan of Treatment Upcoming Encounters Date Type Department Care Team (Late st Contact Info) Description 03/19/2025 10:00 AM EST Office Visit [facility] [address] [place] [address] [address] Floor, [address] [place] [address] Analia Lainez DNP [address] [place] [address] [email or web address] documented as of this encounter Visit Diagnoses Not on filedocumented in this encounter Care Teams Nuclear Medicine Supervisor Relationship Specialty Start Date End Date Don Camacho MD [address] [place] [address] PCP - General Internal Medicine 02/03/23 documented as of this encounter Additional Source Comments The information contained in this document represents components of the legal health record. It is not the complete legal health record.[facility]
[2025-01-22 23:01] VITALS: BP 142/73; PULSE 77; RESP 19; TEMP 36.9; O2SAT 97
[2025-01-22 23:06] VITALS: BP 142/73; PULSE 77; RESP 19; TEMP 36.9; O2SAT 97
== END 2025-01-22 23:26 | disposition home or self-care (01) ==
PROVIDERS: Physician Assistant; Emergency Provider Student in an Organized Health Care Education/Training Program; PCP Internal Medicine
DX: R06.02 Shortness of breath (principal); F41.9 Anxiety disorder, unspecified; N18.9 Chronic kidney disease, unspecified; I10 Essential (primary) hypertension; Z79.899 Other long term (current) drug therapy
CPT/HCPCS: 36415; 71045; 80053; 83880; 84484; 85025; 87502; 87635; 93005; 99283; 99284

== ENCOUNTER → 2025-01-22 18:20 | Outpatient (BNV) | payer MEDICARE, SELFPAY | PROVIDERS: Visit Provider Radiology Diagnostic Radiology | DX: R06.02 Shortness of breath (principal) | CPT/HCPCS: 71045 ==

== ENCOUNTER → 2025-01-22 18:20 | Outpatient (BNV) | payer MEDICARE, SELFPAY | PROVIDERS: Emergency Provider Student in an Organized Health Care Education/Training Program; PCP Internal Medicine; Visit Provider Internal Medicine | DX: I49.3 Ventricular premature depolarization (principal); Z95.0 Presence of cardiac pacemaker | CPT/HCPCS: 93010 ==

== ENCOUNTER 2025-02-02 08:11 | Outpatient (AMB) | payer MEDICARE, SELFPAY ==
--- NOTE | 2025-02-02 08:21 | A.OFFPC_ITS ---
Vital Signs 02/02/25 08:23 Height 6 ft 4 in Weight 259 lb 8 oz BMI 31.6 BP 130/70 Blood Pressure Location Lt brachial Position Sitting Pulse 59 Pulse Source Pulse Oximeter Temp 97.3 F Temp Source Temporal Artery Scan Pulse Oximetry (%) 100 Oxygen Delivery Method Room Air Intake Visit Reasons: CHRISTIAN Dr Grove Intake Note: Patient is here today for CHRISTIAN from Dr Grove. Tungsten Tender Required: No Magnetic Tape Composer Operator: Not Required per policy Accompanied by: Self / Same As Patient Allergies Iodinated Contrast Media Allergy (Severe, Verified 02/02/25 08:23) Unknown atorvastatin Allergy (Unknown, Verified 02/02/25 08:23) Unknown ezetimibe (Zetia) Allergy (Unknown, Verified 02/02/25 08:23) Unknown niacin Allergy (Unknown, Verified 02/02/25 08:23) Unknown simvastatin Allergy (Unknown, Verified 02/02/25 08:23) Unknown Medication List - Last Reconciled 02/02/25 by Emelina Rios MD allopurinol 100 mg PO BID apixaban (Eliquis) 5 mg PO BID dorzolamide-timolol 22.3-6.8 mg/mL 1 drp ophthalmic (eye) BID ferrous sulfate 325 mg PO DAILY fluoxetine 20 mg PO DAILY insulin aspart U-100 1 sliding scale dose subcut USEASDIRECTD insulin glargine 50 units subcut DAILY ipratropium-albuterol 20-100 mcg/actuation 1 puff inhalation Q6H PRN latanoprost 0.005% 1 drp ophthalmic (eye) BEDTIME lisinopril 20 mg See Protocol PO BEDTIME omeprazole 20 mg PO DAILY@0630 rosuvastatin 20 mg PO DAILY Tobacco use date assessed: 02/02/25 Fall risk assessment: 1 Fall in past year Last assessed Fall Risk: 02/02/25 Dental Screening Dental Screen Date: 02/02/25 Did you have a dental visit in the last 12 months?: Yes Did you have a dental problem in the last 6 months where you did not have access to dental care?: No Was dental information given to patient?: Patient has dentist HPI HPI Comments History of Present Illness Details The patient is an 84-year-old male presenting for physical. He was previously seen in Dr. Grove clinic. He also has a PCP (Don Gonzalez MD) at the [facility] who manages all his medications besides Omeprazole and Fluoxetine. He follows with a roll contour grinder in [facility] (Rajiv Leon) Three weeks ago, the patient experienced dizziness, difficulty breathing, and chest pain, prompting a visit to the emergency department where no abnormalities were found. A week later, the symptoms recurred, leading to another emergency visit where he was found to have a panick attack. The patient has a history of depression, exacerbated by the passing of his a year ago, and had discontinued fluoxetine after his previous doctor retired. Upon resuming fluoxetine, the patient reported significant improvement in mood and symptoms within 24 hours. The patient also reported breaking four teeth while eating a cookie, leading to dental extractions and plans for a new dental plate. The patient has a history of gout, with the last serious attack occurring six months ago, and is currently managed with allopurinol. The patient is diagnosed with diabetes mellitus, managed with insulin, hypertension, managed with lisinopril and HLD managed with rosuvastatin. The patient has a pacemaker and takes apixaban for anticoagulation. The patient is a recovering alcoholic, having been sober for 18 years, and previously attended Alcoholics Anonymous meetings regularly. [facility] Medical History (Updated 02/02/25 @ 09:08 by Emelina Rios MD) Renal cancer Obesity High blood pressure High cholesterol Diabetes Surgical History (Updated 02/02/25 @ 08:35 by NUHA Walton) History of permanent cardiac pacemaker placement History of prostate surgery H/O cataract removal with insertion of prosthetic lens Family History Mother Colon cancer Social History Household Members: None Housing: House Do you presently have visiting nurse or other home services: No Alcohol intake: former Patient Tobacco Use Status: Former Tobacco user Tobacco use type: Cigarette Years Smoked: 10 e-Cigarette/Vaping Use: Never Used Second Hand Smoke Exposure: Yes Advance Directives Date on File: 09/04/24 service: No Current occupational status: retired Cognitive needs: Yes (cane) Hearing needs: No Vision needs: Yes (glasses) Questionnaire PHQ-9 Over the last 2 weeks, how often have you been bothered by any of the following problems? 1. Little interest or pleasure in doing things: nearly every day 2. Feeling down, depressed, or hopeless: several days 3. Trouble falling or staying asleep, or sleeping too much: not at all 4. Feeling tired or having little energy: several days 5. Poor appetite or overeating: not at all 6. Feeling bad about yourself - or that you are a failure or have let yourself or your family down: not at all 7. Trouble concentrating on things, such as reading the newspaper or watching television: not at all 8. Moving or speaking so slowly that other people could have noticed. Or the opposite - being so fidgety or restless that you have been moving around a lot more than usual: not at all 9. Thoughts that you would be better off or of hurting yourself in some way: not at all Total score: 5 Depression Screening Interpretation: Positive (Started Fluoxetine 20 mg. ) Depression Screening Done: Yes Source: Developed by Drs. Nilo Bajwa, Sierra Dejesus, Narciso Clemons and colleagues, with an educational maritza from [employer]. Thrive Questionnaire Date Thrive assessed: 08/31/24 I am a: Patient What is your living situation today?: I have a steady place to live Within the past 12 months, did the food you bought not last and you didn't have the money to get more?: Never true Within the past 12 months, did you worry whether your food would run out before you got money to buy more?: Never true Do you have trouble paying for medicines?: No Do you have trouble getting transportation to medical appointments?: No Do you have trouble paying your heating and electricity bill?: No Do you have trouble taking care of your child, family member or friend?: No Do you have trouble with day-to-day activities such as bathing, preparing meals, shopping, managing finances, etc.?: No Are you currently unemployed and looking for a job?: Yes Are you interested in more education?: No Please select the resources that you would like help with: None Currently or been in a relationship where the following occur: No concerns reported THRIVE Score: 0 AUDIT C Alcohol Use Questionnaire (AUDIT-C) 1. How often do you have a drink containing alcohol?: Never Total Score: 0 REAL-7 AMB Questionnaire REAL-7 Date REAL - 7 assessed: 02/02/25 Feeling nervous, anxious, or on edge: 0 = Not at all Not being able to stop or control worryin = Not at all Worrying too much about different things: 0 = Not at all Trouble relaxin = Not at all Being so restless that it is hard to sit still: 0 = Not at all Becoming easily annoyed or irritable: 0 = Not at all Feeling afraid as if something awful might happen: 0 = Not at all Total REAL-7 score (0-4 normal; 5-9 mild; 10-14 moderate; 15-21 severe): 0 Source: Developed by Drs. Nilo Bajwa, Sierra Dejesus, Narciso Clemons and colleagues, with an educational maritza from [employer]. Review of Systems Const Details: Positives besides what was mentioned in HPI are in BOLD Constitutional: No Weight Change, No Fever, No Chills, No Night Sweats, No Fatigue, No Malaise ENT/Mouth: No Hearing Changes, No Ear Pain, No Nasal Congestion, No Sinus Pain, No Hoarseness, No sore throat, No Rhinorrhea, No Swallowing Difficulty Eyes: No Eye Pain, No Swelling, No Redness, No Foreign Body, No Discharge, No Vision Changes Cardiovascular: No Chest Pain, No SOB, No PND, No Dyspnea on Exertion, No Orthopnea, No Claudication, No Edema, No Palpitations Respiratory: No Cough, No Sputum, No Wheezing, No Smoke Exposure, No Dyspnea Gastrointestinal: No Nausea, No Vomiting, No Diarrhea, No Constipation, No Pain, No Heartburn, No Anorexia, No Dysphagia, No Hematochezia, No Melena, No Flatulence, No Jaundice Genitourinary: No Dysmenorrhea, No DUB, No Dyspareunia, No Dysuria, No Urinary Frequency, No Hematuria, No Urinary Incontinence, No Urgency, No Flank Pain, No Urinary Flow Changes, No Hesitancy Musculoskeletal: No Arthralgias, No Myalgias, No Joint Swelling, No Joint Stiffness, No Back Pain, No Neck Pain, No Injury History Skin: No Skin Lesions, No Pruritis, No Hair Changes, No Breast/Skin Changes, No Nipple Discharge Neuro: No Weakness, No Numbness, No Paresthesias, No Loss of Consciousness, No Syncope, No Dizziness, No Headache, No Coordination Changes, No Recent Falls Psych: No Anxiety/Panic, No Depression, No Insomnia, No Personality Changes, No Delusions, No Rumination, No SI/HI/AH/VH, No Social Issues, No Memory Changes, No Violence/Abuse Hx., No Eating Concerns Heme/Lymph: No Bruising, No Bleeding, No Transfusions History, No Lymphadenopathy Endocrine: No Polyuria, No Polydipsia, No Temperature Intolerance Physical exam (Primary Care) Vital Signs: Last Vital Signs Temp 97.3 F 02/02/25 08:23 Pulse 59 02/02/25 08:23 BP 130/70 02/02/25 08:23 Pulse Ox 100 02/02/25 08:23 Oxygen Delivery Method Room Air 02/02/25 08:23 BMI result Body Mass Index 31.6 Tobacco/Smoking Status: Tobacco use Status Tobacco use date assessed 02/02/25 02/02/25 08:35 Patient Tobacco Use Status Former Tobacco user 02/02/25 08:35 Tobacco use type Cigarette 02/02/25 08:35 e-Cigarette/Vaping Use Never Used 02/02/25 08:35 PHQ-9: PHQ-9 Score PHQ-9: Total score 5 02/02/25 09:13 Depression Screening Interpretation: Positive (Started Fluoxetine 20 mg. ) Thrive Assessment: Date of Thrive Assessment Date Thrive assessed 08/31/24 02/02/25 08:35 Currently or been in a relationship where the following occur: No concerns reported Const Other: Pertinent findings are in BOLD GENERAL APPEARANCE NAD, activity normal for age, well developed/ well nourished, no cyanosis, pallor, or diaphoresis. EYES lids/conjunctiva normal. EARS/NOSE/THROAT Mucous membranes moist, nares normal, lips/teeth normal uvula midline without oral pharyngeal erythema, exudate or swelling TMs normal bilaterally. No lymphangitis/lymphedema. HEAD/NECK normocephalic atraumatic, no facial trauma, neck is supple. RESPIRATORY respiratory effort normal, speaks in full sentences, no tripod position, no accessory muscle use. Lungs clear to auscultation without rhonchi, wheezes, rales CARDIAC Regular rate and rhythm, no edema. ABDOMINAL Soft, ND/NT. No evidence of fluid wave. No pulsatile masses on exam, rebound tenderness, Canada sign or pain over Mcburney's point. MUSCLES/EXTREMITIES No abnormal range of motion, no swelling. SKIN Warm, pink and dry. No rashes, dermatoses, petechiae or lesions. NEUROLOGICAL Speech is clear and appropriate. Normal level of consciousness. Gait and coordination are normal. 5/5 strength in all extremities. PSYCH Normal mood and affect. 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 (2) DM type 2 with diabetic mixed hyperlipidemia: Code(s): E11.69 - Type 2 diabetes mellitus with other specified complication; E78.2 - Mixed hyperlipidemia Category: Medical Plan: - Continue insulin regimen with long-acting and pre-meal doses. (3) Glaucoma: Code(s): H40.9 - Unspecified glaucoma Category: Medical Plan: Continue Eye drops. (4) GERD (gastroesophageal reflux disease): Code(s): K21.9 - Gastro-esophageal reflux disease without esophagitis Category: Medical Plan: Omeprazole prescribed. (5) Gout: Code(s): M10.9 - Gout, unspecified Category: Medical Plan: - Continue current management with allopurinol. - Most recent attack was 6 months ago. (6) Healthcare maintenance: Code(s): Z00.00 - Encounter for general adult medical examination without abnormal findings Category: Medical Plan: CBC, CMP, Lipid panel, A1C, TSH w T4 We will order on the 3 months phone F-U depending if he got them from his other PCP. Vaccine discussion next visit. Colonoscopy: 45-75. Aged out. AAA: Aged out. Ct lung: Aged out. PSA: We will order with next visit. HIV: NI HBV: NI HCV: NI (7) MDD (major depressive disorder): Code(s): F32.9 - Major depressive disorder, single episode, unspecified Category: Medical Plan: - Continue fluoxetine as it has shown significant improvement in symptoms. - Follow-up in three months to assess the need for dosage adjustment. (8) Dental anomaly: Code(s): K00.9 - Disorder of tooth development, unspecified Category: Medical Plan: - Plan for new dental plate after healing from extractions. (9) Pacemaker: Code(s): Z95.0 - Presence of cardiac pacemaker Category: Medical Plan: Follows with roll contour grinder in [facility] every 6 months. Continue Eliquiss and Cardiology F-U. (10) Alcohol use disorder in remission: Code(s): F10.91 - Alcohol use, unspecified, in remission Category: Medical Plan: Continue to monitor for abstinence. Congratulated patient on being sober for 18 years. (11) Hypertension: Code(s): I10 - Essential (primary) hypertension Category: Medical Plan: - Continue current antihypertensive therapy with lisinopril and rosuvastatin. (12) Lower extremity edema: Code(s): R60.0 - Localized edema Category: Medical Plan: Patient has been off lasix for since august after a syncope episode atributted to Orthostatic Hypotension. Continue to monitor off LAsix. No edema in clinic today. Plan During the visit, we discussed the continuation of fluoxetine due to its positive impact on the patient's mood and symptoms. We also reviewed the patient's dental issues and the plan for a new dental plate. The management of gout, diabetes, hypertension, and pacemaker dependency was confirmed to be stable with current medications. The patient is advised to follow up in three months to reassess the need for any changes in the treatment plan. Medications: New omeprazole 20 mg PO DAILY 90 caps 3RF Refilled fluoxetine 20 mg PO DAILY 90 caps 3RF Discontinued omeprazole Discontinued Reason: Duplicate 20 mg PO DAILY@0630
[2025-02-02 08:23] VITALS: BP 130/70; PULSE 59; TEMP 36.3; O2SAT 100; BMI 31.6
--- OUTSIDE RECORDS SUMMARY | 2025-02-02 08:23 | XMS_ITS | Clinical Summary ---
Author Organization [facility] Address [address] [facility] [address] [place] [address] Phone Care Team Providers Care Emergency Services Professional Name Role Phone Don Camacho MD Primary [...] Active ferrous sulfate 325 mg (65 mg kanatak iron) tablet Take 325 mg by mouth. [...] Type Department Care Team Description 01/19/2025 Refill [facility] [address] Floor, [address] [place], [place] [id number] Amelie Landeros DNP 12/15/2024 3:40 PM EDT Office Visit [facility] [address], [address] [place] [address] Rajiv Leon MD Paroxysmal atrial fibrillation (Primary Dx); Second degree type I atrioventricular block 12/08/2024 Orders Only [facility] [address] Floor, [address] [place], [place] [phone] ProviderManuel MD from Last 3 Months Immunizations [...] Description 03/19/2025 10:00 AM EST Office Visit [facility] [address] Floor, [address] [place] [address] Analia Lainez DNP [address] [facility], [address] [place] [address] [email or web address] Due Date Last Done Comments [...] HEMOGLOBIN A1C 5.8 4.3 - 5.8 % [facility] 02/04/2023 7:54 AM EDT 02/04/2023 7:57 AM EDT Jocelyne Villaseñor MILK PROCESSING WORKER LAB BLOOD ORDERABLES Fin al Result Performing Organization Address [facility]/ZIP Co de Phone Number [address] [address] * (ABNORMAL) Basic metabolic panel (02/04/2023 7:54 AM EDT) SODIUM 143 133 - 146 mmol/L [facility] CHLORIDE 103 96 - 108 mmol/L [facility] POTASSIUM 3.9 3.3 - 5.1 mmol/L [facility] CO2 28 21 - 35 mmol/L [facility] BUN 20(H) 6 - 19 mg/dL [facility] CREATININE 1.40 0.5 - 1.5 mg/dL [facility] GLUCOSE 128(H) 70 - 99 mg/dL [facility] CALCIUM 9.3 8.4 - 10.3 mg/dL [facility] EGFR 50(L) >59 mL/min/1.7 3m2 [facility] Comment:Estimated glomerular filtration rate calculated using the CKD-EPI refit equation. ANION GAP 16 10 - 20 mmol/L [facility] Blood 02/04/2023 7:54 AM EDT 02/04/2023 7:57 AM EDT Jocelyne Villaseñor NP LAB BLOOD ORDERABLES Fin al Result Performing Organization Address City/[facility]/ZIP Co de Phone Number [address] [address] from Last 3 Months or Most Recently Relevant to Health Maintenance Insurance MEDICARE PART A & B [employer] MEDEX SUPPLEMENT MEDICARE PART A & B [employer] SUPPLEMENT Member Subscriber Plan / Payer ( fective 2004-Present) Name:Sukh Chino Relation to Subscriber:Self Name:Sukh Chino Payer ID:[id number] (NAIC) Type:Indemnity Address: [address] MEDICARE PART A & B [facility] MEDEX SUPPLEMENT [facility] MEDICARE PART A & B [employer] MEDEX SUPPLEMENT MEDICARE PART A & B [employer] SUPPLEMENT MEDICARE PART A & B [facility] MEDEX SUPPLEMENT Member Subscriber Plan / Payer (Ef fective 2004-Present) Name:Sukh Chino Relation to Subscriber:Self Name:Sukh Chino Payer ID:[id number] (NAIC) Type:Indemnity Address: [address] MEDICARE PART A & B [employer] MEDEX SUPPLEMENT Member Subscriber Plan / Payer (Ef fective 2004-) Name:Sukh Chino Relation to Subscriber:Self Name:Sukh Chino Payer ID:[id number] (NAIC) Type:Indemnity Address: [facility] [id number] MEDICARE PART A & B [employer] MEDEX SUPPLEMENT Member Subscriber Plan / Payer ( fective 2004-) Name:Sukh Chino Relation to Subscriber:Self Name:Sukh Chino Payer ID:[id number] (NAIC) Type:Indemnity Address: [address] MEDICARE PART A & B [employer] MEDEX SUPPLEMENT Member Subscriber Plan / Payer (Ef fective 2004-Present) Name:Sukh Chino Relation to Subscriber:Self Name:Sukh Chino Payer ID:[id number] (NAIC) Type:Indemnity Address: [address] Advance Directives For more information, please contact: [phone] (9AM - 5PM [facility], Wednesday-Wednesday) * DNR/DNI (No CPR/No Intubation) (Latest Code Status on File) Date Activated Date Inactivated Comments 02/03/2023 10:10 PM Question Answer Comments Code Status Confirmed With: Patient Code Discussion Comments: Does not want this res cinded intraoperatively Care Teams Emergency Services Professional Relationship Specialty Start Date End Date Don Camacho MD [address] [place] [phone] PCP - General Internal Medicine 02/03/23 Additional Source Comments The information contained in this document represents components of the legal health record. It is not the complete legal health record.[facility]
--- OUTSIDE RECORDS SUMMARY | 2025-02-02 08:23 | XMS_ITS | Encounter Summary ---
Author Organization [facility] Address [address] [facility] [address] [place] [address] Phone Care Team Providers Care Sales And Marketing Director Name Role Phone Don Camacho MD Primary Care Provider + Encounter Details Date Type Department Care Team (Late st Contact Info) Description 02/04/2023 Procedure Pass [facility] [address] [place] [address] Social History Tobacco Use Types Packs/Day Years [...] Description 03/19/2025 10:00 AM EST Office Visit [facility] [address] [facility] 3rd Floor, [address] [place], [place] [phone] Analia Lainez DNP [address] [facility], [address] [address] documented as of this encounter Visit Diagnoses Not on filedocumented in this encounter Care Teams Sales And Marketing Director Relationship Specialty Start Date End Date Don Camacho MD [address] [place] [id number] PCP - General Internal Medicine 02/03/23 documented as of this encounter Additional Source Comments The information contained in this document represents components of the legal health record. It is not the complete legal health record.[facility]
--- OUTSIDE RECORDS SUMMARY | 2025-02-02 08:23 | XMS_ITS | Encounter Summary ---
Author Organization [facility] Address [address] [facility] [address] [place] [address] Phone Care Team Providers Care Merchandise Flow Team Member Name Role Phone Don Camacho MD Primary Care Provider + Encounter Details Date Type Department Care Team (Late st Contact Info) Description 02/04/2023 Procedure Pass [place] Admitting Dept - Virtual Department [address] [place] [address] Social History Tobacco Use Types Packs/Day Years [...] Description 03/19/2025 10:00 AM EST Office Visit [facility] [address] [facility] 3rd Floor, [address] [place] [address] Analia Lainez DNP [address] [facility], [address] [place] [address] [email or web address] documented as of this encounter Visit Diagnoses Not on filedocumented in this encounter Care Teams Merchandise Flow Team Member Relationship Specialty Start Date End Date Don Camacho MD [address] [place] [phone] PCP - General Internal Medicine 02/03/23 documented as of this encounter Additional Source Comments The information contained in this document represents components of the legal health record. It is not the complete legal health record.[facility]
--- OUTSIDE RECORDS SUMMARY | 2025-02-02 08:23 | XMS_ITS | Encounter Summary ---
Author Organization [facility] Address [address] [facility] [address] [place] [address] Phone Care Team Providers Care Charge Out Clerk Name Role Phone Don Camacho MD Primary Care Provider + Encounter Details Date Type Department Care Team (Late st Contact Info) Description 02/03/2023 Procedure Pass [facility], Ct Scan - [address] [address] Social History Tobacco Use Types Packs/Day Years [...] 8:34 AM EDT Cyndi Heck RN * [place] Suicide Severity Rating Scale (Screener/Recent Self-Report) Question [...] Description 03/19/2025 10:00 AM EST Office Visit [facility] [address] [place] [address] 3rd Floor, [address] [place] [address] Analia Lainez DNP [address] [place] [address] [email or web address] documented as of this encounter Visit Diagnoses Not on filedocumented in this encounter Care Teams Charge Out Clerk Relationship Specialty Start Date End Date Don Camacho MD [address] [place] [phone] PCP - General Internal Medicine 02/03/23 documented as of this encounter Additional Source Comments The information contained in this document represents components of the legal health record. It is not the complete legal health record.[facility]
--- OUTSIDE RECORDS SUMMARY | 2025-02-02 08:23 | XMS_ITS | Encounter Summary ---
Author Organization [facility] Address [address] [facility] [address] [place] [address] Phone Care Team Providers Care Advance Seal Delivery System Maintainer Name Role Phone Don Camacho MD Primary Care Provider + Encounter Details Date Type Department Care Team (Late st Contact Info) Description 04/11/2024 Procedure Pass Echo Lab [address] [place] [address] Social History Tobacco Use Types Packs/Day Years [...] Description 03/19/2025 10:00 AM EST Office Visit [facility] [address] [facility] 3rd Floor, [address] [place], [place] [id number] Analia Lainez DNP [address] [facility], [address] [address] documented as of this encounter Visit Diagnoses Not on filedocumented in this encounter Care Teams Advance Seal Delivery System Maintainer Relationship Specialty Start Date End Date Don Camacho MD [address] [place] [phone] PCP - General Internal Medicine 02/03/23 documented as of this encounter Additional Source Comments The information contained in this document represents components of the legal health record. It is not the complete legal health record.[facility]
== END 2025-02-02 09:01 | disposition home or self-care (01) ==
LOC: HO.HMCH 08:12
PROVIDERS: PCP Internal Medicine; Visit Provider Internal Medicine
DX: E78.00 Pure hypercholesterolemia, unspecified (principal); E11.69 Type 2 diabetes mellitus with other specified complication; E78.2 Mixed hyperlipidemia; H40.9 Unspecified glaucoma; K21.9 Gastro-esophageal reflux disease without esophagitis; M10.9 Gout, unspecified; F32.9 Major depressive disorder, single episode, unspecified; K00.9 Disorder of tooth development, unspecified; Z95.0 Presence of cardiac pacemaker; F10.91 Alcohol use, unspecified, in remission; I10 Essential (primary) hypertension; R60.0 Localized edema

== ENCOUNTER → 2025-02-02 08:11 | Outpatient (BNVA) | payer MEDICARE, SELFPAY | PROVIDERS: PCP Internal Medicine; Visit Provider Internal Medicine | DX: Z00.00 Encounter for general adult medical examination without abnormal findings (principal); F32.A Depression, unspecified; M10.9 Gout, unspecified; I10 Essential (primary) hypertension; E78.5 Hyperlipidemia, unspecified; E78.00 Pure hypercholesterolemia, unspecified; E11.69 Type 2 diabetes mellitus with other specified complication; E78.2 Mixed hyperlipidemia; K21.9 Gastro-esophageal reflux disease without esophagitis; F32.9 Major depressive disorder, single episode, unspecified; K00.9 Disorder of tooth development, unspecified; F10.91 Alcohol use, unspecified, in remission; R60.0 Localized edema; Z79.4 Long term (current) use of insulin; Z95.0 Presence of cardiac pacemaker; Z79.01 Long term (current) use of anticoagulants | CPT/HCPCS: 96127; 99212 ==

== ENCOUNTER 2025-04-07 00:59 | Emergency (ER) | payer MEDICARE, SELFPAY ==
[2025-04-07 01:01] VITALS: BP 140/82; PULSE 73; O2SAT 98
--- NOTE | 2025-04-07 01:03 | ED.GENADULT ---
HPI - General Adult General Chief complaint: Extremity Injury, Lower Stated complaint: gout flare up Time Seen by Provider: 04/07/25 01:03 Source: patient Mode of arrival: ambulatory Limitations: no limitations History of Present Illness ED Provider: Dr. Munguia [facility] narrative: 84-year-old male history of CKD, gout, diabetes, hypertension presented hospital today for right ankle pain. Patient stated that he has shellfish yesterday which may have flare his gout. Patient does have tenderness in his right ankle. No traumatic injuries. Related Data Home Medications ?Medication ?Instructions ?Recorded ?Confirmed allopurinol 100 mg tablet 100 mg PO BID 10/04/20 02/02/25 insulin aspart U-100 100 unit/mL 1 sliding scale dose subcut 10/04/20 02/02/25 subcutaneous cartridge USEASDIRECTD insulin glargine 100 unit/mL (3 50 unit subcut DAILY 10/04/20 02/02/25 mL) subcutaneous pen ipratropium 20 mcg-albuterol 100 1 puff inhalation Q6H PRN 10/04/20 02/02/25 mcg/actuation mist for inhalation Shortness Of Breath Or Wheezing latanoprost 0.005 % eye drops 1 drp ophthalmic (eye) BEDTIME 10/04/20 02/02/25 rosuvastatin 40 mg tablet 20 mg PO DAILY 10/04/20 02/02/25 dorzolamide 22.3 mg-timolol 6.8 1 drp ophthalmic (eye) BID 09/09/21 02/02/25 mg/mL eye drops apixaban 5 mg tablet (Eliquis) 5 mg PO BID 03/11/23 02/02/25 ferrous sulfate 325 mg (65 mg 325 mg PO DAILY 08/30/24 02/02/25 iron) tablet,delayed release Previous Rx's ?Medication ?Instructions ?Recorded lisinopril 20 mg tablet 20 mg PO BEDTIME #0 tabs 09/01/24 fluoxetine 20 mg capsule 20 mg PO DAILY #90 caps 02/02/25 omeprazole 20 mg capsule,delayed 20 mg PO DAILY #90 caps 02/02/25 release colchicine 0.6 mg tablet 0.6 mg PO BID 5 days #10 tabs 04/07/25 prednisone 20 mg tablet 40 mg (2 x 20 mg) PO DAILY 5 days 04/07/25 #10 tabs Allergies Allergy/AdvReac Type Severity Reaction Status Date / Time Iodinated Contrast Media Allergy Severe Unknown Verified 04/07/25 01:07 atorvastatin Allergy Unknown Unknown Verified 04/07/25 01:07 ezetimibe (Zetia) Allergy Unknown Unknown Verified 04/07/25 01:07 niacin Allergy Unknown Unknown Verified 04/07/25 01:07 simvastatin Allergy Unknown Unknown Verified 04/07/25 01:07 Review of Systems Review of Systems: Pertinent review of systems as mentioned in HPI. All other system otherwise negative. FOR[facility]LY [facility], [facility] Past Medical History FORMERLY [facility], [facility]–1983 Narrative: Medical history as mentioned in HPI Medical History (Updated 04/07/25 @ 01:29 by Colette Munguia DO) Renal cancer Obesity High blood pressure High cholesterol Diabetes Surgical History (Updated 02/02/25 @ 08:35 by NUHA Walton) History of permanent cardiac pacemaker placement History of prostate surgery H/O cataract removal with insertion of prosthetic lens Family History Family History Mother Colon cancer Social History Social History Household Members: None Housing: House Do you presently have visiting nurse or other home services: No Alcohol intake: former Patient Tobacco Use Status: Former Tobacco user Tobacco use type: Cigarette Years Smoked: 10 e-Cigarette/Vaping Use: Never Used Second Hand Smoke Exposure: Yes Advance Directives: Yes Advance Directives on File: Yes Advance Directives Date on File: 09/04/24 service: No Current occupational status: retired Cognitive needs: Yes (cane) Hearing needs: No Vision needs: Yes (glasses) Physical Exam ED Exam Exam: General: Pleasant, no distress, interacting appropriately Head: Normacephalic, atraumatic Extremities: Right ankle pain no obvious effusion. No knee effusion appreciated on exam Neurological: Awake and alert, no facial droop noted Skin: Warm and dry Psychiatric: Appropriate mood and thoughts Vital Signs: Vital Signs - 24 hr 04/07/25 01:04 Temperature 97.4 F Pulse Rate 71 Respiratory Rate 18 Blood Pressure 170/54 H Pulse Oximetry 98 Oxygen Delivery Method Room Air BMI result Body Mass Index 32.6 Medications Administered Discontinued Medications Generic Name Dose Route Start Last Admin Trade Name Freq PRN Reason Stop Dose Admin Acetaminophen 975 mg 04/07/25 01:15 04/07/25 01:45 Acetaminophen 325 Mg Tablet PO 04/07/25 01:16 975 mg ONCE ONE Administration Colchicine 1.2 mg 04/07/25 01:14 04/07/25 01:45 Colchicine 0.6 Mg Tablet PO 04/07/25 01:15 1.2 mg ONCE ONE Administration Prednisone 40 mg 04/07/25 01:13 04/07/25 01:44 Prednisone 20 Mg Tablet PO 04/07/25 01:14 40 mg ONCE ONE Administration Medical Decision Making Medical Decision Making MDM Narrative: 84-year-old male history of gout, CKD, hypertension, diabetes presented hospital today for right ankle pain. Patient has suspect this is likely gout flare-up. It is atraumatic in nature. I do not see the need for x-ray or imaging at this time. We will plan to give patient a dose of colchicine Tylenol and a dose of prednisone here. We will discharge patient with a course of prednisone and colchicine to take. Encouraged him to follow up with primary care doctor. Differential Diagnosis Differential Diagnoses: The differential diagnosis associated with the presentation includes Ankle pain, gout, arthritis Chronic Conditions Patient?s care impacted by: Diabetes and Hypertension Discharge Plan Discharge Clinical Impression: Gout attack Qualifiers: Gout site: ankle Gout etiology: unspecified cause Laterality: right Qualified Code(s): M10.9 - Gout, unspecified Patient Disposition: Home, Self-Care Instructions: Low Purine Diet (ED), Gout (ED) Prescriptions: New colchicine 0.6 mg tablet 0.6 mg PO BID 5 Days Qty: 10 0RF prednisone 20 mg tablet 40 mg PO DAILY 5 Days Qty: 10 0RF No Action ferrous sulfate 325 mg (65 mg iron) Tablet,Delayed Release (Dr/Ec) 325 mg PO DAILY lisinopril 20 mg Tablet 20 mg PO BEDTIME Qty: 0 0RF Protocol: Hold for SBP< HOLD for SBP < : 90 latanoprost 0.005 % drops 1 drp ophthalmic (eye) BEDTIME allopurinol 100 mg tablet 100 mg PO BID rosuvastatin 40 mg tablet 20 mg PO DAILY ipratropium-albuterol 20-100 mcg/actuation mist 1 puff inhalation Q6H PRN (Reason: Shortness Of Breath Or Wheezing) insulin glargine 100 unit/mL (3 mL) insulin pen 50 unit subcut DAILY insulin aspart U-100 100 unit/mL cartridge 1 sliding scale dose subcut USEASDIRECTD Patient Comments: 4 times a day. dorzolamide-timolol 22.3-6.8 mg/mL drops 1 drp ophthalmic (eye) BID Eliquis 5 mg tablet 5 mg PO BID fluoxetine 20 mg capsule 20 mg PO DAILY Qty: 90 3RF omeprazole 20 mg capsule,delayed release(DR/EC) 20 mg PO DAILY Qty: 90 3RF Print Language: Solomon Islander
[2025-04-07 01:04] VITALS: BP 170/54; PULSE 71; RESP 18; TEMP 36.3; O2SAT 98; BMI 32.6
--- OUTSIDE RECORDS SUMMARY | 2025-04-07 01:54 | XMS_ITS | Encounter Summary ---
Author Organization [facility] Address [address] [facility] [address] [place] [address] Phone Care Team Providers Care Mud Analysis Well Logging Captain Name Role Phone Don Camacho MD Primary Care Provider + Encounter Details Date Type Department Care Team (Late st Contact Info) Description 02/03/2023 Procedure Pass [facility], Ct Scan - [address] [address] Social History Tobacco Use Types Packs/Day Years [...] 8:34 AM EDT Cyndi Heck RN * [place] Suicide Severity Rating Scale (Screener/Recent Self-Report) Question [...] Care Team (Late st Contact Info) Description 09/18/2025 9:20 AM EDT Office Visit [facility] [address] [facility] 3rd Floor, [address] [place] [address] Rajiv Leon MD [address] [place] [address] documented as of this encounter Visit Diagnoses Not on filedocumented in this encounter Care Teams Mud Analysis Well Logging Captain Relationship Specialty Start Date End Date Don Camacho MD [address] [place] [address] PCP - General Internal Medicine 02/03/23 documented as of this encounter Additional Source Comments The information contained in this document represents components of the legal health record. It is not the complete legal health record.[facility]
--- OUTSIDE RECORDS SUMMARY | 2025-04-07 01:54 | XMS_ITS | Encounter Summary ---
Author Organization [facility] Address [address] [facility] [address] [place] [address] Phone Care Team Providers Care Tax Revenue Officer Name Role Phone Don Camacho MD Primary Care Provider + Encounter Details Date Type Department Care Team ([facility] st Contact Info) Description 02/04/2023 Procedure Pass [facility] [address] [place] [address] Social History Tobacco Use Types Packs/Day Years [...] Description 09/18/2025 9:20 AM EDT Office Visit [facility] [address] [place] [address] 3rd Floor, [address] [place] [address] Rajiv Leon MD [address] [place] [address] documented as of this encounter Visit Diagnoses Not on filedocumented in this encounter Care Teams Tax Revenue Officer Relationship Specialty Start Date End Date Don Camacho MD [address] [place] [address] PCP - General Internal Medicine 02/03/23 documented as of this encounter Additional Source Comments The information contained in this document represents components of the legal health record. It is not the complete legal health record.[facility]
--- OUTSIDE RECORDS SUMMARY | 2025-04-07 01:54 | XMS_ITS | Encounter Summary ---
Author Organization [facility] Address [address] [facility] [address] [place] [address] Phone Care Team Providers Care Technical Marketing Consultant Name Role Phone Don Camacho MD Primary Care Provider + Encounter Details Date Type Department Care Team ([facility] st Contact Info) Description 02/04/2023 Procedure Pass OR Admitting Dept - Virtual Department [address] [place] [address] Social History Tobacco Use Types Packs/Day Years [...] Description 09/18/2025 9:20 AM EDT Office Visit [facility] [address] [place] [address] 3rd Floor, [address] [place] [address] Rajiv Leon MD [address] [place] [address] documented as of this encounter Visit Diagnoses Not on filedocumented in this encounter Care Teams Technical Marketing Consultant Relationship Specialty Start Date End Date Don Camacho MD [address] [place] [address] PCP - General Internal Medicine 02/03/23 documented as of this encounter Additional Source Comments The information contained in this document represents components of the legal health record. It is not the complete legal health record.[facility]
--- OUTSIDE RECORDS SUMMARY | 2025-04-07 01:54 | XMS_ITS | Clinical Summary ---
Author Organization [facility] Address [address] [facility] [address] [place] [address] Phone Care Team Providers Care Grades 7 And 8 Teacher Name Role Phone Don Camacho MD [...] 100 unit/mL (3 mL) injection pen Inject 30 Units under the skin 4 (four) times a day with meals and nightly. Active latanoprost (XALATAN) 0.005 % ophthalmic solution Place 1 drop into each eye nightly at bedtime. 3 Active ferrous sulfate 325 mg (65 mg [place] iron) tablet Take 325 mg by mouth. 4 Active ipratropium-alb uteroL (COMBIVENT RESPIMAT) 20-100 mcg/actuation Mist Take by mouth. 3 Active lisinopril (PRINIVIL,ZESTR IL) 20 MG tablet Take 20 mg by mouth. 4 Active apixaban (ELIQUIS) 5 mg tabletIndicatio ns:Medication refill Take 1 tablet (5 mg total) by mouth 2 (two) times a day. 180 tablet 3 5 Active metoprolol succinate (TOPROL-XL) 25 MG 24 hr tablet Take 1 tablet (25 mg total) by mouth daily. 90 tablet 4 03/19/20 25 Discontinu ed(No longer taking) FLUoxetine (PROZAC) 20 MG capsule Take 1 capsule by mouth every morning. 5 03/19/20 25 Discontinu ed(No longer taking) Active Problems Problem Noted Date Diagnosed Date Cardiac pacemaker in situ 03/19/2025 Assessment & Plan (03/19/2025 10:00 AM EST): Device interrogated today. 10.1-year battery life. RA and RV pacing and sensing stable. 2 nonsustained VT episodes and 23 A-fib episodes with a burden of 0.4%. AP 42.3% and PLAYGROUND WORKER 94.3%. No parameter changes. Plan: Follow-up in 6 months PVC (premature ventricular contraction) 04/11/20 24 Assessment & Plan (04/11/2024 9:45 AM EST): Will add low-dose beta-blockers. Will request for Holter monitor to evaluate her burden. Request for echocardiogram to evaluate for ejection fraction. Paroxysmal atrial fibrillation 04/09/2023 Assessment & Plan (03/19/2025 9:59 AM EST): Low burden at 0.4%. Patient is currently on Eliquis for CVA prophylaxis. Patient has had falls in the past but none recently. He is looking into going into a snf facility with through the [place]. We discussed briefly the Watchman procedure. Will continue to monitor for recurrence of falls. If he has more falls we will discuss the watchman further. For now continue Eliquis as is. Plan: Continue Eliquis Assessment & Plan (04/11/2024 9:44 AM EST): [...] I atrioventricular block 01/09 Assessment & Plan (03/19/2025 9:58 AM EST): Cardiac pacemaker in situ. Assessment & Plan (04/09/2023 9:29 AM EST): [...] Hgb A1C Hyperlipidemia 02/03/2023 Assessment & Plan (03/19/2025 9:59 AM EST): Patient is currently on rosuvastatin and tolerating well. No changes in management at this time. Plan: Continue rosuvastatin Assessment & Plan (02/03/2023 8:44 PM EDT): Continue rosuvastatin. Essential hypertension 02/03/2023 Assessment & Plan (03/19/2025 9:58 AM EST): Blood pressure is under good control. Patient is currently using lisinopril and furosemide. He is tolerating his medications well. No changes in management at this time. Plan: Continue lisinopril Continue furosemide Assessment & Plan (04/09/2023 9:29 AM EST): [...] Encounters Date Type Department Care Team Description 03/19/2025 10:00 AM EST Office Visit [facility] [address], [address] [place] [address] Analia Lainez DNP Essential hypertension (Primary Dx); Second degree type I atrioventricular block; Paroxysmal atrial fibrillation; Hyperlipidemia, unspecified hyperlipidemia type; Cardiac pacemaker in situ 01/19/2025 Refill [facility] [address] [place]rd Floor, [address] [place] [address] Amelie Landeros DNP from Last 3 Months Immunizations Immunization Administration [...] Sign Reading Time Taken Comments Blood Pressure 126/70 03/19/2025 9:31 AM EST Pulse 54 03/19/2025 9:31 AM EST Temperature 36 C (96.8 F) 02/04/2023 12:29 PM EDT Respiratory Rate 16 02/04/2023 10:54 AM EDT Oxygen Saturation 95% 03/19/2025 9:31 AM EST Inhaled Oxygen Concentration - - Weight 119.7 kg (264 lb) 03/19/2025 9:31 AM EST Height 190 cm (6' 2.8 ) 03/19/2025 9:31 AM EST Body Mass Index 33.17 03/19/2025 9:31 AM EST Plan of Treatment Upcoming Encounters Date Type Department Care Team (Late st Contact Info) Description 09/18/2025 9:20 AM EDT Office Visit [facility] [address] [place] [address] 3rd Floor, [address] [place] [address] Rajiv Leon MD [address] [place] [address] Health Maintenance Due Date Last Done Comments DEPRESSION SCREENING 1952 RSV VACCINE (1 - 1-dose 75+ series) 11/27/2014 PNEUMOCOCCAL VACCINES (50+ years) (3 of 3 - PCV20 or PCV21) 09/06/2019 09/05/2014, 03/31/2002 DIABETIC EYE EXAM 02/03/2023 06/08/2016, , 06/08/2016, Additional history exists HEMOGLOBIN A1C 08/05/2023 02/04/2023 CREATININE LEVEL 02/05/2024 02/04/2023, 02/03/2023 POTASSIUM LEVEL 02/05/2024 02/04/2023, 02/03/2023 INFLUENZA VACCINE (#1) 2024 0, 01/09/2020, 02/22/2019, Additional history exists COVID-19 VACCINE ( season) 2025 06/24/2020, 05/27/2020 BLOOD PRESSURE 09/16/2025 03/19/2025 Adult Td,Tdap Booster 04/08/2033 04/08/2023 , 07/08/2010, 03/07/2001 ZOSTER VACCINES Completed 04/28/2021, 12/09, 01/22/2009 HEPATITIS A VACCINES Aged Out No long er eligible based on patient's age to complete this topic HIB VACCINES Aged Out No longer eligi ble based on patient's age to complete this topic IPV VACCINES Aged Out No longer eligi ble [...] 02/04/2023 7:54 AM EDT BASIC METABOLIC PANEL (BMP) STAT 02/04/2023 7:54 AM EDT from Last 3 Months or Most Recently Relevant to Health Maintenance Results * Hemoglobin A1c (02/04/2023 7:54 AM EDT) HEMOGLOBIN A1C 5.8 4.3 - 5.8 % [facility] 02/04/2023 7:54 AM EDT 02/04/2023 7:57 AM EDT us Jocelyne Ingrid Villaseñor RESIST COATER DEVELOPER LAB BLOOD BKR ORDERABLES Final Result [address] [address] * (ABNORMAL) Basic metabolic panel (02/04/2023 7:54 AM EDT) SODIUM 143 133 - 146 mmol/L [facility] CHLORIDE 103 96 - 108 mmol/L [facility] POTASSIUM 3.9 3.3 - 5.1 mmol/L [facility] CO2 28 21 - 35 mmol/L [facility] BUN 20(H) 6 - 19 mg/dL [facility] CREATININE 1.40 0.5 - 1.5 mg/dL [facility] GLUCOSE 128(H) 70 - 99 mg/dL [facility] CALCIUM 9.3 8.4 - 10.3 mg/dL [facility] EGFR 50(L) >59 mL/min/1.7 3m2 [facility] Comment:Estimated glomerular filtration rate calculated using the CKD-EPI refit equation. ANION GAP 16 10 - 20 mmol/L [facility] Blood 02/04/2023 7:54 AM EDT 02/04/2023 7:57 AM EDT us Jocelyne Villaseñor RESIST COATER DEVELOPER LAB BLOOD BKR ORDERABLES Final Result Performing Organization Address City/[facility]/ZIP Co de Phone Number [address] [address] from Last 3 Months or Most Recently Relevant to Health Maintenance Insurance MEDICARE PART A & B [employer]OSS MEDEX SUPPLEMENT MEDICARE PART A & B [employer] MEDEX SUPPLEMENT MEDICARE PART A & B [employer] MEDEX SUPPLEMENT [facility] MEDICARE PART A & B [employer] CROSS MEDEX SUPPLEMENT MEDICARE PART A & B [employer] MEDEX SUPPLEMENT MEDICARE PART A & B Member Subscriber Plan / Payer ( fective 2004-Present) Name:Sukh Chino Member ID:[id number] Relation to Subscriber:Self Name:Sukh Chino Subscriber ID:[id number] Payer ID:[id number] Group ID:Not on file Type:Medicare Address: [facility] [address] [place] [address] [employer] [address]EX [place]LE[place] [address] MEDICARE PART A & B [employer] MEDEX SUPPLEMENT Member Subscriber Plan / Payer (Ef fective 2004-) Name:Sukh Chino Relation to Subscriber:Self Name:Sukh Chino Payer ID:[id number] (NAIC) Type:Indemnity Address: [facility] [id number] MEDICARE PART A & B Member Subscriber Plan / Payer (Ef fective 2004-Present) Name:Sukh Chino Member ID:[id number] Relation to Subscriber:Self Name:Sukh Chino Subscriber ID:[id number] Payer ID:[id number] Group ID:Not on file Type:Medicare Address: [facility] [address] [place] [phone] [facility] MEDEX SUPPLEMENT Member Subscriber Plan / Payer (Ef fective 2004-Present) Name:Sukh Chino Relation to Subscriber:Self Name:Sukh Chino Payer ID:[id number] (NAIC) Type:Indemnity Address: [id number] MEDICARE PART A & B [employer] MEDEX SUPPLEMENT [facility] Advance Directives For more information, please contact: [phone] (9AM - 5PM [facility], Wednesday-Wednesday) * DNR/DNI (No CPR/No Intubation) (Latest Code Status on File) Date Activated Date Inactivated Comments 02/03/2023 10:10 PM Question Answer Comments Code Status Confirmed With: Patient Code Discussion Comments: Does not want this res cinded intraoperatively Care Teams Grades 7 And 8 Teacher Relationship Specialty Start Date End Date Don Camacho MD [address] [place] [address] PCP - General Internal Medicine 02/03/23 Additional Source Comments The information contained in this document represents components of the legal health record. It is not the complete legal health record.[facility]
--- OUTSIDE RECORDS SUMMARY | 2025-04-07 01:54 | XMS_ITS | Encounter Summary ---
Author Organization [facility] Address [address] [facility] [address] [place] [address] Phone Care Team Providers Care Air Cargo Ground Operations Supervisor Name Role Phone Don Camacho MD Primary Care Provider + Encounter Details Date Type Department Care Team (Late st Contact Info) Description 04/11/2024 Procedure Pass Echo Lab [place] [place] [address] Social History Tobacco Use Types Packs/Day Years [...] Description 09/18/2025 9:20 AM EDT Office Visit [facility] [address] [place] [address] 3rd Floor, [address] [place] [address] Rajiv Leon MD [address] [place] [address] documented as of this encounter Visit Diagnoses Not on filedocumented in this encounter Care Teams Air Cargo Ground Operations Supervisor Relationship Specialty Start Date End Date Don Camacho MD [address] [place] [address] PCP - General Internal Medicine 02/03/23 documented as of this encounter Additional Source Comments The information contained in this document represents components of the legal health record. It is not the complete legal health record.[facility]
[2025-04-07] MEDS: oxyCODONE HCl Immed Release 5 MG TABLET PO (04:33)
--- NOTE | 2025-04-07 05:10 | PC.NURSE ---
pt on the phone with daughter, will come to metal pickling equipment operator pt
[2025-04-07 05:44] VITALS: BP 119/56; PULSE 75; TEMP 36.5; O2SAT 94
[2025-04-07 05:55] VITALS: BP 119/56; PULSE 75; RESP 18; TEMP 36.5; O2SAT 94
== END 2025-04-07 05:55 | disposition home or self-care (01) ==
PROVIDERS: Emergency Provider Student in an Organized Health Care Education/Training Program; PCP Internal Medicine
DX: M10.9 Gout, unspecified (principal); I12.9 Hypertensive chronic kidney disease with stage 1 through stage 4 chronic kidney disease, or unspecified chronic kidney disease; E11.22 Type 2 diabetes mellitus with diabetic chronic kidney disease; N18.9 Chronic kidney disease, unspecified
CPT/HCPCS: 99283; 99284

== ENCOUNTER 2025-05-04 09:31 | Outpatient (AMB) | payer MEDICARE, SELFPAY ==
--- NOTE | 2025-05-04 09:31 | A.OFFPC_ITS ---
Intake Visit Reasons: 3mth f/u Cot Assembler Required: No Post Acute Care Nurse Practitioner: Not Required per policy Accompanied by: Self / Same As Patient Allergies Iodinated Contrast Media Allergy (Severe, Verified 05/04/25 09:32) Unknown atorvastatin Allergy (Unknown, Verified 05/04/25 09:32) Unknown ezetimibe (Zetia) Allergy (Unknown, Verified 05/04/25 09:32) Unknown niacin Allergy (Unknown, Verified 05/04/25 09:32) Unknown simvastatin Allergy (Unknown, Verified 05/04/25 09:32) Unknown Tobacco use date assessed: 05/04/25 Fall risk assessment: No Falls in past year Last assessed Fall Risk: 05/04/25 Dental Screening Dental Screen Date: 02/02/25 HPI HPI Comments History of Present Illness Details 84 yo M with PMH of HLD, Gout, GERD, T2D M who had a phone follow-up for MDD management. The patient was seen in clinic on 02/02/2025 to establish care. At that time he reported depression which was exacerbated by the passing of his . He was started on Fluoxetine 20 mg Daily. The patient reports improvement in his depression symptoms few days after starting Fluoxetine. He denies any side effects or complicaitons from the medication. The patient reports improved mood, sleep and apetite. [facility]wise [facility] other chronic medical issues. We will continue to manage the paitent's depression with Fluoxetine and GERD with Omeprazole. [facility] Medical History (Updated 04/08/25 @ 00:00 by Keegan Callaway) Renal cancer Obesity High blood pressure High cholesterol Diabetes Surgical History (Updated 05/04/25 @ 09:33 by NUHA Walton) History of dental surgery History of permanent cardiac pacemaker placement History of prostate surgery H/O cataract removal with insertion of prosthetic lens Family History Mother Colon cancer Social History Household Members: None Housing: House Do you presently have visiting nurse or other home services: No Alcohol intake: former Patient Tobacco Use Status: Former Tobacco user Tobacco use type: Cigarette Years Smoked: 10 e-Cigarette/Vaping Use: Never Used Second Hand Smoke Exposure: Yes Advance Directives Date on File: 09/04/24 service: No Current occupational status: retired Cognitive needs: Yes (cane) Hearing needs: No Vision needs: Yes (glasses) Questionnaire Thrive Questionnaire Date Thrive assessed: 08/31/24 REAL-7 AMB Questionnaire REAL-7 Date REAL - 7 assessed: 02/02/25 Source: Developed by Drs. Nilo Bajwa, Sierra Dejesus, Narciso Clemons and colleagues, with an educational maritza from [employer]. Review of Systems Const Details: As per HPI. Physical exam (Primary Care) Tobacco/Smoking Status: Tobacco use Status Tobacco use date assessed 05/04/25 05/04/25 09:34 Patient Tobacco Use Status Former Tobacco user 05/04/25 09:34 Tobacco use type Cigarette 05/04/25 09:34 e-Cigarette/Vaping Use Never Used 05/04/25 09:34 Thrive Assessment: Date of Thrive Assessment Date Thrive assessed 08/31/24 05/04/25 09:34 Const Other: Not done as it was a phone appointment. Telehealth Telehealth Telehealth Platform: Telephone Location of provider rendering services: practice address Location of patient: address on file Patient Identification confirmed using: Name, : Yes Telehealth method: voice only Patient verbally consented to treatment: Yes Patient verbally consented to billing insurance company: Yes Patient informed of any privacy concerns related to visit: Yes Coding Level of Care Code Tele Est Pt Level 3 (22112) Diagnoses MDD (major depressive disorder) F32.9 GERD (gastroesophageal reflux disease) K21.9 Time Spent (min) 30 Assessment & Plan Assessment & Plan (1) MDD (major depressive disorder): Code(s): F32.9 - Major depressive disorder, single episode, unspecified Category: Medical Plan: Continue Fluoxetine. patient reports improvement in his symptoms. (2) GERD (gastroesophageal reflux disease): Code(s): K21.9 - Gastro-esophageal reflux disease without esophagitis Category: Medical Plan: Continue Omeprazole. Plan Patient recently started on Fluoxetine for depression. He has been tolerating the medication well. Denies current SI or HI.
--- OUTSIDE RECORDS SUMMARY | 2025-05-04 09:33 | XMS_ITS | Clinical Summary ---
Author Organization [facility] Address [address] [place] [phone] Phone Care Team Providers Care Loss Mitigation Specialist Name Role Phone Don Camacho MD Primary [...] capsule Take 20 mg by mouth daily. 01/05/2023 Active rosuvastatin (CRESTOR) 40 MG tablet Take 20 mg by mouth nightly at bedtime. 09/17/2022 Active furosemide (LASIX) 40 MG tablet Take 40 mg by mouth 2 (two) times a day. 01/20/2023 Active insulin aspart U-100 (NOVOLOG) 100 unit/mL (3 mL) injection pen Inject 30 Units under the skin 4 (four) times a day with meals and nightly. Active latanoprost (XALATAN) 0.005 % ophthalmic solution Place 1 drop into each eye nightly at bedtime. 03/16/2023 Active ferrous sulfate 325 mg (65 mg cahto iron) tablet Take 325 mg by mouth. 09/21/2023 Active ipratropium-alb uteroL (COMBIVENT RESPIMAT) 20-100 mcg/actuation Mist Take by mouth. 03/04/2023 Active lisinopril (PRINIVIL,ZESTR IL) 20 MG tablet Take 20 mg by mouth. 12/15/2023 Active apixaban (ELIQUIS) 5 mg tabletIndicatio ns:Medication refill Take 1 tablet (5 mg total) by mouth 2 (two) times a day. 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 10.1-year battery life. RA and RV pacing and sensing stable. 2 nonsustained VT episodes and 23 A-fib episodes with a burden of 0.4%. AP 42.3% and SUPER[employer]ILL 94.3%. No parameter changes. Plan: Follow-up in [...] [facility] is [facility] We discussed briefly the Watchman procedure. Will [...] Description 03/19/2025 10:00 AM EST Office Visit [facility] [address], [address] [place] [address] Analia Lainez DNP Essential hypertension (Primary Dx); Second degree type I atrioventricular block; Paroxysmal atrial fibrillation; Hyperlipidemia, unspecified hyperlipidemia type; Cardiac pacemaker in situ from Last 3 Months Immunizations Immunization Administration [...] Description 09/18/2025 9:20 AM EDT Office Visit [facility] [address] [facility] 3rd Floor, [address] [place] [address] Rajiv Leon MD [address] [place] [phone] [email or web address] Maintenance Due Date Last Done Comments [...] HEMOGLOBIN A1C 5.8 4.3 - 5.8 % [facility] 02/04/2023 7:54 AM EDT 02/04/2023 7:57 AM EDT us Jocelyne Villaseñor MANAGER [employer] LAB BLOOD BKR ORDERABLES Final Result [facility] [address] [place] [address] * (ABNORMAL) Basic metabolic panel (02/04/2023 7:54 AM EDT) SODIUM 143 133 - 146 mmol/L [facility] CHLORIDE 103 96 - 108 mmol/L [facility] POTASSIUM 3.9 3.3 - 5.1 mmol/L [facility] CO2 28 21 - 35 mmol/L [facility] BUN 20(H) 6 - 19 mg/dL [facility] CREATININE 1.40 0.5 - 1.5 mg/dL [facility] GLUCOSE 128(H) 70 - 99 mg/dL [facility] CALCIUM 9.3 8.4 - 10.3 mg/dL [facility] EGFR 50(L) >59 mL/min/1.7 3m2 [facility] Comment:Estimated glomerular filtration rate calculated using the CKD-EPI refit equation. ANION GAP 16 10 - 20 mmol/L [facility] Blood 02/04/2023 7:54 AM EDT 02/04/2023 7:57 AM EDT Jocelyne Villaseñor NP LAB BLOOD BKR ORDERABLES Final Result [facility] [address] [place], [place] [id number] from Last 3 Months or Most Recently Relevant to Health Maintenance Insurance MEDICARE PART A & B [employer] SUPPLEMENT MEDICARE PART A & B [facility] MEDEX SUPPLEMENT [facility] A & B [employer] MEDEX SU[place]LE[place] [address] [address] [place] [address] MEDICARE PART A & B [employer] SUPPLEMENT MEDICARE PART A & B [employer] SUPPLEMENT MEDICARE PART A & B [employer] [place] [address] [place] [address] MEDICARE PART A & B [employer] MEDEX SUPPLEMENT [facility] MEDIC[facility] PART A & B [place] [employer] SUPPLEMENT [facility] MEDICARE PART A & B [employer] MEDEX SUPPLEMENT [facility] Advance Directives For more information, please contact: [phone] (9AM - 5PM [facility], Wednesday-Wednesday) * DNR/DNI (No CPR/No Intubation) (Latest Code Status on File) Date Activated Date Inactivated Comments 02/03/2023 10:10 PM Question Answer Comments Code Status Confirmed With: Patient Code Discussion Comments: [facility] Care Teams Loss Mitigation Specialist Relationship Specialty Start Date End Date Don Camacho MD [address] [place] [address] PCP - General Internal Medicine 02/03/23 Additional Source Comments The information contained in this document represents components of the legal health record. It is not the complete legal health record.[facility]
--- OUTSIDE RECORDS SUMMARY | 2025-05-04 09:33 | XMS_ITS | Encounter Summary ---
Author Organization [facility] Address [address] [facility] [address] [place] [address] Phone Care Team Providers Care Delivery Supervisor Name Role Phone Don Camacho MD Primary Care Provider + Encounter Details Date Type Department Care Team (Late st Contact Info) Description 02/04/2023 Procedure Pass [facility] [address] [place] [address] Social History Tobacco Use Types Packs/Day Years [...] Description 09/18/2025 9:20 AM EDT Office Visit [facility] [address] [facility] 3rd Floor, [address] [place] [address] Rajiv Leon MD [address] [place] [address] documented as of this encounter Visit Diagnoses Not on filedocumented in this encounter Care Teams Delivery Supervisor Relationship Specialty Start Date End Date Don Camacho MD [address] [place] [address] PCP - General Internal Medicine 02/03/23 documented as of this encounter Additional Source Comments The information contained in this document represents components of the legal health record. It is not the complete legal health record.[facility]
--- OUTSIDE RECORDS SUMMARY | 2025-05-04 09:33 | XMS_ITS | Encounter Summary ---
Author Organization [facility] Address [address] [facility] [address] [place] [address] Phone Care Team Providers Care Service Delivery Supervisor Name Role Phone Don Camacho MD Primary Care Provider + Encounter Details Date Type Department Care Team ([facility] st Contact Info) Description 02/04/2023 Procedure Pass [place] Admitting Dept - Virtual Department [address] [place] [address] Social History Tobacco Use Types Packs/Day Years [...] Description 09/18/2025 9:20 AM EDT Office Visit [facility] [address] [place] [address] [address]rd Floor, [address] [place] [address] Rajiv Leon MD [address] [place] [address] documented as of this encounter Visit Diagnoses Not on filedocumented in this encounter Care Teams Service Delivery Supervisor Relationship Specialty Start Date End Date Don Camacho MD [address] [place] [address] PCP - General Internal Medicine 02/03/23 documented as of this encounter Additional Source Comments The information contained in this document represents components of the legal health record. It is not the complete legal health record.[facility]
--- OUTSIDE RECORDS SUMMARY | 2025-05-04 09:33 | XMS_ITS | Encounter Summary ---
Author Organization [facility] Address [address] [facility] [address] [place] [address] Phone Care Team Providers Care Infirmary Attendant Name Role Phone Don Camacho MD Primary Care Provider + Encounter Details Date Type Department Care Team (Late st Contact Info) Description 02/03/2023 Procedure Pass [facility], Ct Scan - [address] [address] Social History Tobacco Use Types Packs/Day Years [...] Description 09/18/2025 9:20 AM EDT Office Visit [facility] [address] [place] [address] [address] Floor, [address] [place] [address] Rajiv Leon MD [address] [place] [address] documented as of this encounter Visit Diagnoses Not on filedocumented in this encounter Care Teams Infirmary Attendant Relationship Specialty Start Date End Date Don Camacho MD [address] [place] [address] PCP - General Internal Medicine 02/03/23 documented as of this encounter Additional Source Comments The information contained in this document represents components of the legal health record. It is not the complete legal health record.[facility]
--- OUTSIDE RECORDS SUMMARY | 2025-05-04 09:34 | XMS_ITS | Encounter Summary ---
Author Organization [facility] Address [address] [facility] [address] [place] [address] Phone Care Team Providers Care Tour Operator Name Role Phone Don Camacho MD Primary Care Provider + Encounter Details Date Type Department Care Team (Late st Contact Info) Description 04/11/2024 Procedure Pass [facility] [address] [place] [address] Social History Tobacco Use Types Packs/Day Years [...] 09/18/2025 9:20 AM EDT Office Visit [facility] [address] [place] [address] [address]rd Floor, [address] [place] [address] Rajiv Leon MD [address] [place] [address] documented as of this encounter Visit Diagnoses Not on filedocumented in this encounter Care Teams Tour Operator Relationship Specialty Start Date End Date Don Camacho MD [address] [place] [address] PCP - General Internal Medicine 02/03/23 documented as of this encounter Additional Source Comments The information contained in this document represents components of the legal health record. It is not the complete legal health record.[facility]
== END 2025-05-04 09:59 | disposition home or self-care (01) ==
LOC: HO.HMCH 09:31
PROVIDERS: PCP Internal Medicine; Visit Provider Internal Medicine
DX: F32.9 Major depressive disorder, single episode, unspecified (principal); K21.9 Gastro-esophageal reflux disease without esophagitis